=== PATIENT | female | born 1930 | race Caucasian/White ===

== ENCOUNTER → 2016-07-31 | Outpatient (CLI) | payer OTHER ==
[~2016-07-31] MED LIST: ALLO100T PO; AMIO200T4 PO; AMLO-110 PO; ATOR10TA88 PO; CETI10TA84 PO; CHOL1000 PO; CLBPO15 TOP; CLC6 PO; DICL1GEL12 TOP; EXLP46 TOP; EXLP95 TOP; FURO20TA PO; GLIP-197 PO; GLIP-199 PO; INSDGI SC; LATA0.5S OP; LEVO112T4 PO; LEVO88TA3 PO; LOSA1TAB PO; MECL1TAB40 PO; NTRGSL/4 UT; NVLG SQ; PRED-301 PO; PRED20TA PO; PRLSR20 PO; RIVA1.5T PO; TRAM-10 PO; TRMO2580 TOP; VNTHFA/IN INH
[2016-07-31 16:37] LABS: URINE APPEARANCE CLEAR (CLEAR); URINE BILIRUBIN NEG (NEG); URINE COLOR YELLOW; URINE NITRITE NEG (NEG); URINE SPECIFIC GRAVITY 1.017 (1.000-1.030); UROBILINOGEN NEG (NEG)
[2016-07-31 16:44] LABS: MANUAL MICROSCOPIC REQUIRED? NO; REVIEW REQ? NO
== END | disposition home or self-care (01) ==
LOC: C.LABSPEC 14:00
PROVIDERS: ATTEND Family Medicine
DX: R42 Dizziness and giddiness (principal)

== ENCOUNTER → 2016-09-20 | Outpatient (CLI) | payer OTHER ==
--- NOTE | 2016-09-20 10:42 | DIAGNOSTIC IMAGING REPORT ---
TWO VIEW CHEST CLINICAL HISTORY: Atrial fibrillation. FINDINGS: PA and lateral chest radiographs are obtained. No prior studies are available for comparison at the time of dictation. The examination is degraded by large body habitus. The heart is enlarged and there is atherosclerotic calcification of the thoracic aorta. The pulmonary vasculature is noncongested. Nonspecific interstitial thickening is noted. Bibasilar atelectasis is observed. No airspace consolidation is seen typical for pneumonia and there is no large pleural effusion. There is no pneumothorax. The skeletal structures are osteopenic. Degenerative changes noted throughout the thoracic spine. IMPRESSION: Cardiomegaly with no active disease in the chest. Electronically signed by: Dave Taylor M.D. 09/20/2016 10:41 AM Dictated Date/Time: 09/20/2016 10:40 AM
== END | disposition home or self-care (01) ==
LOC: C.RAD1850 10:22
PROVIDERS: ATTEND Internal Medicine Clinical Cardiac Electrophysiology
DX: I48.91 Unspecified atrial fibrillation (principal); I51.7 Cardiomegaly

== ENCOUNTER → 2016-10-17 | Outpatient (CLI) | payer OTHER ==
[~2016-10-17] MED LIST changes: +ATOR10TA82 PO; -ATOR10TA88 PO
[2016-10-17 18:17] LABS: ALKALINE PHOSPHATASE 92 U/L (45-117); ALT/SGPT 28 U/L (12-78); AST/SGOT 21 U/L (15-37)
[2016-10-18 06:53] LABS: ESTIMATED AVERAGE GLUCOSE 194 mg/dl; HA1C FLAG Normal (Normal)
== END | disposition home or self-care (01) ==
LOC: C.LABPBG 13:58
PROVIDERS: ATTEND Family Medicine
DX: E11.9 Type 2 diabetes mellitus without complications (principal); R51 Headache; F03.90 Unspecified dementia, unspecified severity, without behavioral disturbance, psychotic disturbance, mood disturbance, and anxiety

== ENCOUNTER → 2016-10-21 | Outpatient (CLI) | payer OTHER ==
[2016-10-25 22:36] LABS: ANTI-CENTROMERE AB <1.0 NEG AI (<1.0 NEG); ANTI-SS-A <1.0 NEG AI (<1.0 NEG); ANTI-SS-B <1.0 NEG AI (<1.0 NEG); DNA ds CRITHIDIA NEGATIVE (NEGATIVE); MICROSOMAL AB <1 IU/ML (<9); Sm Antibody <1.0 NEG AI (<1.0 NEG)
== END | disposition home or self-care (01) ==
LOC: C.LABPBG 11:46
PROVIDERS: ATTEND Psychiatry & Neurology Neurology
DX: M31.6 Other giant cell arteritis (principal)

== ENCOUNTER → 2016-10-24 | Outpatient (CLI) | payer OTHER ==
--- NOTE | 2016-10-24 12:54 | DIAGNOSTIC IMAGING REPORT ---
CT HEAD WITHOUT CONTRAST (CT) CLINICAL HISTORY: R51 New onset of headaches after age 52 COMPARISON STUDY: No previous studies for comparison. TECHNIQUE: Axial CT of the brain is performed from the vertex to the skull base. IV contrast was not administered for this examination. CT DOSE: 638.56 mGycm FINDINGS: No intra or extra-axial mass lesions are visualized. There is no CT evidence of acute cortical infarction. There is no evidence of midline shift. There is no acute hemorrhage. No calvarial fractures are visualized. There are minimal white matter hypodensities likely on a small vessel basis. There is no evidence of pathologic ventricular dilatation. There is no evidence of acute sinusitis IMPRESSION: Normal noncontrast head CT for age Electronically signed by: Artis Elizalde M.D. 10/24/2016 12:52 PM Dictated Date/Time: 10/24/2016 12:51 PM
== END | disposition home or self-care (01) ==
LOC: C.CTS 10:59
PROVIDERS: ATTEND Psychiatry & Neurology Neurology
DX: R51 Headache (principal)

== ENCOUNTER → 2016-10-29 | Outpatient (CLI) | payer OTHER ==
[~2016-10-29] MED LIST changes: +ACETAMINOPHEN 1000 MG/100 ML IV IV ONE
[2016-10-29 17:45] LABS: URINE APPEARANCE CLEAR (CLEAR); URINE BILIRUBIN NEG (NEG); URINE COLOR YELLOW; URINE NITRITE NEG (NEG); URINE PH 5.5 (4.5-7.5); URINE SPECIFIC GRAVITY 1.012 (1.000-1.030); UROBILINOGEN NEG (NEG)
[2016-10-29 17:47] LABS: MANUAL MICROSCOPIC REQUIRED? NO; REVIEW REQ? NO
== END | disposition home or self-care (01) ==
LOC: C.LABPBG 11:58
PROVIDERS: ATTEND Family Medicine
DX: R41.0 Disorientation, unspecified (principal)

== ENCOUNTER → 2016-10-31 | Day surgery (SDC) | payer OTHER ==
[2016-10-24 11:37] VITALS: BMI 34.0
--- NOTE | 2016-10-24 12:24 | PAT Medication Instructions ---
Service Date Oct 24, 2016. Current Home Medication List Albuterol Hfa (Ventolin Hfa), 2-4 PUFFS INH Q6H PRN for Shortness of Breath Allopurinol (Zyloprim), 100 MG PO QAM Amiodarone Hcl (Cordarone), 200 MG PO QAM Amlodipine (Norvasc), 5 MG PO QAM Atorvastatin (Lipitor), 10 MG PO QPM Cetirizine (Zyrtec), 10 MG PO DAILY PRN for PRN Cholecalciferol (Vitamin D3), 1 TAB PO QAM Clobetasol Propionate (Clobetasol Propionate), 1 APPLN TOP 2X WEEK PRN for PRN Colchicine (Colcrys), 1 TAB PO DAILY PRN for GOUT Glipizide (Glipizide Er), 1 TAB PO QAM Insulin Aspart (Novolog), 2-14 UNITS SQ AC PRN for SLIDING SCALE Insulin Glargine (Lantus), 24 UNITS SC QPM Latanoprost (Xalatan 0.005% Oph Catie), 1 DROPS OP HS Levothyroxine Sodium (Levothyroxine Sodium), 1 TAB PO QAM Losartan Potassium (Cozaar), 25 MG PO QAM Meclizine HCl (Meclizine HCl), 1 TAB PO TID PRN for DIZZY Nitroglycerin (Nitrostat), 0.4 MG UT PRN Omeprazole (Prilosec), 20 MG PO BID Prednisone (Prednisone), 20 MG PO TID Rivaroxaban (Xarelto), 15 MG PO QPM Rivastigmine Tartrate (Exelon), 1 PATCH TOP 2PM Triamcinolone Acetonide (Topic (Triamcinolone Acet 0.025%), 1 APPLN TOP BID PRN for HANDS Medication Instructions For Your Scheduled Surgery - Continue as directed: Nitroglycerin (Nitrostat), 0.4 MG UT PRN Rivastigmine Tartrate (Exelon), 1 PATCH TOP 2PM - Hold the following medications 2 days prior to surgery per surgeon and cardiology instructions: Rivaroxaban (Xarelto), 15 MG PO QPM - Hold the following medications 24 hours prior to surgery: Triamcinolone Acetonide (Topic (Triamcinolone Acet 0.025%), 1 APPLN TOP BID PRN for HANDS Clobetasol Propionate (Clobetasol Propionate), 1 APPLN TOP 2X WEEK PRN for PRN - Hold the following medications the morning of surgery: Insulin Aspart (Novolog), 2-14 UNITS SQ AC PRN for SLIDING SCALE Cetirizine (Zyrtec), 10 MG PO DAILY PRN for PRN Cholecalciferol (Vitamin D3), 1 TAB PO QAM Losartan Potassium (Cozaar), 25 MG PO QAM Glipizide (Glipizide Er), 1 TAB PO QAM - Take the following medications the morning of surgery with a sip of water: Albuterol Hfa (Ventolin Hfa), 2-4 PUFFS INH Q6H PRN for Shortness of Breath ( use if needed; BRING TO HOSPITAL) Prednisone (Prednisone), 20 MG PO TID Allopurinol (Zyloprim), 100 MG PO QAM Amiodarone Hcl (Cordarone), 200 MG PO QAM Amlodipine (Norvasc), 5 MG PO QAM Colchicine (Colcrys), 1 TAB PO DAILY PRN for GOUT Omeprazole (Prilosec), 20 MG PO BID Levothyroxine Sodium (Levothyroxine Sodium), 1 TAB PO QAM Meclizine HCl (Meclizine HCl), 1 TAB PO TID PRN for DIZZY - Take the following medications as scheduled the night before surgery: Albuterol Hfa (Ventolin Hfa), 2-4 PUFFS INH Q6H PRN for Shortness of Breath Insulin Glargine (Lantus), 24 UNITS SC QPM Latanoprost (Xalatan 0.005% Oph Catie), 1 DROPS OP HS Insulin Aspart (Novolog), 2-14 UNITS SQ AC PRN for SLIDING SCALE Prednisone (Prednisone), 20 MG PO TID Colchicine (Colcrys), 1 TAB PO DAILY PRN for GOUT Atorvastatin (Lipitor), 10 MG PO QPM Omeprazole (Prilosec), 20 MG PO BID Meclizine HCl (Meclizine HCl), 1 TAB PO TID PRN for DIZZY If you have any questions please call us at [phone] or [phone] or [phone]
[2016-10-24 12:44] LABS: BASO % 0.1 %; BASO ABS # 0.01 K/uL (0-0.2); COMPLETE YES; EOS % 0.1 %; HEMATOCRIT 34.6 % (37-47); IG% 0.3 %; LYMPH % 15.5 %; LYMPH ABS # 2.35 K/uL (1.2-3.4); MEAN CORPUSCULAR HEMOGLOBIN 25.5 pg (25-34); MEAN CORPUSCULAR HGB CONC 31.5 g/dl (32-36); MEAN PLATELET VOLUME 9.3 fL (7.4-10.4); MONO % 9.3 %; NEUT % 74.7 %; PLATELET COUNT 368 K/uL (130-400); RED BLOOD COUNT 4.27 M/uL (4.2-5.4); WHITE BLOOD COUNT 15.12 K/uL (4.8-10.8)
[2016-10-24 13:30] LABS: CALCIUM 9.9 mg/dl (8.5-10.1)
[2016-10-24 13:34] LABS: BUN/CREATININE RATIO 29.6 (10-20); CREATININE 1.5 mg/dl (0.60-1.20); POTASSIUM 4.8 mmol/L (3.5-5.1)
[~2016-10-31] VITALS: Ht 160 cm; Wt 89.3 kg
[~2016-10-31] MED LIST changes: -ACETAMINOPHEN 1000 MG/100 ML IV IV ONE; +ACETAMINOPHEN IV 1000MG/100ML IV SCH; +ATROPINE SULFATE 0.1 MG/ML 5ML SYR IV PRN; +BUPIVACAINE 0.5 % 5 MG/1 ML MPF 30ML VIAL ONE; +CEFAZOLIN 2000 MG/60 ML D5W IV SCH; +EpHEDrine SULFATE INJ 50 MG/ML AMP IV PRN; +FENTANYL CITRATE INJ 50 MCG/1 ML 2 ML VIAL IV PRN; +HYDROmorphone INJ 1 MG/ML SYR IV PRN; +LABETALOL HCL IV 5 MG/ML 20ML IV PRN; +LACTATED RINGER'S 1000ML 1,000 ML IV SCH; +LACTATED RINGER'S 1000ML 500 ML IV ONE; +LIDOCAINE HCL 1% 20 ML VIAL ONE; +MEPERIDINE HCL 25 MG/ML CARP IV PRN; +MIDAZOLAM HCL 1 MG/ML 2ML VIAL ONE; +NURSING VERBAL MED ORDER ONE; +ONDANSETRON INJ 2 MG/ML 2 ML VIAL IV PRN; +PROPOFOL IV EMULSION 10 MG/ML 20 ML VIAL IV ONE; +SODIUM CHLORIDE 0.9% 1000ML 1,000 ML IV SCH
[2016-10-31 05:39] VITALS: BP 174/73; PULSE 70; TEMP 36.8; O2SAT 96; Ht 160 cm; Wt 89.3 kg
--- NOTE | 2016-10-31 06:56 | History & Physical Bridge Note ---
H&P Re-Evaluation Bridge Note: I have examined the patient, reviewed the History & Physical and in the interval since the performance of the History & Physical I have noted the following changes of clinical significance: No changes noted
--- NOTE | 2016-10-31 08:01 | [facility] Operative Report ---
Operative Report Operative Date Oct 31, 2016. Pre-Operative Diagnosis Headaches Post-Operative Diagnosis same Procedure(s) Performed right temporal artery biopsy Surgeon Dr. Basurto Jig Fitter Surgeon(s) Candy Henao-PAC Estimated Blood Loss 10 ml Findings normal anatomy Specimens A: Right temporal Artery Anesthesia mac with local marcaine Complication(s) None Disposition Recovery Room / PACU I attest to the content of the Intraoperative Record and any orders documented therein. Any exceptions are noted below.
--- NOTE | 2016-10-31 08:04 | Discharge Instructions ---
Discharge Instructions Date of Service Oct 31, 2016. Admission Reason for Admission: Headache, Iddm, Chronic Kidney Disease Discharge Discharge Diagnosis / Problem: Headache, Iddm, Chronic Kidney Disease Discharge Goals Goal(s): Decrease discomfort, Improve function Activity Recommendations Activity Limitations: as noted below Lifting Limitations: no more than 10 pounds Exercise/Sports Limitations: until after follow-up appointment May Resume Sexual Activity: after follow-up appointment Shower/Bathe: tomorrow . Instructions / Follow-Up Instructions / Follow-Up Patient can resume Xarelto tomorrow, 11/01/2016. For pain, patient can use over the counter pain medication- Tylenol. Please follow-up in the office with Dr. Basurto in 1-2 weeks. Call to make an appointment. Any questions or concerns please call the office at [phone]. Current Hospital Diet Patient's current hospital diet: Discharge Diet Recommended Diet: Regular Diet Procedures Procedures Performed: Right Temporal Artery Biopsy Pending Studies Studies pending at discharge: yes List of pending studies: Pathology report. Laboratory Results Hemoglobin A1c Test 10/17/16 14:02 Range/Units Estimated Average Glucose 194 mg/dl Hemoglobin A1c 8.4 H 4.5-5.6 % Medical Emergencies . Who to Call and When: Medical Emergencies: If at any time you feel your situation is an emergency, please call 911 immediately. . Non-Emergent Contact Non-Emergency issues call your: Primary Care Provider, Surgeon Call Non-Emergent contact if: temperature is above 101.5, your pain is not controlled, wound has increased drainage, wound has increased redness . "Provider Documentation" section prepared by Candy Henao. . VTE Core Measure Inpt VTE Proph given/why not?: SCD's
--- NOTE | 2016-10-31 08:38 | Anesthesiology Progress Note ---
Anesthesia Post Op Note Date & Time Oct 31, 2016 at 08:38 Vital Signs Pain Intensity: 10 Vital Signs Past 12 Hours Date Time Temp Pulse Resp B/P Pulse Ox O2 Delivery O2 Flow Rate FiO2 10/31/16 08:25 65 17 161/55 95 Room Air 10/31/16 08:15 65 20 172/59 94 Room Air 10/31/16 08:05 65 19 166/47 95 Room Air 10/31/16 07:59 36.5 64 24 138/57 95 Room Air 10/31/16 05:39 36.8 70 18 174/73 96 Room Air Notes Mental Status: alert / awake / arousable, participated in evaluation Pt Amnestic to Procedure: Yes Nausea / Vomiting: adequately controlled Pain: adequately controlled Airway Patency, RR, SpO2: stable & adequate BP & HR: stable & adequate Hydration State: stable & adequate Anesthetic Complications: no major complications apparent
--- NOTE | 2016-10-31 08:39 | OPERATIVE REPORT ---
DATE OF OPERATION: 10/31/2016 PREOPERATIVE DIAGNOSES: Headaches and claudication, rule out giant cell arteritis. POSTOPERATIVE DIAGNOSES: Same. PROCEDURE: Right temporal artery biopsy. SURGEON: Scotty Basurto DO ENFORCEMENT SAFETY OFFICER: Candy Henao PA-C ESTIMATED BLOOD LOSS: Approximately 10 mL. COMPLICATIONS: No immediate. ANESTHESIA: MAC with local Marcaine. DESCRIPTION OF PROCEDURE: After informed consent was obtained, the patient taken to the operating suite, placed in supine position. IV sedation was administered by anesthesia and titrated to effect. After adequate sedation was obtained, the right temporal area was shaved and sterilely prepped and draped in usual fashion. We used an on-table Doppler to ora out the course of the temporal artery. We then made a field block around the area with plain Marcaine. I then used a 15 blade scalpel was used to make an incision directly over the artery itself. We dissected down through the soft tissue using primarily blunt dissection with hemostats. Once we identified the artery, I was able to clamp it proximally and distally, taking about an inch or so of the artery. We cut the artery and tied off the ends using 3-0 silk with double ties on each end. We then passed off the specimen. We irrigated the wound. There was adequate hemostasis at the end of the procedure. We then closed the wound using 5-0 Monocryl in running subcuticular fashion. Dermabond glue was used as a dressing. The patient was awakened and transferred to recovery in stable condition. I attest to the content of the Intraoperative Record and any orders documented therein. Any exceptio ns are noted below.
[2016-10-31 08:43] VITALS: BP 180/67; PULSE 64; TEMP 36.6; O2SAT 94
[2016-10-31 09:13] VITALS: BP 192/80; PULSE 66; TEMP 36.8; O2SAT 94
[2016-10-31 09:43] VITALS: BP 199/84; PULSE 68; TEMP 36.6; O2SAT 96
== END | disposition home or self-care (01) ==
LOC: C.ACU 05:08
PROVIDERS: ATTEND Surgery
DX: R51 Headache (principal); I73.9 Peripheral vascular disease, unspecified; K21.9 Gastro-esophageal reflux disease without esophagitis; N18.3 Chronic kidney disease, stage 3 (moderate); I25.10 Atherosclerotic heart disease of native coronary artery without angina pectoris; F03.90 Unspecified dementia, unspecified severity, without behavioral disturbance, psychotic disturbance, mood disturbance, and anxiety; E11.9 Type 2 diabetes mellitus without complications; E78.5 Hyperlipidemia, unspecified; I10 Essential (primary) hypertension; Z79.01 Long term (current) use of anticoagulants; Z90.49 Acquired absence of other specified parts of digestive tract; Z82.49 Family history of ischemic heart disease and other diseases of the circulatory system; Z80.1 Family history of malignant neoplasm of trachea, bronchus and lung; Z83.6 Family history of other diseases of the respiratory system; Z80.0 Family history of malignant neoplasm of digestive organs

== ENCOUNTER → 2016-11-05 | Outpatient (CLI) | payer OTHER ==
[~2016-11-05] MED LIST changes: -ACETAMINOPHEN IV 1000MG/100ML IV SCH; -ATROPINE SULFATE 0.1 MG/ML 5ML SYR IV PRN; -BUPIVACAINE 0.5 % 5 MG/1 ML MPF 30ML VIAL ONE; -CEFAZOLIN 2000 MG/60 ML D5W IV SCH; -EpHEDrine SULFATE INJ 50 MG/ML AMP IV PRN; -FENTANYL CITRATE INJ 50 MCG/1 ML 2 ML VIAL IV PRN; -HYDROmorphone INJ 1 MG/ML SYR IV PRN; -LABETALOL HCL IV 5 MG/ML 20ML IV PRN; -LACTATED RINGER'S 1000ML 1,000 ML IV SCH; -LACTATED RINGER'S 1000ML 500 ML IV ONE; -LEVO88TA3 PO; -LIDOCAINE HCL 1% 20 ML VIAL ONE; -MEPERIDINE HCL 25 MG/ML CARP IV PRN; -MIDAZOLAM HCL 1 MG/ML 2ML VIAL ONE; -NURSING VERBAL MED ORDER ONE; -ONDANSETRON INJ 2 MG/ML 2 ML VIAL IV PRN; -PROPOFOL IV EMULSION 10 MG/ML 20 ML VIAL IV ONE; -SODIUM CHLORIDE 0.9% 1000ML 1,000 ML IV SCH
[2016-11-05 16:12] LABS: C-REACTIVE PROTEIN 0.48 mg/dl (0-0.29); RHEUMATOID FACTOR < 10.0 U/mL (0-15)
[2016-11-07 17:33] LABS: ALBUMIN 3.9 G/DL (3.8-4.8); GAMMA GLOBULIN 0.7 G/DL (0.8-1.7); TOTAL PROTEIN 7.3 G/DL (6.2-8.3)
== END | disposition home or self-care (01) ==
LOC: C.LAB1850 14:48
PROVIDERS: ATTEND Internal Medicine Rheumatology
DX: M31.6 Other giant cell arteritis (principal); R76.8 Other specified abnormal immunological findings in serum

== ENCOUNTER → 2016-11-25 | Outpatient (CLI) | payer OTHER ==
[2016-11-25 17:31] LABS: BASO % 0.2 %; BASO ABS # 0.02 K/uL (0-0.2); COMPLETE YES; EOS % 0.7 %; IG% 0.3 %; LYMPH % 21.2 %; MEAN CELL VOLUME 84.8 fL (80-100); MEAN CORPUSCULAR HEMOGLOBIN 25.9 pg (25-34); MEAN CORPUSCULAR HGB CONC 30.6 g/dl (32-36); MEAN PLATELET VOLUME 9.8 fL (7.4-10.4); MONO % 5.9 %; NEUT % 71.7 %; PLATELET COUNT 288 K/uL (130-400); RED BLOOD COUNT 4.01 M/uL (4.2-5.4); WHITE BLOOD COUNT 8.96 K/uL (4.8-10.8)
[2016-11-25 18:10] LABS: C-REACTIVE PROTEIN 0.76 mg/dl (0-0.29)
== END | disposition home or self-care (01) ==
LOC: C.LABPBG 15:00
PROVIDERS: ATTEND Internal Medicine Rheumatology
DX: M31.6 Other giant cell arteritis (principal); M35.1 Other overlap syndromes

== ENCOUNTER → 2016-12-30 | Outpatient (CLI) | payer OTHER | END | disposition home or self-care (01) | LOC: C.LABPBG 07:44 | PROVIDERS: ATTEND Internal Medicine Rheumatology | DX: M31.6 Other giant cell arteritis (principal); M35.1 Other overlap syndromes; R70.0 Elevated erythrocyte sedimentation rate ==

== ENCOUNTER 2017-01-01 21:37 | Inpatient (IN) | payer OTHER ==
[~2017-01-01] VITALS: Ht 160 cm; Wt 91.4 kg
[~2017-01-01 21:37] MED LIST changes: -DICL1GEL12 TOP; -EXLP46 TOP; -FURO20TA PO; -GLIP-199 PO; -PRED-301 PO; -TRAM-10 PO
[2017-01-01 21:54] LABS: BASO % 0.1 %; BASO ABS # 0.01 K/uL (0-0.2); COMPLETE YES; HEMATOCRIT 34.8 % (37-47); IG% 0.4 %; LYMPH ABS # 2.18 K/uL (1.2-3.4); MEAN CELL VOLUME 83.1 fL (80-100); MEAN CORPUSCULAR HEMOGLOBIN 25.3 pg (25-34); MEAN CORPUSCULAR HGB CONC 30.5 g/dl (32-36); MONO % 6.4 %; NEUT % 66.1 %; PLATELET COUNT 326 K/uL (130-400); RED BLOOD COUNT 4.19 M/uL (4.2-5.4); WHITE BLOOD COUNT 8.38 K/uL (4.8-10.8)
[2017-01-01] MEDS ORDERED: NITROGLYCERIN OINT 2% 1GM PACKET EXT ONE (22:00)
[2017-01-01 22:03] LABS: INR 1.2 (0.9-1.1); PARTIAL THROMBOPLASTIN RATIO 1.2; PROTHROMBIN TIME (PATIENT) 13.4 SECONDS (9.0-12.0)
[2017-01-01] MEDS ORDERED: GLIP-197 PO (22:10)
[2017-01-01] MEDS ORDERED: EXLP46 TOP (22:17)
[2017-01-01 22:19] LABS: BLOOD UREA NITROGEN 30 mg/dl (7-18); BUN/CREATININE RATIO 16.6 (10-20); CALCIUM 9.2 mg/dl (8.5-10.1); CARBON DIOXIDE 28 mmol/L (21-32); CHLORIDE 106 mmol/L (98-107); GLUCOSE 185 mg/dl (70-99); POTASSIUM 4.1 mmol/L (3.5-5.1); SODIUM 140 mmol/L (136-145)
--- NOTE | 2017-01-01 23:06 | DIAGNOSTIC IMAGING REPORT ---
CHEST ONE VIEW PORTABLE HISTORY: Atypical chest pain. COMPARISON: Chest 09/20/2016. FINDINGS: The heart remains borderline enlarged. The lungs are clear. No pleural effusions. No pneumothorax. IMPRESSION: No significant change compared to the prior study. No acute process. Electronically signed by: Vinicius Francois M.D. 01/01/2017 11:05 PM Dictated Date/Time: 01/01/2017 11:04 PM
--- NOTE | 2017-01-01 23:32 | EMERGENCY ROOM VISIT NOTE ---
History Report prepared by Georgina: Lydia Kay Under the Supervision of: Dr. Saturnino Allen M.D. First contact with patient: 21:40 Chief Complaint: CHEST PAIN Stated Complaint: CHEST PAIN, UPPER GASTRIC PAIN, SOB History of Present Illness The patient is an 86 year old female who presents to the Emergency Room with complaints of chest pain starting 1999 today. She presents to the ED by EMS. She describes the pain as a pressure that goes across her entire chest. She was given 3 nitro in route which has almost completely resolved her pain. She had some SOB and diaphoresis. She denies any nausea, fever, cold symptoms, or abdominal pain. She has had a cholecystectomy. She has a stent in place. She is on Xarelto. She denies any history of blood clots or artificial valve placement. Source of History: patient Onset: 1999 Position: chest Quality: pressure Timing: resolved Modifying Factors (Relieving): other (nitro) Associated Symptoms: + diaphoresis, + SOB, No fevers, No nausea, No abdominal pain Note: Pt denies cold symptoms. Review of Systems See HPI for pertinent positives & negatives. A total of 10 systems reviewed and were otherwise negative. Past Medical & Surgical Medical Problems: (1) Chronic back pain (2) Diabetes mellitus (3) GERD (gastroesophageal reflux disease) (4) Hypertension (5) Hypothyroidism Surgical Problems: (1) History of heart artery stent Family History Diabetes mellitus Hypertension Social History Smoking Status: Never Smoker Marital Status: Occupation Status: retired Current/Historical Medications Scheduled Allopurinol (Zyloprim), 100 MG PO QAM Amiodarone Hcl (Cordarone), 200 MG PO QAM Amlodipine (Norvasc), 10 MG PO QAM Atorvastatin (Lipitor), 10 MG PO QPM Cholecalciferol (Vitamin D3), 1 TAB PO QAM Glipizide (Glipizide Er), 1 TAB PO QAM Glipizide (Glipizide Er), 2.5 TAB PO QPM Insulin Glargine (Lantus), 20 UNITS SC QPM Latanoprost (Xalatan 0.005% Oph Catie), 1 DROPS OP HS Levothyroxine Sodium (Levothyroxine Sodium), 1 TAB PO DAILY Losartan Potassium (Cozaar), 25 MG PO QPM Nitroglycerin (Nitrostat), 0.4 MG UT PRN Omeprazole (Prilosec), 20 MG PO BID Prednisone (Prednisone), 10 MG PO QAM Rivaroxaban (Xarelto), 15 MG PO QPM Rivastigmine Tartrate (Exelon), 4.6 MG TOP DAILY Scheduled PRN Albuterol Hfa (Ventolin Hfa), 2-4 PUFFS INH Q6H PRN for Shortness of Breath Cetirizine (Zyrtec), 10 MG PO DAILY PRN for PRN Clobetasol Propionate (Clobetasol Propionate), 1 APPLN TOP 2X WEEK PRN for PRN Colchicine (Colcrys), 1 TAB PO DAILY PRN for GOUT Insulin Aspart (Novolog), UNITS SQ TIDM PRN for SLIDING SCALE Meclizine HCl (Meclizine HCl), 1 TAB PO TID PRN for DIZZY Triamcinolone Acetonide (Topic (Triamcinolone Acet 0.025%), 1 APPLN TOP BID PRN for HANDS Allergies Coded Allergies: Diclofenac (Verified Allergy, Unknown, UNSURE, 10/31/16) Metformin (Verified Adverse Reaction, Mild, DIARRHEA, 10/31/16) Methadone (Verified Adverse Reaction, Mild, DIZZY, 10/31/16) Morphine and Related (Verified Adverse Reaction, Mild, HALLUCINATION, 10/31) Promethazine (Verified Adverse Reaction, Mild, SEIZURE LIKE ACTIVITY", ) Troglitazone (Verified Adverse Reaction, Mild, INCREASE LFTs, 10/31/16) Uncoded Allergies: NECTARINE (Allergy, Mild, HIVES, 10/24/16) SENSITIVE TO NARCOTICS (Allergy, Unknown, 12/27/02) Physical Exam Vital Signs Date Time Temp Pulse Resp B/P (MAP) Pulse Ox O2 Delivery O2 Flow Rate FiO2 01/01/17 23:23 63 18 148/60 96 Room Air 01/01/17 21:49 96 Room Air 01/01/17 21:47 72 01/01/17 21:46 36.7 68 18 139/58 96 Room Air Physical Exam Constitutional: Vital signs reviewed. Eyes: Pupils are equal round reactive to light. Conjunctiva are noninjected. ENT: Pharynx is clear without erythema or exudate. Mucous membranes are moist. Neck supple without meningeal signs. Respiratory: Clear to auscultation bilaterally. Breath sounds are equal bilaterally. Cardiovascular: Regular rate and rhythm. No rubs or gallops. GI: Soft, nondistended and nontender. Bowel sounds are present. Musculoskeletal: No peripheral edema. No lower extremity tenderness. Integumentary: No cyanosis. Neurological: The patient is awake and alert. No focal deficits. Psychiatric: Normal affect. Medical Decision & Procedures ER Provider Diagnostic Interpretation: X-ray results as stated below per interpretation by me: Chest X-ray: No acute cardiopulmonary process. Laboratory Results 01/01/17 21:05 Red Blood Count 4.19, Mean Corpuscular Volume 83.1, Mean Corpuscular Hemoglobin 25.3, Mean Corpuscular Hemoglobin Concent 30.5, Mean Platelet Volume 10.0, Neutrophils (%) (Auto) 66.1, Lymphocytes (%) (Auto) 26.0, Monocytes (%) (Auto) 6.4, Eosinophils (%) (Auto) 1.0, Basophils (%) (Auto) 0.1, Neutrophils # (Auto) 5.54, Lymphocytes # (Auto) 2.18, Monocytes # (Auto) 0.54, Eosinophils # (Auto) 0.08, Basophils # (Auto) 0.01 01/01/17 21:05 Test 01/01/17 21:05 White Blood Count 8.38 K/uL (4.8-10.8) Red Blood Count 4.19 M/uL (4.2-5.4) Hemoglobin 10.6 g/dL (12.0-16.0) Hematocrit 34.8 % (37-47) Mean Corpuscular Volume 83.1 fL (80-100) Mean Corpuscular Hemoglobin 25.3 pg (25-34) Mean Corpuscular Hemoglobin Concent 30.5 g/dl (32-36) Platelet Count 326 K/uL (130-400) Mean Platelet Volume 10.0 fL (7.4-10.4) Neutrophils (%) (Auto) 66.1 % Lymphocytes (%) (Auto) 26.0 % Monocytes (%) (Auto) 6.4 % Eosinophils (%) (Auto) 1.0 % Basophils (%) (Auto) 0.1 % Neutrophils # (Auto) 5.54 K/uL (1.4-6.5) Lymphocytes # (Auto) 2.18 K/uL (1.2-3.4) Monocytes # (Auto) 0.54 K/uL (0.11-0.59) Eosinophils # (Auto) 0.08 K/uL (0-0.5) Basophils # (Auto) 0.01 K/uL (0-0.2) RDW Standard Deviation 49.0 fL (36.4-46.3) RDW Coefficient of Variation 16.1 % (11.5-14.5) Immature Granulocyte % (Auto) 0.4 % Immature Granulocyte # (Auto) 0.03 K/uL (0.00-0.02) Prothrombin Time 13.4 SECONDS (9.0-12.0) Prothromb Time International Ratio 1.2 (0.9-1.1) Activated Partial Thromboplast Time 30.6 SECONDS (21.0-31.0) Partial Thromboplastin Ratio 1.2 Anion Gap 6.0 mmol/L (3-11) Est Creatinine Clear Calc Drug Dose 25.6 ml/min Estimated GFR () 29.4 Estimated GFR (Non- 25.4 BUN/Creatinine Ratio 16.6 (10-20) Calcium Level 9.2 mg/dl (8.5-10.1) Troponin I < 0.015 ng/ml (0-0.045) Laboratory results as reviewed by me. Medications Administered Medications (Trade) Dose Ordered Sig/Shilpa Route Start Time Stop Time Status Last Admin Dose Admin Nitroglycerin (Nitroglycerin 2% Oint) 0.5 inch NOW ONCE EXT 01/01/17 22:00 01/01/17 22:01 DC 01/01/17 22:04 0.5 INCH ECG Indication: chest pain, diaphoresis, SOB/dyspnea Rate (beats per minute): 72 Rhythm: normal sinus Findings: 1st degree AV block, other (nonspecifit ST and T wave changes in high lateral leads) ED Course 2141: The patient was evaluated in room C9. A complete history and physical exam was performed. 0: Nitroglycerin 0.5 inch EXT. 2244: I reevaluated the patient. She has no chest pain at this time. I discussed the test results and treatment plan with her and her daughter. They verbalized understanding and agreement. She will be evaluated for further management. []: I spoke with Dr. Luis of [facility] hospitalist service. We discussed the patient and her results. The patient will be further evaluated by him. Medical Decision This is an 86-year-old female presents with chest pain. Differential diagnosis includes unstable angina, AL, pleurisy, pneumonia, pulmonary embolism. I did perform a limited focused review of portions of the patient's old chart on the electronic medical record. The patient has had no recent pertinent visits to this hospital. Medication Reconciliation: I attest that I have personally reviewed the patient' s current medication list. Blood Pressure Screening: Patient was found to have a slightly elevated blood pressure due to circumstances. I do not believe that the patient requires hypertension monitoring. I did evaluate the patient as noted above. The patient was placed on a continuous enrollment clerk. The patient was given nitroglycerin in the ambulance. She has minimal pain at this time and was given nitroglycerin paste 0.5 inches. She states she cannot have aspirin as she is on Xarelto. She is not sure why she is on a blood thinner. I did order and personally review the patient's 12-lead EKG and chest x-ray as described above. I did order and review the patient's blood work as noted in the electronic medical record. Troponin is negative. Creatinine is elevated and she is anemic. I did reassess the patient. She is feeling better and has no chest pain at this time. I did discuss the test results with the patient and her daughter. She does have a history of cardiac stent and given her history and risk factors I did feel she should be hospitalized for repeat cardiac enzymes and further evaluation. I did discuss case with the residential case manager. The hospitalist was informed of the patient. Consults Time Called: [id number] Consulting Physician: Dr. Luis of [facility] hospitalist service I spoke with him. We discussed the patient and her results. The patient will be further evaluated by him. Impression Primary Impression: Acute chest pain Additional Impressions: Elevated serum creatinine Anemia, unspecified Scribe Attestation The scribe's documentation has been prepared under my direct and personally reviewed by me in its entirety. I confirm that the note above accurately reflects all work, treatment, procedures, and medical decision making performed by me. Departure Information Dispostion Being Evaluated By Hospitalist Referrals Katina Yang DO (PCP) Patient Instructions My [facility] Health Problem Qualifiers
[2017-01-02] MEDS ORDERED: GLUCOSE 10 TABS/TUBE PO PRN (00:30)
[2017-01-02] MEDS ORDERED: ALBUTEROL HFA 8 GM INHALER INH PRN (00:30)
[2017-01-02] MEDS ORDERED: ACETAMINOPHEN 325 MG TAB PO PRN (00:30)
[2017-01-02] MEDS ORDERED: TRIAMCINOLONE ACET 0.025% CR 15 GM TUBE TOP PRN (00:30)
[2017-01-02] MEDS ORDERED: GLUCOSE 40% GEL 15 GM TUBE PO PRN (00:30)
[2017-01-02] MEDS ORDERED: ONDANSETRON INJ 2 MG/ML 2 ML VIAL IV PRN (00:30)
[2017-01-02] MEDS ORDERED: GLUCAGON FOR INJ 1 MG VIAL SQ PRN (00:30)
[2017-01-02] MEDS ORDERED: NITROGLYCERIN 0.4 MG SL PER TAB CHARGE SL PRN (00:30)
[2017-01-02] MEDS ORDERED: DEXTROSE 50% 50 ML SYR IV PRN (00:30)
[2017-01-02] MEDS ORDERED: CETIRIZINE HCL 10 MG TAB PO PRN (00:30)
[2017-01-02] MEDS ORDERED: CLOBETASOL PROPIONATE 0.05% OINT 15 GM TUBE EXT PRN (00:30)
[2017-01-02] MEDS ORDERED: MECLIZINE HCL 12.5 MG TAB PO PRN (00:30)
[2017-01-02] MEDS ORDERED: INSULIN GLARGINE SOLOSTAR 100 UNITS/ML 3 ML PEN SC ONE (00:30)
[2017-01-02 01:00] VITALS: BP 177/68; PULSE 73; TEMP 36.8; O2SAT 98; Ht 160 cm; Wt 91.4 kg
[2017-01-02 01:16] LABS: CKMB/CK RATIO 3.1 (0-3.0)
[2017-01-02 04:03] VITALS: BP 150/53; PULSE 71; TEMP 37; O2SAT 93
--- NOTE | 2017-01-02 04:27 | History and Physical ---
History & Physical Date & Time of Service: Jan 02, 2017 at 04:17. The patient was examined on 01/01/2017. Chief Complaint: Acute Chest Pain, Stented Coronary Artery Primary Care Physician: Katina Yang DO History of Present Illness Source: patient, family The patient is an 86-year-old female who is brought to the emergency department by EMS due to chest pain that began around 2000 hrs. today. She experiences this as a pressure across her entire chest that was almost completely relieved by 3 nitroglycerin given in route. She did have some shortness of breath and sweats associated and also some brief nausea, but did not have vomiting, abdominal pain or fevers or chills. She did have a cardiac catheterization on 02/15/[address] Lopez at [facility], and had a stent placed in the RCA and in the LAD. Her daughter reports that she has still not had much energy since the time of the catheterization. The pain that she had in 2014 was up higher across her chest. Past Medical/Surgical History Medical Problems: (1) Chronic back pain Status: Chronic (2) Diabetes mellitus Status: Chronic (3) GERD (gastroesophageal reflux disease) Status: Chronic (4) Hypertension Status: Chronic (5) Hypothyroidism Status: Chronic Surgical Problems: (1) History of heart artery stent Status: Resolved Family History Diabetes mellitus Hypertension Social History Smoking Status: Never Smoker Smokeless Tobacco Use: No Alcohol Use: none Drug Use: none Marital Status: Occupational Status: retired Multi-Drug Resistant Organisms History of MDRO: No Allergies Coded Allergies: Diclofenac (Verified Allergy, Unknown, UNSURE, 10/31/16) Metformin (Verified Adverse Reaction, Mild, DIARRHEA, 10/31/16) Methadone (Verified Adverse Reaction, Mild, DIZZY, 10/31/16) Morphine and Related (Verified Adverse Reaction, Mild, HALLUCINATION, 10/31) Promethazine (Verified Adverse Reaction, Mild, SEIZURE LIKE ACTIVITY", ) Troglitazone (Verified Adverse Reaction, Mild, INCREASE LFTs, 10/31/16) Uncoded Allergies: NECTARINE (Allergy, Mild, HIVES, 10/24/16) SENSITIVE TO NARCOTICS (Allergy, Unknown, 12/27/02) Home Medications Scheduled Allopurinol (Zyloprim), 100 MG PO QAM Amiodarone Hcl (Cordarone), 200 MG PO QAM Amlodipine (Norvasc), 10 MG PO QAM Atorvastatin (Lipitor), 10 MG PO QPM Cholecalciferol (Vitamin D3), 1 TAB PO QAM Glipizide (Glipizide Er), 1 TAB PO QAM Glipizide (Glipizide Er), 2.5 TAB PO QPM Insulin Glargine (Lantus), 20 UNITS SC QPM Latanoprost (Xalatan 0.005% Oph Catie), 1 DROPS OP HS Levothyroxine Sodium (Levothyroxine Sodium), 1 TAB PO DAILY Losartan Potassium (Cozaar), 25 MG PO QPM Nitroglycerin (Nitrostat), 0.4 MG UT PRN Omeprazole (Prilosec), 20 MG PO BID Prednisone (Prednisone), 10 MG PO QAM Rivaroxaban (Xarelto), 15 MG PO QPM Rivastigmine Tartrate (Exelon), 4.6 MG TOP DAILY Scheduled PRN Albuterol Hfa (Ventolin Hfa), 2-4 PUFFS INH Q6H PRN for Shortness of Breath Cetirizine (Zyrtec), 10 MG PO DAILY PRN for PRN Clobetasol Propionate (Clobetasol Propionate), 1 APPLN TOP 2X WEEK PRN for PRN Colchicine (Colcrys), 1 TAB PO DAILY PRN for GOUT Insulin Aspart (Novolog), UNITS SQ TIDM PRN for SLIDING SCALE Meclizine HCl (Meclizine HCl), 1 TAB PO TID PRN for DIZZY Triamcinolone Acetonide (Topic (Triamcinolone Acet 0.025%), 1 APPLN TOP BID PRN for HANDS Review of Systems The patient denies palpitations, cough, lower extremity swelling, sore throat, fevers, chills, sweats, weight change, vomiting, abdominal pain, pelvic pain, blood in urine or stool, dysuria, urinary frequency or urgency, lightheadedness , dizziness, headache, memory loss, rash, abnormal bruising or bleeding, imbalance, focal or generalized weakness, numbness or tingling in arms or legs, arthralgias or myalgias, back or neck pain, night sweats, or allergy symptoms. The review of systems is otherwise negative other than for that already noted above, and at least 10 systems have been reviewed. Physical Exam Vital Signs Date Time Temp Pulse Resp B/P (MAP) Pulse Ox O2 Delivery O2 Flow Rate FiO2 01/02/17 04:03 37.0 71 19 150/53 (85) 93 Room Air 01/02/17 04:00 Room Air 01/02/17 01:00 36.8 73 18 177/68 98 Room Air 01/02/17 00:45 62 18 137/68 96 01/01/17 23:23 63 18 148/60 96 Room Air 01/01/17 21:49 96 Room Air 01/01/17 21:47 72 01/01/17 21:46 36.7 68 18 139/58 96 Room Air The patient is awake, well-developed and adequately nourished, alert and oriented 3, normocephalic and atraumatic, lying in bed and in no acute distress. HEENT--PERRL, EOMI, mucous membranes and oropharynx normal. Neck--supple, no JVD or bruits, thyroid normal, trachea midline, no adenopathy. Heart--normal S1 and S2, no extra beats, no murmurs, rubs or gallops. Lungs--a few faint crackles at the bases bilaterally, no respiratory distress, no accessory muscle use. Abdomen--normal bowel sounds and soft, nontender and nondistended, no hernias or masses, no organomegaly. Extremities--no cyanosis, clubbing or edema. There are good distal pulses b/l. Dermatologic--normal skin turgor, normal color, warm and dry, no abnormal lymph nodes, no rash. Neurologic--cranial nerves II through XII grossly intact. Rheumatologic--normal range of motion, nontender, muscles and joints. Psychiatric--normal affect. Diagnostics Laboratory Results Results Past 24 Hours Test 01/01/17 21:05 01/02/17 00:48 01/02/17 01:12 Range/Units White Blood Count 8.38 4.8-10.8 K/uL Red Blood Count 4.19 4.2-5.4 M/uL Hemoglobin 10.6 12.0-16.0 g/dL Hematocrit 34.8 37-47 % Mean Corpuscular Volume 83.1 80-100 fL Mean Corpuscular Hemoglobin 25.3 25-34 pg Mean Corpuscular Hemoglobin Concent 30.5 32-36 g/dl Platelet Count 326 130-400 K/uL Mean Platelet Volume 10.0 7.4-10.4 fL Neutrophils (%) (Auto) 66.1 % Lymphocytes (%) (Auto) 26.0 % Monocytes (%) (Auto) 6.4 % Eosinophils (%) (Auto) 1.0 % Basophils (%) (Auto) 0.1 % Neutrophils # (Auto) 5.54 1.4-6.5 K/uL Lymphocytes # (Auto) 2.18 1.2-3.4 K/uL Monocytes # (Auto) 0.54 0.11-0.59 K/uL Eosinophils # (Auto) 0.08 0-0.5 K/uL Basophils # (Auto) 0.01 0-0.2 K/uL RDW Standard Deviation 49.0 36.4-46.3 fL RDW Coefficient of Variation 16.1 11.5-14.5 % Immature Granulocyte % (Auto) 0.4 % Immature Granulocyte # (Auto) 0.03 0.00-0.02 K/uL Prothrombin Time 13.4 9.0-12.0 SECONDS Prothromb Time International Ratio 1.2 0.9-1.1 Activated Partial Thromboplast Time 30.6 21.0-31.0 SECONDS Partial Thromboplastin Ratio 1.2 Sodium Level 140 136-145 mmol/L Potassium Level 4.1 3.5-5.1 mmol/L Chloride Level 106 98-107 mmol/L Carbon Dioxide Level 28 21-32 mmol/L Anion Gap 6.0 3-11 mmol/L Blood Urea Nitrogen 30 7-18 mg/dl Creatinine 1.80 0.60-1.20 mg/dl Est Creatinine Clear Calc Drug Dose 25.6 ml/min Estimated GFR () 29.4 Estimated GFR (Non- 25.4 BUN/Creatinine Ratio 16.6 10-20 Random Glucose 185 70-99 mg/dl Calcium Level 9.2 8.5-10.1 mg/dl Troponin I < 0.015 < 0.015 0-0.045 ng/ml Total Creatine Kinase 29 26-192 U/L Creatine Kinase MB 0.9 0.5-3.6 ng/ml Creatine Kinase MB Ratio 3.1 0-3.0 Bedside Glucose 180 70-90 mg/dl Diagnostic Radiology Patient Name: TYE VIZCARRA Unit Number: [id number] Dictated: 01/01/172303 Transcribed: 01/01/172303 PA Printed Date/Time: [~ rep prt dt]/[~ rep prt tm] [~ rep ct labl] - [~ rep ct ivnm] [facility] [address] [place] [address] Dictated: 01/01/172303 Transcribed: 01/01/172303 PA Printed Date/Time: [~ rep prt dt]/[~ rep prt tm] [~ rep ct labl] - [~ rep ct ivnm] HISTORY: Atypical chest pain. COMPARISON: Chest 09/20/2016. FINDINGS: The heart remains borderline enlarged. The lungs are clear. No pleural effusions. No pneumothorax. IMPRESSION: No significant change compared to the prior study. No acute process. Electronically signed by: Vinicius Francois M.D. 01/01/2017 11:05 PM Dictated Date/Time: 01/01/2017 11:04 PM The status of this report is Signed. Draft = Not yet reviewed or approved by Radiologist. Signed = Reviewed and approved by Radiologist. <AttendingPhy></AttendingPhy> <FamilyPhy>Katina Yang DO</FamilyPhy> < PrimaryPhy>Katina Yang, </PrimaryPhy> <UnitNumber>[id number]</UnitNumber > <VisitNumber>[id number]</VisitNumber> <PatientName>TYE VIZCARRA</ PatientName> <DateOfBirth>1930</DateOfBirth> <Location>[facility]</Location> < ServiceDate>01/01/17</ServiceDate> <MNE>ESINDI</MNE> <OrderingPhy>Saturnino Allen MD</OrderingPhy> <OrderingPhyMNE>f rep ord dr tan</OrderingPhyMNE> < DictatingPhyMNE>f rep dict dr tan</DictatingPhyMNE> <CCListMNE>f rep ct mne</ CCListMNE> <AdmittingPhyMNE>f pt admit dr tan</AdmittingPhyMNE> <AttendingPhyMNE >f pt attend dr tan</AttendingPhyMNE> <ConsultingPhyMNE>f pt consult dr tan</ConsultingPhyMNE> <FamilyPhyMNE>f pt fam dr tan</FamilyPhyMNE> <OtherPhyMNE>f pt other dr tan</OtherPhyMNE> < PrimaryPhyMNE>f pt prim care dr tan</PrimaryPhyMNE> <ReferringPhyMNE>f pt referring dr tan</ReferringPhyMNE> EKG EKG shows normal sinus rhythm at 72 bpm there are no acute ST-T changes. Impression Assessment and Plan CAD/hypertension/coronary artery stents 2/paroxysmal atrial fibrillation--the patient be admitted to the telemetry unit for serial cardiac enzymes, cardiac rhythm monitoring and a 2-D echocardiogram with Dopplers. Continue amiodarone 200 mg by mouth every morning, amlodipine 10 mg by mouth every morning, losartan potassium 25 mg by mouth every afternoon. We'll hold Xarelto 50 mg by mouth every afternoon for now case a procedure. 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 Mcfarlane. Diabetes mellitus--hold glipizide ER, continue Lantus 20 units subcutaneous every afternoon the give 10 units subcutaneous tonight, and placement Accu- Cheks before meals and at bedtime with NovoLog coverage per scale. Hyperlipidemia--continue atorvastatin 10 mg by mouth every afternoon. Connective tissue disease--continue prednisone 10 mg by mouth every morning. Hypothyroidism--continue levothyroxine sodium. GERD--change omeprazole 20 mg by mouth twice a day to pantoprazole 40 mg by mouth twice a day. Dementia--continue Exelon patch 4.6 mg topically daily. Glaucoma--continue Xalatan. Level of Care Telemetry Advanced Directives Existing Advance Directive: No Existing Living Will: Yes Existing Power of A And P Mechanic: No Resuscitation Status FULL RESUSCITATION VTE Prophylaxis VTE Risk Assessment Done? Y/N: Yes Risk Level: Moderate Given or contraindicated: Other Anticoagulation (Xarelto)
[2017-01-02] MEDS ORDERED: LEVOTHYROXINE 112 MCG TAB PO SCH (06:00)
[2017-01-02 07:58] VITALS: BP 150/72; PULSE 86; TEMP 36.8; O2SAT 92
[2017-01-02] MEDS: INSULIN ASPART 100 UNITS/ML 3 ML PEN SC SCH ×2 (08:05→14:43)
[2017-01-02] MEDS ORDERED: AMLODIPINE BESYLATE 5 MG TAB PO SCH (09:00)
[2017-01-02] MEDS ORDERED: ALLOPURINOL 100 MG TAB PO SCH (09:00)
[2017-01-02] MEDS ORDERED: AMIODARONE 200 MG TAB PO SCH (09:00)
[2017-01-02] MEDS ORDERED: PANTOprazole SOD 40 MG TAB PO SCH (09:00)
[2017-01-02] MEDS ORDERED: RIVASTIGMINE TARTRATE TOP SCH (09:00)
[2017-01-02] MEDS ORDERED: CHOLECALCIFEROL 1000 INTER.UNIT TAB PO SCH (09:00)
[2017-01-02 09:02] LABS: CKMB/CK RATIO 2.3 (0-3.0)
[2017-01-02] MEDS ORDERED: METOPROLOL SUCC 25MG EXT REL TAB PO ONE (09:16)
--- NOTE | 2017-01-02 09:30 | Progress Note ---
Progress Note Date of Service Jan 02, 2017. Progress Note seen in f/u from early AM admit feeling better now no further CP. notes that pain ?maybe lasted 30mins total - can't quite remember - recalls it started when she was in the shower, then went away once she was here and "and they gave me medicines" but has a hard time putting a time frame on it was a deep pain, across all of chest lower chest b/l. radiated to R shoulder. did feel quite SOB --> SOB went away at the same time the pain went away. has felt more fatigued the last few weeks. can't really remember what pain felt like at the time of her cath and stenting - thinks it was different but really can't remember. "it was two years ago, and i have a little bit of dementia" all other ROS otherwise negative except for as above vitals noted nad breathing unlabored no pallor or icterus. significant pain on palpation of rib cage b/l but this is not at all the same pain she was feeling CP - concerning for unstable angina -- location and radiation to R shoulder atypical, but duration/SOB/preceding fatigue in a pt w known CAD certainly worrisome. await further input from cardiology but with CKD suspect safest approach at current will be adjusting meds, then if failing can consider higher risk cath. d/w pt and she expresses understanding of this - but also discussed would want input from cardiology in this regard. third set of cardiac enzymes and echo pending - if anything of worrisome significance this might also make higher risk cath necessary. see CAD below otherwise CAD - add metoprolol. lipids in march total 154, HDL 78, LDL 61, TG 75 --> so while coronaries might benefit from higher potency statin, "whole person" more likely to have some harm - will check lipids in AM -- if more elevated then can consider raising atorvastatin but would not want to do so with lipids as suppressed as hers were in march. also can consider long acting nitrate , but with age and risk of iatrogenesis, would make med changes one at a time as long as she's stable CKD - appearing around stage 3 to early stage 4. baseline Cr 1.5 -- is 1.8 right now - not a huge change from baseline, does not clinically appear dry. f/ u BMP in AM afib - rate controlled, unclear as to why not on anticoagulation - will await further input from cardiology in this regard DVT proph - heparin SQ Diabetes mellitus--A1c 8.4 -- which with age/dementia and comorbidities is probably close to best balance between iatrogenesis and uncontrolled disease. sugars here 180-->74 -- will reduce lantus to 10 HS, continue log insulin supplemental, DC sulfonylurea entirely Connective tissue disease--continue prednisone 10 mg by mouth every morning. Hypothyroidism--continue levothyroxine sodium. GERD--change omeprazole 20 mg by mouth twice a day to pantoprazole 40 mg by mouth twice a day. Dementia--continue Exelon patch 4.6 mg topically daily. Glaucoma--continue Xalatan.
[2017-01-02] MEDS ORDERED: FUROSEMIDE 40 MG TAB PO ONE (10:45)
--- NOTE | 2017-01-02 11:04 | Cardiology Consultation ---
Cardiology Consultation Date of Consultation: Jan 02, 2017. Reason for Consultation: Chest pain Pt evaluation today including: conversation w/ patient, physical exam, chart review, lab review, review of studies, review of inpatient medication list, conversation w/ attending History of Present Illness The patient is an 86-year-old woman known to me from the outpatient setting with a history of coronary artery disease. She states that yesterday with morning when getting out of the shower she began experience some lower chest discomfort associated with some right arm pain. This was [id number] in intensity and was across the precordium. He was in the lower precordial area. She also has some discomfort in the right shoulder that was not worse with movement or activity. The symptoms were associated with some shortness of breath as well. The patient rested for a period of time and contacted her daughter who recommended she seek medical attention. She was brought by ambulance to [facility]. EN route she was administered nitroglycerin which relieved some of her dyspnea but not all of her discomfort. When she she was administered a medication in the emergency room which relieved her symptoms the total duration of her symptoms approach 2 hours. He states that the symptoms are not similar to those experienced prior to her previous coronary intervention. She did have some difficulty characterizing the difference between the 2 however. She states that occasionally she will have some epigastric discomfort. This is fairly mild in nature and not as severe as yesterday. She has a fairly sedentary individual who is accustomed to ambulating and ascending 1 flight of stairs. However, at her residence she often rests during this duration of activity. She has not been sleeping well recently. She does complain of fatigue currently. Her symptoms of dyspnea and discomfort have resolved entirely. She denies any orthopnea recently. She denies any paroxysmal nocturnal dyspnea. She denies any swelling in her lower extremities. Past Medical/Surgical History Gastroesophageal reflux disease Anemia Coronary artery disease status post percutaneous intervention involving the LAD Chronic renal insufficiency with GFR around 30 Dementia Diabetes currently on insulin Hyperlipidemia Elevated sedimentation rate and connective tissue disorder Gout Hypothyroidism Hypertension new her she Temporal arteritis Family History Diabetes mellitus Hypertension Social History Smoking Status: Never Smoker History of Alcohol Use: No Review of Systems Constitutional: + see HPI Respiratory: + see HPI Cardiac: + see HPI Abdomen: + see HPI Neurologic: + see HPI, + memory loss All Other Systems: Reviewed and Negative Allergies Coded Allergies: Diclofenac (Verified Allergy, Unknown, UNSURE, 10/31/16) Metformin (Verified Adverse Reaction, Mild, DIARRHEA, 10/31/16) Methadone (Verified Adverse Reaction, Mild, DIZZY, 10/31/16) Morphine and Related (Verified Adverse Reaction, Mild, HALLUCINATION, 10/31) Promethazine (Verified Adverse Reaction, Mild, SEIZURE LIKE ACTIVITY", ) Troglitazone (Verified Adverse Reaction, Mild, INCREASE LFTs, 10/31/16) Uncoded Allergies: NECTARINE (Allergy, Mild, HIVES, 10/24/16) SENSITIVE TO NARCOTICS (Allergy, Unknown, 12/27/02) Medications Current Inpatient Medications Medications (Trade) Dose Ordered Sig/Shilpa Route Start Time Stop Time Status Last Admin Dose Admin Acetaminophen (Tylenol Tab) 650 mg Q4H PRN PO 01/02/17 00:30 02/01/17 00:29 01/02/17 05:06 650 MG Nitroglycerin (Nitrostat Tab) 0.4 mg UD PRN SL 01/02/17 00:30 02/01/17 00:29 Albuterol (Ventolin Hfa Inhaler) 2 puffs Q6H PRN INH 01/02/17 00:30 02/01/17 00:29 Allopurinol (Zyloprim Tab) 100 mg QAM PO 01/02/17 09:00 02/01/17 08:59 01/02/17 08:02 100 MG Amiodarone HCl (Cordarone Tab) 200 mg QAM PO 01/02/17 09:00 02/01/17 08:59 01/02/17 08:02 200 MG Amlodipine Besylate (Norvasc Tab) 10 mg QAM PO 01/02/17 09:00 02/01/17 08:59 01/02/17 08:02 10 MG Atorvastatin Calcium (Lipitor Tab) 10 mg QPM PO 01/02/17 21:00 02/01/17 20:59 Cetirizine HCl (zyrTEC TAB) 10 mg DAILY PRN PO 01/02/17 00:30 02/01/17 00:29 Cholecalciferol (Vitamin D Tab) 1,000 inter.unit QAM PO 01/02/17 09:00 02/01/17 08:59 01/02/17 08:01 1,000 INTER.UNIT Latanoprost (Xalatan Oph Soln) 1 drops HS OPB 01/02/17 21:00 02/01/17 20:59 Levothyroxine Sodium (Synthroid Tab) 112 mcg DAILYBB PO 01/02/17 06:00 02/01/17 05:59 01/02/17 05:07 112 MCG Losartan Potassium (coZAAR TAB) 25 mg QPM PO 01/02/17 21:00 02/01/17 20:59 Prednisone (PredniSONE TAB) 10 mg QAM PO 01/02/17 09:00 02/01/17 08:59 01/02/17 08:01 10 MG Clobetasol Propionate (Clobetasol Propionate Oint) 1 appln 2xweek PRN EXT 01/02/17 00:30 02/01/17 00:29 Triamcinolone Acetonide (Kenalog 0.025% Crm) 1 appln BID PRN TOP 01/02/17 00:30 02/01/17 00:29 Meclizine HCl (Antivert Tab) 12.5 mg Q6H PRN PO 01/02/17 00:30 02/01/17 00:29 Pantoprazole Sodium (Protonix Tab) 40 mg BID PO 01/02/17 09:00 02/01/17 08:59 01/02/17 08:01 40 MG Ondansetron HCl (Zofran Inj) 4 mg Q6H PRN IV 01/02/17 00:30 02/01/17 00:29 01/02/17 05:06 4 MG Insulin Aspart (novoLOG ASPART) SLIDING SCALE If C... ACHS SC 01/02/17 07:00 02/01/17 06:59 01/02/17 08:05 2 UNITS Glucose (Glucose 40% Gel) UD PRN PO 01/02/17 00:30 02/01/17 00:29 Glucose (Glucose Chew Tab) 1 tabs UD PRN PO 01/02/17 00:30 02/01/17 00:29 Dextrose (Dextrose 50% 50ML Syringe) 50 ml UD PRN IV 01/02/17 00:30 02/01/17 00:29 Glucagon (Glucagon Inj) 1 mg UD PRN SQ 01/02/17 00:30 02/01/17 00:29 Miscellaneous Information (Order Awaiting Action) 1 ea QS N/A 01/02/17 08:00 02/01/17 07:59 Heparin Sodium (Porcine) (Heparin Sq 5000 Unit/0.5ml) 5,000 unit Q12 SQ 01/02/17 21:00 02/01/17 20:59 Insulin Glargine (Lantus Solostar Pen) 10 unit QPM SC 01/02/17 21:00 02/01/17 20:59 Physical Exam Vital Signs Past 12 Hours Date Time Temp Pulse Resp B/P (MAP) Pulse Ox O2 Delivery O2 Flow Rate FiO2 01/02/17 08:00 Room Air 01/02/17 07:58 36.8 86 18 150/72 (98) 92 01/02/17 04:03 37.0 71 19 150/53 (85) 93 Room Air 01/02/17 04:00 Room Air 01/02/17 01:00 36.8 73 18 177/68 98 Room Air 01/02/17 00:45 62 18 137/68 96 01/01/17 23:23 63 18 148/60 96 Room Air She is alert and oriented x3. Mood affect appear normal. She answered all questions appropriately. HEENT: Sclerae are anicteric. Pupils are equal and reactive to light and accommodation. Extraocular movements were intact. Neuro: Cranial nerves intact Neck: Examination of the submandibular region did not reveal any significant lymphadenopathy. Carotids are palpable bilaterally and free of bruits on auscultation. There was no evidence of jugular venous distention. The thyroid was not enlarged. Lungs: . Diffuse crackles throughout all lung esqueda worse at the base. She has normal respiratory effort without use of accessory muscles. There is normal pulmonary excursion. Cardiac: The rhythm was regular. S1 and S2 were normal. Soft holosystolic murmur. The PMI was not markedly displaced on palpation. Abdomen: The abdomen was soft and nontender. Extremities: Patient has bilateral radial pulses that are equal in intensity. There is no evidence cyanosis or clubbing. There was no evidence of significant peripheral edema bilaterally. Skin: There are no rashes noted on examination today. Data Laboratory Results: Last 24 Hours Test 01/01/17 21:05 01/02/17 00:48 01/02/17 01:12 01/02/17 06:47 White Blood Count 8.38 K/uL Red Blood Count 4.19 M/uL Hemoglobin 10.6 g/dL Hematocrit 34.8 % Mean Corpuscular Volume 83.1 fL Mean Corpuscular Hemoglobin 25.3 pg Mean Corpuscular Hemoglobin Concent 30.5 g/dl Platelet Count 326 K/uL Mean Platelet Volume 10.0 fL Neutrophils (%) (Auto) 66.1 % Lymphocytes (%) (Auto) 26.0 % Monocytes (%) (Auto) 6.4 % Eosinophils (%) (Auto) 1.0 % Basophils (%) (Auto) 0.1 % Neutrophils # (Auto) 5.54 K/uL Lymphocytes # (Auto) 2.18 K/uL Monocytes # (Auto) 0.54 K/uL Eosinophils # (Auto) 0.08 K/uL Basophils # (Auto) 0.01 K/uL RDW Standard Deviation 49.0 fL RDW Coefficient of Variation 16.1 % Immature Granulocyte % (Auto) 0.4 % Immature Granulocyte # (Auto) 0.03 K/uL Prothrombin Time 13.4 SECONDS Prothromb Time International Ratio 1.2 Activated Partial Thromboplast Time 30.6 SECONDS Partial Thromboplastin Ratio 1.2 Sodium Level 140 mmol/L Potassium Level 4.1 mmol/L Chloride Level 106 mmol/L Carbon Dioxide Level 28 mmol/L Anion Gap 6.0 mmol/L Blood Urea Nitrogen 30 mg/dl Creatinine 1.80 mg/dl Est Creatinine Clear Calc Drug Dose 25.6 ml/min Estimated GFR () 29.4 Estimated GFR (Non- 25.4 BUN/Creatinine Ratio 16.6 Random Glucose 185 mg/dl Calcium Level 9.2 mg/dl Troponin I < 0.015 ng/ml < 0.015 ng/ml Total Creatine Kinase 29 U/L Creatine Kinase MB 0.9 ng/ml Creatine Kinase MB Ratio 3.1 Bedside Glucose 180 mg/dl 74 mg/dl Test 01/02/17 08:11 Total Creatine Kinase 31 U/L Creatine Kinase MB 0.7 ng/ml Creatine Kinase MB Ratio 2.3 Troponin I < 0.015 ng/ml Imaging: Chest x-ray did not demonstrate pulmonary vascular congestion EKG: No acute ST segment changes Telemetry reviewed: No arrhythmia Assessment & Plan 1. Chest pain: The patient had extended period of chest discomfort without elevation in cardiac biomarkers. The symptoms were somewhat atypical for coronary syndrome. ECHO can be confident based on the objective findings in the atypical nature of her symptoms this is not represent an acute coronary syndrome. While she has a history of coronary disease she does not have other symptoms of coronary insufficiency or angina. I would not advocate any additional cardiac testing at this time. I will continue her on her usual regimen for secondary prevention. 2. Valvular heart disease: Patient is noted to have an element of mitral regurgitation. She had recent echocardiogram and preserved LV systolic function. I do not believe she has any acute symptoms related to her valvular heart disease. She 3. Atrial fibrillation: Patient has a history of atrial fibrillation is maintained on amiodarone. Her rhythm during this hospitalization has been sinus. She is also on Xarelto for stroke prophylaxis. This is prescribed at reduced dose due to her impaired renal function. 4. Pulmonary vascular congestion: Patient's exam today supports a diagnosis of mild pulmonary edema. She has no overt symptoms but may benefit from a single dose of diuretic. This may be related to higher blood pressures. She has had some trouble controlling her blood pressures recently and there is a possibility that her symptoms are related to an element of pulmonary vascular congestion that was relieved with nitroglycerin administration in the ambulance. I will follow up with her in the clinic to see if the daily dose of diuretic is required.
[2017-01-02 11:59] VITALS: BP 146/63; PULSE 64; TEMP 36.6; O2SAT 96
[2017-01-02 14:57] VITALS: BP 146/63; PULSE 64; TEMP 36.6; O2SAT 96
[2017-01-02 15:20] VITALS: BP 151/75; PULSE 65; TEMP 36.7; O2SAT 92
--- NOTE | 2017-01-02 15:29 | Discharge Instructions ---
Discharge Instructions Date of Service Jan 02, 2017. Admission Reason for Admission: Acute Chest Pain, Stented Coronary Artery Discharge Discharge Diagnosis / Problem: chest pain - fortunately not a heart attack Discharge Goals Goal(s): Diagnostic testing Activity Recommendations Activity Limitations: resume your previous activity . Instructions / Follow-Up Instructions / Follow-Up your chest pain fortunately was not a heart attack, after further review and discussion with cardiology, Dr Mcfarlane feels that there was probably a little bit of fluid that got backed up from your heart into your lungs -- which was why we gave a dose of lasix (furosemide). since it only happened once, it's not likely to be a recurring problem, and before we make any changes to medications that could cause side effects, we'll have you follow closely with Dr Mcfarlane over the near future. -a safe thing would be to just be careful about sodium intake - when you take in more sodium your body retains more water - so try to stay less than 2000mg of sodium in any given day -separately, we'd recommend holding off on your glipizide for the time being - continue to follow with Dr Yang and she can help guide you on restarting it or simply adjusting insulins some Call your Primary Care doctor if any of the following symptoms or problems start or get worse: * Shortness of breath or difficulty breathing * Wake up at night short of breath * Chest pain * Cough * Swelling of your hands, feet, or legs * More fatigued or tired with your normal activity * Palpitations - sudden fast heart beats WEIGHT * Weigh yourself every morning after using the bathroom. * Use the same scale. * Wear the same amount of clothing. * Write your weight down on a chart. * Call your Primary Care doctor if you gain more than 2-3 pounds in 1-2 days. MEDICATIONS * Use this discharge instruction sheet for medication instructions. * Take your medications at the time your doctor ordered. * Do not skip a dose of your medicines. * If you miss a dose of medicine, take it as soon as possible, but DO NOT DOUBLE A DOSE. * Read your medicine information when you get home. * Know all of the side effects of your medicine. If in doubt, ask your pharmacist * Call your Primary Care doctor's office if you have any side effects. * Be sure all of your doctors know what medicine and herbs you take (including cold, flu, and herbal medicine). Take the following with you to your follow-up doctor appointments: * Weight Chart * Medication List * List of questions Do not drink excessive alcohol, beer or wine. Current Hospital Diet Patient's current hospital diet: AHA Diet (Heart Healthy), Diabetes Type 2 Diet Discharge Diet Recommended Diet: AHA Diet (Heart Healthy), Diabetes Type 2 Diet Pending Studies Studies pending at discharge: no Laboratory Results Hemoglobin A1c Test 10/17/16 14:02 Range/Units Estimated Average Glucose 194 mg/dl Hemoglobin A1c 8.4 H 4.5-5.6 % Medical Emergencies . Who to Call and When: Call 911 or go to the Emergency Room if: * If at any time you feel your situation is an emergency * You have tightness or pain in your chest that does not go away with rest or Nitroglycerin * You are very short of breath even with rest . Non-Emergent Contact Non-Emergency issues call your: Primary Care Provider, Occupational Safety And Health Manager . . "Provider Documentation" section prepared by Bharathi Cheng. . VTE Core Measure Inpt VTE Proph given/why not?: Other Anticoagulation (Xarelto)
--- NOTE | 2017-01-02 15:45 | Discharge Summary ---
Discharge Summary Date of Service Jan 02, 2017. Discharge Summary Admission Date: Jan 02, 2017 at 00:13 Discharge Date: Jan 02, 2017 Discharge Disposition: Home Principal Diagnosis: nonspecific chest pain likely very mild diastolic CHF Procedures: Last 24 Hours Test 01/01/17 21:05 01/02/17 00:48 01/02/17 01:12 01/02/17 06:47 White Blood Count 8.38 K/uL Red Blood Count 4.19 M/uL Hemoglobin 10.6 g/dL Hematocrit 34.8 % Mean Corpuscular Volume 83.1 fL Mean Corpuscular Hemoglobin 25.3 pg Mean Corpuscular Hemoglobin Concent 30.5 g/dl Platelet Count 326 K/uL Mean Platelet Volume 10.0 fL Neutrophils (%) (Auto) 66.1 % Lymphocytes (%) (Auto) 26.0 % Monocytes (%) (Auto) 6.4 % Eosinophils (%) (Auto) 1.0 % Basophils (%) (Auto) 0.1 % Neutrophils # (Auto) 5.54 K/uL Lymphocytes # (Auto) 2.18 K/uL Monocytes # (Auto) 0.54 K/uL Eosinophils # (Auto) 0.08 K/uL Basophils # (Auto) 0.01 K/uL RDW Standard Deviation 49.0 fL RDW Coefficient of Variation 16.1 % Immature Granulocyte % (Auto) 0.4 % Immature Granulocyte # (Auto) 0.03 K/uL Prothrombin Time 13.4 SECONDS Prothromb Time International Ratio 1.2 Activated Partial Thromboplast Time 30.6 SECONDS Partial Thromboplastin Ratio 1.2 Sodium Level 140 mmol/L Potassium Level 4.1 mmol/L Chloride Level 106 mmol/L Carbon Dioxide Level 28 mmol/L Anion Gap 6.0 mmol/L Blood Urea Nitrogen 30 mg/dl Creatinine 1.80 mg/dl Est Creatinine Clear Calc Drug Dose 25.6 ml/min Estimated GFR () 29.4 Estimated GFR (Non- 25.4 BUN/Creatinine Ratio 16.6 Random Glucose 185 mg/dl Calcium Level 9.2 mg/dl Troponin I < 0.015 ng/ml < 0.015 ng/ml Total Creatine Kinase 29 U/L Creatine Kinase MB 0.9 ng/ml Creatine Kinase MB Ratio 3.1 Bedside Glucose 180 mg/dl 74 mg/dl Test 01/02/17 08:11 01/02/17 11:19 Total Creatine Kinase 31 U/L Creatine Kinase MB 0.7 ng/ml Creatine Kinase MB Ratio 2.3 Troponin I < 0.015 ng/ml Bedside Glucose 162 mg/dl Consultations: cardiology Medication Reconciliation Continued Medications: Albuterol Hfa (Ventolin Hfa) 200 Puffs/77825 Mcg Aers 2-4 PUFFS INH Q6H PRN for Shortness of Breath, #1 INHALER Allopurinol (Zyloprim) 100 Mg Tab 100 MG PO QAM, TAB Amiodarone Hcl (Cordarone) 200 Mg Tab 200 MG PO QAM, TAB Amlodipine (Norvasc) 5 Mg Tab 10 MG PO QAM, TAB Atorvastatin (Lipitor) 10 Mg Tab 10 MG PO QPM, TAB Cetirizine (Zyrtec) 10 Mg Tab 10 MG PO DAILY PRN for PRN, TAB Cholecalciferol (Vitamin D3) 1,000 Unit Tab 1 TAB PO QAM, TAB 3 Refills Clobetasol Propionate (Clobetasol Propionate) 45 Appln/15 Gm Oint 1 APPLN TOP 2X WEEK PRN for PRN, #60 GM 2 Refills Colchicine (Colcrys) 0.6 Mg Tab 1 TAB PO DAILY PRN for GOUT Insulin Aspart (Novolog) 100 Units/Ml Inj UNITS SQ TIDM PRN for SLIDING SCALE 150-180 = 2UNITS, 180-210 = 4 UNITS, 211-240 = 6 UNITS, 241-270 = 8 UNITS, 271-300 = 10 UNITS, 301-330 = 11 UNITS, 331-360 = 12 UNITS, 361-390 = 13 UNITS, 391-420 = 14 UNITS, 421-450 = 15 UNITS, 451-480 = 16 UNITS, >480 = 17 UNITS & CALL Insulin Glargine (Lantus) 100 Unit/Ml Inj 20 UNITS SC QPM, VIAL Latanoprost (Xalatan 0.005% Oph Catie) 0.005 % Catie 1 DROPS OP HS, #2.5 ML 3 Refills Levothyroxine Sodium (Levothyroxine Sodium) 112 Mcg Tab 1 TAB PO DAILY for 30 Days, #30 TAB 5 Refills Losartan Potassium (Cozaar) 25 Mg Tab 25 MG PO QPM, TAB Meclizine HCl (Meclizine HCl) 12.5 Mg Tab 1 TAB PO TID PRN for DIZZY, TAB Nitroglycerin (Nitrostat) 0.4 Mg Tab 0.4 MG UT PRN, BTL Omeprazole (Prilosec) 20 Mg Capcr 20 MG PO BID, CAP Prednisone (Prednisone) 20 Mg Tab 10 MG PO QAM, TAB Rivaroxaban (Xarelto) 15 Mg Tab 15 MG PO QPM, TAB Rivastigmine Tartrate (Exelon) 4.6 Mg Tdsy 4.6 MG TOP DAILY Triamcinolone Acetonide (Topic (Triamcinolone Acet 0.025%) 0.025 % Oin 1 APPLN TOP BID PRN for HANDS, #30 GM 1 Refill Discharge Exam Physical Exam: General Appearance: no apparent distress Eyes: EOMI ENT: hearing grossly normal Neck: trachea midline Respiratory/Chest: lungs clear, normal breath sounds, no respiratory distress, no accessory muscle use Extremities: normal inspection Neurologic/Psychiatric: trauma coordinator II-XII nml as tested, alert, normal mood/affect Skin: normal color, warm/dry Hospital Course CP - concerning for unstable angina -- but location and quality fairly atypical - symptoms lasted for a while with negative enzymes, cardiology opinion was that it most likely related to mild CHF - treated with lasix --> improved. stable for home mild diastolic CHF - lasix x1. not an ongoing issue for her; and with age/ frailty, will refrain from chronic diuretic at this time so as not to cause iatrogenic harm CAD - considered adding metoprolol but cardiology felt it prudent to hold off at this time. lipids in march total 154, HDL 78, LDL 61, TG 75 --> so while coronaries might benefit from higher potency statin, "whole person" more likely to have some harm - continue atorva 10mg and follow CKD - appearing around stage 3 to early stage 4. baseline Cr 1.5 -- is 1.8 right now - not a huge change from baseline, does not clinically appear dry. f/ u BMP periodically as outpt afib - rate controlled, anticoagulated. DVT proph - anticoagulation Diabetes mellitus--A1c 8.4 -- which with age/dementia and comorbidities is probably close to best balance between iatrogenesis and uncontrolled disease. sugars here 180-->74 -- will dc glipizide for now, continue just with insulins - PCP f/u Connective tissue disease--continue prednisone 10 mg by mouth every morning. Hypothyroidism--continue levothyroxine sodium. GERD--change omeprazole 20 mg by mouth twice a day to pantoprazole 40 mg by mouth twice a day. Dementia--continue Exelon patch 4.6 mg topically daily. Glaucoma--continue Xalatan. stable for home - close PCP and cardiology f/u Total Time Spent: Less than 30 minutes This includes examination of the patient, discharge planning, medication reconciliation, and communication with other providers. Discharge Instructions Please refer to the electronic Patient Visit Report (Discharge Instructions) for additional information. Additional Copies To Aaron Mcfarlane MD; Katina Yang,
[2017-01-02] MEDS ORDERED: ATORVASTATIN 10 MG TAB PO SCH (21:00)
[2017-01-02] MEDS ORDERED: LATANOPROST 0.005% OP SOLN 2.5 ML BTL OPB SCH (21:00)
[2017-01-02] MEDS ORDERED: LOSARTAN POTASSIUM 25 MG TAB PO SCH (21:00)
[2017-01-02] MEDS ORDERED: HEPARIN SOD 5000 UNIT/0.5 ML CARP SQ SCH (21:00)
[2017-01-02] MEDS ORDERED: INSULIN GLARGINE SOLOSTAR 100 UNITS/ML 3 ML PEN SC SCH ×2 (21:00)
[2017-01-03] MEDS ORDERED: METOPROLOL SUCC 25MG EXT REL TAB PO SCH (09:00)
[2017-03-13] MEDS ORDERED: DICL1GEL12 TOP (17:04)
[2017-03-13] MEDS ORDERED: TRAM-10 PO (17:04)
== END 2017-01-02 16:20 | disposition home or self-care (01) | DRG 292 ==
LOC: EDBD 21:37 → C.EDC 21:38 → C.2T 01-02 00:13 → ENRESERV 01-02 00:31
PROVIDERS: ADMIT Hospitalist; ATTEND Family Medicine
DX: I13.0 Hypertensive heart and chronic kidney disease with heart failure and stage 1 through stage 4 chronic kidney disease, or unspecified chronic kidney disease (principal); N18.4 Chronic kidney disease, stage 4 (severe); I50.32 Chronic diastolic (congestive) heart failure; Z95.5 Presence of coronary angioplasty implant and graft; G89.29 Other chronic pain; M54.9 Dorsalgia, unspecified; E11.22 Type 2 diabetes mellitus with diabetic chronic kidney disease; K21.9 Gastro-esophageal reflux disease without esophagitis; E78.5 Hyperlipidemia, unspecified; E03.9 Hypothyroidism, unspecified; I48.0 Paroxysmal atrial fibrillation; I25.10 Atherosclerotic heart disease of native coronary artery without angina pectoris; H40.9 Unspecified glaucoma; F03.90 Unspecified dementia, unspecified severity, without behavioral disturbance, psychotic disturbance, mood disturbance, and anxiety; Z79.4 Long term (current) use of insulin; Z79.01 Long term (current) use of anticoagulants; Z79.899 Other long term (current) drug therapy; Z83.3 Family history of diabetes mellitus; Z82.49 Family history of ischemic heart disease and other diseases of the circulatory system; Z88.8 Allergy status to other drugs, medicaments and biological substances; Z88.5 Allergy status to narcotic agent; M31.6 Other giant cell arteritis; M35.1 Other overlap syndromes; R70.0 Elevated erythrocyte sedimentation rate

== ENCOUNTER → 2017-01-10 | Outpatient (CLI) | payer OTHER ==
[~2017-01-10] MED LIST changes: -ATOR10TA82 PO; +ATOR10TA88 PO; +DICL1GEL12 TOP; +EXLP46 TOP; -EXLP95 TOP; +FURO20TA PO; -GLIP-197 PO; +GLIP-199 PO; +PRED-301 PO; +TRAM-10 PO
[2017-01-10 12:43] LABS: BLOOD UREA NITROGEN 30 mg/dl (7-18); BUN/CREATININE RATIO 16.8 (10-20); CALCIUM 9.1 mg/dl (8.5-10.1); CARBON DIOXIDE 29 mmol/L (21-32); CHLORIDE 107 mmol/L (98-107); GLUCOSE 168 mg/dl (70-99); POTASSIUM 4.3 mmol/L (3.5-5.1); SODIUM 142 mmol/L (136-145)
== END | disposition home or self-care (01) ==
LOC: C.LABPBG 09:08
PROVIDERS: ATTEND Internal Medicine Clinical Cardiac Electrophysiology
DX: I25.10 Atherosclerotic heart disease of native coronary artery without angina pectoris (principal)

== ENCOUNTER → 2017-01-14 | Outpatient (CLI) | payer OTHER | END | disposition home or self-care (01) | LOC: C.LABPBG 14:50 | PROVIDERS: ATTEND Family Medicine | DX: E03.9 Hypothyroidism, unspecified (principal) ==

== ENCOUNTER → 2017-02-04 | Outpatient (CLI) | payer OTHER | END | disposition home or self-care (01) | LOC: C.LABPBG 10:53 | PROVIDERS: ATTEND Internal Medicine Rheumatology | DX: R70.0 Elevated erythrocyte sedimentation rate (principal) ==

== ENCOUNTER → 2017-02-24 | Outpatient (CLI) | payer OTHER ==
[2017-02-25 17:14] LABS: ALBUMIN 3.4 G/DL (3.8-4.8); GAMMA GLOBULIN 0.6 G/DL (0.8-1.7); TOTAL PROTEIN 6.5 G/DL (6.2-8.3)
== END | disposition home or self-care (01) ==
LOC: C.LABPBG 09:12
PROVIDERS: ATTEND Internal Medicine Rheumatology
DX: M31.6 Other giant cell arteritis (principal); R70.0 Elevated erythrocyte sedimentation rate; M35.1 Other overlap syndromes

== ENCOUNTER 2017-03-12 21:43 | Observation (INO) | payer OTHER ==
[~2017-03-12] VITALS: Ht 160 cm; Wt 91.9 kg
[~2017-03-12 21:43] MED LIST changes: -DICL1GEL12 TOP; -FURO20TA PO; -GLIP-199 PO; -PRED-301 PO; -TRAM-10 PO
[2017-03-12] MEDS ORDERED: ASPIRIN 324 MG CHEW PO STA (21:53)
[2017-03-12] MEDS ORDERED: GLIP-199 PO (22:29)
[2017-03-12] MEDS ORDERED: FURO20TA PO (22:29)
[2017-03-12] MEDS ORDERED: ALLO100T PO (22:29)
[2017-03-12 22:37] LABS: BASO % 0.2 %; BASO ABS # 0.02 K/uL (0-0.2); COMPLETE YES; EOS % 2.3 %; HEMATOCRIT 32.6 % (37-47); IG% 0.4 %; LYMPH % 32.8 %; LYMPH ABS # 2.68 K/uL (1.2-3.4); MEAN CELL VOLUME 81.3 fL (80-100); MEAN CORPUSCULAR HEMOGLOBIN 24.9 pg (25-34); MEAN CORPUSCULAR HGB CONC 30.7 g/dl (32-36); MEAN PLATELET VOLUME 9.8 fL (7.4-10.4); NEUT % 58.3 %; PLATELET COUNT 339 K/uL (130-400); RED BLOOD COUNT 4.01 M/uL (4.2-5.4); WHITE BLOOD COUNT 8.16 K/uL (4.8-10.8)
--- NOTE | 2017-03-12 22:43 | DIAGNOSTIC IMAGING REPORT ---
CHEST ONE VIEW PORTABLE CLINICAL HISTORY: Chest pain. COMPARISON STUDY: Chest radiograph January 01, 2017. FINDINGS: Lung volumes are normal. There is no pneumothorax or pleural effusion. There is mild nodular opacity along the left heart border. There is no lobar consolidation. There is no evidence of pulmonary edema. Pulmonary vascular congestion is suspected. Mild cardiomegaly is noted. IMPRESSION: 1. Subtle nodular opacity along the left heart border. This may reflect a prominent epicardial fat pad although a small focus of pneumonia or pulmonary nodule could appear similar. Follow-up PA and lateral chest radiographs in one month are recommended. 2. Mild cardiomegaly with pulmonary vascular congestion. No overt pulmonary edema. Electronically signed by: Sav Lanier M.D. 03/12/2017 10:42 PM Dictated Date/Time: 03/12/2017 10:39 PM
[2017-03-12 22:50] LABS: PROTHROMBIN TIME (PATIENT) 10.3 SECONDS (9.0-12.0)
[2017-03-12 23:00] LABS: BUN/CREATININE RATIO 18.9 (10-20); CALCIUM 9.2 mg/dl (8.5-10.1); CREATININE 1.8 mg/dl (0.60-1.20); POTASSIUM 3.8 mmol/L (3.5-5.1)
--- NOTE | 2017-03-12 23:05 | EMERGENCY ROOM VISIT NOTE ---
History Report prepared by Georgina: Jake Ortiz Under the Supervision of: Dr. Greg Ferrell D.O. First contact with patient: 21:49 Stated Complaint: CHEST PAIN History of Present Illness The patient is a 87 year old female who presents to the Emergency Room with complaints of persistent chest pain beginning 1.5 hours ago. Her pain began in her right chest and has spread to her left side. She describes her pain as a feeling of "pressure". The patient has no history of DE but has a cardiac stent placed. She was given Nitroglycerin SL en route which improved her pain from a 10/10 in severity to an 8/10 in severity. Source of History: patient Onset: 1.5 hours ago Position: chest Symptom Intensity: 8/10 currently Quality: pressure Timing: other (persistent) Modifying Factors (Relieving): other (Nitroglycerin) Associated Symptoms: + SOB Review of Systems See HPI for pertinent positives and negatives. A total of ten systems were reviewed and were otherwise negative. Past Medical & Surgical Medical Problems: (1) Chronic back pain (2) Diabetes mellitus (3) GERD (gastroesophageal reflux disease) (4) Hypertension (5) Hypothyroidism Surgical Problems: (1) History of heart artery stent (2) Stented coronary artery Family History Diabetes mellitus Hypertension Social History Smoking Status: Never Smoker Drug Use: none Marital Status: Occupation Status: retired Current/Historical Medications Scheduled Allopurinol (Zyloprim), 100 MG PO QAM Amiodarone Hcl (Cordarone), 200 MG PO QAM Amlodipine (Norvasc), 10 MG PO QAM Atorvastatin (Lipitor), 10 MG PO QPM Cholecalciferol (Vitamin D3), 1 TAB PO QAM Furosemide (Lasix), 10 MG PO QAM Glipizide (Glipizide Er), 5 MG PO DAILY Insulin Glargine (Lantus), 20 UNITS SC QPM Latanoprost (Xalatan 0.005% Oph Catie), 1 DROPS OP HS Levothyroxine Sodium (Levothyroxine Sodium), 1 TAB PO DAILY Losartan Potassium (Cozaar), 25 MG PO QPM Nitroglycerin (Nitrostat), 0.4 MG UT PRN Omeprazole (Prilosec), 20 MG PO BID Prednisone (Prednisone), 10 MG PO QAM Rivaroxaban (Xarelto), 15 MG PO QPM Rivastigmine Tartrate (Exelon), 4.6 MG TOP DAILY Scheduled PRN Albuterol Hfa (Ventolin Hfa), 2-4 PUFFS INH Q6H PRN for Shortness of Breath Cetirizine (Zyrtec), 10 MG PO DAILY PRN for PRN Clobetasol Propionate (Clobetasol Propionate), 1 APPLN TOP 2X WEEK PRN for PRN Colchicine (Colcrys), 1 TAB PO DAILY PRN for GOUT Insulin Aspart (Novolog), UNITS SQ TIDM PRN for SLIDING SCALE Meclizine HCl (Meclizine HCl), 1 TAB PO TID PRN for DIZZY Triamcinolone Acetonide (Topic (Triamcinolone Acet 0.025%), 1 APPLN TOP BID PRN for HANDS Allergies Coded Allergies: Diclofenac (Verified Allergy, Unknown, UNSURE, 03/12/17) Metformin (Verified Adverse Reaction, Mild, DIARRHEA, 10/31/16) Methadone (Verified Adverse Reaction, Mild, DIZZY, 03/12/17) Morphine and Related (Verified Adverse Reaction, Mild, HALLUCINATION, ) Promethazine (Verified Adverse Reaction, Mild, SEIZURE LIKE ACTIVITY", 03/12) Troglitazone (Verified Adverse Reaction, Mild, INCREASE LFTs, 03/12/17) Uncoded Allergies: NECTARINE (Allergy, Mild, HIVES, 10/24/16) SENSITIVE TO NARCOTICS (Allergy, Unknown, 12/27/02) Physical Exam Vital Signs Date Time Temp Pulse Resp B/P (MAP) Pulse Ox O2 Delivery O2 Flow Rate FiO2 03/12/17 23:06 64 18 118/40 95 Room Air 03/12/17 23:03 97 Room Air 03/12/17 22:10 Room Air 03/12/17 22:09 97 Room Air 03/12/17 22:02 69 03/12/17 22:01 36.7 69 20 122/52 97 Room Air Physical Exam GENERAL: Awake, alert, well-appearing, in no distress HENT: Normocephalic, atraumatic. Oropharynx unremarkable. EYES: Normal conjunctiva. Sclera non-icteric. NECK: Supple. No nuchal rigidity. FROM. No JVD. RESPIRATORY: Clear to auscultation. CARDIAC: Regular rate, normal rhythm. Extremities warm and well perfused. Pulses equal. ABDOMEN: Soft, non-distended. No tenderness to palpation. No rebound or guarding. No masses. RECTAL: Deferred. MUSCULOSKELETAL: Chest examination reveals no tenderness. The back is symmetrical on inspection without obvious abnormality. There is no CVA tenderness to palpation. No joint edema. LOWER EXTREMITIES: Calves are equal size bilaterally and non-tender. No edema. No discoloration. NEURO: Normal sensorium. No sensory or motor deficits noted. SKIN: No rash or jaundice noted. Medical Decision & Procedures ER Provider Diagnostic Interpretation: One View Chest X-ray interpreted by me: negative infiltrate. Normal mediastinum. No pneumothorax. Laboratory Results 03/12/17 22:15 Red Blood Count 4.01, Mean Corpuscular Volume 81.3, Mean Corpuscular Hemoglobin 24.9, Mean Corpuscular Hemoglobin Concent 30.7, Mean Platelet Volume 9.8, Neutrophils (%) (Auto) 58.3, Lymphocytes (%) (Auto) 32.8, Monocytes (%) (Auto) 6.0, Eosinophils (%) (Auto) 2.3, Basophils (%) (Auto) 0.2, Neutrophils # (Auto) 4.75, Lymphocytes # (Auto) 2.68, Monocytes # (Auto) 0.49, Eosinophils # (Auto) 0.19, Basophils # (Auto) 0.02 03/12/17 22:15 Test 03/12/17 22:15 White Blood Count 8.16 K/uL (4.8-10.8) Red Blood Count 4.01 M/uL (4.2-5.4) Hemoglobin 10.0 g/dL (12.0-16.0) Hematocrit 32.6 % (37-47) Mean Corpuscular Volume 81.3 fL (80-100) Mean Corpuscular Hemoglobin 24.9 pg (25-34) Mean Corpuscular Hemoglobin Concent 30.7 g/dl (32-36) Platelet Count 339 K/uL (130-400) Mean Platelet Volume 9.8 fL (7.4-10.4) Neutrophils (%) (Auto) 58.3 % Lymphocytes (%) (Auto) 32.8 % Monocytes (%) (Auto) 6.0 % Eosinophils (%) (Auto) 2.3 % Basophils (%) (Auto) 0.2 % Neutrophils # (Auto) 4.75 K/uL (1.4-6.5) Lymphocytes # (Auto) 2.68 K/uL (1.2-3.4) Monocytes # (Auto) 0.49 K/uL (0.11-0.59) Eosinophils # (Auto) 0.19 K/uL (0-0.5) Basophils # (Auto) 0.02 K/uL (0-0.2) RDW Standard Deviation 46.1 fL (36.4-46.3) RDW Coefficient of Variation 15.6 % (11.5-14.5) Immature Granulocyte % (Auto) 0.4 % Immature Granulocyte # (Auto) 0.03 K/uL (0.00-0.02) Prothrombin Time 10.3 SECONDS (9.0-12.0) Prothromb Time International Ratio 1.0 (0.9-1.1) Anion Gap 6.0 mmol/L (3-11) Est Creatinine Clear Calc Drug Dose 25.1 ml/min Estimated GFR () 29.2 Estimated GFR (Non- 25.2 BUN/Creatinine Ratio 18.9 (10-20) Calcium Level 9.2 mg/dl (8.5-10.1) Total Bilirubin 0.5 mg/dl (0.2-1) Direct Bilirubin 0.2 mg/dl (0-0.2) Aspartate Amino Transf (AST/SGOT) 35 U/L (15-37) Alanine Aminotransferase (ALT/SGPT) 25 U/L (12-78) Alkaline Phosphatase 79 U/L (45-117) Total Protein 7.0 gm/dl (6.4-8.2) Albumin 3.3 gm/dl (3.4-5.0) Laboratory results reviewed by me Medications Administered Medications (Trade) Dose Ordered Sig/Shilpa Route Start Time Stop Time Status Last Admin Dose Admin Aspirin (Aspirin Chew) 324 mg NOW STAT PO 03/12/17 21:53 03/12/17 21:55 DC 03/12/17 22:15 324 MG ECG Indication: chest pain Rate (beats per minute): 72 Rhythm: sinus rhythm Findings: 1st degree AV block, no acute ischemic change, other (Normal axis. ) ED Course 2148: The patient was evaluated in room B5. A complete history and physical exam was performed. 2152: Ordered Aspirin Chew 324 mg PO. 2304: Upon reexamination, the patient was resting comfortably. I discussed the test results and treatment plan with her. The patient will be evaluated for further management. Medical Decision Differential diagnosis: Etiologies such as cardiac ischemia, aortic dissection, pulmonary embolism, pneumonia, pneumothorax, musculoskeletal, infections, pericarditis, myocarditis , esophageal rupture, gastrointestinal, as well as others were entertained. Patient remained stable condition throughout emergency department evaluation no significant chest pain. Patient was given aspirin patient is relatively. The case was discussed with the admitting the hospitalist for admission patient will be admitted for further rule out of acute coronary syndrome Medication Reconcilliation Current Medication List: was personally reviewed by me Blood Pressure Screening Patient's blood pressure: Normal blood pressure Blood pressure disposition: Did not require urgent referral Consults Time Called: [phone] Consulting Physician: Dr. Luis -[facility] [place] Returned Call: [phone] Discussed the patient's case. The patient will be evaluated for further treatment and disposition. Impression Primary Impression: Acute chest pain Scribe Attestation The scribe's documentation has been prepared under my direction and personally reviewed by me in its entirety. I confirm that the note above accurately reflects all work, treatment, procedures, and medical decision making performed by me. Departure Information Dispostion Being Evaluated By Hospitalist Referrals Katina Yang DO (PCP)
--- NOTE | 2017-03-12 23:56 | History and Physical ---
History & Physical Date & Time of Service: Mar 12, 2017 at 23:56 Chief Complaint: Chest Pain Primary Care Physician: Katina Yang DO History of Present Illness Source: patient, family The patient is an 87-year-old female who presents to the emergency department with chest pain that initially began 1-1/2 hours prior to arrival, first on her right side, and which has now spread to her left side. She reports that some part of the pain was improved with sublingual nitroglycerin in route to the hospital, but she still has substernal left-sided discomfort now. She denied any change in usual activities. Past Medical/Surgical History Medical Problems: (1) Chronic back pain Status: Chronic (2) Diabetes mellitus Status: Chronic (3) GERD (gastroesophageal reflux disease) Status: Chronic (4) Hypertension Status: Chronic (5) Hypothyroidism Status: Chronic Surgical Problems: (1) History of heart artery stent Status: Resolved Family History Diabetes mellitus Hypertension Social History Smoking Status: Never Smoker Smokeless Tobacco Use: No Alcohol Use: none Drug Use: none Marital Status: Occupational Status: retired Immunizations History of Influenza Vaccine: Unknown History of Tetanus Vaccine?: Unknown History of Pneumococcal: Unknown History of Hepatitis B Vaccine: Unknown Multi-Drug Resistant Organisms History of MDRO: No Allergies Coded Allergies: Diclofenac (Verified Allergy, Unknown, UNSURE, 03/12/17) Metformin (Verified Adverse Reaction, Mild, DIARRHEA, 10/31/16) Methadone (Verified Adverse Reaction, Mild, DIZZY, 03/12/17) Morphine and Related (Verified Adverse Reaction, Mild, HALLUCINATION, ) Promethazine (Verified Adverse Reaction, Mild, SEIZURE LIKE ACTIVITY", 03/12) Troglitazone (Verified Adverse Reaction, Mild, INCREASE LFTs, 03/12/17) Uncoded Allergies: NECTARINE (Allergy, Mild, HIVES, 10/24/16) SENSITIVE TO NARCOTICS (Allergy, Unknown, 12/27/02) Home Medications Scheduled Allopurinol (Zyloprim), 100 MG PO QAM Amiodarone Hcl (Cordarone), 200 MG PO QAM Amlodipine (Norvasc), 10 MG PO QAM Atorvastatin (Lipitor), 10 MG PO QPM Cholecalciferol (Vitamin D3), 1 TAB PO QAM Furosemide (Lasix), 10 MG PO QAM Glipizide (Glipizide Er), 5 MG PO DAILY Insulin Glargine (Lantus), 20 UNITS SC QPM Latanoprost (Xalatan 0.005% Oph Catie), 1 DROPS OP HS Levothyroxine Sodium (Levothyroxine Sodium), 1 TAB PO DAILY Losartan Potassium (Cozaar), 25 MG PO QPM Nitroglycerin (Nitrostat), 0.4 MG UT PRN Omeprazole (Prilosec), 20 MG PO BID Prednisone (Prednisone), 10 MG PO QAM Rivaroxaban (Xarelto), 15 MG PO QPM Rivastigmine Tartrate (Exelon), 4.6 MG TOP DAILY Scheduled PRN Albuterol Hfa (Ventolin Hfa), 2-4 PUFFS INH Q6H PRN for Shortness of Breath Cetirizine (Zyrtec), 10 MG PO DAILY PRN for PRN Clobetasol Propionate (Clobetasol Propionate), 1 APPLN TOP 2X WEEK PRN for PRN Colchicine (Colcrys), 1 TAB PO DAILY PRN for GOUT Insulin Aspart (Novolog), UNITS SQ TIDM PRN for SLIDING SCALE Meclizine HCl (Meclizine HCl), 1 TAB PO TID PRN for DIZZY Triamcinolone Acetonide (Topic (Triamcinolone Acet 0.025%), 1 APPLN TOP BID PRN for HANDS Review of Systems The patient denies palpitations, shortness of breath, cough, lower extremity swelling, vision change, hearing change, sore throat, fevers, chills, sweats, weight change, fatigue, nausea, vomiting, diarrhea or constipation, abdominal pain, pelvic pain, blood in urine or stool, dysuria, urinary frequency or urgency, lightheadedness, dizziness, headache, memory loss, rash, abnormal bruising or bleeding, imbalance, focal or generalized weakness, numbness or tingling in arms or legs, generalized arthralgias or myalgias, back or neck pain , night sweats, or allergy symptoms. The review of systems is otherwise negative other than for that already noted above, and at least 10 systems have been reviewed. Physical Exam Vital Signs Date Time Temp Pulse Resp B/P (MAP) Pulse Ox O2 Delivery O2 Flow Rate FiO2 03/12/17 23:06 64 18 118/40 95 Room Air 03/12/17 23:03 97 Room Air 03/12/17 22:10 Room Air 03/12/17 22:09 97 Room Air 03/12/17 22:02 69 03/12/17 22:01 36.7 69 20 122/52 97 Room Air The patient is awake, well-developed and adequately nourished, alert and oriented 3, normocephalic and atraumatic, lying in bed and in no acute distress. HEENT--PERRL, EOMI, mucous membranes and oropharynx normal. Neck--supple, no JVD or bruits, thyroid normal, trachea midline, no adenopathy. Heart--normal S1 and S2, no extra beats, no murmurs, rubs or gallops. Lungs--clear bilaterally with good air movement, no respiratory distress, no accessory muscle use. Abdomen--normal bowel sounds and soft, nontender and nondistended, no hernias or masses, no organomegaly. Extremities--no cyanosis, clubbing or edema. There are good distal pulses b/l. Dermatologic--normal skin turgor, normal color, warm and dry, no abnormal lymph nodes, no rash. Neurologic--cranial nerves II through XII grossly intact, motor and sensory examination normal. Rheumatologic--reproducible chest pain over lateral parasternal costochondral junctions. Psychiatric--normal affect. Diagnostics Laboratory Results Results Past 24 Hours Test 03/12/17 22:15 Range/Units White Blood Count 8.16 4.8-10.8 K/uL Red Blood Count 4.01 4.2-5.4 M/uL Hemoglobin 10.0 12.0-16.0 g/dL Hematocrit 32.6 37-47 % Mean Corpuscular Volume 81.3 80-100 fL Mean Corpuscular Hemoglobin 24.9 25-34 pg Mean Corpuscular Hemoglobin Concent 30.7 32-36 g/dl Platelet Count 339 130-400 K/uL Mean Platelet Volume 9.8 7.4-10.4 fL Neutrophils (%) (Auto) 58.3 % Lymphocytes (%) (Auto) 32.8 % Monocytes (%) (Auto) 6.0 % Eosinophils (%) (Auto) 2.3 % Basophils (%) (Auto) 0.2 % Neutrophils # (Auto) 4.75 1.4-6.5 K/uL Lymphocytes # (Auto) 2.68 1.2-3.4 K/uL Monocytes # (Auto) 0.49 0.11-0.59 K/uL Eosinophils # (Auto) 0.19 0-0.5 K/uL Basophils # (Auto) 0.02 0-0.2 K/uL RDW Standard Deviation 46.1 36.4-46.3 fL RDW Coefficient of Variation 15.6 11.5-14.5 % Immature Granulocyte % (Auto) 0.4 % Immature Granulocyte # (Auto) 0.03 0.00-0.02 K/uL Prothrombin Time 10.3 9.0-12.0 SECONDS Prothromb Time International Ratio 1.0 0.9-1.1 Sodium Level 139 136-145 mmol/L Potassium Level 3.8 3.5-5.1 mmol/L Chloride Level 104 98-107 mmol/L Carbon Dioxide Level 29 21-32 mmol/L Anion Gap 6.0 3-11 mmol/L Blood Urea Nitrogen 34 7-18 mg/dl Creatinine 1.80 0.60-1.20 mg/dl Est Creatinine Clear Calc Drug Dose 25.1 ml/min Estimated GFR () 29.2 Estimated GFR (Non- 25.2 BUN/Creatinine Ratio 18.9 10-20 Random Glucose 210 70-99 mg/dl Calcium Level 9.2 8.5-10.1 mg/dl Total Bilirubin 0.5 0.2-1 mg/dl Direct Bilirubin 0.2 0-0.2 mg/dl Aspartate Amino Transf (AST/SGOT) 35 15-37 U/L Alanine Aminotransferase (ALT/SGPT) 25 12-78 U/L Alkaline Phosphatase 79 45-117 U/L Total Protein 7.0 6.4-8.2 gm/dl Albumin 3.3 3.4-5.0 gm/dl Diagnostic Radiology Patient Name: TYE VIZCARRA Unit Number: [id number] Dictated: 03/12/172238 Transcribed: 03/12/172238 ARTEM Printed Date/Time: [~ rep prt dt]/[~ rep prt tm] [~ rep ct labl] - [~ rep ct ivnm] [facility] [place] [address] Dictated: 03/12/172238 Transcribed: 03/12/172238 JA Printed Date/Time: [~ rep prt dt]/[~ rep prt tm] [~ rep ct labl] - [~ rep ct ivnm] [~ rep ct add3]] CHEST ONE VIEW PORTABLE CLINICAL HISTORY: Chest pain. COMPARISON STUDY: Chest radiograph January 01, 2017. FINDINGS: Lung volumes are normal. There is no pneumothorax or pleural effusion. There is mild nodular opacity along the left heart border. There is no lobar consolidation. There is no evidence of pulmonary edema. Pulmonary vascular congestion is suspected. Mild cardiomegaly is noted. IMPRESSION: 1. Subtle nodular opacity along the left heart border. This may reflect a prominent epicardial fat pad although a small focus of pneumonia or pulmonary nodule could appear similar. Follow-up PA and lateral chest radiographs in one month are recommended. 2. Mild cardiomegaly with pulmonary vascular congestion. No overt pulmonary edema. Electronically signed by: Sav Lanier M.D. 03/12/2017 10:42 PM Dictated Date/Time: 03/12/2017 10:39 PM The status of this report is Signed. Draft = Not yet reviewed or approved by Radiologist. Signed = Reviewed and approved by Radiologist. <AttendingPhy></AttendingPhy> <FamilyPhy>Katina Yang DO</FamilyPhy> < PrimaryPhy>Katina Yang DO</PrimaryPhy> <UnitNumber>[id number]</UnitNumber > <VisitNumber>[id number]</VisitNumber> <PatientName>TYE VIZCARRA</ PatientName> <DateOfBirth>1930</DateOfBirth> <Location>C.[facility]</Location> < ServiceDate>03/12/17</ServiceDate> <MNE>ESINDI</MNE> <OrderingPhy>Greg Ferrell DO</OrderingPhy> <OrderingPhyMNE>f rep ord dr tan</OrderingPhyMNE> < DictatingPhyMNE>f rep dict dr tan</DictatingPhyMNE> <CCListMNE>f rep ct mne</ CCListMNE> <AdmittingPhyMNE>f pt admit dr tan</AdmittingPhyMNE> <AttendingPhyMNE >f pt attend dr tan</AttendingPhyMNE> <ConsultingPhyMNE>f pt consult dr tan</ConsultingPhyMNE> <FamilyPhyMNE>f pt fam dr tan</FamilyPhyMNE> <OtherPhyMNE>f pt other dr tan</OtherPhyMNE> < PrimaryPhyMNE>f pt prim care dr tan</PrimaryPhyMNE> <ReferringPhyMNE>f pt referring dr tan</ReferringPhyMNE> EKG EKG shows normal sinus rhythm at 72 bpm, first-degree heart block, no acute change compared to 01/01/2017. Impression Assessment and Plan Acute chest pain/hypertension/atrial fibrillation/venous insufficiency-- The patient will be admitted to telemetry for serial cardiac enzymes, cardiac rhythm monitoring and a 2-D echocardiogram with Dopplers.. Continue amiodarone 200 mg by mouth every morning, amlodipine 10 mg by mouth every morning, furosemide 10 mg by mouth every morning, losartan potassium 25 mg by mouth every evening, and Xarelto 15 mg by mouth every evening. Patient's symptoms may be a mixture of underlying heart dysfunction and overlying costochondritis associated with rheumatologic disease. Diabetes mellitus--patient has run low in the morning and make a tire around noon. She takes Lantus 20 units subcutaneous every morning. And she also takes her prednisone in the morning. We'll continue her Lantus 20 units subcutaneous every morning. We'll change prednisone from 10 mg by mouth every morning 25 mg by mouth twice a day. Hold glipizide ER 5 mg by mouth daily. Placement Accu-Cheks before meals and at bedtime with NovoLog coverage per scale. Rheumatologic disease--patient follows with Dr. Ortiz. Continue same total dose of prednisone, but splitting the dose to 5 mg by mouth twice a day, as the 10 mg dose in the a.m. may be causing her blood sugar to be elevated at lunch time. Hyperlipidemia--continue atorvastatin 10 mg by mouth every evening. Hypothyroidism continue levothyroxine sodium. GERD--change omeprazole 20 mg by mouth twice a day to pantoprazole 40 mg by mouth twice a day. Dementia--continue Exelon 4 mg patch topically daily. Gout--continue allopurinol 100 mg by mouth every morning. Glaucoma --continue Xalatan 1 drop OP HS. Level of Care Telemetry Advanced Directives Existing Advance Directive: No Existing Living Will: No Existing Power of Psychological Anthropologist: No Resuscitation Status FULL RESUSCITATION VTE Prophylaxis VTE Risk Assessment Done? Y/N: Yes Risk Level: Moderate Given or contraindicated: Other Anticoagulation (Xarelto)
[2017-03-13] VITALS (11 sets, daily range): BP systolic 140–175; BP diastolic 57–78; PULSE 62–72; TEMP 36.2–36.6; O2SAT 95–98; Ht 160 cm; Wt 91.9 kg
[2017-03-13] MEDS ORDERED: IV FLUIDS COMPLETED PRN (00:45)
[2017-03-13] MEDS ORDERED: DEXTROSE 50% 50 ML SYR IV PRN (04:00)
[2017-03-13] MEDS ORDERED: CETIRIZINE HCL 10 MG TAB PO PRN (04:00)
[2017-03-13] MEDS ORDERED: NITROGLYCERIN 0.4 MG SL PER TAB CHARGE UT SCH (04:00)
[2017-03-13] MEDS ORDERED: GLUCOSE 10 TABS/TUBE PO PRN (04:00)
[2017-03-13] MEDS ORDERED: ALBUTEROL HFA 8 GM INHALER INH PRN (04:00)
[2017-03-13] MEDS ORDERED: GLUCOSE 40% GEL 15 GM TUBE PO PRN (04:00)
[2017-03-13] MEDS ORDERED: NITROGLYCERIN 0.4 MG SL PER TAB CHARGE SL PRN (04:00)
[2017-03-13] MEDS ORDERED: GLUCAGON FOR INJ 1 MG VIAL SQ PRN (04:00)
[2017-03-13] MEDS ORDERED: ONDANSETRON INJ 2 MG/ML 2 ML VIAL IV PRN (04:00)
[2017-03-13] MEDS ORDERED: ACETAMINOPHEN 325 MG TAB PO PRN (04:00)
[2017-03-13] MEDS ORDERED: LEVOTHYROXINE 112 MCG TAB PO SCH (06:30)
[2017-03-13] MEDS ORDERED: EXELON~ORDER AWAITING ACTION SCH (08:00)
[2017-03-13] MEDS ORDERED: CLOBETASOL~ORDER AWAITING ACTION SCH (08:00)
--- NOTE | 2017-03-13 08:25 | Progress Note ---
Subjective Date of Service: Mar 13, 2017. Problem List Medical Problems: (1) Acute chest pain Status: Acute (2) Acute chest pain Status: Acute (3) Anemia, unspecified Status: Acute (4) Elevated serum creatinine Status: Acute Objective Vital Signs Date Time Temp Pulse Resp B/P (MAP) Pulse Ox O2 Delivery O2 Flow Rate FiO2 03/13/17 07:41 36.3 65 16 175/71 (105) 95 Room Air 03/13/17 04:00 36.6 72 20 164/78 (106) 97 Room Air 03/13/17 04:00 Room Air 03/13/17 01:15 36.5 67 18 159/66 95 Room Air 03/13/17 00:52 69 18 146/110 96 03/12/17 23:06 64 18 118/40 95 Room Air 03/12/17 23:03 97 Room Air 03/12/17 22:10 Room Air 03/12/17 22:09 97 Room Air 03/12/17 22:02 69 03/12/17 22:01 36.7 69 20 122/52 97 Room Air Laboratory Results Last 24 Hours Test 03/12/17 22:15 03/13/17 04:38 03/13/17 07:25 White Blood Count 8.16 K/uL Red Blood Count 4.01 M/uL Hemoglobin 10.0 g/dL Hematocrit 32.6 % Mean Corpuscular Volume 81.3 fL Mean Corpuscular Hemoglobin 24.9 pg Mean Corpuscular Hemoglobin Concent 30.7 g/dl Platelet Count 339 K/uL Mean Platelet Volume 9.8 fL Neutrophils (%) (Auto) 58.3 % Lymphocytes (%) (Auto) 32.8 % Monocytes (%) (Auto) 6.0 % Eosinophils (%) (Auto) 2.3 % Basophils (%) (Auto) 0.2 % Neutrophils # (Auto) 4.75 K/uL Lymphocytes # (Auto) 2.68 K/uL Monocytes # (Auto) 0.49 K/uL Eosinophils # (Auto) 0.19 K/uL Basophils # (Auto) 0.02 K/uL RDW Standard Deviation 46.1 fL RDW Coefficient of Variation 15.6 % Immature Granulocyte % (Auto) 0.4 % Immature Granulocyte # (Auto) 0.03 K/uL Prothrombin Time 10.3 SECONDS Prothromb Time International Ratio 1.0 Sodium Level 139 mmol/L Potassium Level 3.8 mmol/L Chloride Level 104 mmol/L Carbon Dioxide Level 29 mmol/L Anion Gap 6.0 mmol/L Blood Urea Nitrogen 34 mg/dl Creatinine 1.80 mg/dl Est Creatinine Clear Calc Drug Dose 25.1 ml/min Estimated GFR () 29.2 Estimated GFR (Non- 25.2 BUN/Creatinine Ratio 18.9 Random Glucose 210 mg/dl Calcium Level 9.2 mg/dl Total Bilirubin 0.5 mg/dl Direct Bilirubin 0.2 mg/dl Aspartate Amino Transf (AST/SGOT) 35 U/L Alanine Aminotransferase (ALT/SGPT) 25 U/L Alkaline Phosphatase 79 U/L Total Protein 7.0 gm/dl Albumin 3.3 gm/dl Bedside Glucose 72 mg/dl 124 mg/dl Assessment and Plan Acute chest pain/hypertension/atrial fibrillation/venous insufficiency-- Chest pain, serial enzymes atrial fibrillation amiodarone 200 mg by mouth every morning, Xarelto 15 mg by mouth every evening. HTN amlodipine 10 mg , furosemide 10 mg , losartan potassium 25 mg Diabetes mellitus- Lantus 20 units subcutaneous every morning.Hold glipizide ER 5 mg plus ssi ckd 4 will eval for renal dosing meds Rheumatologic disease--patient follows with Dr. Ortiz. daily steroids, splitting the dose to 5 mg by mouth twice a day anemia maybe from chronic disease will follow Hyperlipidemia--continue atorvastatin 10 mg by mouth every evening. Hypothyroidism continue levothyroxine sodium. GERD--ppi Dementia--with behavior disorder, Exelon 4 mg patch topically daily. Gout--continue allopurinol 100 mg by Glaucoma --continue Xalatan 1 drop OP HS. dvt prevention is xarelto
--- NOTE | 2017-03-13 08:48 | Hospitalist Progress Note ---
Hospitalist Progress Note Date of Service Mar 13, 2017. Subjective Pt evaluation today including: conversation w/ patient, physical exam, chart review, lab review, review of studies Pain: Chest pain PO Intake: good Voiding: no voiding problems The patient was seen and examined this morning. Pt reports doing well this morning. She reports having minimal substernal chest pain but that it has been dull, started about 30 min ago. She denies any exacerbating factors. Rates it a 1/10. This pain is similar to last evenings although much less in intensity. It doesn't radiate anywhere. She denies associated sx of lightheadedness, dizziness, palpitations, flutter, shortness of breath, chest tightness. Pt feels she was extremely anxious last night over needing some specific groceries and her daughter had to pick them up. She admits to becoming overly anxious about things, and thinks this was likely a contributing factor last evening. Constitutional: No fever, No chills, No sweats Eyes: No worsening of vision, No diplopia ENT: No sore throat Respiratory: No cough, No sputum, No shortness of breath, No dyspnea on exertion Cardiovascular: No chest pain, No orthopnea, No edema, No palpitations Abdomen: No pain, No nausea, No vomiting, No diarrhea, No constipation Musculoskeletal: No joint pain Neurologic: + balance problems (uses a cane/walker regularly), No weakness Endo: No fatigue Skin: No rash, No itch Objective Vital Signs Date Time Temp Pulse Resp B/P (MAP) Pulse Ox O2 Delivery O2 Flow Rate FiO2 03/13/17 07:41 36.3 65 16 175/71 (105) 95 Room Air 03/13/17 04:00 36.6 72 20 164/78 (106) 97 Room Air 03/13/17 04:00 Room Air 03/13/17 01:15 36.5 67 18 159/66 95 Room Air 03/13/17 00:52 69 18 146/110 96 03/12/17 23:06 64 18 118/40 95 Room Air 03/12/17 23:03 97 Room Air 03/12/17 22:10 Room Air 03/12/17 22:09 97 Room Air 03/12/17 22:02 69 03/12/17 22:01 36.7 69 20 122/52 97 Room Air Physical Exam General Appearance: WD/WN, no apparent distress, + obese Eyes: PERRL, EOMI ENT: hearing grossly normal, pharynx normal Neck: supple, no JVD Respiratory/Chest: chest non-tender, lungs clear, no respiratory distress, no accessory muscle use Cardiovascular: regular rate, rhythm, + systolic murmur (RUSB grade II/) Abdomen: normal bowel sounds, non tender, soft Extremities: non-tender, no pedal edema, no calf tenderness Neurologic/Psychiatric: alert, normal mood/affect, oriented x 3 Skin: normal color, warm/dry Laboratory Results Last 24 Hours Test 03/12/17 22:15 03/13/17 04:38 03/13/17 07:25 White Blood Count 8.16 K/uL Red Blood Count 4.01 M/uL Hemoglobin 10.0 g/dL Hematocrit 32.6 % Mean Corpuscular Volume 81.3 fL Mean Corpuscular Hemoglobin 24.9 pg Mean Corpuscular Hemoglobin Concent 30.7 g/dl Platelet Count 339 K/uL Mean Platelet Volume 9.8 fL Neutrophils (%) (Auto) 58.3 % Lymphocytes (%) (Auto) 32.8 % Monocytes (%) (Auto) 6.0 % Eosinophils (%) (Auto) 2.3 % Basophils (%) (Auto) 0.2 % Neutrophils # (Auto) 4.75 K/uL Lymphocytes # (Auto) 2.68 K/uL Monocytes # (Auto) 0.49 K/uL Eosinophils # (Auto) 0.19 K/uL Basophils # (Auto) 0.02 K/uL RDW Standard Deviation 46.1 fL RDW Coefficient of Variation 15.6 % Immature Granulocyte % (Auto) 0.4 % Immature Granulocyte # (Auto) 0.03 K/uL Prothrombin Time 10.3 SECONDS Prothromb Time International Ratio 1.0 Sodium Level 139 mmol/L Potassium Level 3.8 mmol/L Chloride Level 104 mmol/L Carbon Dioxide Level 29 mmol/L Anion Gap 6.0 mmol/L Blood Urea Nitrogen 34 mg/dl Creatinine 1.80 mg/dl Est Creatinine Clear Calc Drug Dose 25.1 ml/min Estimated GFR () 29.2 Estimated GFR (Non- 25.2 BUN/Creatinine Ratio 18.9 Random Glucose 210 mg/dl Calcium Level 9.2 mg/dl Total Bilirubin 0.5 mg/dl Direct Bilirubin 0.2 mg/dl Aspartate Amino Transf (AST/SGOT) 35 U/L Alanine Aminotransferase (ALT/SGPT) 25 U/L Alkaline Phosphatase 79 U/L Total Protein 7.0 gm/dl Albumin 3.3 gm/dl Bedside Glucose 72 mg/dl 124 mg/dl Assessment and Plan 87 yo F with PMHx of HTN, Afbid, venous insufficiency, DM II, Chest pain HTN AFib Venous insufficiency - serial cardiac enzymes ordered- follow - 2-D echo ordered- follow - Continue amiodarone 200 mg QAM, amlodipine 10 mg QAM, furosemide 10 mg QAM, losartan potassium 25 mg by QPM, and Xarelto 15 mg QPM - Patient's symptoms may be a mixture of underlying heart dysfunction and overlying costochondritis associated with rheumatologic disease, and likely anxiety attack in addition to these. Diabetes mellitus - Cont Lantus 20 U QAM - Adjust prednisone to 5 mg BID instead of 10 mg QAM. - Hold glipizide ER 5 mg QAM - ISS with ghanshyam CONLEY Rheumatologic disease--patient follows with Dr. Ortiz. - Prednisone 5 mg BID now as this may possibly be causing the pts high glucose around noon. CKD stage III - Cr. is 1.8 today, appears baseline is ~ 1.4 from few months ago. Will renally adjust meds Anemia - Appears stable around 10 since October. Hyperlipidemia -continue atorvastatin 10 mg QPM Hypothyroidism - continue levothyroxine 112 mcg daily GERD- - Pantoprazole 40 mg BID while in house Dementia -continue Exelon 4 mg patch topically daily. Gout -continue allopurinol 100 mg by mouth every morning. Glaucoma -continue Xalatan 1 drop OP HS. DVT ppx: xarelto CODE STATUS: FULL CODE Disposition: From home, lives alone in apartment, possible discharge within 24 hours.
[2017-03-13] MEDS ORDERED: INSULIN GLARGINE SOLOSTAR 100 UNITS/ML 3 ML PEN SC SCH ×2 (09:00→21:00)
[2017-03-13] MEDS ORDERED: AMLODIPINE BESYLATE 5 MG TAB PO SCH (09:00)
[2017-03-13] MEDS ORDERED: FUROSEMIDE 20 MG TAB PO SCH (09:00)
[2017-03-13] MEDS ORDERED: PANTOprazole SOD 40 MG TAB PO SCH (09:00)
[2017-03-13] MEDS ORDERED: CHOLECALCIFEROL 1000 INTER.UNIT TAB PO SCH (09:00)
[2017-03-13] MEDS ORDERED: AMIODARONE 200 MG TAB PO SCH (09:00)
[2017-03-13] MEDS ORDERED: ALLOPURINOL 100 MG TAB PO SCH (09:00)
[2017-03-13] MEDS: INSULIN ASPART 100 UNITS/ML 3 ML PEN SC SCH ×3 (09:10→17:30)
[2017-03-13 10:29] LABS: ESTIMATED AVERAGE GLUCOSE 186 mg/dl; HA1C FLAG Normal (Normal)
[2017-03-13 12:41] LABS: CKMB/CK RATIO 3.6 (0-3.0)
[2017-03-13] MEDS ORDERED: PRED-301 PO (13:18)
--- NOTE | 2017-03-13 13:29 | Discharge Instructions ---
Discharge Instructions Date of Service Mar 13, 2017. Admission Reason for Admission: Acute Chest Pain, Stented Coronary Artery Discharge Discharge Diagnosis / Problem: Chest pain Discharge Goals Goal(s): Decrease discomfort, Improve function, Increase independence, Improve disease control Activity Recommendations Activity Limitations: resume your previous activity Lifting Limitations: no more than 10 pounds Exercise/Sports Limitations: rest today, gradually increase as tolerated Shower/Bathe: no limitations Driving or Machine Use: DO NOT DRIVE . Instructions / Follow-Up Instructions / Follow-Up You were admitted to [facility] with chest pain and diagnosed with non-cardiac related chest pain, most likely anxiety and indigestion. During your stay here you were treated with supportive care. Your troponin( cardiac biomarkers) was trended and was negative. Imaging studies which were completed include echocardiogram(ultrasound of the heart) which showed normal systolic function, mild mitral regurgitation, and sclerotic aortic valve. This is relatively normal. These results will be reviewed by followed by your Verification Lead. Medications - Your prednisone has been changed to 5 mg twice daily. Continue taking your medications as above. Appointments: Follow up with your Primary Care Provider within 1 week. An appointment has been requested for you. Follow up with Cardiology within 1-2 weeks. Current Hospital Diet Patient's current hospital diet: AHA Diet (Heart Healthy), Diabetes Type 2 Diet Discharge Diet Recommended Diet: AHA Diet (Heart Healthy), Diabetes Type 2 Diet Procedures Procedures Performed: 2D echocardiogram Pending Studies Studies pending at discharge: no Laboratory Results Hemoglobin A1c Test 03/13/17 09:06 Range/Units Estimated Average Glucose 186 mg/dl Hemoglobin A1c 8.1 H 4.5-5.6 % Medical Emergencies . Who to Call and When: Medical Emergencies: If at any time you feel your situation is an emergency, please call 911 immediately. . Non-Emergent Contact Non-Emergency issues call your: Primary Care Provider Call Non-Emergent contact if: you have a fever, temperature is above 100.5, your pain is not controlled, your pain is worsening, your pain is unusual for you, your pain is concerning you other concerns with your health. Call 911 or go directly to the Emergency Department if you experience any of the following: Chest pain, chest tightness, shortness of breath, abdominal pain , lightheadedness, dizziness, gastrointestinal bleeding, or have any other concerns regarding your health. . . "Provider Documentation" section prepared by Lissette Reece. . VTE Core Measure Inpt VTE Proph given/why not?: Other Anticoagulation (Xarelto), T.E.DLuis Stockings, SCD's
--- NOTE | 2017-03-13 13:36 | Discharge Summary ---
Discharge Summary Date of Service Mar 13, 2017. (Rachna Reece PA-C) Discharge Summary Admission Date: Mar 12, 2017 at 23:57 Discharge Date: Mar 13, 2017 Discharge Disposition: Home Principal Diagnosis: Chest pain Problems/Secondary Diagnoses: HTN, Afib, venous insufficiency, DM II Immunizations: Have You Had Influenza Vaccine: Unknown History of Tetanus Vaccine?: Unknown History of Pneumococcal: Unknown History of Hepatitis B Vaccine: Unknown Procedures: 2D Echocardiogram 03/13/17 Interpretation Summary * Name: TYE VIZCARRA Study Date: 03/13/2017 01:26 PM BP: 146/77 mmHg * Patient Location: [facility]\S\N275\S\1 HR: 63 * : 1930 (M/d/yyyy) Gender: Female Height: 63 in * Age: 87 yrs Ethnicity: [place] Weight: 202 lb * Ordering Physician: Rachna Reece * Referring Physician: Mena Chambers I. * Performed By: Keyana Del Valle RDCS * * Reason For Study: Chest pain * BSA: 1.9 m2 * -- Conclusions -- * 1. Normal left ventricular size and systolic function. EF 65-70%. No regional wall motion abnormalities. No left ventricular hypertrophy. * 2. Sclerotic aortic valve without significant stenosis. * 3. Mild mitral regurgitation. * 4. Normal estimated right ventricular systolic pressure. * 5. Technically difficult study, enhanced with IV Definity.CHEST ONE VIEW PORTABLE CLINICAL HISTORY: Chest pain. COMPARISON STUDY: Chest radiograph January 01, 2017. FINDINGS: Lung volumes are normal. There is no pneumothorax or pleural effusion. There is mild nodular opacity along the left heart border. There is no lobar consolidation. There is no evidence of pulmonary edema. Pulmonary vascular congestion is suspected. Mild cardiomegaly is noted. IMPRESSION: 1. Subtle nodular opacity along the left heart border. This may reflect a prominent epicardial fat pad although a small focus of pneumonia or pulmonary nodule could appear similar. Follow-up PA and lateral chest radiographs in one month are recommended. 2. Mild cardiomegaly with pulmonary vascular congestion. No overt pulmonary edema. Electronically signed by: Sav Lanier M.D. 03/12/2017 10:42 PM Dictated Date/Time: 03/12/2017 10:39 PM The status of this report is Signed. (Rachna Reece, MANSI) Medication Reconciliation Changed Medications: Prednisone (Prednisone) 5 Mg Tab 5 MG PO BID for 30 Days, #60 TAB (Changed from: Prednisone 20 Mg Tab 10 Mg PO QAM) Continued Medications: Albuterol Hfa (Ventolin Hfa) 200 Puffs/96388 Mcg Aers 2-4 PUFFS INH Q6H PRN for Shortness of Breath, #1 INHALER Allopurinol (Zyloprim) 100 Mg Tab 100 MG PO QAM, TAB Amiodarone Hcl (Cordarone) 200 Mg Tab 200 MG PO QAM, TAB Amlodipine (Norvasc) 5 Mg Tab 10 MG PO QAM, TAB Atorvastatin (Lipitor) 10 Mg Tab 10 MG PO QPM, TAB Cetirizine (Zyrtec) 10 Mg Tab 10 MG PO DAILY PRN for PRN, TAB Cholecalciferol (Vitamin D3) 1,000 Unit Tab 1 TAB PO QAM, TAB 3 Refills Clobetasol Propionate (Clobetasol Propionate) 45 Appln/15 Gm Oint 1 APPLN TOP 2X WEEK PRN for PRN, #60 GM 2 Refills Colchicine (Colcrys) 0.6 Mg Tab 1 TAB PO DAILY PRN for GOUT Furosemide (Lasix) 20 Mg Tab 10 MG PO QAM, TAB Glipizide (Glipizide Er) 10 Mg Tab 5 MG PO DAILY, TAB 3 Refills Insulin Aspart (Novolog) 100 Units/Ml Inj UNITS SQ TIDM PRN for SLIDING SCALE 150-180 = 2UNITS, 180-210 = 4 UNITS, 211-240 = 6 UNITS, 241-270 = 8 UNITS, 271-300 = 10 UNITS, 301-330 = 11 UNITS, 331-360 = 12 UNITS, 361-390 = 13 UNITS, 391-420 = 14 UNITS, 421-450 = 15 UNITS, 451-480 = 16 UNITS, >480 = 17 UNITS & CALL Insulin Glargine (Lantus) 100 Unit/Ml Inj 20 UNITS SC QPM, VIAL Latanoprost (Xalatan 0.005% Oph Catie) 0.005 % Catie 1 DROPS OP HS, #2.5 ML 3 Refills Levothyroxine Sodium (Levothyroxine Sodium) 112 Mcg Tab 1 TAB PO DAILY for 30 Days, #30 TAB 5 Refills Losartan Potassium (Cozaar) 25 Mg Tab 25 MG PO QPM, TAB Meclizine HCl (Meclizine HCl) 12.5 Mg Tab 1 TAB PO TID PRN for DIZZY, TAB Nitroglycerin (Nitrostat) 0.4 Mg Tab 0.4 MG UT PRN, BTL Omeprazole (Prilosec) 20 Mg Capcr 20 MG PO BID, CAP Rivaroxaban (Xarelto) 15 Mg Tab 15 MG PO QPM, TAB Rivastigmine Tartrate (Exelon) 4.6 Mg Tdsy 4.6 MG TOP DAILY Triamcinolone Acetonide (Topic (Triamcinolone Acet 0.025%) 0.025 % Oin 1 APPLN TOP BID PRN for HANDS, #30 GM 1 Refill Discharge Exam Subjective Pt evaluation today including: conversation w/ patient, physical exam, chart review, lab review, review of studies Pain: Chest pain PO Intake: good Voiding: no voiding problems The patient was seen and examined this morning. Pt reports doing well this morning. She reports having minimal substernal chest pain but that it has been dull, started about 30 min ago. She denies any exacerbating factors. Rates it a 1/10. This pain is similar to last evenings although much less in intensity. It doesn't radiate anywhere. She denies associated sx of lightheadedness, dizziness, palpitations, flutter, shortness of breath, chest tightness. Pt feels she was extremely anxious last night over needing some specific groceries and her daughter had to pick them up. She admits to becoming overly anxious about things, and thinks this was likely a contributing factor last evening. Constitutional: No fever, No chills, No sweats Eyes: No worsening of vision, No diplopia ENT: No sore throat Respiratory: No cough, No sputum, No shortness of breath, No dyspnea on exertion Cardiovascular: No chest pain, No orthopnea, No edema, No palpitations Abdomen: No pain, No nausea, No vomiting, No diarrhea, No constipation Musculoskeletal: No joint pain Neurologic: + balance problems (uses a cane/walker regularly), No weakness Endo: No fatigue Skin: No rash, No itch Physical Exam General Appearance: WD/WN, no apparent distress, + obese Eyes: PERRL, EOMI ENT: hearing grossly normal, pharynx normal Neck: supple, no JVD Respiratory/Chest: chest non-tender, lungs clear, no respiratory distress, no accessory muscle use Cardiovascular: regular rate, rhythm, + systolic murmur (RUSB grade II/) Abdomen: normal bowel sounds, non tender, soft Extremities: non-tender, no pedal edema, no calf tenderness Neurologic/Psychiatric: alert, normal mood/affect, oriented x 3 Skin: normal color, warm/dry (Rachna Reece, MANSI) Hospital Course 87 yo F with PMHx of HTN, Afib, venous insufficiency, DM II Chest pain HTN AFib Venous insufficiency - serial cardiac enzymes ordered- follow - 2-D echo ordered- * 1. Normal left ventricular size and systolic function. EF 65-70%. No regional wall motion abnormalities. No left ventricular hypertrophy. * 2. Sclerotic aortic valve without significant stenosis. * 3. Mild mitral regurgitation. * 4. Normal estimated right ventricular systolic pressure. * 5. Technically difficult study, enhanced with IV Definity. - Continue amiodarone 200 mg QAM, amlodipine 10 mg QAM, furosemide 10 mg QAM, losartan potassium 25 mg by QPM, and Xarelto 15 mg QPM - Patient's symptoms may be a mixture of underlying heart dysfunction and overlying costochondritis associated with rheumatologic disease, and likely anxiety attack in addition to these. - Follows with Dr. Mcfarlane as an outpatient - will request follow up within 1-2 weeks with him. Diabetes mellitus - Cont Lantus 20 U QAM - Adjust prednisone to 5 mg BID instead of 10 mg QAM. - Hold glipizide ER 5 mg QAM - [facility]--patient follows with Dr. Ortiz. - Prednisone 5 mg BID now as this may possibly be causing the pts high glucose around noon. CKD stage III - Cr. is 1.8 today, appears baseline is ~ 1.4 from few months ago. Will renally adjust meds Anemia - Appears stable around 10 since October. Hyperlipidemia -continue atorvastatin 10 mg QPM Hypothyroidism - continue levothyroxine 112 mcg daily GERD- - Pantoprazole 40 mg BID while in house Dementia -continue Exelon 4 mg patch topically daily. Gout -continue allopurinol 100 mg by mouth every morning. Glaucoma -continue Xalatan 1 drop OP HS. DVT ppx: xarelto CODE STATUS: FULL CODE Disposition: From home, discharge to home today Total Time Spent: Greater than 30 minutes This includes examination of the patient, discharge planning, medication reconciliation, and communication with other providers. (Rachna Reece PA-C) LUCAS Physician Supervision Note: I interviewed and examined the patient. Discussed with Rachna Reece PAC and agree with findings and plan as documented in the note. Any exceptions or clarifications are listed here: None Patient has persistent continual reproducible chest pain, negative troponins and negative echo. She is in the middle being treated by Dr. Ortiz for possible polymalgia rheumatica on daily steroids and has failed being on Plaquenil in the past or diarrhea her daughters at the bedside we would overall of her laboratories and she is agreeable to having her mother go home Vital signs are stable Cardiac exam is regular deathly reproducible muscular skeletal chest pain lungs are clear Was to skilled chest pain patient has intolerance to oral nonsteroidals we'll attempt topical Voltaren and Ultram for pain control with already follow-up arrangements made to see her supervisor coremaker next week on March 19 Documented By: Saturnino Daniels (Saturnino Daniels M.D.) Discharge Instructions Please refer to the electronic Patient Visit Report (Discharge Instructions) for additional information. (Rachna Reece PA-C) Follow-Up Follow up with your Primary Care Provider within 1 week. (Rachna Reece PA-C) Additional Copies To Katina Yang DO
[2017-03-13] MEDS ORDERED: PERFLUTREN LIPID MICROSPHERE (DEFINITY) IV ONE (15:06)
--- NOTE | 2017-03-13 15:46 | ECHOCARDIOGRAM REPORT ---
*NOTICE TO RECEIVING DEMOCRAT AGENCY This information is strictly Confidential and protected under [place] law. [place] law prohibits you from making any further disclosure of this information unless further disclosure is expressly permitted by the written consent of the person to whom it pertains or is authorized by law. A general authorization for the release of medical or other information is not sufficient for this purpose. Hospital accepts no responsibility if the information is made available to any other person, INCLUDING THE PATIENT. Interpretation Summary * Name: TYE VIZCARRA Study Date: 03/13/2017 01:26 PM BP: 146/77 mmHg * Patient Location: [facility]\S\N275\S\1 HR: 63 * : 1930 (M/d/yyyy) Gender: Female Height: 63 in * Age: 87 yrs Ethnicity: [place] Weight: 202 lb * Ordering Physician: Rachna Reece * Referring Physician: Mena Chambers I. * Performed By: Keyana Del Valle RDCS * * Reason For Study: Chest pain * BSA: 1.9 m2 * -- Conclusions -- * 1. Normal left ventricular size and systolic function. EF 65-70%. No regional wall motion abnormalities. No left ventricular hypertrophy. * 2. Sclerotic aortic valve without significant stenosis. * 3. Mild mitral regurgitation. * 4. Normal estimated right ventricular systolic pressure. * 5. Technically difficult study, enhanced with IV Definity. Procedure Details * A complete two-dimensional transthoracic echocardiogram was performed (2D, M-mode, Doppler and color flow Doppler). * A contrast injection of Definity was performed to improve assessment of LV function. * Contrast was injected into an intravenous site in the right arm. * One vial of Definity ultrasound contrast was diluted in normal saline to a total volume of 10 ml. A total of '2' ml of solution was administered during imaging. * Lot # [id number] of Definity utilized for procedure. * Expiration date APR 23. * The attending nurse who injected the contrast agent was Cata Slaughter RN. Left Ventricle * The left ventricle is normal in size. * There is normal left ventricular wall thickness. * Ejection Fraction = 65-70%. * Left ventricular systolic function is normal. * No regional wall motion abnormalities noted. Right Ventricle * The right ventricle is normal in size and function. * The right ventricular systolic function is normal as assessed by tricuspid annular plane systolic excursion (TAPSE) (normal >1.5 cm). Atria * The left atrial size is normal. * Right atrial size is normal. * There is no evidence of atrial septal defect, but resolution does not allow assessment for a patent foramen ovale. Mitral Valve * There is mild mitral annular calcification. * There is no mitral valve stenosis. * There is mild mitral regurgitation. Tricuspid Valve * The tricuspid valve is not well visualized, but is grossly normal. * There is no tricuspid stenosis. * There is trace tricuspid regurgitation. Aortic Valve * The aortic valve is trileaflet. * Aortic valve sclerosis mild, without significant aortic valvular stenosis. * No aortic regurgitation is present. Pulmonic Valve * The pulmonary valve is inadequately visualized, but the Doppler data is adequate for interpretation. * There is no pulmonic valvular stenosis. * There is no significant pulmonary regurgitation. Great Vessels * The aortic root is normal size. * Ascending aorta of normal dimension * Aortic arch of normal dimension. Pericardium/Pleural * There is no pericardial effusion. Great Vessels * Normal inferior vena cava size and collapsability with sniff indicates a normal right atrial pressure of 3 mmHg MMode 2D Measurements and Calculations IVSd 1.1 cm LVIDd 4.6 cm LVIDs 2.8 cm LVPWd 1.0 cm IVS/LVPW 1.1 FS 39.6 % EDV(Teich) 98.2 ml ESV(Teich) 29.2 ml EF(Teich) 70.3 % EDV(cubed) 98.4 ml ESV(cubed) 21.6 ml EF(cubed) 78.0 % LV mass(C)d 168.4 grams LV mass(C)dI 86.7 grams/m\S\2 SV(Teich) 69.0 ml SI(Teich) 35.5 ml/m\S\2 SV(cubed) 76.8 ml SI(cubed) 39.5 ml/m\S\2 Ao root diam 3.0 cm Ao root area 7.2 cm\S\2 ACS 1.6 cm LA dimension 2.7 cm asc Aorta Diam 2.8 cm LA/Ao 0.89 LVOT diam 2.1 cm LVOT area 3.3 cm\S\2 LVAd ap4 27.8 cm\S\2 LVLd ap4 7.3 cm EDV(MOD-sp4) 86.8 ml EDV(sp4-el) 89.5 ml LVAs ap4 13.8 cm\S\2 LVLs ap4 5.7 cm ESV(MOD-sp4) 27.9 ml ESV(sp4-el) 28.6 ml EF(MOD-sp4) 67.9 % EF(sp4-el) 68.0 % LVAd ap2 32.0 cm\S\2 LVLd ap2 7.7 cm EDV(MOD-sp2) 109.0 ml EDV(sp2-el) 112.2 ml LVAs ap2 15.7 cm\S\2 LVLs ap2 6.1 cm ESV(MOD-sp2) 33.5 ml ESV(sp2-el) 34.3 ml EF(MOD-sp2) 69.2 % EF(sp2-el) 69.4 % LVLd %diff 5.2 % EDV(MOD-bp) 98.5 ml LVLs %diff 7.2 % ESV(MOD-bp) 31.4 ml EF(MOD-bp) 68.1 % SV(MOD-sp4) 58.9 ml SI(MOD-sp4) 30.3 ml/m\S\2 SV(MOD-sp2) 75.5 ml SI(MOD-sp2) 38.9 ml/m\S\2 SV(MOD-bp) 67.1 ml SI(MOD-bp) 34.6 ml/m\S\2 SV(sp4-el) 60.9 ml SI(sp4-el) 31.4 ml/m\S\2 SV(sp2-el) 77.9 ml SI(sp2-el) 40.1 ml/m\S\2 Doppler Measurements and Calculations MV E max jazmine 118.6 cm/sec MV A max jazmine 70.1 cm/sec MV E/A 1.7 MV dec time 0.21 sec Ao V2 max 211.8 cm/sec Ao max PG 17.9 mmHg Ao max PG (full) 13.4 mmHg Ao V2 mean 138.2 cm/sec Ao mean PG 9.2 mmHg Ao mean PG (full) 7.1 mmHg Ao V2 VTI 47.3 cm MOISÉS(I,A) 1.7 cm\S\2 MOISÉS(I,D) 1.7 cm\S\2 MOISÉS(V,A) 1.7 cm\S\2 MOISÉS(V,D) 1.7 cm\S\2 LV V1 max PG 4.6 mmHg LV V1 mean PG 2.1 mmHg LV V1 max 106.8 cm/sec LV V1 mean 65.3 cm/sec LV V1 VTI 24.5 cm SV(Ao) 341.9 ml SI(Ao) 176.1 ml/m\S\2 SV(LVOT) 81.2 ml SI(LVOT) 41.8 ml/m\S\2 PA V2 max 138.9 cm/sec PA max PG 7.7 mmHg PA acc slope 1058.2 cm/sec\S\2 PA acc time 0.11 sec TR max jazmine 179.9 cm/sec RVSP(TR) 17.6 mmHg RAP systole 3.0 mmHg PA pr(Accel) 31.1 mmHg
[2017-03-13] MEDS ORDERED: DICL1GEL12 TOP (17:04)
[2017-03-13] MEDS ORDERED: TRAM-10 PO (17:04)
[2017-03-13] MEDS ORDERED: ATORVASTATIN 10 MG TAB PO SCH (21:00)
[2017-03-13] MEDS ORDERED: LATANOPROST 0.005% OP SOLN 2.5 ML BTL OP SCH (21:00)
[2017-03-13] MEDS ORDERED: RIVAROXABAN TAB 15 MG TAB PO SCH (21:00)
[2017-03-13] MEDS ORDERED: LOSARTAN POTASSIUM 25 MG TAB PO SCH (21:00)
== END 2017-03-13 18:04 | disposition home or self-care (01) ==
LOC: EDBD 21:43 → C.EDB 21:44 → C.MED 23:57 → ENRESERV 03-13 00:46
PROVIDERS: ADMIT Hospitalist; ATTEND Internal Medicine
DX: R07.9 Chest pain, unspecified (principal); R06.02 Shortness of breath; I48.91 Unspecified atrial fibrillation; I87.2 Venous insufficiency (chronic) (peripheral); I12.9 Hypertensive chronic kidney disease with stage 1 through stage 4 chronic kidney disease, or unspecified chronic kidney disease; N18.3 Chronic kidney disease, stage 3 (moderate); Z79.82 Long term (current) use of aspirin; E11.9 Type 2 diabetes mellitus without complications; Z79.4 Long term (current) use of insulin; Z79.899 Other long term (current) drug therapy; E03.9 Hypothyroidism, unspecified

== ENCOUNTER → 2017-03-24 | Outpatient (CLI) | payer OTHER ==
[~2017-03-24] MED LIST changes: +DICL1GEL12 TOP; +FURO20TA PO; +GLIP-199 PO; +PRED-301 PO; -PRED20TA PO; +TRAM-10 PO
[2017-03-24 17:46] LABS: BLOOD UREA NITROGEN 29 mg/dl (7-18); BUN/CREATININE RATIO 19.1 (10-20); CALCIUM 9.6 mg/dl (8.5-10.1); CARBON DIOXIDE 32 mmol/L (21-32); CHLORIDE 105 mmol/L (98-107); GLUCOSE 77 mg/dl (70-99); MAGNESIUM 2.6 mg/dl (1.8-2.4); POTASSIUM 4.9 mmol/L (3.5-5.1); SODIUM 142 mmol/L (136-145)
== END | disposition home or self-care (01) ==
LOC: C.LABPBG 14:38
PROVIDERS: ATTEND Family Medicine
DX: R61 Generalized hyperhidrosis (principal)

== ENCOUNTER → 2017-04-15 | Outpatient (CLI) | payer OTHER ==
[~2017-04-15] MED LIST changes: -PRED-301 PO
--- NOTE | 2017-04-15 12:09 | DIAGNOSTIC IMAGING REPORT ---
CHEST 2 VIEWS ROUTINE CLINICAL HISTORY: Abnormal chest radiograph. COMPARISON STUDY: Chest radiograph March 12, 2017. FINDINGS: Lung volumes are normal. No pneumothorax or pleural effusion is present. There is no evidence of pulmonary edema. No consolidation is identified to suggest pneumonia. The nodular density along the left heart border shown on exam of March 12, 2017 is less conspicuous. Minimal left lower lung opacity reflects atelectasis. Cardiomediastinal silhouette is stable. There is mild cardiomegaly. IMPRESSION: 1. No acute cardiopulmonary findings. 2. Nonvisualization of the nodular density along the left heart border shown on prior exam. This likely reflect atelectasis or epicardial fat pad. Electronically signed by: Sav Lanier M.D. 04/15/2017 12:07 PM Dictated Date/Time: 04/15/2017 12:06 PM
== END | disposition home or self-care (01) ==
LOC: C.RAD 11:27
PROVIDERS: ATTEND Family Medicine
DX: R93.8 Abnormal findings on diagnostic imaging of other specified body structures (principal)

== ENCOUNTER → 2017-04-24 | Outpatient (CLI) | payer OTHER ==
[2017-04-24 12:07] LABS: BASO % 0.1 %; BASO ABS # 0.01 K/uL (0-0.2); COMPLETE YES; EOS % 0.5 %; HEMATOCRIT 36.4 % (37-47); IG% 0.3 %; LYMPH ABS # 1.65 K/uL (1.2-3.4); MEAN CELL VOLUME 79.5 fL (80-100); MEAN CORPUSCULAR HEMOGLOBIN 24.2 pg (25-34); MEAN CORPUSCULAR HGB CONC 30.5 g/dl (32-36); MEAN PLATELET VOLUME 9.7 fL (7.4-10.4); MONO % 5.9 %; NEUT % 71.2 %; PLATELET COUNT 242 K/uL (130-400); RED BLOOD COUNT 4.58 M/uL (4.2-5.4); WHITE BLOOD COUNT 7.49 K/uL (4.8-10.8)
[2017-04-24 12:39] LABS: ALT/SGPT 38 U/L (12-78); AST/SGOT 12 U/L (15-37); CREATININE 1.85 mg/dl (0.60-1.20)
[2017-04-24 12:42] LABS: ALKALINE PHOSPHATASE 70 U/L (45-117)
== END | disposition home or self-care (01) ==
LOC: C.LABPBG 10:50
PROVIDERS: ATTEND Internal Medicine Rheumatology
DX: M31.6 Other giant cell arteritis (principal); Z79.52 Long term (current) use of systemic steroids; Z79.899 Other long term (current) drug therapy

== ENCOUNTER → 2017-05-22 | Outpatient (CLI) | payer OTHER ==
[~2017-05-22] MED LIST changes: +ATOR10TA82 PO; -ATOR10TA88 PO
== END | disposition home or self-care (01) ==
LOC: C.LABPBG 12:31
PROVIDERS: ATTEND Internal Medicine Rheumatology
DX: M31.6 Other giant cell arteritis (principal)

== ENCOUNTER → 2017-07-02 | Outpatient (CLI) | payer OTHER ==
[~2017-07-02] MED LIST changes: +ACTEMRA; -AMLO-110 PO; +AMLO5TAB3 PO; +LOSA50TA54 PO; +LOSA50TA6 PO; +PRD/1 PO; +XRL15
[2017-07-02 17:51] LABS: ALBUMIN 3.7 gm/dl (3.4-5.0); BLOOD UREA NITROGEN 19 mg/dl (7-18); CALCIUM 8.6 mg/dl (8.5-10.1); CARBON DIOXIDE 27 mmol/L (21-32); CREATININE 1.88 mg/dl (0.60-1.20); GLUCOSE 219 mg/dl (70-99); PHOSPHORUS 2.6 mg/dl (2.5-4.9); POTASSIUM 4.3 mmol/L (3.5-5.1); SODIUM 137 mmol/L (136-145)
[2017-07-03 05:01] LABS: HEMOGLOBIN A1C 8.1 % (4.5-5.6)
== END | disposition home or self-care (01) ==
LOC: C.LABPBG 14:22
PROVIDERS: ATTEND Internal Medicine
DX: E11.9 Type 2 diabetes mellitus without complications (principal); R60.0 Localized edema; N18.3 Chronic kidney disease, stage 3 (moderate)

== ENCOUNTER → 2017-07-18 | Outpatient (CLI) | payer OTHER ==
[~2017-07-18] MED LIST changes: -ACTEMRA; +AMLO-110 PO; -AMLO5TAB3 PO; -LOSA50TA54 PO; -LOSA50TA6 PO; -PRD/1 PO; -XRL15
[2017-07-18 17:19] LABS: BASO % 0.1 %; BASO ABS # 0.01 K/uL (0-0.2); HEMATOCRIT 32.2 % (37-47); HEMOGLOBIN 9.9 g/dL (12.0-16.0); IG# 0.05 K/uL (0.00-0.02); LYMPH % 16.4 %; MEAN CELL VOLUME 80.3 fL (80-100); MEAN CORPUSCULAR HEMOGLOBIN 24.7 pg (25-34); MEAN CORPUSCULAR HGB CONC 30.7 g/dl (32-36); MEAN PLATELET VOLUME 10.4 fL (7.4-10.4); MONO % 8.1 %; MONO ABS # 0.84 K/uL (0.11-0.59); NEUT % 74.9 %; NEUT ABS # 7.75 K/uL (1.4-6.5); NUCLEATED RED BLOOD CELL ABS 0.02 K/uL (0-0); PLATELET COUNT 274 K/uL (130-400); RED CELL DISTRIBUTION WIDTH CV 16.4 % (11.5-14.5); RED CELL DISTRIBUTION WIDTH SD 48.4 fL (36.4-46.3); WHITE BLOOD COUNT 10.35 K/uL (4.8-10.8)
[2017-07-18 17:33] LABS: ALBUMIN 3.7 gm/dl (3.4-5.0); ALT/SGPT 37 U/L (12-78); AST/SGOT 17 U/L (15-37)
[2017-07-18 17:36] LABS: ALKALINE PHOSPHATASE 53 U/L (45-117)
== END | disposition home or self-care (01) ==
LOC: C.LABPBG 15:10
PROVIDERS: ATTEND Internal Medicine Rheumatology
DX: Z51.81 Encounter for therapeutic drug level monitoring (principal); M31.6 Other giant cell arteritis; Z79.52 Long term (current) use of systemic steroids; Z79.899 Other long term (current) drug therapy

== ENCOUNTER → 2017-09-05 | Outpatient (CLI) | payer OTHER ==
[2017-09-05 11:51] LABS: BASO % 0.6 %; BASO ABS # 0.03 K/uL (0-0.2); EOS % 3.8 %; EOS ABS # 0.19 K/uL (0-0.5); HEMATOCRIT 33.8 % (37-47); HEMOGLOBIN 10.2 g/dL (12.0-16.0); IG# 0.01 K/uL (0.00-0.02); LYMPH ABS # 1.88 K/uL (1.2-3.4); MEAN CELL VOLUME 81.6 fL (80-100); MEAN CORPUSCULAR HEMOGLOBIN 24.6 pg (25-34); MEAN CORPUSCULAR HGB CONC 30.2 g/dl (32-36); MEAN PLATELET VOLUME 10.1 fL (7.4-10.4); MONO % 9.9 %; MONO ABS # 0.49 K/uL (0.11-0.59); NEUT % 47.5 %; NEUT ABS # 2.35 K/uL (1.4-6.5); PLATELET COUNT 265 K/uL (130-400); RED CELL DISTRIBUTION WIDTH CV 16.6 % (11.5-14.5); RED CELL DISTRIBUTION WIDTH SD 49.5 fL (36.4-46.3); RETIC COUNT % 1.3 % (0.5-2.0); WHITE BLOOD COUNT 4.95 K/uL (4.8-10.8)
[2017-09-05 12:10] LABS: ALBUMIN 3.4 gm/dl (3.4-5.0); ALT/SGPT 34 U/L (12-78); CREATININE 1.69 mg/dl (0.60-1.20)
[2017-09-05 12:14] LABS: ALKALINE PHOSPHATASE 47 U/L (45-117); AST/SGOT 20 U/L (15-37); TOTAL PROTEIN 6.4 gm/dl (6.4-8.2)
== END | disposition home or self-care (01) ==
LOC: C.LABPBG 09:22
PROVIDERS: ATTEND Internal Medicine Rheumatology
DX: Z51.81 Encounter for therapeutic drug level monitoring (principal); M10.9 Gout, unspecified; M31.6 Other giant cell arteritis; Z79.899 Other long term (current) drug therapy; Z79.52 Long term (current) use of systemic steroids; D63.8 Anemia in other chronic diseases classified elsewhere

== ENCOUNTER → 2017-10-13 | Outpatient (CLI) | payer OTHER ==
[~2017-10-13] MED LIST changes: -TRAM-10 PO
== END | disposition home or self-care (01) ==
LOC: C.LABPBG 11:43
PROVIDERS: ATTEND Internal Medicine Rheumatology
DX: M10.9 Gout, unspecified (principal); M31.6 Other giant cell arteritis; M35.1 Other overlap syndromes; Z79.52 Long term (current) use of systemic steroids; Z79.899 Other long term (current) drug therapy

== ENCOUNTER → 2017-10-28 | Outpatient (CLI) | payer OTHER ==
[2017-10-28 17:01] LABS: CREATININE RANDOM URINE 36.4 mg/dl
== END ==
LOC: C.LABSPEC 14:48
PROVIDERS: ATTEND Family Medicine
DX: R42 Dizziness and giddiness (principal); E11.9 Type 2 diabetes mellitus without complications

== ENCOUNTER → 2018-01-21 | Outpatient (CLI) | payer OTHER ==
[~2018-01-21] MED LIST changes: +ACTEMRA; -AMLO-110 PO; +AMLO5TAB3 PO; -EXLP46 TOP; -GLIP-199 PO; -LOSA1TAB PO; +LOSA50TA54 PO; +LOSA50TA6 PO; +PRD/1 PO; +TRAM-10 PO
[2018-01-21 16:59] LABS: ALBUMIN 3.8 gm/dl (3.4-5.0); BLOOD UREA NITROGEN 27 mg/dl (7-18); CALCIUM 8.9 mg/dl (8.5-10.1); CARBON DIOXIDE 29 mmol/L (21-32); CREATININE 1.64 mg/dl (0.60-1.20); GLUCOSE 151 mg/dl (70-99); PHOSPHORUS 3.8 mg/dl (2.5-4.9); POTASSIUM 4.8 mmol/L (3.5-5.1); SODIUM 140 mmol/L (136-145)
== END | disposition home or self-care (01) ==
LOC: C.LABPBG 15:05
PROVIDERS: ATTEND Family Medicine
DX: I95.1 Orthostatic hypotension (principal)

== ENCOUNTER → 2018-02-13 | Outpatient (CLI) | payer OTHER ==
[2018-02-13 12:23] LABS: BASO % 0.7 %; BASO ABS # 0.04 K/uL (0-0.2); EOS ABS # 0.27 K/uL (0-0.5); HEMATOCRIT 43.6 % (37-47); HEMOGLOBIN 13.9 g/dL (12.0-16.0); IG# 0.01 K/uL (0.00-0.02); LYMPH ABS # 2.56 K/uL (1.2-3.4); MEAN CORPUSCULAR HGB CONC 31.9 g/dl (32-36); MEAN PLATELET VOLUME 10.7 fL (7.4-10.4); MONO % 11.9 %; MONO ABS # 0.65 K/uL (0.11-0.59); NEUT % 35.2 %; NEUT ABS # 1.92 K/uL (1.4-6.5); PLATELET COUNT 167 K/uL (130-400); RED CELL DISTRIBUTION WIDTH CV 19.2 % (11.5-14.5); RED CELL DISTRIBUTION WIDTH SD 64.9 fL (36.4-46.3); WHITE BLOOD COUNT 5.45 K/uL (4.8-10.8)
[2018-02-13 13:20] LABS: HEMOGLOBIN A1C 7.4 % (4.5-5.6)
== END | disposition home or self-care (01) ==
LOC: C.LABPBG 09:38
PROVIDERS: ATTEND Internal Medicine Rheumatology
DX: M31.6 Other giant cell arteritis (principal); R76.8 Other specified abnormal immunological findings in serum; M35.1 Other overlap syndromes; E11.9 Type 2 diabetes mellitus without complications; Z79.4 Long term (current) use of insulin; Z79.899 Other long term (current) drug therapy

== ENCOUNTER → 2018-03-02 | Outpatient (CLI) | payer OTHER ==
--- NOTE | 2018-03-02 13:37 | DIAGNOSTIC IMAGING REPORT ---
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 The bones appear at least mildly demineralized. There is no acute fracture, dislocation or evidence of hardware complication. Small joint effusion. Peripheral arterial calcifications are noted. IMPRESSION: 1. Small joint effusion without acute fracture or dislocation. 2. Total joint arthroplasty with prior patellar resurfacing. No evidence of hardware complication or malalignment. The above report was generated using voice recognition software. It may contain grammatical, syntax or spelling errors. Electronically signed by: Justin Hernandez M.D. 03/02/2018 1:36 PM Dictated Date/Time: 03/02/2018 1:35 PM
== END | disposition home or self-care (01) ==
LOC: C.RADBC 12:51
PROVIDERS: ATTEND Family Medicine
DX: M25.562 Pain in left knee (principal); M25.462 Effusion, left knee; Z96.652 Presence of left artificial knee joint

== ENCOUNTER 2018-08-10 22:17 | Inpatient (IN) ==
--- NOTE | 2018-08-10 23:04 | XRay Report ---
XR pelvis 1-2V routine, XR knee LT 2V routine, XR femur LT 2V routine HISTORY: 88 years-old Female fall acute pelvic and left lower extremity pain status post fall COMPARISON: None available TECHNIQUE: AP view of the pelvis with 2 views of the left knee and 2 views of the left femur FINDINGS: PELVIS: Demineralized appearance of the bones. 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 Degenerative changes of the lumbar spine. No acute pelvic fracture identified. Linear lucency p rojects over the basicervical/intertrochanteric distribution of the left femur. Peripheral arterial c alcifications are noted. FEMUR: Acute appearing fracture of the basicervical/intertrochanteric distribution of the left femur. Minima l impaction without significant displacement. Left knee total joint arthroplasty. Peripheral arterial calcifications are noted. KNEE: Total joint arthroplasty with prior patellar resurfacing. No acute fracture or dislocation. Small erica nt effusion. Peripheral arterial calcifications noted. IMPRESSION: Acute nondisplaced fracture of the basicervical/intertrochanteric left femur. The above report was generated using voice recognition software. It may contain grammatical, syntax o r spelling errors. Electronically signed by: Justin Hernandez M.D. 08/10/2018 11:02 PM
--- NOTE | 2018-08-10 23:05 | XRay Report ---
XR chest 1V portable HISTORY: 88 years-old Female fall acute chest trauma status post fall COMPARISON: Chest radiographs 04/15/2017 TECHNIQUE: Portable AP view of the chest FINDINGS: Cardiomediastinal and hilar silhouettes appear unchanged. Calcification of the thoracic aortic arch. Mild right hemidiaphragmatic elevation. No pneumothorax, pleural effusion, focal airspace consolidati on or overt pulmonary edema. Degenerative changes of the shoulders and spine. Right shoulder rotator cuff calcific tendinosis. IMPRESSION: No acute process. The above report was generated using voice recognition software. It may contain grammatical, syntax o r spelling errors. Electronically signed by: Justin Hernadnez M.D. 08/10/2018 11:03 PM
[2018-08-11 00:33] LABS: Basophils # (auto) 0.01 K/uL (0-0.2); Basophils % (auto) 0.1 %; Eosinophils # (auto) 0.09 K/uL (0-0.5); Eosinophils % (auto) 0.9 %; Hematocrit (blood only) 42.9 % (37-47); Hemoglobin 14.2 g/dL (12.0-16.0); Immature Granulocytes # (auto) 0.04 K/uL (0.00-0.02); Immature Granulocytes % (auto) 0.4 %; Lymphocytes # (auto) 1.67 K/uL (1.2-3.4); Lymphocytes % (auto) 17.2 %; Mean Corpuscular Hgb Conc 33.1 g/dL (32-36); Mean Corpuscular Volume 96.8 fL (80-100); Mean Platelet Volume 11.5 fL (7.4-10.4); Monocytes % (auto) 5.1 %; Neutrophils % (auto) 76.3 %; Platelet Count 163 K/uL (130-400); RDW Coefficient of Variation 13.6 % (11.5-14.5); RDW Standard Deviation 48.2 fL (36.4-46.3); Red Blood Count 4.43 M/uL (4.2-5.4); White Blood Count 9.71 K/uL (4.8-10.8)
[2018-08-11 00:37] LABS: Appearance Urine Clear (Clear); Bacteria Urine Automated Negative (Negative); Bilirubin Urine Negative (Negative); Color Urine Yellow; Epithelial Cell Urine Auto >30 /lpf (0-5); Glucose Urine UA 1+ (Negative); Ketones Urine Negative (Negative); Leukocyte Esterase Urine 1+ (Negative); Nitrite Urine Negative (Negative); Protein Urine Trace (Negative); Urobilinogen Urine Negative (Negative)
[2018-08-11 00:42] LABS: INR 1.3 (0.9-1.1); Partial Thromboplastin Time 26.5 Seconds (21.0-31.0); Prothrombin Time 12.6 Seconds (9.0-12.0)
[2018-08-11 01:03] LABS: BUN Creatinine Ratio 23.3 (10-20); Blood Urea Nitrogen 41 mg/dl (7-18); Calcium 8.5 mg/dl (8.5-10.1); Carbon Dioxide 24 mmol/L (21-32); Chloride 108 mmol/L (98-107); Est GFR (African American) 29.6; Est GFR (Non-African American) 25.6; Glucose 221 mg/dl (70-99); Potassium 4.7 mmol/L (3.5-5.1); Sodium 141 mmol/L (136-145)
--- NOTE | 2018-08-11 01:33 | Emergency Department Note ---
Entered by Carlos Egan acting as a scribe for Leonid Ruff History of Present Illness General Chief complaint: Fall Stated complaint: FALL, KNEE PAIN Time Seen by Provider: 08/10/18 22:23 Source: patient History of Present Illness Onset (ago): hour(s) ([employer]) Location: knee and right Pain Consistency: + constant Quality: + other (swelling) Associated symptoms: + denies other symptoms (LOC, abdominal pain) and + other ( left hip pain, left cheek pain) The patient is an 88 year old female who presents to the Emergency Room with complaints of constant right knee pain and swelling beginning [employer]. The patient states she was changing into her pajamas when she caught her foot on her pants. She reports she fell and hit her left knee, left hip, and the left side of her cheek. The patient notes her knee has also started to swell. She denies losing consciousness and abdominal pain. 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 Home Medications Home Medications Medication Instructions Recorded Confirmed Type albuterol sulfate [Proventil HFA] 1 - 2 puff INHALATION Q4 PRN 08/11/18 History allopurinol 100 mg PO DAILY 08/11/18 08/11/18 History amiodarone 200 mg PO DAILY 08/11/18 08/11/18 History amlodipine 5 mg PO DAILY 08/11/18 08/11/18 History atorvastatin 10 mg PO HS 08/11/18 08/11/18 History cetirizine 10 mg PO DAILY 08/11/18 08/11/18 History cholecalciferol (vitamin D3) 1,000 unit PO DAILY 08/11/18 08/11/18 History [Vitamin D3] clobetasol 1 applic TOPICAL WK 08/11/18 08/11/18 History colchicine [Colcrys] 0.6 mg PO DAILY PRN 08/11/18 08/11/18 History diclofenac sodium 1 g TOPICAL DAILY PRN 08/11/18 08/11/18 History furosemide 20 mg PO DAILY 08/11/18 08/11/18 History furosemide 20 mg PO DAILY PRN 08/11/18 08/11/18 History galantamine 4 mg PO BID 08/11/18 08/11/18 History insulin aspart U-100 [Novolog 1 sliding scale dose SUBCUT TIDM 08/11/18 History PenFill U-100 Insulin] insulin glargine [Lantus Solostar 30 unit SUBCUT DAILY 08/11/18 08/11/18 History U-100 Insulin] latanoprost 1 drp OPB PM 08/11/18 08/11/18 History levothyroxine 112 mcg PO DAILY 08/11/18 08/11/18 History losartan 50 mg PO DAILY 08/11/18 08/11/18 History meclizine 12.5 mg PO TID PRN 08/11/18 08/11/18 History nitroglycerin [Nitrostat] 0.4 mg SUBLINGUAL UD PRN 08/11/18 08/11/18 History omeprazole 20 mg PO BID 08/11/18 08/11/18 History rivaroxaban [Xarelto] 15 mg PO QPM 08/11/18 08/11/18 History tocilizumab [Actemra] 750 mg IV MONTHLY 08/11/18 08/11/18 History tramadol 50 mg PO Q8 PRN 08/11/18 08/11/18 History triamcinolone acetonide 1 applic TOPICAL BID 08/11/18 08/11/18 History Allergies Allergy/AdvReac Type Severity Reaction Status Date / Time capsaicin Allergy Unknown UNSURE Verified 08/11/18 01:02 Diclopak Allergy Unknown UNSURE Verified 12/03/17 11:25 diclofenac Allergy Dizziness Verified 08/11/18 01:02 metformin AdvReac Mild DIARRHEA Verified 12/03/17 11:25 methadone AdvReac Mild DIZZY Verified 08/11/18 01:02 morphine AdvReac Mild HALLUCINATI Verified 08/11/18 01:02 ON promethazine AdvReac Mild SEIZURE Verified 08/11/18 01:02 LIKE ACTIVITY" troglitazone AdvReac Mild INCREASE Verified 12/03/17 11:25 LFTs NECTARINE Allergy Mild HIVES Uncoded 10/24/16 11:26 SENSITIVE TO NARCOTICS Allergy Unknown Unknown Uncoded 08/11/18 01:02 Past Med/Surg History Medical History Diabetes mellitus (Chronic) Hypertension (Chronic) GERD (gastroesophageal reflux disease) (Chronic) Chronic back pain (Chronic) Hypothyroidism (Chronic) Surgical History Stented coronary artery (Chronic) Family History Other Family history non-contributory Social History Feels Safe at Home: Yes Smoking Status: Never smoker Review of Systems See HPI for pertinent positives & negatives. and A total of 10 systems reviewed and were otherwise negative Physical Exam Vital Signs Vital Signs - 24 hr 08/10/18 22:35 08/11/18 00:35 08/11/18 01:18 Temperature 36.7 C Temperature Source Oral Sepsis Recent Fever Within 48 Hours No Sepsis New/Unexplained Change in Mental Status No Sepsis Action Taken by Nursing No Action Required Pulse Rate 71 Pulse Rate [Apical] 70 68 Pulse Rhythm Regular Pulse Rhythm [Apical] Regular Regular Pulse Strength Normal Pulse Strength [Apical] Normal Normal Respiratory Rate 17 18 18 Respiratory Effort / Characteristics Non-Labored Spontaneous Non-Labored Spontaneous Non-Labored Spontaneous Respiratory Depth Normal Normal Normal Respiratory Pattern Regular Regular Regular Blood Pressure 198/74 H Blood Pressure [Right Arm] 168/68 H 158/55 H Blood Pressure Mean 115 Blood Pressure Mean [Right Arm] 101 89 Blood Pressure Position Lying Blood Pressure Position [Right Arm] Lying Lying Pulse Oximetry 96 98 96 Oxygen Delivery Method Room Air Room Air Nasal Cannula Oxygen Flow Rate 2 GENERAL: She is oriented to person, place, and time. She appears well- developed and well-nourished. She does not appear distressed. HENT: Exam performed. Head: Normocephalic and atraumatic. Right Ear: External ear normal. No mastoid tenderness. Left Ear: External ear normal. No mastoid tenderness. Mouth/Throat: The oropharynx is clear and moist. No trismus in the jaw. No dental abscesses or uvula swelling. No oropharyngeal exudate or tonsillar abscesses. EYES: Conjunctivae and EOM are normal. Pupils are equal, round, and reactive to light. Right eye exhibits no discharge. Left eye exhibits no discharge. No scleral icterus. NECK: Normal range of motion. Neck supple. No JVD present. No spinous process tenderness present. No carotid bruit present. No rigidity. No tracheal deviation and normal range of motion present. No Brudzinski's sign and no Kernig 's sign noted. CV: Normal rate, regular rhythm, normal heart sounds and intact distal pulses. There is no peripheral edema. Palpable radial pulses bue. PULM/CHEST: Effort normal and breath sounds normal. No respiratory distress. No stridor. She has no wheezes. She has no rales. Chest Wall: She exhibits no tenderness. ABD: The abdomen is soft and obese. Bowel sounds are normal. She has no distension. No mass is present. There is no tenderness. There is no rebound, no guarding, no Dumont's sign and no tenderness at McBurney's point. Rovsig negative MUSC/SKEL: Normal range of motion. There is no peripheral edema or deformity. Pain to palpation of the left hip and distal femur. DP/PT pulses present bilaterally. LYMPH: No cervical adenopathy. NEURO: She is alert and oriented to person, place, and time. She has normal strength. No cranial nerve deficit or sensory deficit. Coordination and gait normal. GCS eye subscore is 4. GCS verbal subscore is 5. GCS motor subscore is 6. cerbellar tests wnl. SKIN: Skin is warm and dry. She is not diaphoretic. PSYCH: She has a normal mood and affect. Her behavior is normal. Judgment and thought content normal. Course 2225: Past medical records reviewed. The patient was evaluated in room C09, and a complete history and physical examination were performed. 0002: Imaging showed left sided hip fracture. Pt was admitted to the hospital. Hip fracture pathway protocol was initiated. 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 I reviewed the patient's case with Dr. Luis, [facility] Hospitalist. He will evaluate the patient for further management. Medical Decision Making Medical Records Attestation: I reviewed the patient's medical records. Home Medications Current Medication List: was personally reviewed by me Laboratory Data Attestation: I reviewed the patient's lab results. Result diagrams: 08/11/18 00:19 08/11/18 00:19 Lab Results 08/11/18 08/11/18 08/11/18 Range/Units 00:19 00:19 00:19 WBC 9.71 (4.8-10.8) K/uL RBC 4.43 (4.2-5.4) M/uL Hgb 14.2 (12.0-16.0) g/dL Hct 42.9 (37-47) % MCV 96.8 (80-100) fL MCH 32.1 (25-34) pg MCHC 33.1 (32-36) g/dL RDW Std Deviation 48.2 H (36.4-46.3) fL RDW Coeff of Daniel 13.6 (11.5-14.5) % Plt Count 163 (130-400) K/uL MPV 11.5 H (7.4-10.4) fL Immature Gran % (Auto) 0.4 % Neut % (Auto) 76.3 % Lymph % (Auto) 17.2 % [place] % (Auto) 5.1 % Eos % (Auto) 0.9 % Baso % (Auto) 0.1 % Immature Gran # (Auto) 0.04 H (0.00-0.02) K/uL Neut # (Auto) 7.40 H (1.4-6.5) K/uL Lymph # (Auto) 1.67 (1.2-3.4) K/uL [place] # (Auto) 0.50 (0.11-0.59) K/uL Eos # (Auto) 0.09 (0-0.5) K/uL Baso # (Auto) 0.01 (0-0.2) K/uL PT 12.6 H (9.0-12.0) Seconds INR 1.3 H (0.9-1.1) APTT 26.5 (21.0-31.0) Seconds PTT Ratio 1.0 Sodium 141 (136-145) mmol/L Potassium 4.7 (3.5-5.1) mmol/L Chloride 108 H (98-107) mmol/L Carbon Dioxide 24 (21-32) mmol/L Anion Gap 9.0 (3-11) BUN 41 H (7-18) mg/dl Creatinine 1.77 H (0.6-1.2) mg/dl Est Cr Clr Drug Dosing Not Reportable Est GFR ( Amer) 29.6 Est GFR (Non-Af Amer) 25.6 BUN/Creatinine Ratio 23.3 H (10-20) Glucose 221 H (70-99) mg/dl Calcium 8.5 (8.5-10.1) mg/dl Specimen Hemolysis Urine Color Urine Appearance (Clear) Urine pH (4.5-7.5) Ur Specific [place] (1.000-1.030) Urine Protein (Negative) Urine Glucose (UA) (Negative) Urine Ketones (Negative) Urine Blood (Negative) Urine Nitrite (Negative) Urine Bilirubin (Negative) Urine Urobilinogen (Negative) Ur Leukocyte Esterase (Negative) Urine WBC (Auto) (0-5) /hpf Urine RBC (Auto) (0-4) /hpf U Hyaline Cast (Auto) (0-5) /lpf U Epithel Cells (Auto) (0-5) /lpf Urine Bacteria (Auto) (Negative) 08/11/18 Range/Units 00:23 WBC (4.8-10.8) K/uL RBC (4.2-5.4) M/uL Hgb (12.0-16.0) g/dL Hct (37-47) % MCV (80-100) fL MCH (25-34) pg MCHC (32-36) g/dL RDW Std Deviation (36.4-46.3) fL RDW Coeff of Daniel (11.5-14.5) % Plt Count (130-400) K/uL MPV (7.4-10.4) fL Immature Gran % (Auto) % Neut % (Auto) % Lymph % (Auto) % [place] % (Auto) % Eos % (Auto) % Baso % (Auto) % Immature Gran # (Auto) (0.00-0.02) K/uL Neut # (Auto) (1.4-6.5) K/uL Lymph # (Auto) (1.2-3.4) K/uL [place] # (Auto) (0.11-0.59) K/uL Eos # (Auto) (0-0.5) K/uL Baso # (Auto) (0-0.2) K/uL PT (9.0-12.0) Seconds INR (0.9-1.1) APTT (21.0-31.0) Seconds PTT Ratio Sodium (136-145) mmol/L Potassium (3.5-5.1) mmol/L Chloride (98-107) mmol/L Carbon Dioxide (21-32) mmol/L Anion Gap (3-11) BUN (7-18) mg/dl Creatinine (0.6-1.2) mg/dl Est Cr Clr Drug Dosing Est GFR ( Amer) Est GFR (Non-Af Amer) BUN/Creatinine Ratio (10-20) Glucose (70-99) mg/dl Calcium (8.5-10.1) mg/dl Specimen Hemolysis Urine Color Yellow Urine Appearance Clear (Clear) Urine pH 5.0 (4.5-7.5) Ur Specific [place] 1.020 (1.000-1.030) Urine Protein Trace H (Negative) Urine Glucose (UA) 1+ H (Negative) Urine Ketones Negative (Negative) Urine Blood Negative (Negative) Urine Nitrite Negative (Negative) Urine Bilirubin Negative (Negative) Urine Urobilinogen Negative (Negative) Ur Leukocyte Esterase 1+ H (Negative) Urine WBC (Auto) 10-30 H (0-5) /hpf Urine RBC (Auto) 0-4 (0-4) /hpf U Hyaline Cast (Auto) 1-5 (0-5) /lpf U Epithel Cells (Auto) >30 H (0-5) /lpf Urine Bacteria (Auto) Negative (Negative) Imaging Data Radiologist's Impression: Radiology results as stated below per my review and the radiologist's interpretation: XR chest 1V portable HISTORY: 88 years-old Female fall acute chest trauma status post fall COMPARISON: Chest radiographs 04/15/2017 TECHNIQUE: Portable AP view of the chest FINDINGS: Cardiomediastinal and hilar silhouettes appear unchanged. Calcification of the thoracic aortic arch. Mild right hemidiaphragmatic elevation. No pneumothorax, pleural effusion, focal airspace consolidation or overt pulmonary edema. Degenerative changes of the shoulders and spine. Right shoulder rotator cuff calcific tendinosis. IMPRESSION: No acute process. The above report was generated using voice recognition software. It may contain grammatical, syntax or spelling errors. Electronically signed by: Justin Hernandez M.D. 08/10/2018 11:03 PM XR pelvis 1-2V routine, XR knee LT 2V routine, XR femur LT 2V routine HISTORY: 88 years-old Female fall acute pelvic and left lower extremity pain status post fall COMPARISON: None available TECHNIQUE: AP view of the pelvis with 2 views of the left knee and 2 views of the left femur FINDINGS: PELVIS: Demineralized appearance of the bones. 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 Degenerative changes of the lumbar spine. No acute pelvic fracture identified. Linear lucency projects over the basicervical/ intertrochanteric distribution of the left femur. Peripheral arterial calcifications are noted. FEMUR: Acute appearing fracture of the basicervical/intertrochanteric distribution of the left femur. Minimal impaction without significant displacement. Left knee total joint arthroplasty. Peripheral arterial calcifications are noted. KNEE: Total joint arthroplasty with prior patellar resurfacing. No acute fracture or dislocation. Small joint effusion. Peripheral arterial calcifications noted. IMPRESSION: Acute nondisplaced fracture of the basicervical/intertrochanteric left femur. The above report was generated using voice recognition software. It may contain grammatical, syntax or spelling errors. Electronically signed by: Justin Hernandez M.D. 08/10/2018 11:02 PM Radiology results as stated below per my review and the [facility] radiologist's interpretation: CT HEAD: Comparison:CT dated 10/24/2016. No evidence of acute intracranial hemorrhage, skull fracture, or other acute intercranial abnormality. Stable mild atrophyand chronic small vessel ischemic disease. Radiologist: Piedad Sanchez MD Study ready at 23:32 and initial results transmitted at 23:36 CT ABDOMEN & PELVIS Without Contrast: Mildly displaced/impacted left femoral neck fracture. No definite additional fractures. No evidence of significant traumatic injuryin the abdomen or pelvis on noncontrast CT. No evidence of significant visceral injury, free fluid or free air. Diffusely increased attenuation of the liver which maybe seen in the setting of amiodarone hepatotoxicity, iron deposition, copper deposition or other etiology. Correlate clinically. Atherosclerotic vascular disease including coronary artery disease. No abdominal aortic aneurysm. Mild ground-glass opacities in the visualized lungswhich maybe related to atelectasis, mild edema, mild nonspecific pneumonitis or other etiology. Correlate clinically. Status post cholecystectomy with mildly dilated common bile duct and calculus in the distal CBD compatible with choledocholithiasis. Recommend clinical correlation and may consider RUQ ultrasound or MRCP to further assess if clinically warranted. Radiologist: Piedad Sanchez MD Study ready at 23:30 and initial results transmitted at 23:49 CT C SPINE: No evidence of acute fracture or traumatic subluxation of the cervical spine. Degenerative changes of the cervical spine. Incidental finding: Small scattered opacities in mastoid air cells, nonspecific. Radiologist: Piedad Sanchez MD Study ready at 23:32 and initial results transmitted at 23:39 ECG Data Attestation: I personally reviewed and interpreted this ECG as follows: Indication: other (Pre-op) Rate (beats per minute): 69 Rhythm: sinus with SA Findings: + other (AK, QRS, and QTc intervals are wnl.); no ST depression and no ST elevation Blood Pressure Blood Pressure Disposition: further management by hospitalist Head Trauma GCS Score: 15 MDM Narrative Imaging showed left sided hip fracture. Pt was admitted to the hospital. Hip fracture pathway protocol was initiated. 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 I reviewed the patient's case with Dr. Luis, [facility] Hospitalist. He will evaluate the patient for further management. Impression & Plan Closed hip fracture Discharge Plan Visit Data Chief Complaint: Fall Stated Complaint: FALL, KNEE PAIN ED Provider: Leonid Ruff Discharge Problem: Closed hip fracture Patient Disposition: Being Evaluated by Hospitalist Forms Stand Alone Forms: My [facility] Prescriptions Prescriptions: No Action losartan 50 mg tablet 50 mg PO DAILY RF: 0 atorvastatin 10 mg tablet 10 mg PO HS RF: 0 amiodarone 200 mg tablet 200 mg PO DAILY RF: 0 amlodipine 5 mg tablet 5 mg PO DAILY RF: 0 allopurinol 100 mg tablet 100 mg PO DAILY RF: 0 levothyroxine 112 mcg tablet 112 mcg PO DAILY RF: 0 cholecalciferol (vitamin D3) [Vitamin D3] 1,000 unit Tablet 1,000 unit PO DAILY RF: 0 cetirizine 10 mg tablet 10 mg PO DAILY RF: 0 galantamine 4 mg tablet 4 mg PO BID RF: 0 meclizine 12.5 mg Tablet 12.5 mg PO TID PRN (Reason: Dizziness Or Vertigo) RF: 0 tramadol 50 mg Tablet 50 mg PO Q8 PRN (Reason: Pain) RF: 0 omeprazole 20 mg capsule,delayed release(DR/EC) 20 mg PO BID RF: 0 furosemide 20 mg tablet 20 mg PO DAILY RF: 0 furosemide 20 mg tablet 20 mg PO DAILY PRN (Reason: weight gain/swelling) RF: 0 tocilizumab [Actemra] 400 mg/20 mL (20 mg/mL) Solution 750 mg IV MONTHLY RF: 0 rivaroxaban [Xarelto] 15 mg tablet 15 mg PO QPM RF: 0 nitroglycerin [Nitrostat] 0.4 mg Tablet, Sublingual 0.4 mg Sublingual UD PRN (Reason: Chest Pain) RF: 0 insulin glargine [Lantus Solostar U-100 Insulin] 100 unit/mL (3 mL) Insulin Pen 30 unit SUBCUT DAILY RF: 0 latanoprost 0.005 % Drops 1 drp OPB PM RF: 0 albuterol sulfate [Proventil HFA] 90 mcg/actuation Hfa Aerosol Inhaler 1 - 2 puff INHALATION Q4 PRN (Reason: Shortness Of Breath Or Wheezing) RF: 0 insulin aspart U-100 [Novolog PenFill U-100 Insulin] 100 unit/mL Cartridge 1 sliding scale dose SUBCUT TIDM RF: 0 diclofenac sodium 1 % Gel 1 g TOPICAL DAILY PRN (Reason: Pain) RF: 0 triamcinolone acetonide 0.1 % Cream 1 applic TOPICAL BID RF: 0 clobetasol 0.05 % Ointment 1 applic TOPICAL WK RF: 0 colchicine [Colcrys] 0.6 mg Tablet 0.6 mg PO DAILY PRN (Reason: Pain, Severe) RF: 0 Referrals Referrals: Katina Yang, DO [Primary Care Provider] - The scribe's documentation has been prepared under my direction and personally reviewed by me in its entirety. I confirm that the note above accurately reflects all work, treatment, procedures, and medical decision making performed by me.
[2018-08-11] MEDS ORDERED: MoRPHine SULFATE 4 MG/ML 1 ML CARP\\VIAL IV PRN (03:37)
[2018-08-11] MEDS ORDERED: MECLIZINE 12.5 MG TAB PO PRN (03:54)
[2018-08-11] MEDS ORDERED: DEXTROSE 50% 50 ML SYRINGE IV PRN (03:54)
[2018-08-11] MEDS ORDERED: COLCHICINE 0.6 MG TAB PO PRN (03:54)
[2018-08-11] MEDS ORDERED: GLUCAGON FOR INJ 1 MG VIAL SQ PRN (03:54)
[2018-08-11] MEDS ORDERED: GLUCOSE 10 TABS/TUBE PO PRN (03:54)
[2018-08-11] MEDS ORDERED: ALBUTEROL HFA 8 GM INHALER INH PRN (03:54)
[2018-08-11] MEDS ORDERED: CARBOHYDRATES FOR HYPOGLYCEMIA PO PRN (03:54)
[2018-08-11] MEDS ORDERED: NITROGLYCERIN SL 0.4 MG/TAB TAB SL PRN (03:54)
[2018-08-11] MEDS ORDERED: GLUCOSE 40% GEL 15 GM TUBE PO PRN (03:54)
[2018-08-11] MEDS ORDERED: TRAMADOL HCL 50 MG TABLET PO PRN (03:54)
[2018-08-11 04:06] LABS: Alanine Aminotransferase 42 U/L (12-78); Albumin Level 3.8 gm/dl (3.4-5.0); Alkaline Phosphatase 83 U/L (45-117); Aspartate Aminotransferase 30 U/L (15-37); Bilirubin,Total 0.3 mg/dl (0.2-1); Total Protein 7.1 gm/dl (6.4-8.2)
[2018-08-11] MEDS ORDERED: fentaNYL citrate 100 MCG/2 ML VIAL IV PRN (04:11)
--- NOTE | 2018-08-11 04:35 | History & Physical Report ---
Date of Service August 11, 2018 Assessment & Plan (1) Closed hip fracture: Closed left hip fracture status post mechanical fall-- Pain management with acetaminophen 1 g IV every 8 hours as needed mild pain. Fentanyl 25 mcg IV every 3 hours as needed moderate to severe pain. We will consult orthopedics when family decides. CT abdomen pelvis negative for pelvic bleed while on Xarelto. Hold Xarelto for probable intervention. SCDs. Present on Admission?: Yes (2) Diabetes mellitus: For now reduce Lantus from 30 units subcu daily to 15 units subcu daily. Placed on Accu-Cheks before meals and at bedtime with NovoLog coverage per scale. Present on Admission?: Yes (3) CAD (coronary artery disease): CAD/history of stented coronary artery/hypertension/cardiac dysrhythmia-- Continue amlodipine 5 mg p.o. daily. Hold furosemide 20 mg daily. Continue losartan 50 mg daily. Hold Xarelto as noted above for potential procedure. Continue amiodarone. Consult cardiology. Present on Admission?: Yes (4) Cardiac dysrhythmia: see above Present on Admission?: Yes (5) Hypertension: see above Present on Admission?: Yes (6) Hyperlipidemia LDL goal <70: continue atorvastatin Present on Admission?: Yes (7) Gout: continue allopurinol Present on Admission?: Yes (8) Arthritis: Arthritis/chronic back pain/polyarthralgia's/connective tissue disease-- She has been getting monthly injections from nursing care attendant Dr. Ortiz, who has since left the practice. Continue usual pain medications of tramadol 50 mg p.o. every 8 hours as needed. Placed on fentanyl 25 mcg IV every 3 hours as needed severe pain for hip fracture. Present on Admission?: Yes (9) Chronic back pain: See above Present on Admission?: Yes (10) Hypothyroidism: Continue levothyroxine 100 mcg p.o. daily Present on Admission?: Yes (11) GERD (gastroesophageal reflux disease): Continue omeprazole 20 mg p.o. twice daily or substitute to pantoprazole Present on Admission?: Yes History of Present Illness Chief Complaint: The patient presents to the emergency department with left hip pain that occurred after she fell while putting on her pajama pants. Primary Care Provider: Katina Yang, DO The patient is an 88-year-old female who was in the process of changing into her pajama bottoms, when she fell backward, hitting the back of her head on a piece of furniture, and hitting her left knee and left hip. She notes that her knee started to swell, and that she had severe pain in her left hip immediately after falling. She denies loss of consciousness. Allergies Allergy/AdvReac Type Severity Reaction Status Date / Time capsaicin Allergy Unknown UNSURE Verified 08/11/18 01:02 Diclopak Allergy Unknown UNSURE Verified 12/03/17 11:25 diclofenac Allergy Dizziness Verified 08/11/18 01:02 metformin AdvReac Mild DIARRHEA Verified 12/03/17 11:25 methadone AdvReac Mild DIZZY Verified 08/11/18 01:02 morphine AdvReac Mild HALLUCINATI Verified 08/11/18 01:02 ON promethazine AdvReac Mild SEIZURE Verified 08/11/18 01:02 LIKE ACTIVITY" troglitazone AdvReac Mild INCREASE Verified 12/03/17 11:25 LFTs NECTARINE Allergy Mild HIVES Uncoded 10/24/16 11:26 SENSITIVE TO NARCOTICS Allergy Unknown Unknown Uncoded 08/11/18 01:02 Home Medications Home Medications Medication Instructions Recorded Confirmed Type albuterol sulfate [Proventil HFA] 1 - 2 puff INHALATION Q4 PRN 08/11/18 History allopurinol 100 mg PO DAILY 08/11/18 08/11/18 History amiodarone 200 mg PO DAILY 08/11/18 08/11/18 History amlodipine 5 mg PO DAILY 08/11/18 08/11/18 History atorvastatin 10 mg PO HS 08/11/18 08/11/18 History cetirizine 10 mg PO DAILY 08/11/18 08/11/18 History cholecalciferol (vitamin D3) 1,000 unit PO DAILY 08/11/18 08/11/18 History [Vitamin D3] clobetasol 1 applic TOPICAL WK 08/11/18 08/11/18 History colchicine [Colcrys] 0.6 mg PO DAILY PRN 08/11/18 08/11/18 History diclofenac sodium 1 g TOPICAL DAILY PRN 08/11/18 08/11/18 History furosemide 20 mg PO DAILY 08/11/18 08/11/18 History furosemide 20 mg PO DAILY PRN 08/11/18 08/11/18 History galantamine 4 mg PO BID 08/11/18 08/11/18 History insulin aspart U-100 [Novolog 1 sliding scale dose SUBCUT TIDM 08/11/18 History PenFill U-100 Insulin] insulin glargine [Lantus Solostar 30 unit SUBCUT DAILY 08/11/18 08/11/18 History U-100 Insulin] latanoprost 1 drp OPB PM 08/11/18 08/11/18 History levothyroxine 100 mcg PO DAILY 08/11/18 08/11/18 History losartan 50 mg PO DAILY 08/11/18 08/11/18 History meclizine 12.5 mg PO TID PRN 08/11/18 08/11/18 History nitroglycerin [Nitrostat] 0.4 mg SUBLINGUAL UD PRN 08/11/18 08/11/18 History omeprazole 20 mg PO BID 08/11/18 08/11/18 History rivaroxaban [Xarelto] 15 mg PO QPM 08/11/18 08/11/18 History tocilizumab [Actemra] 750 mg IV MONTHLY 08/11/18 08/11/18 History tramadol 50 mg PO Q8 PRN 08/11/18 08/11/18 History triamcinolone acetonide 1 applic TOPICAL BID 08/11/18 08/11/18 History Past Med/Surg History Medical History Diabetes mellitus (Chronic) Hypertension (Chronic) GERD (gastroesophageal reflux disease) (Chronic) Chronic back pain (Chronic) Hypothyroidism (Chronic) Surgical History Stented coronary artery (Chronic) Family History Other Family history non-contributory Social History Current Living Situation: Alone Other Information That Helps Us Care for You: No Feels Safe at Home: Yes Safety Concerns: Feels Safe At This Time Smoking Status: Never smoker Hx Alcohol Use: No Hx Substance Use: No Beliefs That Will Affect Care: None Preferred Language: Slovak Contact Center Director Required: No Review of Systems The patient denies chest pain, palpitations, shortness of breath, dyspnea on exertion, cough, sore throat, fevers, chills, sweats, weight change, fatigue, nausea, vomiting, diarrhea , constipation, abdominal pain, pelvic pain, blood in urine or stool, dysuria, urinary frequency or urgency, lightheadedness , dizziness, headache, memory loss, loss of consciousness, rash, abnormal bruising or bleeding, Focal or generalized weakness, numbness or tingling in arms, generalized arthralgias or myalgias, back or neck pain, or night sweats. The review of systems is otherwise negative other than for that already noted above, and at least 10 systems have been reviewed. Physical Exam 2 Vital Signs (Past 24 Hours): Last Vital Signs Temp 36.7 C 08/10/18 22:35 Pulse 72 08/11/18 03:12 Resp 18 08/11/18 03:12 BP 165/58 H 08/11/18 03:12 Pulse Ox 97 08/11/18 03:12 Physical Exam: The patient is awake, alert and oriented �3, well developed and well nourished, normocephalic and atraumatic, lying in bed and in no acute distress. HEENT--PERRL, EOMI, mucous membranes and oropharynx dry. Neck--supple. No JVD. No bruits. Thyroid normal, trachea midline, no adenopathy. Heart--normal S1 and S2. No murmurs, rubs or gallops. Lungs--clear bilaterally, no respiratory distress, no accessory muscle use. Abdomen--normal bowel sounds and soft. Nontender. Nondistended obese.. Extremities--no cyanosis or clubbing. No edema. There are good distal pulses b/ l. Dermatologic--normal skin turgor, normal color, no abnormal lymph nodes, no rash. Neurologic--cranial nerves II through XII grossly intact. Rheumatologic--pain over left hip on palpation. Psychiatric--normal affect. Results & Data Laboratory Results Laboratory Results WBC 9.71 K/uL (4.8-10.8) 08/11/18 00:19 RBC 4.43 M/uL (4.2-5.4) 08/11/18 00:19 Hgb 14.2 g/dL (12.0-16.0) 08/11/18 00: Hct 42.9 % (37-47) 08/11/18 00:19 MCV 96.8 fL (80-100) 08/11/18 00:19 MCH 32.1 pg (25-34) 08/11/18 00: MCHC 33.1 g/dL (32-36) 02/05/19 00:19 RDW Std Deviation 48.2 fL (36.4-46.3) H 08/11/18 00:19 RDW Coeff of Daniel 13.6 % (11.5-14.5) 08/11/18 00:19 Plt Count 163 K/uL (130-400) 08/11/18 00:19 MPV 11.5 fL (7.4-10.4) H 08/11/18 00:19 Immature Gran % (Auto) 0.4 % 08/11/18 00:19 Neut % (Auto) 76.3 % 08/11/18 00:19 Lymph % (Auto) 17.2 % 08/11/18 00:19 [place] % (Auto) 5.1 % 08/11/18 00:19 Eos % (Auto) 0.9 % 08/11/18 00:19 Baso % (Auto) 0.1 % 08/11/18 00:19 Immature Gran # (Auto) 0.04 K/uL (0.00-0.02) H 08/11/18 00:19 Neut # (Auto) 7.40 K/uL (1.4-6.5) H 08/11/18 00:19 Lymph # (Auto) 1.67 K/uL (1.2-3.4) 08/11/18 00:19 [place] # (Auto) 0.50 K/uL (0.11-0.59) 08/11/18 00:19 Eos # (Auto) 0.09 K/uL (0-0.5) 08/11/18 00:19 Baso # (Auto) 0.01 K/uL (0-0.2) 08/11/18 00:19 PT 12.6 Seconds (9.0-12.0) H 08/11/18 00:19 INR 1.3 (0.9-1.1) H 08/11/18 00:19 APTT 26.5 Seconds (21.0-31.0) 08/11/18 00:19 PTT Ratio 1.0 08/11/18 00:19 Sodium 141 mmol/L (136-145) 08/11/18 00:19 Potassium 4.7 mmol/L (3.5-5.1) 08/11/18 00:19 Chloride 108 mmol/L (98-107) H 08/11/18 00:19 Carbon Dioxide 24 mmol/L (21-32) 08/11/18 00:19 Anion Gap 9.0 (3-11) 08/11/18 00:19 BUN 41 mg/dl (7-18) H 08/11/18 00:19 Creatinine 1.77 mg/dl (0.6-1.2) H 08/11/18 00:19 Est Cr Clr Drug Dosing Not Reportable 08/11/18 00:19 Est GFR ( Amer) 29.6 08/11/18 00:19 Est GFR (Non-Af Amer) 25.6 08/11/18 00:19 BUN/Creatinine Ratio 23.3 (10-20) H 08/11/18 00:19 Glucose 221 mg/dl (70-99) H 08/11/18 00:19 POC Glucose 178 (70-99) H 08/11/18 03:42 Calcium 8.5 mg/dl (8.5-10.1) 08/11/18 00:19 Total Bilirubin 0.3 mg/dl (0.2-1) 08/11/18 00:19 Direct Bilirubin TNP 08/11/18 00:19 AST 30 U/L (15-37) 08/11/18 00:19 ALT 42 U/L (12-78) 08/11/18 00:19 Alkaline Phosphatase 83 U/L (45-117) 08/11/18 00:19 Total Protein 7.1 gm/dl (6.4-8.2) 08/11/18 00:19 Albumin 3.8 gm/dl (3.4-5.0) 08/11/18 00:19 Lipase 171 U/L (73-393) 08/11/18 00:19 Specimen Hemolysis 08/11/18 00:19 Urine Color Yellow 08/11/18 00:23 Urine Appearance Clear (Clear) 08/11/18 00:23 Urine pH 5.0 (4.5-7.5) 08/11/18 00:23 Ur Specific [place] 1.020 (1.000-1.030) 08/11/18 00:23 Urine Protein Trace (Negative) H 08/11/18 00:23 Urine Glucose (UA) 1+ (Negative) H 08/11/18 00:23 Urine Ketones Negative (Negative) 08/11/18 00:23 Urine Blood Negative (Negative) 08/11/18 00:23 Urine Nitrite Negative (Negative) 08/11/18 00:23 Urine Bilirubin Negative (Negative) 08/11/18 00:23 Urine Urobilinogen Negative (Negative) 08/11/18 00:23 Ur Leukocyte Esterase 1+ (Negative) H 08/11/18 00:23 Urine WBC (Auto) 10-30 /hpf (0-5) H 08/11/18 00:23 Urine RBC (Auto) 0-4 /hpf (0-4) 08/11/18 00:23 U Hyaline Cast (Auto) 1-5 /lpf (0-5) 08/11/18 00:23 U Epithel Cells (Auto) >30 /lpf (0-5) H 08/11/18 00:23 Urine Bacteria (Auto) Negative (Negative) 08/11/18 00:23 Blood Type O Positive 08/11/18 00:19 Antibody Screen NEGATIVE 08/11/18 00:19 Diagnostic Findings [place], [place] [phone] XRay Report Patient: TYE VIZCARRA Date: 08/10/18 MR#: [id number]: [address] Acct ID:[id number]: Date: 1930[facility] Zip: [place] [address] Age: 88Location: ED Sex: F Room/Bed: Att Phy: Diagnosis: FALL, KNEE PAIN Berta Phy: Katina Yang, DOService Date: 08/10/18 Fam Phy: Interpreting Phy: Miguel Ángel Hernandez Admit Phy: Ordering Phy: Leonid Ruff M.D. cc: ~ XR chest 1V portable HISTORY: 88 years-old Female fall acute chest trauma status post fall COMPARISON: Chest radiographs 04/15/2017 TECHNIQUE: Portable AP view of the chest FINDINGS: Cardiomediastinal and hilar silhouettes appear unchanged. Calcification of the thoracic aortic arch. Mild right hemidiaphragmatic elevation. No pneumothorax, pleural effusion, focal airspace consolidation or overt pulmonary edema. Degenerative changes of the shoulders and spine. Right shoulder rotator cuff calcific tendinosis. IMPRESSION: No acute process. The above report was generated using voice recognition software. It may contain grammatical, syntax or spelling errors. Electronically signed by: Justin Hernandez M.D. 08/10/2018 11:03 PM Dictated: 08/10/182301 Transcribed: 08/10/182301 [place], [place] [phone] XRay Report Patient: TYE VIZCARRA Date: 08/10/18 MR#: [id number]: [address] Acct ID:[id number]: Date: 1930[facility] Zip: [place] [address] Age: 88Location: ED Sex: F Room/Bed: Att Phy: Diagnosis: FALL, KNEE PAIN Berta Phy: Katina Yang, DOService Date: 08/10/18 Fam Phy: Interpreting Phy: Miguel Ángel Hernandez Admit Phy: Ordering Phy: Leonid Ruff M.D. cc: ~ XR pelvis 1-2V routine, XR knee LT 2V routine, XR femur LT 2V routine HISTORY: 88 years-old Female fall acute pelvic and left lower extremity pain status post fall COMPARISON: None available TECHNIQUE: AP view of the pelvis with 2 views of the left knee and 2 views of the left femur FINDINGS: PELVIS: Demineralized appearance of the bones. 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 Degenerative changes of the lumbar spine. No acute pelvic fracture identified. Linear lucency projects over the basicervical/ intertrochanteric distribution of the left femur. Peripheral arterial calcifications are noted. FEMUR: Acute appearing fracture of the basicervical/intertrochanteric distribution of the left femur. Minimal impaction without significant displacement. Left knee total joint arthroplasty. Peripheral arterial calcifications are noted. KNEE: Total joint arthroplasty with prior patellar resurfacing. No acute fracture or dislocation. Small joint effusion. Peripheral arterial calcifications noted. IMPRESSION: Acute nondisplaced fracture of the basicervical/intertrochanteric left femur. The above report was generated using voice recognition software. It may contain grammatical, syntax or spelling errors. Electronically signed by: Justin Hernandez M.D. 08/10/2018 11:02 PM Dictated: 08/10/182257 Transcribed: 08/10/182257 Medications Administered Home Medications Medication Instructions Recorded Confirmed albuterol sulfate [Proventil HFA] 1 - 2 puff INHALATION Q4 PRN 08/11/18 08/11/18 allopurinol 100 mg PO DAILY 08/11/18 08/11/18 amiodarone 200 mg PO DAILY 08/11/18 08/11/18 amlodipine 5 mg PO DAILY 08/11/18 08/11/18 atorvastatin 10 mg PO HS 08/11/18 08/11/18 cetirizine 10 mg PO DAILY 08/11/18 08/11/18 cholecalciferol (vitamin D3) 1,000 unit PO DAILY 08/11/18 08/11/18 [Vitamin D3] clobetasol 1 applic TOPICAL WK 08/11/18 08/11/18 colchicine [Colcrys] 0.6 mg PO DAILY PRN 08/11/18 08/11/18 diclofenac sodium 1 g TOPICAL DAILY PRN 08/11/18 08/11/18 furosemide 20 mg PO DAILY 08/11/18 08/11/18 furosemide 20 mg PO DAILY PRN 08/11/18 08/11/18 galantamine 4 mg PO BID 08/11/18 08/11/18 insulin aspart U-100 [Novolog 1 sliding scale dose SUBCUT TIDM 08/11/18 08/11/18 PenFill U-100 Insulin] insulin glargine [Lantus Solostar 30 unit SUBCUT DAILY 08/11/18 08/11/18 U-100 Insulin] latanoprost 1 drp OPB PM 08/11/18 08/11/18 levothyroxine 100 mcg PO DAILY 08/11/18 08/11/18 losartan 50 mg PO DAILY 08/11/18 08/11/18 meclizine 12.5 mg PO TID PRN 08/11/18 08/11/18 nitroglycerin [Nitrostat] 0.4 mg SUBLINGUAL UD PRN 08/11/18 08/11/18 omeprazole 20 mg PO BID 08/11/18 08/11/18 rivaroxaban [Xarelto] 15 mg PO QPM 08/11/18 08/11/18 tocilizumab [Actemra] 750 mg IV MONTHLY 08/11/18 08/11/18 tramadol 50 mg PO Q8 PRN 08/11/18 08/11/18 triamcinolone acetonide 1 applic TOPICAL BID 08/11/18 08/11/18 Code Status & VTE Plan Code Status Full code VTE Prophylaxis Plan VTE Prophylaxis will be ordered: Yes _ (1) Closed hip fracture Encounter type: initial encounter Fracture healing: Laterality: left Qualified Code(s): S72.002A - Fracture of unspecified part of neck of left femur , initial encounter for closed fracture
[2018-08-11] MEDS: ACETAMINOPHEN 1,000 MG/100 ML VIAL IV SCH ×3 (04:52→21:12)
[2018-08-11] MEDS: LEVOTHYROXINE SODIUM 100 MCG TABLET PO SCH (06:05)
--- NOTE | 2018-08-11 06:28 | CT Scan Report ---
CT cervical spine wo con CT DOSE: HISTORY: Trauma. Pain. fall on xarelto TECHNIQUE: Multiaxial CT images of the cervical spine were performed and reformatted in the sagittal and coronal plane without the use of contrast. A dose lowering technique was utilized adhering to th e principles of ALARA. COMPARISON: None. FINDINGS: No fractures. No subluxation. Prevertebral soft tissues and the C1-C2 interval are intact. No pneumothorax. Moderate degenerative disc change from C5 through C7. IMPRESSION: Degenerative change. No acute process. The above report was generated using voice recognition software. It may contain grammatical, syntax or spelling errors. Electronically signed by: Ras Morrow M.D. 08/11/2018 6:26 AM
[2018-08-11] MEDS ORDERED: LEVOTHYROXINE SODIUM 112 MCG TABLET PO SCH (06:30)
--- NOTE | 2018-08-11 07:36 | CT Scan Report ---
CT SCAN OF THE ABDOMEN AND PELVIS WITHOUT IV CONTRAST CLINICAL HISTORY: Fall. COMPARISON STUDY: No priors. TECHNIQUE: CT scan of the abdomen and pelvis is performed from the lung bases to the proximal femora. Images are reviewed in the axial, sagittal, and coronal planes. IV contrast was not administered for this examination as per the referring clinician. Note that the examination is performed in significa ntly suboptimal fashion without IV contrast. The examination is also degraded by motion artifact, and by streak artifact from the arms which could not be elevated above the abdomen. A dose lowering tech nique was utilized adhering to the principles of ALARA. CT DOSE: 2590.43 mGy.cm FINDINGS: Lung bases: The heart is normal in size and without pericardial effusion. The coronary arteries are d ensely calcified. There is no airspace consolidation or pleural effusion. Air trapping and atelectasi s are noted at the lung bases. Liver: The unenhanced liver is normal in size and contour. The liver demonstrates diffusely increased attenuation. There is mild intrahepatic biliary ductal dilatation. Gallbladder: The gallbladder surgically absent. The common bile duct is dilated and measures up to 13 mm in diameter. A calcified gallstone is seen within the distal common bile duct at the ampulla on i mage #[id number]. This measures at least 6 mm. Spleen: Normal in size and attenuation. Pancreas: The unenhanced pancreas is moderately atrophic and grossly unremarkable. Adrenal glands: Unremarkable. Kidneys: The unenhanced kidneys are atrophic and without hydronephrosis. There are no renal calculi i dentified. There is no evidence of contour deforming renal mass lesion. Abdominal vasculature: The abdominal aorta is normal in course and caliber noting advanced atheroscle rotic calcification. Bowel: There is rectosigmoid fecal retention. No bowel obstruction is seen. The appendix is well-vis ualized and normal. Peritoneum: There is no intraperitoneal free air or abdominal ascites. Lymphadenopathy: None. Pelvic viscera: The bladder, uterus, and adnexa are normal as visualized. Skeletal structures: The skeletal structures are osteopenic. There is an impacted fracture of the sub capital left femur. No additional fracture is seen. Mild lumbosacral spondylosis is observed. No lyti c or blastic lesions are seen. IMPRESSION: 1. Suboptimal examination without IV contrast. The examination is also degraded by streak and motion artifact. 2. There is no evidence of solid organ injury in the abdomen or pelvis on this unenhanced examination . 3. There is an impacted subcapital fracture of the left femur. 4. Choledocholithiasis with associated intra and extrahepatic biliary ductal dilatation. 5. The liver appears hyperdense, which can be seen in the setting of iron overload or possibly amioda josé toxicity. Clinical correlation will be required. 6. Additional findings as above. Electronically signed by: Dave Taylor M.D. 08/11/2018 7:35 AM
--- NOTE | 2018-08-11 07:38 | CT Scan Report ---
CT OF THE HEAD WITHOUT CONTRAST CLINICAL HISTORY: fall on xarelto COMPARISON STUDY: Head CT October 24, 2016. TECHNIQUE: Helical axial images of the head were obtained without IV contrast. Automated exposure con trol was utilized for the study. A dose lowering technique was utilized adhering to the principles o f ALARA. FINDINGS: No acute intracranial hemorrhage, midline shift or mass effect is present. Ventricular syst em is stable. Basilar cisterns are patent. There are no extra axial collections. White matter hypoden sity suggests small vessel disease. There are no findings to suggest acute dural sinus thrombosis or acute territorial infarct. There is no calvarial fracture. As before, left mastoid air cells are part ially opacified. There is trace fluid within the right mastoid air cells. IMPRESSION: 1. No acute intracranial findings. 2. No calvarial fracture. Electronically signed by: Sav Lanier M.D. 08/11/2018 7:37 AM
[2018-08-11] MEDS: fentaNYL citrate 100 MCG/2 ML VIAL IV PRN ×2 (07:45→16:03)
[2018-08-11] MEDS: PANTOprazole 40 MG TAB PO SCH ×2 (07:46→21:11)
[2018-08-11] MEDS: CLOBETASOL~ORDER AWAITING ACTION SCH ×2 (07:46→16:23)
[2018-08-11] MEDS: ALLOPURINOL 100 MG TAB PO SCH (07:46)
[2018-08-11] MEDS: AMLODIPINE BESYLATE 5 MG TAB PO SCH (07:47)
[2018-08-11] MEDS: CHOLECALCIFEROL 1,000 UNITS TAB PO SCH (07:47)
[2018-08-11] MEDS: FUROSEMIDE 20 MG TAB PO PRN (07:47)
[2018-08-11] MEDS: CETIRIZINE HCL 10 MG TABLET PO SCH ×2 (07:47→08:00)
[2018-08-11] MEDS: GALANTAMINE HYDROBROMIDE 4 MG TAB PO SCH ×2 (07:47→21:11)
[2018-08-11] MEDS: LOSARTAN POTASSIUM 50 MG TAB PO SCH (07:48)
[2018-08-11] MEDS: INSULIN GLARGINE SOLOSTAR 100 UNITS/ML 3 ML PEN SQ SCH (07:48)
[2018-08-11] MEDS: INSULIN ASPART 100 UNITS/ML 3 ML PEN SC SCH ×4 (07:50→21:12)
[2018-08-11] MEDS ORDERED: [UNRECOGNIZED DRUG - OTHER] SQ SCH (08:00)
[2018-08-11 09:44] LABS: Estimated Average Glucose 154 mg/dl
--- NOTE | 2018-08-11 11:01 | Family Medicine Progress Note ---
Date of Service August 11, 2018 Assessment & Plan (1) Closed hip fracture: 88yo female with PMHx of CAD, DM, HTN, HLD, arrythmia hx with closed left hip fracture after a mechanical fall. Fentanyl 25 mcg IV every 3 hours as needed moderate to severe pain with Tylenol for breakthrough pain. [facility].- think surgery warranted, however awaiting medical clearance. Pt cleared medically for surgery. CT abdomen pelvis negative for pelvic bleed while on Xarelto. Hold Xarelto for probable intervention. SCDs. (2) Diabetes mellitus: For now reduce Lantus from 30 units subcu daily to 15 units subcu daily. Placed on Accu-Cheks before meals and at bedtime with NovoLog coverage per scale. (3) CAD (coronary artery disease): CAD/history of stented coronary artery/hypertension/cardiac dysrhythmia-- Continue amlodipine 5 mg p.o. daily. Hold furosemide 20 mg daily. Continue losartan 50 mg daily. Hold Xarelto as noted above for potential procedure. Continue amiodarone. Consult cardiology. (4) Cardiac dysrhythmia: see above (5) Hypertension: see above (6) Hyperlipidemia LDL goal <70: continue atorvastatin (7) Gout: continue allopurinol (8) Arthritis: Arthritis/chronic back pain/polyarthralgia's/connective tissue disease-- She has been getting monthly injections from savings teller Dr. Ortiz, who has since left the practice. Continue usual pain medications of tramadol 50 mg p.o. every 8 hours as needed. Placed on fentanyl 25 mcg IV every 3 hours as needed severe pain for hip fracture. (9) Chronic back pain: See above (10) Hypothyroidism: Continue levothyroxine 100 mcg p.o. daily (11) GERD (gastroesophageal reflux disease): Continue omeprazole 20 mg p.o. twice daily or substitute to pantoprazole Supervising Physician Co-Signing Physician Notes I personally examined the patient and verified all reyes points of history and exam, discussed case, and agree with decision making with Dr Fu. She notes she is feeling okay except for hip pain. She notes that pain is controlled with the medications given. She denies any chest pain, chest tightness, chest pain with exertion, or new or worse shortness of breath. Vitals noted, in general she is awake alert oriented no distress. HEENT normocephalic atraumatic mucous membranes are moist. Skin shows no rashes no pallor or icterus. Cardio is regular without rubs murmurs gallops lungs are unlabored no rales rhonchi wheezes good effort Hip fracture�she is medically acceptable risk for the planned procedure. Obviously need to hold Xarelto for now. She shows no signs or symptoms of unstable angina, and her EKG is nonacute. She will almost certainly need rehab after repair. Given the relatively low amount of trauma to inflicting injury, osteoporosis workup as an outpatient versus simply empiric treatment with a bisphosphonate. Will check a vitamin D level to ensure with supplementing enough to allow for adequate healing. Dense appearing liver�radiologist differential is amiodarone related toxicity versus iron overload. She had iron studies checked a year or 2 ago, we will repeat a ferritin to ensure that things still appear adequately normal, if they are normal almost certainly it is amiodarone related. However in review the literature suggests really treatment cessation is more based on transaminase elevation, which she does not have. For now we will hold the amiodarone given its long half-life and her rate control, and then decisions on further treatment can be made as an outpatient. She is stable for MedSurg. Atrial fibrillation�resume Xarelto once it is safe to do so postop Subjective Ms. Gonsales states that her pain is well controlled, no breakthrough. Denies chest pain, SOB, N/V, abdominal pain. Review of Systems All systems reviewed & are unremarkable except as noted in HPI & below Physical Exam 2 Vital Signs (Past 24 Hours): Last Vital Signs Temp 36.7 C 08/11/18 07:30 Pulse 60 08/11/18 09:43 Resp 16 08/11/18 07:30 BP 160/74 H 08/11/18 09:43 Pulse Ox 97 08/11/18 07:30 General: Alert, oriented. No acute distress HEENT: NC/AT, PERRL, EOMI, oropharynx moist. Chest: Nontender to palpation. CV: RRR, Normal s1, s2. No murmurs appreciated Resp: Breath sounds clear bilaterally, no increased effort of breathing. No crackles/rhonchi/rales. Abdomen: BS+. Soft, nontender, nondistended. No guarding. No organomegaly appreciated. Extremities: No edema L hip and leg without swelling or erythema. Results & Data Laboratory Results Laboratory Results - last 24 hr 08/11/18 08/11/18 08/11/18 00:19 00:19 00:19 WBC 9.71 RBC 4.43 Hgb 14.2 Hct 42.9 MCV 96.8 MCH 32.1 MCHC 33.1 RDW Std Deviation 48.2 H RDW Coeff of Daniel 13.6 Plt Count 163 MPV 11.5 H Immature Gran % (Auto) 0.4 Neut % (Auto) 76.3 Lymph % (Auto) 17.2 Stone % (Auto) 5.1 Eos % (Auto) 0.9 Baso % (Auto) 0.1 Immature Gran # (Auto) 0.04 H Neut # (Auto) 7.40 H Lymph # (Auto) 1.67 Stone # (Auto) 0.50 Eos # (Auto) 0.09 Baso # (Auto) 0.01 PT 12.6 H INR 1.3 H APTT 26.5 PTT Ratio 1.0 Sodium 141 Potassium 4.7 Chloride 108 H Carbon Dioxide 24 Anion Gap 9.0 BUN 41 H Creatinine 1.77 H Est Cr Clr Drug Dosing Not Reportable Est GFR ( Amer) 29.6 Est GFR (Non-Af Amer) 25.6 BUN/Creatinine Ratio 23.3 H Glucose 221 H POC Glucose Estimat Average Glucose Hemoglobin A1c Calcium 8.5 Total Bilirubin 0.3 Direct Bilirubin TNP AST 30 ALT 42 Alkaline Phosphatase 83 Total Protein 7.1 Albumin 3.8 Lipase 171 Specimen Hemolysis Urine Color Urine Appearance Urine pH Ur Specific Cardwell Urine Protein Urine Glucose (UA) Urine Ketones Urine Blood Urine Nitrite Urine Bilirubin Urine Urobilinogen Ur Leukocyte Esterase Urine WBC (Auto) Urine RBC (Auto) U Hyaline Cast (Auto) U Epithel Cells (Auto) Urine Bacteria (Auto) Blood Type Antibody Screen 08/11/18 08/11/18 08/11/18 00:19 00:23 03:42 WBC RBC Hgb Hct MCV MCH MCHC RDW Std Deviation RDW Coeff of Daniel Plt Count MPV Immature Gran % (Auto) Neut % (Auto) Lymph % (Auto) Stone % (Auto) Eos % (Auto) Baso % (Auto) Immature Gran # (Auto) Neut # (Auto) Lymph # (Auto) Stone # (Auto) Eos # (Auto) Baso # (Auto) PT INR APTT PTT Ratio Sodium Potassium Chloride Carbon Dioxide Anion Gap BUN Creatinine Est Cr Clr Drug Dosing Est GFR ( Amer) Est GFR (Non-Af Amer) BUN/Creatinine Ratio Glucose POC Glucose 178 H Estimat Average Glucose Hemoglobin A1c Calcium Total Bilirubin Direct Bilirubin AST ALT Alkaline Phosphatase Total Protein Albumin Lipase Specimen Hemolysis Urine Color Yellow Urine Appearance Clear Urine pH 5.0 Ur Specific Cardwell 1.020 Urine Protein Trace H Urine Glucose (UA) 1+ H Urine Ketones Negative Urine Blood Negative Urine Nitrite Negative Urine Bilirubin Negative Urine Urobilinogen Negative Ur Leukocyte Esterase 1+ H Urine WBC (Auto) 10-30 H Urine RBC (Auto) 0-4 U Hyaline Cast (Auto) 1-5 U Epithel Cells (Auto) >30 H Urine Bacteria (Auto) Negative Blood Type O Positive Antibody Screen NEGATIVE 08/11/18 08/11/18 07:05 07:36 WBC RBC Hgb Hct MCV MCH MCHC RDW Std Deviation RDW Coeff of Daniel Plt Count MPV Immature Gran % (Auto) Neut % (Auto) Lymph % (Auto) Stone % (Auto) Eos % (Auto) Baso % (Auto) Immature Gran # (Auto) Neut # (Auto) Lymph # (Auto) Stone # (Auto) Eos # (Auto) Baso # (Auto) PT INR APTT PTT Ratio Sodium Potassium Chloride Carbon Dioxide Anion Gap BUN Creatinine Est Cr Clr Drug Dosing Est GFR ( Amer) Est GFR (Non-Af Amer) BUN/Creatinine Ratio Glucose POC Glucose 158 H Estimat Average Glucose 154 Hemoglobin A1c 7.0 H Calcium Total Bilirubin Direct Bilirubin AST ALT Alkaline Phosphatase Total Protein Albumin Lipase Specimen Hemolysis Urine Color Urine Appearance Urine pH Ur Specific Cardwell Urine Protein Urine Glucose (UA) Urine Ketones Urine Blood Urine Nitrite Urine Bilirubin Urine Urobilinogen Ur Leukocyte Esterase Urine WBC (Auto) Urine RBC (Auto) U Hyaline Cast (Auto) U Epithel Cells (Auto) Urine Bacteria (Auto) Blood Type Antibody Screen Medications Administered Home Medications albuterol sulfate [Proventil HFA] 1 - 2 puff INHALATION Q4 PRN 08/11/18 [ History Confirmed 08/11/18] allopurinol 100 mg PO DAILY 08/11/18 [History Confirmed 08/11/18] amiodarone 200 mg PO DAILY 08/11/18 [History Confirmed 08/11/18] amlodipine 5 mg PO DAILY 08/11/18 [History Confirmed 08/11/18] atorvastatin 10 mg PO HS 08/11/18 [History Confirmed 08/11/18] cetirizine 10 mg PO DAILY 08/11/18 [History Confirmed 08/11/18] cholecalciferol (vitamin D3) [Vitamin D3] 1,000 unit PO DAILY 08/11/18 [History Confirmed 08/11/18] clobetasol 1 applic TOPICAL WK 08/11/18 [History Confirmed 08/11/18] colchicine [Colcrys] 0.6 mg PO DAILY PRN 08/11/18 [History Confirmed 08/11/18] diclofenac sodium 1 g TOPICAL DAILY PRN 08/11/18 [History Confirmed 08/11/18] furosemide 20 mg PO DAILY 08/11/18 [History Confirmed 08/11/18] furosemide 20 mg PO DAILY PRN 08/11/18 [History Confirmed 08/11/18] galantamine 4 mg PO BID 08/11/18 [History Confirmed 08/11/18] insulin aspart U-100 [Novolog PenFill U-100 Insulin] 1 sliding scale dose SUBCUT TIDM 08/11/18 [History Confirmed 08/11/18] insulin glargine [Lantus Solostar U-100 Insulin] 30 unit SUBCUT DAILY 08/11/18 [ History Confirmed 08/11/18] latanoprost 1 drp OPB PM 08/11/18 [History Confirmed 08/11/18] levothyroxine 100 mcg PO DAILY 08/11/18 [History Confirmed 08/11/18] losartan 50 mg PO DAILY 08/11/18 [History Confirmed 08/11/18] meclizine 12.5 mg PO TID PRN 08/11/18 [History Confirmed 08/11/18] nitroglycerin [Nitrostat] 0.4 mg SUBLINGUAL UD PRN 08/11/18 [History Confirmed 08/11/18] omeprazole 20 mg PO BID 08/11/18 [History Confirmed 08/11/18] rivaroxaban [Xarelto] 15 mg PO QPM 08/11/18 [History Confirmed 08/11/18] tocilizumab [Actemra] 750 mg IV MONTHLY 08/11/18 [History Confirmed 08/11/18] tramadol 50 mg PO Q8 PRN 08/11/18 [History Confirmed 08/11/18] triamcinolone acetonide 1 applic TOPICAL BID 08/11/18 [History Confirmed ] Active Medications Albuterol (Ventolin Hfa) 2 puffs INH Q4 PRN PRN Reason: Shortness Of Breath Or Wheezing Stop: 09/10/18 03:53 Allopurinol (Zyloprim) 100 mg PO DAILY SNOW Stop: 09/10/18 08:59 Last Admin: 08/11/18 07:46 Dose: 100 mg Amlodipine Besylate (Norvasc) 5 mg PO DAILY SNOW Stop: 09/10/18 08:59 Last Admin: 08/11/18 07:47 Dose: 5 mg Atorvastatin Calcium (Lipitor) 10 mg PO HS [facility] Stop: 09/10/18 20:59 Cetirizine HCl (Zyrtec) 10 mg PO DAILY SNOW Stop: 09/10/18 08:59 Last Admin: 08/11/18 08:00 Dose: Not Given Colchicine (Colcrys) 0.6 mg PO DAILY PRN PRN Reason: Pain, Severe Stop: 09/10/18 03:53 Dextrose (Dextrose 50%) 25 - 50 ml IV UD PRN; Protocol PRN Reason: Hypoglycemia Protocol Stop: 09/10/18 03:53 Fentanyl Citrate (Fentanyl Citrate) 25 mcg IV Q3H PRN PRN Reason: Moderate Pain Stop: 08/25/18 04:10 Last Admin: 08/11/18 07:45 Dose: 25 mcg Furosemide (Lasix) 20 mg PO DAILY PRN PRN Reason: weight gain/swelling Stop: 09/10/18 03:53 Last Admin: 08/11/18 07:47 Dose: 20 mg Galantamine Hydrobromide (Razadyne) 4 mg PO BID SNOW Stop: 09/10/18 08:59 Last Admin: 08/11/18 07:47 Dose: 4 mg Glucagon (Glucagen) 1 mg SQ UD PRN; Protocol PRN Reason: Hypoglycemia Protocol Stop: 09/10/18 03:53 Glucose (Dex4 Glucose) 4 - 8 tabs PO UD PRN; Protocol PRN Reason: Hypoglycemia Protocol Stop: 09/10/18 03:53 Glucose (Glucose 40%) 15 - 30 gm PO UD PRN; Protocol PRN Reason: Hypoglycemia Protocol Stop: 09/10/18 03:53 Acetaminophen (Ofirmev) 1,000 mg in 100 mls @ 400 mls/hr IV Q8H [facility] Stop: 08/13/18 04:29 Last Infusion: 08/11/18 05:10 Dose: Infused Insulin Aspart (Novolog Flexpen) 0 units SC ACHS [facility] Stop: 09/10/18 07:29 Last Admin: 08/11/18 07:50 Dose: 1 units Insulin Glargine (Lantus Solostar Pen) 15 units SQ DAILY [facility] Stop: 09/10/18 08:59 Last Admin: 08/11/18 07:48 Dose: 15 units Latanoprost (Xalatan Oph) 1 drops OPB PM [facility] Stop: 09/10/18 20:59 Levothyroxine Sodium (Synthroid) 100 mcg PO DAILYBB [facility] Stop: 09/10/18 06:29 Last Admin: 08/11/18 06:05 Dose: 100 mcg Losartan Potassium (Cozaar) 50 mg PO DAILY [facility] Stop: 09/10/18 08:59 Last Admin: 08/11/18 07:48 Dose: 50 mg Meclizine HCl (Antivert) 12.5 mg PO TID PRN PRN Reason: Dizziness Or Vertigo Stop: 09/10/18 03:53 Miscellaneous (Order Awaiting Action) 1 ea N/A QS [facility] Stop: 09/10/18 07:59 Last Admin: 08/11/18 07:46 Dose: Not Given Miscellaneous (Carbohydrates For Hypoglycemia) 15 - 30 gm PO UD PRN PRN Reason: Hypoglycemia Treatment Stop: 09/10/18 03:53 Nitroglycerin (Nitrostat) 0.4 mg SL UD PRN PRN Reason: Chest Pain Stop: 09/10/18 03:53 Pantoprazole Sodium (Protonix) 40 mg PO BID [facility] Stop: 09/10/18 08:59 Last Admin: 08/11/18 07:46 Dose: 40 mg Vitamin D (Vitamin D3) 1,000 units PO DAILY [facility] Stop: 09/10/18 08:59 Last Admin: 08/11/18 07:47 Dose: 1,000 units Resident Activity Tracking Resident Involvement: Resident Care Provided Care Provided: [facility] Medicine _ (1) Closed hip fracture Encounter type: initial encounter Fracture healing: Laterality: left Qualified Code(s): S72.002A - Fracture of unspecified part of neck of left femur , initial encounter for closed fracture
--- NOTE | 2018-08-11 11:05 | CT Scan Report ---
CT SCAN OF THE PELVIS WITHOUT IV CONTRAST CLINICAL HISTORY: Left hip fracture. COMPARISON STUDY: Pelvic CT performed the same day 08/10/2018. Pelvic radiograph dated 08/10/2018. TECHNIQUE: CT scan of the bony pelvis is performed from the pelvic inlet to the proximal femora. Imag es are reviewed in the axial, sagittal, and coronal planes. IV contrast was not administered for this examination. 3-D reformats are created and assessed. A dose lowering technique was utilized adherin g to the principles of ALARA. FINDINGS: The skeletal structures are osteopenic. There is an impacted subcapital fracture of the lef t femur. The femoral head remains within the acetabulum. No additional fracture is identified. The zeyad ny pelvis and the right hip are intact. Mild arthritic change is present in both hips. Mild sclerotic change is noted in the sacroiliac joints. No lytic or blastic lesion is identified. Mild spondylotic change is noted in the lower lumbar spine. There is no significant hip joint effusion. The bladder, uterus, and adnexa are normal as visualized. No pelvic sidewall or renal adenopathy is seen. Advanced atherosclerotic calcification is noted in the iliac arteries. The visualized bowel loops are normal in caliber. There is mild generalized atrophy of the regional musculature. No intramuscular hemorrhag e is seen. IMPRESSION: 1. There is an impacted subcapital fracture of the left femur as above. 2. No additional fracture is identified. Dictated: 08/11/2018 10:41 AM Transcribed: 08/11/2018 11:04 AM [place] [id number] [facility] Electronically signed by: Dave Taylor M.D. 08/11/2018 11:09 AM
--- NOTE | 2018-08-11 12:29 | Orthopedic Consultation ---
Date of Consultation August 11, 2018 Assessment & Plan (1) Closed hip fracture: The patient is an 88-year-old female with a closed displaced femoral neck fracture. This injury will require surgical intervention, we discussed hemiarthroplasty. Patient is on home medication Xarelto. Patient will require medical clearances, 24-48 hours off Xarelto, pending creatinine clearance prior to proceeding with surgical intervention. -Bedrest -Nonweightbearing left lower extremity We will follow with you and proceed with surgery once patient cleared and stable Thank you for the consultation History of Present Illness Reason for Consultation: Left hip fracture Attending Physician: Bharathi Cheng DO History of Present Illness 88-year-old female who presents secondary to a mechanical fall from standing height 1 day prior to today's examination, subsequently seen [facility] and diagnosed with left hip fracture. Patient does report hitting head, denies loss of consciousness, patient remembers the details of the fall in their entirety. Patient also has past medical history significant for diabetes , coronary artery disease, cardiac dysrhythmia on Xarelto and hypertension. Patient admits to pain to the left hip, denies associated injuries, denies numbness and tingling left lower extremity. Allergies Allergy/AdvReac Type Severity Reaction Status Date / Time capsaicin Allergy Unknown UNSURE Verified 08/11/18 16:22 Diclopak Allergy Unknown UNSURE Verified 12/03/17 11:25 diclofenac Allergy Dizziness Verified 08/11/18 01:02 metformin AdvReac Mild DIARRHEA Verified 12/03/17 11:25 methadone AdvReac Mild DIZZY Verified 08/11/18 01:02 morphine AdvReac Mild HALLUCINATI Verified 08/11/18 01:02 ON promethazine AdvReac Mild SEIZURE Verified 08/11/18 01:02 LIKE ACTIVITY" troglitazone AdvReac Mild INCREASE Verified 12/03/17 11:25 LFTs NECTARINE Allergy Mild HIVES Uncoded 10/24/16 11:26 SENSITIVE TO NARCOTICS Allergy Unknown Unknown Uncoded 08/11/18 01:02 Home Medications Home Medications Medication Instructions Recorded Confirmed Type albuterol sulfate [Proventil HFA] 1 - 2 puff INHALATION Q4 PRN 08/11/18 History allopurinol 100 mg PO DAILY 08/11/18 08/11/18 History amiodarone 200 mg PO DAILY 08/11/18 08/11/18 History amlodipine 5 mg PO DAILY 08/11/18 08/11/18 History atorvastatin 10 mg PO HS 08/11/18 08/11/18 History cetirizine 10 mg PO DAILY 08/11/18 08/11/18 History cholecalciferol (vitamin D3) 1,000 unit PO DAILY 08/11/18 08/11/18 History [Vitamin D3] clobetasol 1 applic TOPICAL WK 08/11/18 08/11/18 History colchicine [Colcrys] 0.6 mg PO DAILY PRN 08/11/18 08/11/18 History diclofenac sodium 1 g TOPICAL DAILY PRN 08/11/18 08/11/18 History furosemide 20 mg PO DAILY 08/11/18 08/11/18 History furosemide 20 mg PO DAILY PRN 08/11/18 08/11/18 History galantamine 4 mg PO BID 08/11/18 08/11/18 History insulin aspart U-100 [Novolog 1 sliding scale dose SUBCUT TIDM 08/11/18 History PenFill U-100 Insulin] insulin glargine [Lantus Solostar 30 unit SUBCUT DAILY 08/11/18 08/11/18 History U-100 Insulin] latanoprost 1 drp OPB PM 08/11/18 08/11/18 History levothyroxine 100 mcg PO DAILY 08/11/18 08/11/18 History losartan 50 mg PO DAILY 08/11/18 08/11/18 History meclizine 12.5 mg PO TID PRN 08/11/18 08/11/18 History nitroglycerin [Nitrostat] 0.4 mg SUBLINGUAL UD PRN 08/11/18 08/11/18 History omeprazole 20 mg PO BID 08/11/18 08/11/18 History rivaroxaban [Xarelto] 15 mg PO QPM 08/11/18 08/11/18 History tocilizumab [Actemra] 750 mg IV MONTHLY 08/11/18 08/11/18 History tramadol 50 mg PO Q8 PRN 08/11/18 08/11/18 History triamcinolone acetonide 1 applic TOPICAL BID 08/11/18 08/11/18 History Patient History Medical History Diabetes mellitus (Chronic) Hypertension (Chronic) GERD (gastroesophageal reflux disease) (Chronic) Chronic back pain (Chronic) Hypothyroidism (Chronic) Atrial fibrillation status post cardioversion Currently SR on Amiodarone. CKD (chronic kidney disease) Stage 4 CVA (cerebral vascular accident) 2006 Right Eye, vision has line through it. No other deficits. Carotid arterial disease F/U with [facility]. B/L 50%. Medical Management. 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 Osteoarthritis Surgical History Stented coronary artery (Chronic) Family History Other Family history non-contributory Social History marital status: / Current Living Situation: Alone Other Information That Helps Us Care for You: No Feels Safe at Home: Yes Safety Concerns: Feels Safe At This Time Smoking Status: Never smoker Hx Alcohol Use: No Hx Substance Use: No Beliefs That Will Affect Care: None Communication Ability: Effective Review of Systems Constitutional: as per Subjective / HPI Physical Exam 2 Vital Signs (Past 24 Hours): Last Vital Signs Temp 37.5 C 08/11/18 11:55 Pulse 62 08/11/18 11:55 Resp 19 08/11/18 11:55 BP 148/71 H 08/11/18 11:55 Pulse Ox 97 08/11/18 11:55 Physical Exam: LLE NVSI +EHL/FHL/TA/GS SILT grossly, +2 DP pulse, compartments soft NT, shortened externally rotated Results & Data Diagnostic Findings CT SCAN OF THE PELVIS WITHOUT IV CONTRAST CLINICAL HISTORY: Left hip fracture. COMPARISON STUDY: Pelvic CT performed the same day 08/10/2018. Pelvic radiograph dated 08/10/2018. TECHNIQUE: CT scan of the bony pelvis is performed from the pelvic inlet to the proximal femora. Images are reviewed in the axial, sagittal, and coronal planes. IV contrast was not administered for this examination. 3-D reformats are created and assessed. A dose lowering technique was utilized adhering to the principles of ALARA. FINDINGS: The skeletal structures are osteopenic. There is an impacted subcapital fracture of the left femur. The femoral head remains within the acetabulum. No additional fracture is identified. The bony pelvis and the right hip are intact. Mild arthritic change is present in both hips. Mild sclerotic change is noted in the sacroiliac joints. No lytic or blastic lesion is identified. Mild spondylotic change is noted in the lower lumbar spine. There is no significant hip joint effusion. The bladder, uterus, and adnexa are normal as visualized. No pelvic sidewall or renal adenopathy is seen. Advanced atherosclerotic calcification is noted in the iliac arteries. The visualized bowel loops are normal in caliber. There is mild generalized atrophy of the regional musculature. No intramuscular hemorrhage is seen. IMPRESSION: 1. There is an impacted subcapital fracture of the left femur as above. 2. No additional fracture is identified. XR pelvis 1-2V routine, XR knee LT 2V routine, XR femur LT 2V routine HISTORY: 88 years-old Female fall acute pelvic and left lower extremity pain status post fall COMPARISON: None available TECHNIQUE: AP view of the pelvis with 2 views of the left knee and 2 views of the left femur FINDINGS: PELVIS: Demineralized appearance of the bones. 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 Degenerative changes of the lumbar spine. No acute pelvic fracture identified. Linear lucency projects over the basicervical/ intertrochanteric distribution of the left femur. Peripheral arterial calcifications are noted. FEMUR: Acute appearing fracture of the basicervical/intertrochanteric distribution of the left femur. Minimal impaction without significant displacement. Left knee total joint arthroplasty. Peripheral arterial calcifications are noted. KNEE: Total joint arthroplasty with prior patellar resurfacing. No acute fracture or dislocation. Small joint effusion. Peripheral arterial calcifications noted. IMPRESSION: Acute nondisplaced fracture of the basicervical/intertrochanteric left femur. XR pelvis 1-2V routine, XR knee LT 2V routine, XR femur LT 2V routine HISTORY: 88 years-old Female fall acute pelvic and left lower extremity pain status post fall COMPARISON: None available TECHNIQUE: AP view of the pelvis with 2 views of the left knee and 2 views of the left femur FINDINGS: PELVIS: Demineralized appearance of the bones. 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 Degenerative changes of the lumbar spine. No acute pelvic fracture identified. Linear lucency projects over the basicervical/ intertrochanteric distribution of the left femur. Peripheral arterial calcifications are noted. FEMUR: Acute appearing fracture of the basicervical/intertrochanteric distribution of the left femur. Minimal impaction without significant displacement. Left knee total joint arthroplasty. Peripheral arterial calcifications are noted. KNEE: Total joint arthroplasty with prior patellar resurfacing. No acute fracture or dislocation. Small joint effusion. Peripheral arterial calcifications noted. IMPRESSION: Acute nondisplaced fracture of the basicervical/intertrochanteric left femur. XR pelvis 1-2V routine, XR knee LT 2V routine, XR femur LT 2V routine HISTORY: 88 years-old Female fall acute pelvic and left lower extremity pain status post fall COMPARISON: None available TECHNIQUE: AP view of the pelvis with 2 views of the left knee and 2 views of the left femur FINDINGS: PELVIS: Demineralized appearance of the bones. 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 Degenerative changes of the lumbar spine. No acute pelvic fracture identified. Linear lucency projects over the basicervical/ intertrochanteric distribution of the left femur. Peripheral arterial calcifications are noted. FEMUR: Acute appearing fracture of the basicervical/intertrochanteric distribution of the left femur. Minimal impaction without significant displacement. Left knee total joint arthroplasty. Peripheral arterial calcifications are noted. KNEE: Total joint arthroplasty with prior patellar resurfacing. No acute fracture or dislocation. Small joint effusion. Peripheral arterial calcifications noted. IMPRESSION: Acute nondisplaced fracture of the basicervical/intertrochanteric left femur. _ (1) Closed hip fracture Encounter type: initial encounter Fracture healing: Laterality: left Qualified Code(s): S72.002A - Fracture of unspecified part of neck of left femur , initial encounter for closed fracture
--- NOTE | 2018-08-11 14:26 | Anesthesiology Consultation ---
Date of Service August 11, 2018 Assessment & Plan (1) Encounter for pre-operative examination: Chart Review Chart Review: Acceptable Risk for Surgery and Patient NOT seen in Pre Admission Testing Consults Requested none ASA [id number] Proposed Anesthesia Anesthesia Type: General Risk / Benefits Reviewed With: PT / POA / Parent / Guardian, Accepts Plan and Informed Consent Obtained Additional Comments: Pt took her last dose of xarelto on 08/10/18 @ 1800. Discussed options of GA vs spinal anesthesia with patient and her family. Due to patient has not stopped xarelto for 72hrs, GA is planned. All questions were answered, risks/benefits explained. Consent was signed NPO Date Last Intake of Fluids: 08/12/18 Time Last Intake of Fluids: 23:59 Date Last Intake of Solids: 08/12/18 Time Last Intake of Solids: 19:00 History Surgery Operation Date: 08/13/18 12:30 Proposed Procedures p Left Bipolar Hemiarthoplasty vs. Calcar Replacing Bipolar Hemiarthroplasty - Marlo Jeffrey, Height/Weight Height: 1.6 m Weight: 87.1 kg Allergies Allergy/AdvReac Type Severity Reaction Status Date / Time capsaicin Allergy Unknown UNSURE Verified 08/11/18 16:22 Diclopak Allergy Unknown UNSURE Verified 12/03/17 11:25 diclofenac Allergy Dizziness Verified 08/11/18 01:02 metformin AdvReac Mild DIARRHEA Verified 12/03/17 11:25 methadone AdvReac Mild DIZZY Verified 08/11/18 01:02 morphine AdvReac Mild HALLUCINATI Verified 08/11/18 01:02 ON promethazine AdvReac Mild SEIZURE Verified 08/11/18 01:02 LIKE ACTIVITY" troglitazone AdvReac Mild INCREASE Verified 12/03/17 11:25 LFTs NECTARINE Allergy Mild HIVES Uncoded 10/24/16 11:26 SENSITIVE TO NARCOTICS Allergy Unknown Unknown Uncoded 08/11/18 01:02 Medications Home Medications Medication Instructions Recorded Confirmed Last Taken albuterol sulfate [Proventil HFA] 1 - 2 puff INHALATION Q4 PRN 08/11/1808/10/18 18:00 allopurinol 100 mg PO DAILY 08/11/18 08/11/18 Unknown amiodarone 200 mg PO DAILY 08/11/18 08/11/18 Unknown amlodipine 5 mg PO DAILY 08/11/18 08/11/18 Unknown atorvastatin 10 mg PO HS 08/11/18 08/11/18 Unknown cetirizine 10 mg PO DAILY 08/11/18 08/11/18 Unknown cholecalciferol (vitamin D3) 1,000 unit PO DAILY 08/11/18 08/11/18 Unknown [Vitamin D3] clobetasol 1 applic TOPICAL WK 08/11/18 08/11/18 Unknown colchicine [Colcrys] 0.6 mg PO DAILY PRN 08/11/18 08/11/18 Unknown diclofenac sodium 1 g TOPICAL DAILY PRN 08/11/18 08/11/18 Unknown furosemide 20 mg PO DAILY 08/11/18 08/11/18 Unknown furosemide 20 mg PO DAILY PRN 08/11/18 08/11/18 Unknown galantamine 4 mg PO BID 08/11/18 08/11/18 Unknown insulin aspart U-100 [Novolog 1 sliding scale dose SUBCUT TIDM 08/11/18 Unknown PenFill U-100 Insulin] insulin glargine [Lantus Solostar 30 unit SUBCUT DAILY 08/11/18 08/11/18 Unknown U-100 Insulin] latanoprost 1 drp OPB PM 08/11/18 08/11/18 Unknown levothyroxine 100 mcg PO DAILY 08/11/18 08/11/18 08/10/18 0600 losartan 50 mg PO DAILY 08/11/18 08/11/18 Unknown meclizine 12.5 mg PO TID PRN 08/11/18 08/11/18 Unknown nitroglycerin [Nitrostat] 0.4 mg SUBLINGUAL UD PRN 08/11/18 08/11/18 Unknown omeprazole 20 mg PO BID 08/11/18 08/11/18 Unknown rivaroxaban [Xarelto] 15 mg PO QPM 08/11/18 08/11/18 08/10/18 18:00 tocilizumab [Actemra] 750 mg IV MONTHLY 08/11/18 08/11/18 Unknown tramadol 50 mg PO Q8 PRN 08/11/18 08/11/18 Unknown triamcinolone acetonide 1 applic TOPICAL BID 08/11/18 08/11/18 Unknown Active Medications Generic Name Dose Route Start Last Admin Trade Name Freq PRN Reason Stop Dose Admin Allopurinol 100 mg 08/11/18 09:00 08/13/18 09:16 Zyloprim PO 09/10/18 08:59 100 mg DAILY SNOW Administration Amlodipine Besylate 5 mg 08/11/18 09:00 08/13/18 09:14 Norvasc PO 09/10/18 08:59 5 mg DAILY SNOW Administration Atorvastatin Calcium 10 mg 08/11/18 21:00 08/12/18 20:44 Lipitor PO 09/10/18 20:59 10 mg HS SNOW Administration Cetirizine HCl 10 mg 08/11/18 09:00 08/13/18 09:14 Zyrtec PO 09/10/18 08:59 10 mg DAILY SNOW Administration Furosemide 20 mg 08/11/18 03:54 08/11/18 07:47 Lasix PO 09/10/18 03:53 20 mg DAILY PRN Administration weight gain/swelling Furosemide 20 mg 08/12/18 09:00 08/12/18 08:51 Lasix PO 09/11/18 08:59 20 mg DAILY SNOW Administration Galantamine Hydrobromide 4 mg 08/11/18 09:00 08/13/18 09:14 Razadyne PO 09/10/18 08:59 4 mg BID SNOW Administration Hydromorphone HCl 0.25 mg 08/11/18 16:35 08/13/18 11:46 Dilaudid IV 08/25/18 16:34 0.25 mg Q4H PRN Administration Pain Potassium Chloride 10 meq/ 1,005 mls @ 75 mls/hr 08/13/18 08:45 08/13/18 09: 13 Sodium Chloride IV 09/12/18 08:44 75 mls/hr .[id number] SNOW Administration Insulin Aspart 0 units 08/12/18 07:30 08/13/18 12:13 Novolog Flexpen SC 09/11/18 07:29 Not Given ACHS [facility] Insulin Glargine 15 units 08/11/18 09:00 08/13/18 09:17 Lantus Solostar Pen SQ 09/10/18 08:59 15 units DAILY SNOW Administration Latanoprost 1 drops 08/11/18 21:00 08/12/18 20:45 Xalatan Oph OPB 09/10/18 20:59 1 drops PM SNOW Administration Levothyroxine Sodium 100 mcg 08/12/18 06:30 08/13/18 06:21 Synthroid PO 09/11/18 06:29 Not Given DAILYBB SNOW Losartan Potassium 50 mg 08/11/18 09:00 08/12/18 08:48 Cozaar PO 09/10/18 08:59 50 mg DAILY SNOW Administration Miscellaneous 1 ea 08/11/18 08:00 08/13/18 08:19 Order Awaiting Action N/A 09/10/18 07:59 Not Given QS SNOW Pantoprazole Sodium 40 mg 08/11/18 09:00 08/13/18 09:16 Protonix PO 09/10/18 08:59 40 mg BID SNOW Administration Vitamin D 1,000 units 08/11/18 09:00 08/13/18 09:16 Vitamin D3 PO 09/10/18 08:59 1,000 units DAILY SNOW Administration Past Medical History Medical History Diabetes mellitus (Chronic) Hypertension (Chronic) GERD (gastroesophageal reflux disease) (Chronic) Chronic back pain (Chronic) Hypothyroidism (Chronic) Atrial fibrillation status post cardioversion Currently SR on Amiodarone. CKD (chronic kidney disease) Stage 4 CVA (cerebral vascular accident) 2006 Right Eye, vision has line through it. No other deficits. Carotid arterial disease F/U with [facility]. B/L 50%. Medical Management. 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 Last use was last year in June. Has not had to use NTG. Had 1 stent placed in 2014 H/o cardioversion in 2015. Has not had reoccurence of Afib since then per patient. Past Family History Family History Other Family history non-contributory Past Surgical History Surgical History Stented coronary artery (Chronic) Past Anesthesia History No Hx of Anesthesia Complications and No Family Hx of Anesthesia Complications History of PONV No Motion Sickness Screening History of Motion Sickness: No Social History Smoking Status: Never smoker Do You Dip or Chew Tobacco: No Hx Alcohol Use: No Hx Substance Use: No Exercise / Class Metabolic Activity III < 4 Walking/Shop/Light housework Review of Systems Denies having any CP or SOB. Physical Exam Vital Signs Last Vital Signs Temp 37.1 C 08/13/18 11:10 Pulse 60 08/13/18 11:10 Resp 14 08/13/18 11:10 BP 152/77 H 08/13/18 11:10 Pulse Ox 92 08/13/18 11:10 Constitutional + obese ENMT Mouth: + edentulous Thyromental Distance: > or= 3.5 Finger Breadths Mallampati Class: II Neck normal visual inspection; neck extension not limited Respiratory normal respiratory effort Auscultation: lungs clear to auscultation bilaterally crackles in b/l lower bases. Cardiovascular Rate/Rhythm: regular rate and regular rhythm Psychiatric Orientation: alert and oriented x 3 Testing Electrocardiogram Date: 08/10/18 Findings: + NSR @ (69) Normal sinus rhythm with 1st degree A-V block Nonspecific ST abnormality Abnormal ECG When compared with ECG of 12-MAR-2017 21:56, No significant change Chest X-Ray Date: 08/10/18 Findings: + NAD Echocardiogram Date: 03/13/17 --Conclusions -- 1. Normal left ventricular size and systolic function. EF 65-70%. No regional wall motion abnormalities. No left ventricular hypertrophy. 2. Sclerotic aortic valve without significant stenosis. 3. Mild mitral regurgitation. 4. Normal estimated right ventricular systolic pressure. 5. Technically difficult study, enhanced with IV Definity. Other Testing Pelvis CT (08/11/18): IMPRESSION: 1. There is an impacted subcapital fracture of the left femur as above. 2. No additional fracture is identified. Abdomenal/Pelvis CT (08/10/18) IMPRESSION: 1. Suboptimal examination without IV contrast. The examination is also degraded by streak and motion artifact. 2. There is no evidence of solid organ injury in the abdomen or pelvis on this unenhanced examination. 3. There is an impacted subcapital fracture of the left femur. 4. Choledocholithiasis with associated intra and extrahepatic biliary ductal dilatation. 5. The liver appears hyperdense, which can be seen in the setting of iron overload or possibly amiodarone toxicity. Clinical correlation will be required. 6. Additional findings as above. Head CT (08/10/18) IMPRESSION: 1. No acute intracranial findings. 2. No calvarial fracture. C-spine CT (08/10/18) IMPRESSION: Degenerative change. No acute process. Laboratory Results 08/13/18 05:22 08/13/18 05:22 Blood Type O Positive 08/11/18 00:19 Antibody Screen NEGATIVE 08/11/18 00:19 PT 12.6 Seconds (9.0-12.0) H 08/11/18 00:19 INR 1.3 (0.9-1.1) H 08/11/18 00:19 APTT 26.5 Seconds (21.0-31.0) 08/11/18 00:19 Hemoglobin A1c 7.0 % (4.5-5.6) H 08/11/18 07:05 Urine Color Yellow 08/11/18 00:23 Urine Appearance Clear (Clear) 08/11/18 00:23 Urine pH 5.0 (4.5-7.5) 08/11/18 00:23 Ur Specific Parnell 1.020 (1.000-1.030) 08/11/18 00:23 Urine Protein Trace (Negative) H 08/11/18 00:23 Urine Glucose (UA) 1+ (Negative) H 08/11/18 00:23 Urine Ketones Negative (Negative) 08/11/18 00:23 Urine Nitrite Negative (Negative) 08/11/18 00:23 Ur Leukocyte Esterase 1+ (Negative) H 08/11/18 00:23 Urine WBC (Auto) 10-30 /hpf (0-5) H 08/11/18 00:23 Urine RBC (Auto) 0-4 /hpf (0-4) 08/11/18 00:23 U Hyaline Cast (Auto) 1-5 /lpf (0-5) 08/11/18 00:23 U Epithel Cells (Auto) >30 /lpf (0-5) H 08/11/18 00:23 Urine Bacteria (Auto) Negative (Negative) 08/11/18 00:23 08/11/18 00:23 Urine Culture - Final Urine,Clean Catch More than three types of organisms present, all high counts mixed probable skin medardo - No further identifications or sensitivities to follow. 08/13/18 08/13/18 12:00 07:54 POC Glucose 123 H 149 H
[2018-08-11] MEDS ORDERED: MoRPHine SULFATE 4 MG/ML 1 ML CARP\\VIAL IV STA (16:35)
[2018-08-11] MEDS: HYDROmorphone INJ 0.5 MG/0.5 ML SYR IV PRN ×2 (18:31→23:52)
[2018-08-11] MEDS: ATORVASTATIN 10 MG TAB PO SCH (21:11)
[2018-08-11] MEDS: LATANOPROST 0.005% OP SOLN 2.5 ML BTL OPB SCH (21:11)
[2018-08-11] MEDS ORDERED: Nursing to Pharmacy Communication ONE (23:42)
[2018-08-12] MEDS: CLOBETASOL~ORDER AWAITING ACTION SCH ×3 (00:08→16:03)
[2018-08-12] MEDS: INSULIN ASPART 100 UNITS/ML 3 ML PEN SC SCH ×6 (00:09→20:56)
[2018-08-12] MEDS: ACETAMINOPHEN 1,000 MG/100 ML VIAL IV SCH ×3 (04:43→20:43)
[2018-08-12] MEDS: LEVOTHYROXINE SODIUM 100 MCG TABLET PO SCH ×2 (06:12→07:14)
[2018-08-12 06:27] LABS: Basophils # (auto) 0.02 K/uL (0-0.2); Basophils % (auto) 0.3 %; Eosinophils # (auto) 0.52 K/uL (0-0.5); Eosinophils % (auto) 8.9 %; Hematocrit (blood only) 40.2 % (37-47); Hemoglobin 13.4 g/dL (12.0-16.0); Immature Granulocytes # (auto) 0.01 K/uL (0.00-0.02); Immature Granulocytes % (auto) 0.2 %; Lymphocytes # (auto) 1.67 K/uL (1.2-3.4); Lymphocytes % (auto) 28.6 %; Mean Corpuscular Hgb Conc 33.3 g/dL (32-36); Mean Corpuscular Volume 98.5 fL (80-100); Mean Platelet Volume 10.4 fL (7.4-10.4); Monocytes # (auto) 0.42 K/uL (0.11-0.59); Monocytes % (auto) 7.2 %; Neutrophils % (auto) 54.8 %; Platelet Count 131 K/uL (130-400); RDW Coefficient of Variation 13.8 % (11.5-14.5); RDW Standard Deviation 49.1 fL (36.4-46.3); Red Blood Count 4.08 M/uL (4.2-5.4); White Blood Count 5.84 K/uL (4.8-10.8)
[2018-08-12 07:07] LABS: BUN Creatinine Ratio 22.3 (10-20); Calcium 8.8 mg/dl (8.5-10.1); Est GFR (African American) 31.3; Potassium 4.6 mmol/L (3.5-5.1)
[2018-08-12] MEDS ORDERED: Nursing to Pharmacy Communication ONE (07:25)
[2018-08-12] MEDS: HYDROmorphone INJ 0.5 MG/0.5 ML SYR IV PRN ×2 (08:09→16:04)
[2018-08-12] MEDS: LOSARTAN POTASSIUM 50 MG TAB PO SCH (08:48)
[2018-08-12] MEDS: FUROSEMIDE 20 MG TAB PO SCH (08:51)
[2018-08-12] MEDS: AMLODIPINE BESYLATE 5 MG TAB PO SCH (08:55)
[2018-08-12] MEDS: PANTOprazole 40 MG TAB PO SCH ×2 (08:56→20:44)
[2018-08-12] MEDS: GALANTAMINE HYDROBROMIDE 4 MG TAB PO SCH ×2 (08:56→20:45)
[2018-08-12] MEDS: CHOLECALCIFEROL 1,000 UNITS TAB PO SCH (08:57)
[2018-08-12] MEDS: ALLOPURINOL 100 MG TAB PO SCH (08:58)
[2018-08-12] MEDS ORDERED: AMIODARONE 200 MG TAB PO SCH (09:00)
[2018-08-12] MEDS: CETIRIZINE HCL 10 MG TABLET PO SCH (09:01)
[2018-08-12] MEDS: INSULIN GLARGINE SOLOSTAR 100 UNITS/ML 3 ML PEN SQ SCH (09:13)
--- NOTE | 2018-08-12 11:50 | Orthopedic Progress Note ---
Date of Service August 12, 2018 Assessment & Plan (1) Closed hip fracture: The patient is an 88-year-old female with a closed displaced femoral neck fracture. This injury will require surgical intervention, we discussed hemiarthroplasty. Patient is on home medication Xarelto. Patient will require medical clearances, 48-72hours, pending creatinine clearance prior to proceeding with surgical intervention.Last does taken at 6pm 08/10/18. Discussed with Dr Jeffrey. Plan for OR for above procedure. -Bedrest -Nonweightbearing left lower extremity We will follow with you and proceed with surgery once patient cleared and stable Thank you for the consultation Subjective Pt sleeping upon arrival. Easily awoken. Having hip pain off and on but currently, pain is controlled at rest. No new complaints. Discussed plans for surgery tomorrow. Pt aware. Physical Exam 2 Vital Signs (Past 24 Hours): Last Vital Signs Temp 36.6 C 08/12/18 07:47 Pulse 58 L 08/12/18 08:00 Resp 16 08/12/18 08:00 BP 155/56 H 08/12/18 07:47 Pulse Ox 95 08/12/18 08:00 Physical Exam: Left hip with mild shortening. ROM deferred due to fx. NV intact. Calves soft, NT _ (1) Closed hip fracture Encounter type: initial encounter Fracture healing: Laterality: left Qualified Code(s): S72.002A - Fracture of unspecified part of neck of left femur , initial encounter for closed fracture
--- NOTE | 2018-08-12 11:59 | Family Medicine Progress Note ---
Addendum entered and electronically signed by Bharathi Cheng DO 08/12/18 18: 45: Addendum (Blank) Addendum August 12, 2018 18:45 Age-related osteoporosis with current pathological fracture of L hip Original Note: Date of Service August 12, 2018 Assessment & Plan (1) Closed hip fracture: 88yo female with PMHx of CAD, DM, HTN, HLD, arrythmia hx with closed left hip fracture after a mechanical fall. Fentanyl 25 mcg IV every 3 hours as needed moderate to severe pain with Tylenol for breakthrough pain. [facility] consulted.- surgery 08/13 Pt cleared medically for surgery. CT abdomen pelvis negative for pelvic bleed while on Xarelto. Hold Xarelto for probable intervention. Started on Vit D and bisphosphonate recommended for outpatient. SCDs. (2) Diabetes mellitus: For now reduce Lantus from 30 units subcu daily to 15 units subcu daily. Placed on Accu-Cheks before meals and at bedtime with NovoLog coverage per scale. (3) CAD (coronary artery disease): CAD/history of stented coronary artery/hypertension/cardiac dysrhythmia-- Continue amlodipine 5 mg p.o. daily. Hold furosemide 20 mg daily. Continue losartan 50 mg daily. Hold Xarelto as noted above for potential procedure. Continue amiodarone. Consult cardiology. (4) Cardiac dysrhythmia: see above (5) Hypertension: see above (6) Hyperlipidemia LDL goal <70: continue atorvastatin (7) Gout: continue allopurinol (8) Arthritis: Arthritis/chronic back pain/polyarthralgia's/connective tissue disease-- She has been getting monthly injections from sailing instructor Dr. Ortiz, who has since left the practice. Continue usual pain medications of tramadol 50 mg p.o. every 8 hours as needed. Placed on fentanyl 25 mcg IV every 3 hours as needed severe pain for hip fracture. (9) Chronic back pain: See above (10) Hypothyroidism: Continue levothyroxine 100 mcg p.o. daily (11) GERD (gastroesophageal reflux disease): Continue omeprazole 20 mg p.o. twice daily or substitute to pantoprazole Supervising Physician Co-Signing Physician Notes I personally examined the patient and verified all reyes points of history and exam, discussed case, and agree with decision making with Dr Fu. Saw twice today, first this morning and then later in the afternoon answer questions family. All questions answered to the best my ability and to patient and family satisfaction. Patient's main complaint is just hip pain with movement. Vitals noted, in general she is awake alert oriented no distress. HEENT normocephalic atraumatic mucous membranes are moist. Skin shows no rashes no pallor or icterus. Cardio is regular without rubs murmurs gallops lungs are unlabored no rales rhonchi wheezes good effort this morning, on revisit family noted that nursing and heard a degree of crackles, I corroborates this, as she has bilateral fairly dry sounding crackles consistent with atelectasis. I have her perform incentive spirometry in front of me, and she requires much coaching and has fairly poor effort. Fortunately her pulse ox is 96% at this time Hip fracture�she is medically acceptable risk for the planned procedure. Xarelto on hold, supplement vitamin D, outpatient osteoporosis treatment versus less likely workup, but will defer to PCP in this regard. PT/OT and rehab once she is postop Presumed osteoporosis/vitamin D deficiency�her hip fracture seems to be an osteoporotic fracture, although the trauma inflicting the damage is probably borderline. Replace vitamin D, defer to PCP as regarding to osteoporosis treatment versus a DEXA scan Dense appearing liver�ferritin good, prior iron studies looked normal as well, most likely amiodarone related. Amiodarone stopped for now. LFTs are normal, outpatient follow-up with cardiology. Her rate control is good right now. Could consider a beta-patricia if needed, but given the excessive half-life of amiodarone as not very likely she will become tachycardic Atrial fibrillation�resume Xarelto once it is safe to do so postop Otherwise as above Subjective Pt scheduled for surgery 08/13. States she still has some mild pain. Denies chest pain, SOB, N/V, abd pain. Review of Systems All systems reviewed & are unremarkable except as noted in HPI & below Physical Exam 2 Vital Signs (Past 24 Hours): Last Vital Signs Temp 36.6 C 08/12/18 07:47 Pulse 58 L 08/12/18 08:00 Resp 16 08/12/18 08:00 BP 155/56 H 08/12/18 07:47 Pulse Ox 95 08/12/18 08:00 General: Alert, oriented. No acute distress HEENT: NC/AT, PERRL, EOMI, oropharynx moist. Chest: Nontender to palpation. CV: RRR, Normal s1, s2. No murmurs appreciated Resp: Breath sounds clear bilaterally, no increased effort of breathing. No crackles/rhonchi/rales. Abdomen: BS+. Soft, nontender, nondistended. No guarding. No organomegaly appreciated. Extremities: No edema L hip and leg without swelling or erythema. Results & Data Laboratory Results Laboratory Results - last 24 hr 08/12/18 08/12/18 08/12/18 06:00 08:07 12:20 WBC RBC Hgb Hct MCV MCH MCHC RDW Std Deviation RDW Coeff of Daniel Plt Count MPV Immature Gran % (Auto) Neut % (Auto) Lymph % (Auto) [place] % (Auto) Eos % (Auto) Baso % (Auto) Immature Gran # (Auto) Neut # (Auto) Lymph # (Auto) [place] # (Auto) Eos # (Auto) Baso # (Auto) Sodium 140 Potassium 4.6 Chloride 106 Carbon Dioxide 29 Anion Gap 5.0 BUN 38 H Creatinine 1.69 H Est Cr Clr Drug Dosing 25.0 Est GFR ( Amer) 31.3 Est GFR (Non-Af Amer) 27.0 BUN/Creatinine Ratio 22.3 H Glucose 130 H POC Glucose 144 H 160 H Calcium 8.8 08/12/18 08/12/18 08/12/18 16:09 17:09 20:55 WBC RBC Hgb Hct MCV MCH MCHC RDW Std Deviation RDW Coeff of Daniel Plt Count MPV Immature Gran % (Auto) Neut % (Auto) Lymph % (Auto) [place] % (Auto) Eos % (Auto) Baso % (Auto) Immature Gran # (Auto) Neut # (Auto) Lymph # (Auto) [place] # (Auto) Eos # (Auto) Baso # (Auto) Sodium Potassium Chloride Carbon Dioxide Anion Gap BUN Creatinine Est Cr Clr Drug Dosing Est GFR ( Amer) Est GFR (Non-Af Amer) BUN/Creatinine Ratio Glucose POC Glucose 125 H 130 H 156 H Calcium 08/13/18 08/13/18 05:22 05:22 WBC 4.82 RBC 4.11 L Hgb 13.1 Hct 40.6 MCV 98.8 MCH 31.9 MCHC 32.3 RDW Std Deviation 50.0 H RDW Coeff of Daniel 13.9 Plt Count 129 L MPV 10.8 H Immature Gran % (Auto) 0.0 Neut % (Auto) 46.1 Lymph % (Auto) 34.2 [place] % (Auto) 8.3 Eos % (Auto) 11.0 Baso % (Auto) 0.4 Immature Gran # (Auto) 0.00 Neut # (Auto) 2.22 Lymph # (Auto) 1.65 [place] # (Auto) 0.40 Eos # (Auto) 0.53 H Baso # (Auto) 0.02 Sodium 139 Potassium 4.5 Chloride 105 Carbon Dioxide 30 Anion Gap 5.0 BUN 44 H Creatinine 2.07 H D Est Cr Clr Drug Dosing 20.4 Est GFR ( Amer) 24.5 Est GFR (Non-Af Amer) 21.2 BUN/Creatinine Ratio 21.2 H Glucose 137 H POC Glucose Calcium 8.2 L Medications Administered Home Medications albuterol sulfate [Proventil HFA] 1 - 2 puff INHALATION Q4 PRN 08/11/18 [ History Confirmed 08/11/18] allopurinol 100 mg PO DAILY 08/11/18 [History Confirmed 08/11/18] amiodarone 200 mg PO DAILY 08/11/18 [History Confirmed 08/11/18] amlodipine 5 mg PO DAILY 08/11/18 [History Confirmed 08/11/18] atorvastatin 10 mg PO HS 08/11/18 [History Confirmed 08/11/18] cetirizine 10 mg PO DAILY 08/11/18 [History Confirmed 08/11/18] cholecalciferol (vitamin D3) [Vitamin D3] 1,000 unit PO DAILY 08/11/18 [History Confirmed 08/11/18] clobetasol 1 applic TOPICAL WK 08/11/18 [History Confirmed 08/11/18] colchicine [Colcrys] 0.6 mg PO DAILY PRN 08/11/18 [History Confirmed 08/11/18] diclofenac sodium 1 g TOPICAL DAILY PRN 08/11/18 [History Confirmed 08/11/18] furosemide 20 mg PO DAILY 08/11/18 [History Confirmed 08/11/18] furosemide 20 mg PO DAILY PRN 08/11/18 [History Confirmed 08/11/18] galantamine 4 mg PO BID 08/11/18 [History Confirmed 08/11/18] insulin aspart U-100 [Novolog PenFill U-100 Insulin] 1 sliding scale dose SUBCUT TIDM 08/11/18 [History Confirmed 08/11/18] insulin glargine [Lantus Solostar U-100 Insulin] 30 unit SUBCUT DAILY 08/11/18 [ History Confirmed 08/11/18] latanoprost 1 drp OPB PM 08/11/18 [History Confirmed 08/11/18] levothyroxine 100 mcg PO DAILY 08/11/18 [History Confirmed 08/11/18] losartan 50 mg PO DAILY 08/11/18 [History Confirmed 08/11/18] meclizine 12.5 mg PO TID PRN 08/11/18 [History Confirmed 08/11/18] nitroglycerin [Nitrostat] 0.4 mg SUBLINGUAL UD PRN 08/11/18 [History Confirmed 08/11/18] omeprazole 20 mg PO BID 08/11/18 [History Confirmed 08/11/18] rivaroxaban [Xarelto] 15 mg PO QPM 08/11/18 [History Confirmed 08/11/18] tocilizumab [Actemra] 750 mg IV MONTHLY 08/11/18 [History Confirmed 08/11/18] tramadol 50 mg PO Q8 PRN 08/11/18 [History Confirmed 08/11/18] triamcinolone acetonide 1 applic TOPICAL BID 08/11/18 [History Confirmed ] Active Medications Albuterol (Ventolin Hfa) 2 puffs INH Q4 PRN PRN Reason: Shortness Of Breath Or Wheezing Stop: 09/10/18 03:53 Allopurinol (Zyloprim) 100 mg PO DAILY SNOW Stop: 09/10/18 08:59 Last Admin: 08/12/18 08:58 Dose: 100 mg Amlodipine Besylate (Norvasc) 5 mg PO DAILY SNOW Stop: 09/10/18 08:59 Last Admin: 08/12/18 08:55 Dose: 5 mg Atorvastatin Calcium (Lipitor) 10 mg PO HS SNOW Stop: 09/10/18 20:59 Last Admin: 08/12/18 20:44 Dose: 10 mg Cetirizine HCl (Zyrtec) 10 mg PO DAILY SNOW Stop: 09/10/18 08:59 Last Admin: 08/12/18 09:01 Dose: 10 mg Colchicine (Colcrys) 0.6 mg PO DAILY PRN PRN Reason: Pain, Severe Stop: 09/10/18 03:53 Dextrose (Dextrose 50%) 25 - 50 ml IV UD PRN; Protocol PRN Reason: Hypoglycemia Protocol Stop: 09/10/18 03:53 Furosemide (Lasix) 20 mg PO DAILY PRN PRN Reason: weight gain/swelling Stop: 09/10/18 03:53 Last Admin: 08/11/18 07:47 Dose: 20 mg Furosemide (Lasix) 20 mg PO DAILY SNOW Stop: 09/11/18 08:59 Last Admin: 08/12/18 08:51 Dose: 20 mg Galantamine Hydrobromide (Razadyne) 4 mg PO BID SNOW Stop: 09/10/18 08:59 Last Admin: 08/12/18 20:45 Dose: 4 mg Glucagon (Glucagen) 1 mg SQ UD PRN; Protocol PRN Reason: Hypoglycemia Protocol Stop: 09/10/18 03:53 Glucose (Dex4 Glucose) 4 - 8 tabs PO UD PRN; Protocol PRN Reason: Hypoglycemia Protocol Stop: 09/10/18 03:53 Glucose (Glucose 40%) 15 - 30 gm PO UD PRN; Protocol PRN Reason: Hypoglycemia Protocol Stop: 09/10/18 03:53 Hydromorphone HCl (Dilaudid) 0.25 mg IV Q4H PRN PRN Reason: Pain Stop: 08/25/18 16:34 Last Admin: 08/12/18 16:04 Dose: 0.25 mg Insulin Aspart (Novolog Flexpen) 0 units SC ACHS [facility] Stop: 09/11/18 07:29 Last Admin: 08/12/18 20:56 Dose: 1 units Insulin Glargine (Lantus Solostar Pen) 15 units SQ DAILY [facility] Stop: 09/10/18 08:59 Last Admin: 08/12/18 09:13 Dose: 15 units Latanoprost (Xalatan Oph) 1 drops OPB PM [facility] Stop: 09/10/18 20:59 Last Admin: 08/12/18 20:45 Dose: 1 drops Levothyroxine Sodium (Synthroid) 100 mcg PO DAILYBB [facility] Stop: 09/11/18 06:29 Last Admin: 08/13/18 06:21 Dose: Not Given Losartan Potassium (Cozaar) 50 mg PO DAILY [facility] Stop: 09/10/18 08:59 Last Admin: 08/12/18 08:48 Dose: 50 mg Meclizine HCl (Antivert) 12.5 mg PO TID PRN PRN Reason: Dizziness Or Vertigo Stop: 09/10/18 03:53 Miscellaneous (Order Awaiting Action) 1 ea N/A QS [facility] Stop: 09/10/18 07:59 Last Admin: 08/13/18 00:58 Dose: Not Given Miscellaneous (Carbohydrates For Hypoglycemia) 15 - 30 gm PO UD PRN PRN Reason: Hypoglycemia Treatment Stop: 09/10/18 03:53 Nitroglycerin (Nitrostat) 0.4 mg SL UD PRN PRN Reason: Chest Pain Stop: 09/10/18 03:53 Pantoprazole Sodium (Protonix) 40 mg PO BID [facility] Stop: 09/10/18 08:59 Last Admin: 08/12/18 20:44 Dose: 40 mg Vitamin D (Vitamin D3) 1,000 units PO DAILY [facility] Stop: 09/10/18 08:59 Last Admin: 08/12/18 08:57 Dose: 1,000 units _ (1) Closed hip fracture Encounter type: initial encounter Fracture healing: Laterality: left Qualified Code(s): S72.002A - Fracture of unspecified part of neck of left femur , initial encounter for closed fracture
[2018-08-12] MEDS: ATORVASTATIN 10 MG TAB PO SCH (20:44)
[2018-08-12] MEDS: LATANOPROST 0.005% OP SOLN 2.5 ML BTL OPB SCH (20:45)
[2018-08-13] MEDS: CLOBETASOL~ORDER AWAITING ACTION SCH ×3 (00:58→18:47)
[2018-08-13 05:37] LABS: Basophils # (auto) 0.02 K/uL (0-0.2); Basophils % (auto) 0.4 %; Eosinophils # (auto) 0.53 K/uL (0-0.5); Hematocrit (blood only) 40.6 % (37-47); Hemoglobin 13.1 g/dL (12.0-16.0); Lymphocytes # (auto) 1.65 K/uL (1.2-3.4); Lymphocytes % (auto) 34.2 %; Mean Corpuscular Hgb Conc 32.3 g/dL (32-36); Mean Corpuscular Volume 98.8 fL (80-100); Mean Platelet Volume 10.8 fL (7.4-10.4); Monocytes % (auto) 8.3 %; Neutrophils # (auto) 2.22 K/uL (1.4-6.5); Neutrophils % (auto) 46.1 %; Platelet Count 129 K/uL (130-400); RDW Coefficient of Variation 13.9 % (11.5-14.5); Red Blood Count 4.11 M/uL (4.2-5.4); White Blood Count 4.82 K/uL (4.8-10.8)
[2018-08-13 06:03] LABS: BUN Creatinine Ratio 21.2 (10-20); Calcium 8.2 mg/dl (8.5-10.1); Creatinine Clr Calc Pharmacy 20.4 ml/min; Est GFR (African American) 24.5; Est GFR (Non-African American) 21.2; Potassium 4.5 mmol/L (3.5-5.1)
[2018-08-13] MEDS: LEVOTHYROXINE SODIUM 100 MCG TABLET PO SCH (06:21)
[2018-08-13] MEDS ORDERED: BUPIVACAINE 0.5 % 5 MG/1 ML PF 10ML VIAL ONE (06:33)
[2018-08-13] MEDS: HYDROmorphone INJ 0.5 MG/0.5 ML SYR IV PRN ×2 (07:13→11:46)
[2018-08-13] MEDS: INSULIN ASPART 100 UNITS/ML 3 ML PEN SC SCH ×4 (08:19→21:11)
[2018-08-13] MEDS: POTASSIUM CHLORIDE 10 MEQ in SODIUM CHLORIDE 0.45 % 1,000 ML IV SCH ×2 (09:13→23:11)
[2018-08-13] MEDS: CETIRIZINE HCL 10 MG TABLET PO SCH (09:14)
[2018-08-13] MEDS: AMLODIPINE BESYLATE 5 MG TAB PO SCH (09:14)
[2018-08-13] MEDS: GALANTAMINE HYDROBROMIDE 4 MG TAB PO SCH ×2 (09:14→20:30)
[2018-08-13] MEDS: PANTOprazole 40 MG TAB PO SCH ×2 (09:16→20:30)
[2018-08-13] MEDS: CHOLECALCIFEROL 1,000 UNITS TAB PO SCH (09:16)
[2018-08-13] MEDS: ALLOPURINOL 100 MG TAB PO SCH (09:16)
[2018-08-13] MEDS: INSULIN GLARGINE SOLOSTAR 100 UNITS/ML 3 ML PEN SQ SCH (09:17)
[2018-08-13] MEDS ORDERED: fentaNYL citrate 100 MCG/2 ML VIAL ONE ×2 (12:25→14:45)
[2018-08-13] MEDS ORDERED: BACITRACIN INJ 50,000 UNIT VIAL ONE (13:07)
--- NOTE | 2018-08-13 13:36 | Orthopedic Progress Note ---
Date of Service August 13, 2018 Assessment & Plan (1) Closed hip fracture: The patient is a 88-year-old female with displaced left femoral neck fracture sustained after a fall from standing height. The patient was medically stabilized on 08/13/18. The patient required an extended period of time prior to proceeding with surgery off anticoagulation, secondary to Xarelto and low creatinine clearance. I indicated the patient for left hip hemiarthroplasty possible calcar replacement instrumentation. The patient and family was informed of the risks and benefits of surgery, which include but not limited to infection, bleeding, blood clots, damage to nerves, vessels, bone and soft tissue, dislocation, leg length discrepancy, need for additional surgery and . The patient and family collectively chose to move forward with surgical intervention and informed consent was obtained. Subjective Patient seen in preoperative holding, comfortable, pain well controlled, no acute issues. Constitutional: as per Subjective / HPI Physical Exam 2 Vital Signs (Past 24 Hours): Last Vital Signs Temp 37.1 C 08/13/18 11:10 Pulse 60 08/13/18 11:10 Resp 14 08/13/18 11:10 BP 152/77 H 08/13/18 11:10 Pulse Ox 92 08/13/18 11:10 Physical Exam: LLE NVSI +EHL/FHL/TA/GS SILT grossly, +2 DP pulse, compartments soft NT, Left lower extremity shortened externally rotated Constitutional: WD/WN, vitals as above _ (1) Closed hip fracture Encounter type: initial encounter Fracture healing: Laterality: left Qualified Code(s): S72.002A - Fracture of unspecified part of neck of left femur , initial encounter for closed fracture
--- NOTE | 2018-08-13 13:37 | History & Physical Bridge Note ---
Date of Service August 13, 2018 History & Physical Bridge Note I have examined the patient, reviewed the History & Physical and in the interval since the performance of the History & Physical I have noted the following changes of clinical significance: no changes noted
[2018-08-13] MEDS ORDERED: CEFAZOLIN 2000MG 2,000 MG/15 ML SYR IV SCH ×2 (13:45→14:00)
[2018-08-13] MEDS ORDERED: CEFAZOLIN 2,000 MG/15 ML IV PUSH IV ONE (13:47)
[2018-08-13] MEDS ORDERED: ROPIVACAINE 0.5% HCL/PF 150 MG, BUPIVACAINE 0.5% MPF 30 ML, EPINEPHrine 0.15 MG, Ketoro... INFIL ONE (14:00)
[2018-08-13] MEDS ORDERED: ATROPINE SULFATE 0.1 MG/ML 10ML SYR IV PRN (14:18)
[2018-08-13] MEDS ORDERED: ONDANSETRON INJ 2 MG/ML 2 ML VIAL IV PRN ×2 (14:18→18:31)
[2018-08-13] MEDS ORDERED: fentaNYL citrate 100 MCG/2 ML VIAL IV PRN (14:18)
[2018-08-13] MEDS ORDERED: PHENYLEPHRINE 100MCG/ML 5ML SYR IV PRN (14:18)
[2018-08-13] MEDS ORDERED: ePHEDrine sulfate 50 MG/ML AMP IV PRN (14:18)
[2018-08-13] MEDS ORDERED: PROPOFOL IV EMULSION 10 MG/ML 20 ML VIAL IV ONE (14:45)
[2018-08-13] MEDS ORDERED: LIDOCAINE HCL 2% 2 ML VIAL/AMP(20MG/ML) INFIL ONE (14:45)
[2018-08-13] MEDS ORDERED: GLYCOPYRROLATE 0.2 MG/ML VIAL ONE (14:45)
[2018-08-13] MEDS ORDERED: ONDANSETRON INJ 2 MG/ML 2 ML VIAL ONE (14:45)
[2018-08-13] MEDS ORDERED: NEOSTIGMINE METHYLSULFATE 1 MG/ML 10ML VIAL ONE (14:45)
[2018-08-13] MEDS ORDERED: ROCURONIUM BROMIDE 10 MG/ML 5 ML VIAL ONE (14:53)
[2018-08-13] MEDS ORDERED: POVIDONE-IODINE OP SOLN 30 ML BTL ONE (15:02)
--- NOTE | 2018-08-13 16:27 | Post Operative Brief Note ---
Immediate Post Op Note v1 Date of Surgery August 13, 2018 Pre & Post Diagnosis Operation Date: 08/13/18 12:30 Pre-Op Diagnosis: Left Hip Fracture Post-Op Diagnosis: Left Hip Fracture Procedure Operation Date: 08/13/18 12:30 Actual Procedures p Left Hip Bipolar Hemiarthoplasty(Left) - Marlo Jeffrey DO Surgeon Marlo Jeffrey DO Farm Advisor none Estimated Blood Loss 125 Findings Consistent with Post-Op Diagnosis Fluids 1000 Specimens femoral head Anesthesia Type General Complications none Disposition Disposition: Recovery Room Overlapping Procedure I was present for: the critical portions of procedure. I was immediately available: during the entire case. Back up surgeon: was not required during procedure.
--- NOTE | 2018-08-13 17:04 | Operative Report ---
Post Operative Report Pre & Post Diagnosis Operation Date: 08/13/18 12:30 Pre-Op Diagnosis: Left Hip Fracture Post-Op Diagnosis: Left Hip Fracture Procedure Operation Date: 08/13/18 12:30 Actual Procedures p Left Hip Bipolar Hemiarthoplasty(Left) - Marlo Jeffrey DO Surgeon Marlo Jeffrey DO Reel Operator none Estimated Blood Loss 125 Findings Consistent with Post-Op Diagnosis Specimens femoral head Anesthesia Type General Complications none Disposition Disposition: Recovery Room Indications The patient is a 88-year-old female with displaced left femoral neck fracture sustained after a fall from standing height. The patient was medically stabilized on 08/13/2018. I indicated the patient for left hip hemiarthroplasty. The patient and family was informed of the risks and benefits of surgery, which include but not limited to infection, bleeding, blood clots, damage to nerves, vessels, bone and soft tissue, dislocation, leg length discrepancy, need for additional surgery and . The patient and family collectively chose to move forward with surgical intervention and informed consent was obtained. Description of Procedure Following induction of adequate general anesthesia, the patient was transferred to the OR table and placed in the lateral decubitus position with right hip down. The left hip was prepped and draped in usual sterile manner. A posterior incision was made. Subcutaneous tissue was sharply dissected. Electro cautery was used for hemostasis. Fascia was incised throughout the length of the wound and the piriformis was identified. A #1 Vicryl suture was used to tage the piriformis. The short external rotators were divided from the posterior aspect of the femur and a capsulotomy was performed. A second #1 Vicryl suture was used to tag the capsule. Next, I turned my attention to the femoral neck fracture. The fracture was relatively high on the calcar and decision was made to proceed with the oscillating saw and create the calcar osteotomy. This bone fragment was removed. Following this, tenaculum and cob elevater was utilized to remove the femoral head. The head was measured on the back table and the 50 mm femoral head was chosen as the size to be used. Next, attention was turned to the acetabulum which was found to have no significant arthritis. All bony debris was removed. A sponge was placed in the acetabulum. Attention was then turned to the proximal femur where box osteotome was used to gain access to the femoral canal. A canal finder and power lateralizing reamer were utilized to further open. Sequential raspings were taken up to a size 12, which was sunk completely and trial reduction was carried out and a 28+7 mm femoral head was chosen the size to be used with the 48 bipolar cup. Following a trial reduction, the hip was found to be stable to 45 degrees of internal rotation and 90 degrees of flexion with equal leg lengths. The calcar reamer was utilized to smooth the calcar and the instruments and trial components were removed. The hip was thoroughly irrigated with pulsatile irrigation. The canal was irrigated and dried, cement restrictor was placed and cement was mixed. The size 12 low demand fracture stem was placed with a 10 mm centralizer and this was held in position well. All excess cement was removed and cement hardened. Following insertion of final stem component another trial reduction was carried out and again a +7 neck size was chosen as the size to be used. The final head and neck was impacted into position and the hip was reduced and stablity assess and was found to be stable to 45 degrees of internal rotation and 90 degrees of flexion. The wound was again irrigated. Qi-incisional soft tissue was injected with the [place] [employer] which includes a combination of Ropivicaine 0.5% 150mg, Bupivicaine 0.5%/Epinephrine 1:200,000 30ml, Toradol 30mg, Dexamethasone 4mg, Ketamine 10mg, Clonidine 100mcg and NSS 30ml solution. The capsulebwas repaired using #5 fiberwire sutures through drill holes. Following this, the short external rotators were reapproximated to the posterior aspect of the femur also through drill holes and these were tied. Once again the wound was copiously irrigated with sterile saline solution with bacitracin. Fascia was closed using #1 Vicryl [id number] sutures, 0 V-loc , subcutaneous tissue was closed using 2-0 vicryl, and skin was closed with antonio. Sterile dressings Silverlon were applied and abduction pillow placed between the legs. The patient tolerated the procedure well and was taken to recovery room in stable condition. I attest to the content of the Intraoperative Record and any orders documented therein. Any exceptions are noted below.
--- NOTE | 2018-08-13 17:05 | Orthopedic Progress Note ---
Date of Service August 13, 2018 Assessment & Plan (1) Closed hip fracture: Status post left hip hemiarthroplasty -Ancef x24 -DVT prophylaxis, restart patient's home Xarelto on 08/14/2018 -Weight-bear as tolerates left lower extremity -Posterior hip precautions -PT/OT when medically stable -A.m. labs -Postoperative x-ray demonstrates a well aligned well fixed orthopedic prosthesis, there is no fracture, dislocation. Subjective Post Operative Progress Note Patient seen in PACU, comfortable, patient still slowly awakening from general anesthesia, pain well controlled, no acute issues. Constitutional: as per Subjective / HPI Physical Exam 2 Vital Signs (Past 24 Hours): Last Vital Signs Temp 36.3 C L 08/13/18 16:38 Pulse 60 08/13/18 16:38 Resp 20 08/13/18 16:38 BP 151/45 H 08/13/18 16:38 Pulse Ox 99 08/13/18 16:38 Physical Exam: LLE NVSI +EHL/FHL/TA/GS SILT grossly, +2 DP pulse, compartments soft NT, dressing cdi. _ (1) Closed hip fracture Encounter type: initial encounter Fracture healing: Laterality: left Qualified Code(s): S72.002A - Fracture of unspecified part of neck of left femur , initial encounter for closed fracture
--- NOTE | 2018-08-13 17:07 | XRay Report ---
XR hip 1V LT w pelvis CLINICAL HISTORY: IN PACU - A/P PELVIS and LATERAL HIP postoperative evaluation COMPARISON: 08/10/2017 DISCUSSION: Total left hip prosthetic. Good alignment between prosthetic and the Bone. No evidence for acetabular protrusion. Expected soft tissue postoperative change IMPRESSION: Anatomic alignment post total left hip arthroplasty. The above report was generated using voice recognition software. It may contain grammatical, syntax or spelling errors. Electronically signed by: Ras Morrow M.D. 08/13/2018 5:05 PM
[2018-08-13] MEDS ORDERED: NALOXONE HCL 0.4 MG/1 ML VIAL/CARP IV PRN (18:31)
[2018-08-13] MEDS ORDERED: MAGNESIUM HYDROXIDE SUSP 30 ML UDC PO PRN (18:31)
[2018-08-13] MEDS ORDERED: SODIUM CHLORIDE 0.9% 1000ML 1,000 ML IV SCH (18:31)
[2018-08-13] MEDS ORDERED: BISACODYL 10 MG SUPP PR PRN (18:31)
--- NOTE | 2018-08-13 18:41 | Anesthesiology Progress Note ---
Date of Service August 13, 2018 Anesthesia Post Procedure Vital Signs Vital Signs: Temp Pulse Pulse Pulse Resp BP BP 08/13/18 18:00 66 12 150/58 H 08/13/18 17:45 69 12 142/68 H 08/13/18 17:35 36.2 C L 69 10 L 160/95 H 08/13/18 17:25 68 12 156/72 H 08/13/18 17:15 53 L 16 162/70 H 08/13/18 17:05 61 14 160/57 H 08/13/18 16:55 63 18 162/67 H 08/13/18 16:45 66 17 143/67 H 08/13/18 16:38 36.3 C L 60 20 151/45 H 08/13/18 13:12 36.8 C 66 20 199/61 H 08/13/18 11:10 37.1 C 60 14 152/77 H 08/13/18 07:39 36.7 C 62 12 08/12/18 23:36 36.7 C 58 L 16 147/74 H Pulse Ox 08/13/18 18:00 97 08/13/18 17:45 95 08/13/18 17:35 95 08/13/18 17:25 96 08/13/18 17:15 96 08/13/18 17:05 96 08/13/18 16:55 98 08/13/18 16:45 98 08/13/18 16:38 99 08/13/18 13:12 93 08/13/18 11:10 92 08/13/18 07:39 83 L 08/12/18 23:36 92 Pain Intensity Left Knee: Pain Intensity: 10 Left Hip: Pain Intensity: 3 Notes Mental Status: alert / awake / arousable and participated in evaluation Patient Amnestic to Procedure: Yes Nausea / Vomiting: adequately controlled Pain: adequately controlled Airway Patency, RR, SpO2: stable & adequate BP & HR: stable & adequate Hydration State: stable & adequate Anesthetic Complications: no major complications apparent
[2018-08-13] MEDS: FERROUS GLUCONATE 324 MG TAB PO SCH (19:38)
[2018-08-13] MEDS: ATORVASTATIN 10 MG TAB PO SCH (20:29)
[2018-08-13] MEDS: DOCUSATE SODIUM 100 MG CAP PO SCH (20:29)
[2018-08-13] MEDS: SENNA 8.6 MG TAB PO SCH (20:30)
[2018-08-13] MEDS: LATANOPROST 0.005% OP SOLN 2.5 ML BTL OPB SCH (20:31)
[2018-08-13] MEDS ORDERED: CETIRIZINE HCL 10 MG TABLET PO PRN (21:00)
[2018-08-13] MEDS ORDERED: LOSARTAN POTASSIUM 50 MG TAB PO SCH (21:00)
[2018-08-13] MEDS: ACETAMINOPHEN 500 MG TAB PO SCH (21:12)
[2018-08-13] MEDS: CEFAZOLIN 2000MG 2,000 MG/15 ML SYR IV SCH (21:15)
[2018-08-14] MEDS: CLOBETASOL~ORDER AWAITING ACTION SCH ×4 (01:32→23:53)
[2018-08-14] MEDS: ACETAMINOPHEN 500 MG TAB PO SCH ×3 (06:03→21:29)
[2018-08-14] MEDS: LEVOTHYROXINE SODIUM 100 MCG TABLET PO SCH (06:03)
[2018-08-14] MEDS: HYDROmorphone INJ 0.5 MG/0.5 ML SYR IV PRN ×2 (06:04→23:51)
[2018-08-14] MEDS: CEFAZOLIN 2000MG 2,000 MG/15 ML SYR IV SCH (06:04)
[2018-08-14 06:54] LABS: Eosinophils # (auto) 0.01 K/uL (0-0.5); Eosinophils % (auto) 0.1 %; Hematocrit (blood only) 35.6 % (37-47); Hemoglobin 11.4 g/dL (12.0-16.0); Immature Granulocytes # (auto) 0.01 K/uL (0.00-0.02); Immature Granulocytes % (auto) 0.1 %; Lymphocytes # (auto) 0.89 K/uL (1.2-3.4); Lymphocytes % (auto) 10.6 %; Mean Corpuscular Volume 97.8 fL (80-100); Mean Platelet Volume 11.1 fL (7.4-10.4); Monocytes # (auto) 0.37 K/uL (0.11-0.59); Monocytes % (auto) 4.4 %; Neutrophils # (auto) 7.11 K/uL (1.4-6.5); Neutrophils % (auto) 84.8 %; Platelet Count 134 K/uL (130-400); RDW Coefficient of Variation 13.7 % (11.5-14.5); RDW Standard Deviation 48.9 fL (36.4-46.3); Red Blood Count 3.64 M/uL (4.2-5.4); White Blood Count 8.39 K/uL (4.8-10.8)
[2018-08-14 07:26] LABS: Creatinine Clr Calc Pharmacy 19.8 ml/min; Est GFR (African American) 23.7; Est GFR (Non-African American) 20.4; Potassium 5.2 mmol/L (3.5-5.1)
--- NOTE | 2018-08-14 07:53 | Anesthesiology Progress Note ---
Date of Service August 14, 2018 Anesthesia Post Procedure Vital Signs Vital Signs: Temp Pulse Pulse Pulse Resp BP BP 08/14/18 03:16 37.4 C 51 L 16 153/62 H 08/13/18 22:56 36.4 C L 46 L 17 146/69 H 08/13/18 21:21 36.3 C L 53 L 17 134/72 08/13/18 20:39 36.4 C L 62 14 146/75 H 08/13/18 19:15 36.1 C L 63 16 138/78 08/13/18 18:44 36.3 C L 66 17 153/60 H 08/13/18 18:15 36.0 C L 65 18 142/60 H 08/13/18 18:00 66 12 150/58 H 08/13/18 17:45 69 12 142/68 H 08/13/18 17:35 36.2 C L 69 10 L 160/95 H 08/13/18 17:25 68 12 156/72 H 08/13/18 17:15 53 L 16 162/70 H 08/13/18 17:05 61 14 160/57 H 08/13/18 16:55 63 18 162/67 H 08/13/18 16:45 66 17 143/67 H 08/13/18 16:38 36.3 C L 60 20 151/45 H 08/13/18 13:12 36.8 C 66 20 199/61 H 08/13/18 11:10 37.1 C 60 14 152/77 H Pulse Ox 08/14/18 03:16 95 08/13/18 22:56 98 08/13/18 21:21 97 08/13/18 20:39 98 08/13/18 19:15 98 08/13/18 18:44 99 08/13/18 18:15 98 08/13/18 18:00 97 08/13/18 17:45 95 08/13/18 17:35 95 08/13/18 17:25 96 08/13/18 17:15 96 08/13/18 17:05 96 08/13/18 16:55 98 08/13/18 16:45 98 08/13/18 16:38 99 08/13/18 13:12 93 08/13/18 11:10 92 Pain Intensity Left Knee: Pain Intensity: 10 Left Hip: Pain Intensity: 3 Notes Mental Status: alert / awake / arousable and participated in evaluation Patient Amnestic to Procedure: Yes Nausea / Vomiting: adequately controlled Pain: adequately controlled Airway Patency, RR, SpO2: stable & adequate BP & HR: stable & adequate Hydration State: stable & adequate Anesthetic Complications: no major complications apparent and Pt Satisfied with anesthetic care
[2018-08-14] MEDS: FERROUS GLUCONATE 324 MG TAB PO SCH ×2 (09:06→17:21)
[2018-08-14] MEDS: AMLODIPINE BESYLATE 5 MG TAB PO SCH (09:07)
[2018-08-14] MEDS: DOCUSATE SODIUM 100 MG CAP PO SCH ×2 (09:07→20:38)
[2018-08-14] MEDS: MULTIVITAMIN TAB PO SCH (09:07)
[2018-08-14] MEDS: CHOLECALCIFEROL 1,000 UNITS TAB PO SCH (09:08)
[2018-08-14] MEDS: PANTOprazole 40 MG TAB PO SCH ×2 (09:08→20:38)
[2018-08-14] MEDS: GALANTAMINE HYDROBROMIDE 4 MG TAB PO SCH ×2 (09:08→20:38)
[2018-08-14] MEDS: ALLOPURINOL 100 MG TAB PO SCH (09:08)
[2018-08-14] MEDS: FUROSEMIDE 20 MG TAB PO PRN (09:20)
[2018-08-14] MEDS: INSULIN ASPART 100 UNITS/ML 3 ML PEN SC SCH ×4 (09:41→21:29)
[2018-08-14] MEDS: INSULIN GLARGINE SOLOSTAR 100 UNITS/ML 3 ML PEN SQ SCH (09:42)
[2018-08-14] MEDS: FUROSEMIDE 20 MG TAB PO SCH (09:53)
[2018-08-14] MEDS: SODIUM CHLORIDE 0.45 % 1,000 ML IV SCH ×2 (09:55→21:30)
--- NOTE | 2018-08-14 14:13 | Orthopedic Progress Note ---
Date of Service August 14, 2018 Assessment & Plan (1) Closed hip fracture: Status post left hip hemiarthroplasty -Ancef x24 -DVT prophylaxis, restart patient's home Xarelto on 08/14/2018 -Weight-bear as tolerates left lower extremity -Posterior hip precautions -PT/OT when medically stable -A.m. labs - Hgb 11.4 Continue attempts to mobilize the patient. Follow H&H and limit narcotics due to sensitivity. Family states that she is very sensitive to the effects of narcotics. Plans will be to use tramadol initially. She has had a low-dose hydromorphone ordered as well for any breakthrough pain. Subjective Postop day 1 status post left bipolar hemiarthroplasty. Patient is currently lying in bed and is awake and alert. She states that she is somewhat sleepy today. She states that she is try to get up several times however has had lightheadedness and low blood pressures that have caused her to remain in bed. She states that the first time was when nursing got her up at the bedside. PT and OT came to see her and the same thing happened. She currently has no complaints and denies any shortness of breath, chest pain, lightheadedness. Physical Exam 2 Vital Signs (Past 24 Hours): Last Vital Signs Temp 37.1 C 08/14/18 12:01 Pulse 56 L 08/14/18 12:01 Resp 16 08/14/18 12:01 BP 150/60 H 08/14/18 12:01 Pulse Ox 96 08/14/18 12:01 Physical Exam: Dressings are clean dry and intact. Calf and thigh are soft and nontender. Neurovascular is intact. Leg lengths appear equal. Toes are mobile. _ (1) Closed hip fracture Encounter type: initial encounter Fracture healing: Laterality: left Qualified Code(s): S72.002A - Fracture of unspecified part of neck of left femur , initial encounter for closed fracture
--- NOTE | 2018-08-14 15:49 | Family Medicine Progress Note ---
Date of Service August 14, 2018 Assessment & Plan (1) Closed hip fracture: 88yo female with PMHx of CAD, DM, HTN, HLD, arrythmia hx with closed left hip fracture after a mechanical fall. S/P surgery DAY 1 -Tramadol, tylenol for pain with Dilaudid. -PT/OT -Xarelto restarted. CT abdomen pelvis negative for pelvic bleed while on Xarelto. Started on Vit D 08/12 and bisphosphonate recommended for outpatient. SCDs. (2) Diabetes mellitus: For now reduce Lantus from 30 units subcu daily to 15 units subcu daily. Placed on Accu-Cheks before meals and at bedtime with NovoLog coverage per scale. (3) CAD (coronary artery disease): CAD/history of stented coronary artery/hypertension/cardiac dysrhythmia-- Continue amlodipine 5 mg p.o. daily. Xarelto restarted. Hold furosemide 20 mg daily. Continue losartan 50 mg daily--HELD / due to increasing BUN/creat. Started on gentle fluids. Continue amiodarone. Consult cardiology. (4) Cardiac dysrhythmia: see above (5) Hypertension: see above (6) Hyperlipidemia LDL goal <70: continue atorvastatin (7) Gout: continue allopurinol (8) Arthritis: Arthritis/chronic back pain/polyarthralgia's/connective tissue disease-- She has been getting monthly injections from wound treatment rn Dr. Ortiz, who has since left the practice. Continue usual pain medications of tramadol 50 mg p.o. every 8 hours as needed. Placed on fentanyl 25 mcg IV every 3 hours as needed severe pain for hip fracture. (9) Chronic back pain: See above (10) Hypothyroidism: Continue levothyroxine 100 mcg p.o. daily (11) GERD (gastroesophageal reflux disease): Continue omeprazole 20 mg p.o. twice daily or substitute to pantoprazole Supervising Physician Co-Signing Physician Notes I personally examined the patient and verified all reyes points of history and exam, discussed case, and agree with decision making with Dr Fu. feeling better. pain reasonable control. no new issues otherwise Vitals noted, in general she is awake alert oriented no distress. HEENT normocephalic atraumatic mucous membranes are moist. Skin shows no rashes no pallor or icterus. breathing unlabored no accessory muscles Hip fracture�she is medically acceptable risk for the planned procedure. Xarelto resumed, supplement vitamin D and repeat levels in ~12wks, outpatient osteoporosis treatment versus less likely workup, but will defer to PCP in this regard. PT/OT and rehab once she is postop Presumed osteoporosis/vitamin D deficiency�her hip fracture seems to be an osteoporotic fracture, although the trauma inflicting the damage is probably borderline. Replace vitamin D as above, defer to PCP as regarding to osteoporosis treatment versus a DEXA scan Dense appearing liver�stopped amiodarone Atrial fibrillation�resume Xarelto, rates good Otherwise as above Subjective Pt states her pain seems to be controlled. Had some PT/OT today where she sat on the bed and swung her legs. Some dizziness otherwise doing well. Denies chest pain, SOB, N/V, abd pain, diarrhea or constipation. Review of Systems All systems reviewed & are unremarkable except as noted in HPI & below Physical Exam 2 Vital Signs (Past 24 Hours): Last Vital Signs Temp 37.0 C 08/14/18 15:00 Pulse 64 08/14/18 15:00 Resp 20 08/14/18 15:00 BP 144/64 H 08/14/18 15:00 Pulse Ox 93 08/14/18 15:00 General: Alert, oriented. No acute distress HEENT: NC/AT, PERRL, EOMI, oropharynx moist. Chest: Nontender to palpation. CV: RRR, Normal s1, s2. No murmurs appreciated Resp: Breath sounds clear bilaterally, no increased effort of breathing. No crackles/rhonchi/rales. Abdomen: BS+. Soft, nontender, nondistended. No guarding. No organomegaly appreciated. Extremities: No edema L hip and leg without swelling or erythema. Results & Data Laboratory Results Laboratory Results - last 24 hr 08/13/18 08/13/18 08/13/18 16:41 18:40 20:54 WBC RBC Hgb Hct MCV MCH MCHC RDW Std Deviation RDW Coeff of Daniel Plt Count MPV Immature Gran % (Auto) Neut % (Auto) Lymph % (Auto) Dickenson % (Auto) Eos % (Auto) Baso % (Auto) Immature Gran # (Auto) Neut # (Auto) Lymph # (Auto) Dickenson # (Auto) Eos # (Auto) Baso # (Auto) Sodium Potassium Chloride Carbon Dioxide Anion Gap BUN Creatinine Est Cr Clr Drug Dosing Est GFR ( Amer) Est GFR (Non-Af Amer) BUN/Creatinine Ratio Glucose POC Glucose 140 H 165 H 229 H Calcium 08/14/18 08/14/18 08/14/18 06:30 06:30 08:09 WBC 8.39 RBC 3.64 L Hgb 11.4 L Hct 35.6 L MCV 97.8 MCH 31.3 MCHC 32.0 RDW Std Deviation 48.9 H RDW Coeff of Daniel 13.7 Plt Count 134 MPV 11.1 H Immature Gran % (Auto) 0.1 Neut % (Auto) 84.8 Lymph % (Auto) 10.6 Dickenson % (Auto) 4.4 Eos % (Auto) 0.1 Baso % (Auto) 0.0 Immature Gran # (Auto) 0.01 Neut # (Auto) 7.11 H Lymph # (Auto) 0.89 L Dickenson # (Auto) 0.37 Eos # (Auto) 0.01 Baso # (Auto) 0.00 Sodium 139 Potassium 5.2 H D Chloride 109 H Carbon Dioxide 25 Anion Gap 5.0 BUN 45 H Creatinine 2.13 H Est Cr Clr Drug Dosing 19.8 Est GFR ( Amer) 23.7 Est GFR (Non-Af Amer) 20.4 BUN/Creatinine Ratio 21.0 H Glucose 209 H POC Glucose 183 H Calcium 8.0 L 08/14/18 11:58 WBC RBC Hgb Hct MCV MCH MCHC RDW Std Deviation RDW Coeff of Daniel Plt Count MPV Immature Gran % (Auto) Neut % (Auto) Lymph % (Auto) Dickenson % (Auto) Eos % (Auto) Baso % (Auto) Immature Gran # (Auto) Neut # (Auto) Lymph # (Auto) Dickenson # (Auto) Eos # (Auto) Baso # (Auto) Sodium Potassium Chloride Carbon Dioxide Anion Gap BUN Creatinine Est Cr Clr Drug Dosing Est GFR ( Amer) Est GFR (Non-Af Amer) BUN/Creatinine Ratio Glucose POC Glucose 306 H Calcium Medications Administered Home Medications albuterol sulfate [Proventil HFA] 1 - 2 puff INHALATION Q4 PRN 08/11/18 [ History Confirmed 08/11/18] allopurinol 100 mg PO DAILY 08/11/18 [History Confirmed 08/11/18] amiodarone 200 mg PO DAILY 08/11/18 [History Confirmed 08/11/18] amlodipine 5 mg PO DAILY 08/11/18 [History Confirmed 08/11/18] atorvastatin 10 mg PO HS 08/11/18 [History Confirmed 08/11/18] cetirizine 10 mg PO DAILY 08/11/18 [History Confirmed 08/11/18] cholecalciferol (vitamin D3) [Vitamin D3] 1,000 unit PO DAILY 08/11/18 [History Confirmed 08/11/18] clobetasol 1 applic TOPICAL WK 08/11/18 [History Confirmed 08/11/18] colchicine [Colcrys] 0.6 mg PO DAILY PRN 08/11/18 [History Confirmed 08/11/18] diclofenac sodium 1 g TOPICAL DAILY PRN 08/11/18 [History Confirmed 08/11/18] furosemide 20 mg PO DAILY 08/11/18 [History Confirmed 08/11/18] furosemide 20 mg PO DAILY PRN 08/11/18 [History Confirmed 08/11/18] galantamine 4 mg PO BID 08/11/18 [History Confirmed 08/11/18] insulin aspart U-100 [Novolog PenFill U-100 Insulin] 1 sliding scale dose SUBCUT TIDM 08/11/18 [History Confirmed 08/11/18] insulin glargine [Lantus Solostar U-100 Insulin] 30 unit SUBCUT DAILY 08/11/18 [ History Confirmed 08/11/18] latanoprost 1 drp OPB PM 08/11/18 [History Confirmed 08/11/18] levothyroxine 100 mcg PO DAILY 08/11/18 [History Confirmed 08/11/18] losartan 50 mg PO DAILY 08/11/18 [History Confirmed 08/11/18] meclizine 12.5 mg PO TID PRN 08/11/18 [History Confirmed 08/11/18] nitroglycerin [Nitrostat] 0.4 mg SUBLINGUAL UD PRN 08/11/18 [History Confirmed 08/11/18] omeprazole 20 mg PO BID 08/11/18 [History Confirmed 08/11/18] rivaroxaban [Xarelto] 15 mg PO QPM 08/11/18 [History Confirmed 08/11/18] tocilizumab [Actemra] 750 mg IV MONTHLY 08/11/18 [History Confirmed 08/11/18] tramadol 50 mg PO Q8 PRN 08/11/18 [History Confirmed 08/11/18] triamcinolone acetonide 1 applic TOPICAL BID 08/11/18 [History Confirmed ] Active Medications Acetaminophen (Tylenol) 1,000 mg PO Q8 SNOW Stop: 09/12/18 21:59 Last Admin: 08/14/18 13:45 Dose: 1,000 mg Albuterol (Ventolin Hfa) 2 puffs INH Q4 PRN PRN Reason: Shortness Of Breath Or Wheezing Stop: 09/10/18 03:53 Allopurinol (Zyloprim) 100 mg PO DAILY SNOW Stop: 09/10/18 08:59 Last Admin: 08/14/18 09:08 Dose: 100 mg Amlodipine Besylate (Norvasc) 5 mg PO DAILY SNOW Stop: 09/10/18 08:59 Last Admin: 08/14/18 09:07 Dose: 5 mg Atorvastatin Calcium (Lipitor) 10 mg PO HS SNOW Stop: 09/10/18 20:59 Last Admin: 08/13/18 20:29 Dose: 10 mg Bisacodyl (Dulcolax) 10 mg AL Q6H PRN PRN Reason: Constipation Stop: 09/12/18 18:30 Cetirizine HCl (Zyrtec) 10 mg PO DAILY PRN PRN Reason: Allergic Symptoms Stop: 09/10/18 08:59 Colchicine (Colcrys) 0.6 mg PO DAILY PRN PRN Reason: Pain, Severe Stop: 09/10/18 03:53 Dextrose (Dextrose 50%) 25 - 50 ml IV UD PRN; Protocol PRN Reason: Hypoglycemia Protocol Stop: 09/10/18 03:53 Docusate Sodium (Colace) 100 mg PO BID SNOW Stop: 09/12/18 20:59 Last Admin: 08/14/18 09:07 Dose: 100 mg Ferrous Gluconate (Ferrous Gluconate) 324 mg PO BIDM [facility] Stop: 09/12/18 18:30 Last Admin: 08/14/18 09:06 Dose: 324 mg Furosemide (Lasix) 20 mg PO DAILY PRN PRN Reason: weight gain/swelling Stop: 09/10/18 03:53 Last Admin: 08/14/18 09:20 Dose: 20 mg Furosemide (Lasix) 20 mg PO DAILY SNOW Stop: 09/11/18 08:59 Last Admin: 08/14/18 09:53 Dose: 20 mg Galantamine Hydrobromide (Razadyne) 4 mg PO BID SNOW Stop: 09/10/18 08:59 Last Admin: 08/14/18 09:08 Dose: 4 mg Glucagon (Glucagen) 1 mg SQ UD PRN; Protocol PRN Reason: Hypoglycemia Protocol Stop: 09/10/18 03:53 Glucose (Dex4 Glucose) 4 - 8 tabs PO UD PRN; Protocol PRN Reason: Hypoglycemia Protocol Stop: 09/10/18 03:53 Glucose (Glucose 40%) 15 - 30 gm PO UD PRN; Protocol PRN Reason: Hypoglycemia Protocol Stop: 09/10/18 03:53 Hydromorphone HCl (Dilaudid) 0.25 mg IV Q4H PRN PRN Reason: Pain Stop: 08/25/18 16:34 Last Admin: 08/14/18 06:04 Dose: 0.25 mg Sodium Chloride (1/2 Nss) 1,000 mls @ 80 mls/hr IV .[id number] SNOW Stop: 09/13/18 09:44 Last Admin: 08/14/18 09:55 Dose: 80 mls/hr Insulin Aspart (Novolog Flexpen) 0 units SC ACHS SNOW Stop: 09/11/18 07:29 Last Admin: 08/14/18 12:36 Dose: 6 units Insulin Glargine (Lantus Solostar Pen) 15 units SQ DAILY SNOW Stop: 09/10/18 08:59 Last Admin: 08/14/18 09:42 Dose: 15 units Latanoprost (Xalatan Oph) 1 drops OPB PM SNOW Stop: 09/10/18 20:59 Last Admin: 08/13/18 20:31 Dose: 1 drops Levothyroxine Sodium (Synthroid) 100 mcg PO DAILYBB SNOW Stop: 09/11/18 06:29 Last Admin: 08/14/18 06:03 Dose: 100 mcg Losartan Potassium (Cozaar) 50 mg PO QPM SNOW Stop: 09/12/18 20:59 Magnesium Hydroxide (Milk Of Magnesia) 30 ml PO Q6H PRN PRN Reason: Constipation Stop: 09/12/18 18:30 Meclizine HCl (Antivert) 12.5 mg PO TID PRN PRN Reason: Dizziness Or Vertigo Stop: 09/10/18 03:53 Miscellaneous (Order Awaiting Action) 1 ea N/A QS [facility] Stop: 09/10/18 07:59 Last Admin: 08/14/18 08:53 Dose: Not Given Miscellaneous (Carbohydrates For Hypoglycemia) 15 - 30 gm PO UD PRN PRN Reason: Hypoglycemia Treatment Stop: 09/10/18 03:53 Multivitamins (Multivitamin Tab) 1 tab PO QAM [facility] Stop: 09/13/18 08:59 Last Admin: 08/14/18 09:07 Dose: 1 tab Naloxone HCl (Narcan) 0.1 mg IV Q5M PRN PRN Reason: Oversedation/Resp Depression Stop: 09/12/18 18:30 Nitroglycerin (Nitrostat) 0.4 mg SL UD PRN PRN Reason: Chest Pain Stop: 09/10/18 03:53 Ondansetron HCl (Zofran) 4 mg IV Q6H PRN PRN Reason: Nausea And Vomiting Stop: 09/12/18 18:30 Pantoprazole Sodium (Protonix) 40 mg PO BID [facility] Stop: 09/10/18 08:59 Last Admin: 08/14/18 09:08 Dose: 40 mg Rivaroxaban (Xarelto) 15 mg PO QDD [facility] Stop: 09/13/18 16:29 Sennosides (Senokot) 17.2 mg PO HS [facility] Stop: 09/12/18 20:59 Last Admin: 08/13/18 20:30 Dose: 17.2 mg Tramadol HCl (Ultram) 50 mg PO Q4H PRN PRN Reason: Pain Stop: 09/13/18 11:41 Vitamin D (Vitamin D3) 1,000 units PO DAILY [facility] Stop: 09/10/18 08:59 Last Admin: 08/14/18 09:08 Dose: 1,000 units _ (1) Closed hip fracture Encounter type: initial encounter Fracture healing: Laterality: left Qualified Code(s): S72.002A - Fracture of unspecified part of neck of left femur , initial encounter for closed fracture
[2018-08-14] MEDS: RIVAROXABAN 15 MG TAB PO SCH (17:21)
[2018-08-14] MEDS: SENNA 8.6 MG TAB PO SCH (20:38)
[2018-08-14] MEDS: LATANOPROST 0.005% OP SOLN 2.5 ML BTL OPB SCH (20:38)
[2018-08-14] MEDS: ATORVASTATIN 10 MG TAB PO SCH (20:38)
[2018-08-14] MEDS: TRAMADOL HCL 50 MG TABLET PO PRN (20:39)
[2018-08-15] MEDS: ACETAMINOPHEN 500 MG TAB PO SCH ×3 (05:47→21:48)
[2018-08-15] MEDS: LEVOTHYROXINE SODIUM 100 MCG TABLET PO SCH (05:47)
[2018-08-15 08:13] LABS: Basophils # (auto) 0.02 K/uL (0-0.2); Basophils % (auto) 0.3 %; Eosinophils # (auto) 0.53 K/uL (0-0.5); Eosinophils % (auto) 6.7 %; Hematocrit (blood only) 34.3 % (37-47); Hemoglobin 11.1 g/dL (12.0-16.0); Immature Granulocytes # (auto) 0.01 K/uL (0.00-0.02); Immature Granulocytes % (auto) 0.1 %; Lymphocytes # (auto) 2.04 K/uL (1.2-3.4); Lymphocytes % (auto) 25.8 %; Mean Corpuscular Hgb Conc 32.4 g/dL (32-36); Mean Corpuscular Volume 97.7 fL (80-100); Mean Platelet Volume 10.5 fL (7.4-10.4); Monocytes # (auto) 0.49 K/uL (0.11-0.59); Monocytes % (auto) 6.2 %; Neutrophils # (auto) 4.82 K/uL (1.4-6.5); Neutrophils % (auto) 60.9 %; Platelet Count 154 K/uL (130-400); RDW Coefficient of Variation 13.7 % (11.5-14.5); RDW Standard Deviation 48.7 fL (36.4-46.3); Red Blood Count 3.51 M/uL (4.2-5.4); White Blood Count 7.91 K/uL (4.8-10.8)
[2018-08-15] MEDS: TRAMADOL HCL 50 MG TABLET PO PRN ×2 (08:50→15:57)
[2018-08-15] MEDS: PANTOprazole 40 MG TAB PO SCH ×2 (08:51→20:53)
[2018-08-15] MEDS: FERROUS GLUCONATE 324 MG TAB PO SCH ×2 (08:51→17:22)
[2018-08-15] MEDS: MULTIVITAMIN TAB PO SCH (08:51)
[2018-08-15] MEDS: DOCUSATE SODIUM 100 MG CAP PO SCH ×2 (08:52→20:53)
[2018-08-15] MEDS: AMLODIPINE BESYLATE 5 MG TAB PO SCH (08:52)
[2018-08-15] MEDS: CLOBETASOL~ORDER AWAITING ACTION SCH ×2 (08:53→17:20)
[2018-08-15] MEDS: ALLOPURINOL 100 MG TAB PO SCH (08:54)
[2018-08-15] MEDS: GALANTAMINE HYDROBROMIDE 4 MG TAB PO SCH ×2 (08:54→20:54)
[2018-08-15 08:57] LABS: BUN Creatinine Ratio 27.2 (10-20); Calcium 8.1 mg/dl (8.5-10.1); Creatinine Clr Calc Pharmacy 24.6 ml/min; Est GFR (African American) 30.7; Est GFR (Non-African American) 26.5; Potassium 3.8 mmol/L (3.5-5.1)
[2018-08-15] MEDS: INSULIN GLARGINE SOLOSTAR 100 UNITS/ML 3 ML PEN SQ SCH (08:58)
[2018-08-15] MEDS: INSULIN ASPART 100 UNITS/ML 3 ML PEN SC SCH ×4 (08:59→20:59)
[2018-08-15] MEDS ORDERED: ERGOCALCIFEROL 50,000 UNITS CAP PO ONE (09:00)
--- NOTE | 2018-08-15 09:02 | Orthopedic Progress Note ---
Date of Service August 15, 2018 Assessment & Plan (1) Closed hip fracture: Status post left hip hemiarthroplasty, POD #2 -DVT prophylaxis, Xarelto -Weight-bear as tolerates left lower extremity -Posterior hip precautions -PT/OT when medically stable Continue attempts to mobilize the patient. Follow H&H and limit narcotics due to sensitivity. Family states that she is very sensitive to the effects of narcotics. Plans will be to use tramadol initially. She has had a low-dose hydromorphone ordered as well for any breakthrough pain. Subjective Postop day 2 status post left bipolar hemiarthroplasty. Patient is currently lying in bed and is awake and alert. She states that she is somewhat sleepy today. She states that the first time was when nursing got her up at the bedside. PT and OT came to see her and the same thing happened. She currently has no complaints and denies any shortness of breath, chest pain, lightheadedness. Constitutional: as per Subjective / HPI Physical Exam 2 Vital Signs (Past 24 Hours): Last Vital Signs Temp 36.4 C L 08/15/18 08:21 Pulse 63 08/15/18 08:21 Resp 20 08/15/18 08:21 BP 146/68 H 08/15/18 08:21 Pulse Ox 99 08/15/18 08:21 Physical Exam: Left hip silverlon c/d/i, no drainage, no calf tenderness, toes and ankle mobile, no erythema, sleepy but able to respond appropriately. _ (1) Closed hip fracture Encounter type: initial encounter Fracture healing: Laterality: left Qualified Code(s): S72.002A - Fracture of unspecified part of neck of left femur , initial encounter for closed fracture
[2018-08-15] MEDS: CHOLECALCIFEROL 1,000 UNITS TAB PO SCH (09:58)
[2018-08-15] MEDS: SODIUM CHLORIDE 0.45 % 1,000 ML IV SCH (10:01)
--- NOTE | 2018-08-15 12:59 | Family Medicine Progress Note ---
Date of Service August 15, 2018 Assessment & Plan (1) Closed hip fracture: 88yo female with PMHx of CAD, DM, HTN, HLD, arrythmia hx with closed left hip fracture after a mechanical fall. S/P surgery DAY 2 -IMPROVING -Tramadol, and tylenol for pain with Dilaudid. -PT/OT -Xarelto restarted. CT abdomen pelvis negative for pelvic bleed while on Xarelto. Started on Vit D 08/12 and bisphosphonate recommended for outpatient. SCDs. (2) Diabetes mellitus: For now reduce Lantus from 30 units subcu daily to 15 units subcu daily. Placed on Accu-Cheks before meals and at bedtime with NovoLog coverage per scale. (3) CAD (coronary artery disease): CAD/history of stented coronary artery/hypertension/cardiac dysrhythmia-- Continue amlodipine 5 mg p.o. daily. Xarelto restarted. Hold furosemide 20 mg daily. Continue losartan 50 mg daily--HELD / due to increasing BUN/creat. Started on gentle fluids. Continue amiodarone. Consult cardiology. (4) Cardiac dysrhythmia: see above (5) Hypertension: see above (6) Hyperlipidemia LDL goal <70: continue atorvastatin (7) Gout: continue allopurinol (8) Arthritis: Arthritis/chronic back pain/polyarthralgia's/connective tissue disease-- She has been getting monthly injections from planimeter operator Dr. Ortiz, who has since left the practice. Continue usual pain medications of tramadol 50 mg p.o. every 8 hours as needed. Placed on fentanyl 25 mcg IV every 3 hours as needed severe pain for hip fracture. (9) Chronic back pain: See above (10) Hypothyroidism: Continue levothyroxine 100 mcg p.o. daily (11) GERD (gastroesophageal reflux disease): Continue omeprazole 20 mg p.o. twice daily or substitute to pantoprazole Supervising Physician Co-Signing Physician Notes I personally examined the patient and verified all reyes points of history and exam, discussed case, and agree with decision making with Dr Fu. feeling better. out of bed! just getting started w PT. Vitals noted, in general she is awake alert oriented no distress. HEENT normocephalic atraumatic mucous membranes are moist. Skin shows no rashes no pallor or icterus. breathing unlabored no accessory muscles age related osteoporotic hip fracture�post op. Xarelto resumed, continue to supplement vitamin D and repeat levels in ~12wks, outpatient osteoporosis treatment versus less likely workup, but will defer to PCP in this regard. PT/ OT and rehab Presumed osteoporosis/vitamin D deficiency�her hip fracture seems to be an osteoporotic fracture, although the trauma inflicting the damage is probably borderline. Replace vitamin D as above, defer to PCP as regarding to osteoporosis treatment versus a DEXA scan Dense appearing liver�stopped amiodarone, outpt f/u Atrial fibrillation�resumed Xarelto, rates good Otherwise as above Subjective Pt states she's doing well except for her hip. feels her pain is well controlled. Denies chest pain, SOB, N/V, abdominal pain, diarrhea, constipation. Review of Systems All systems reviewed & are unremarkable except as noted in HPI & below Physical Exam 2 Vital Signs (Past 24 Hours): Last Vital Signs Temp 36.4 C L 08/15/18 12:16 Pulse 63 08/15/18 12:16 Resp 20 08/15/18 12:16 BP 146/68 H 08/15/18 12:16 Pulse Ox 94 08/15/18 12:16 General: Alert, oriented. No acute distress HEENT: NC/AT, PERRL, EOMI, oropharynx moist. Chest: Nontender to palpation. CV: RRR, Normal s1, s2. No murmurs appreciated Resp: Breath sounds clear bilaterally, no increased effort of breathing. No crackles/rhonchi/rales. Abdomen: BS+. Soft, nontender, nondistended. No guarding. No organomegaly appreciated. Extremities: No edema L hip and leg without swelling or erythema. Results & Data Laboratory Results Laboratory Results - last 24 hr 08/14/18 08/14/18 08/15/18 17:04 20:45 07:54 WBC 7.91 RBC 3.51 L Hgb 11.1 L Hct 34.3 L MCV 97.7 MCH 31.6 MCHC 32.4 RDW Std Deviation 48.7 H RDW Coeff of Daniel 13.7 Plt Count 154 MPV 10.5 H Immature Gran % (Auto) 0.1 Neut % (Auto) 60.9 Lymph % (Auto) 25.8 [place] % (Auto) 6.2 Eos % (Auto) 6.7 Baso % (Auto) 0.3 Immature Gran # (Auto) 0.01 Neut # (Auto) 4.82 Lymph # (Auto) 2.04 [place] # (Auto) 0.49 Eos # (Auto) 0.53 H Baso # (Auto) 0.02 Sodium Potassium Chloride Carbon Dioxide Anion Gap BUN Creatinine Est Cr Clr Drug Dosing Est GFR ( Amer) Est GFR (Non-Af Amer) BUN/Creatinine Ratio Glucose POC Glucose 245 H 236 H Calcium 08/15/18 08/15/18 08/15/18 07:54 07:59 12:04 WBC RBC Hgb Hct MCV MCH MCHC RDW Std Deviation RDW Coeff of Daniel Plt Count MPV Immature Gran % (Auto) Neut % (Auto) Lymph % (Auto) [place] % (Auto) Eos % (Auto) Baso % (Auto) Immature Gran # (Auto) Neut # (Auto) Lymph # (Auto) [place] # (Auto) Eos # (Auto) Baso # (Auto) Sodium 141 Potassium 3.8 D Chloride 108 H Carbon Dioxide 27 Anion Gap 6.0 BUN 47 H Creatinine 1.72 H D Est Cr Clr Drug Dosing 24.6 Est GFR ( Amer) 30.7 Est GFR (Non-Af Amer) 26.5 BUN/Creatinine Ratio 27.2 H Glucose 134 H POC Glucose 128 H 182 H Calcium 8.1 L Medications Administered Home Medications albuterol sulfate [Proventil HFA] 1 - 2 puff INHALATION Q4 PRN 08/11/18 [ History Confirmed 08/11/18] allopurinol 100 mg PO DAILY 08/11/18 [History Confirmed 08/11/18] amiodarone 200 mg PO DAILY 08/11/18 [History Confirmed 08/11/18] amlodipine 5 mg PO DAILY 08/11/18 [History Confirmed 08/11/18] atorvastatin 10 mg PO HS 08/11/18 [History Confirmed 08/11/18] cetirizine 10 mg PO DAILY 08/11/18 [History Confirmed 08/11/18] cholecalciferol (vitamin D3) [Vitamin D3] 1,000 unit PO DAILY 08/11/18 [History Confirmed 08/11/18] clobetasol 1 applic TOPICAL WK 08/11/18 [History Confirmed 08/11/18] colchicine [Colcrys] 0.6 mg PO DAILY PRN 08/11/18 [History Confirmed 08/11/18] diclofenac sodium 1 g TOPICAL DAILY PRN 08/11/18 [History Confirmed 08/11/18] furosemide 20 mg PO DAILY 08/11/18 [History Confirmed 08/11/18] furosemide 20 mg PO DAILY PRN 08/11/18 [History Confirmed 08/11/18] galantamine 4 mg PO BID 08/11/18 [History Confirmed 08/11/18] insulin aspart U-100 [Novolog PenFill U-100 Insulin] 1 sliding scale dose SUBCUT TIDM 08/11/18 [History Confirmed 08/11/18] insulin glargine [Lantus Solostar U-100 Insulin] 30 unit SUBCUT DAILY 08/11/18 [ History Confirmed 08/11/18] latanoprost 1 drp OPB PM 08/11/18 [History Confirmed 08/11/18] levothyroxine 100 mcg PO DAILY 08/11/18 [History Confirmed 08/11/18] losartan 50 mg PO DAILY 08/11/18 [History Confirmed 08/11/18] meclizine 12.5 mg PO TID PRN 08/11/18 [History Confirmed 08/11/18] nitroglycerin [Nitrostat] 0.4 mg SUBLINGUAL UD PRN 08/11/18 [History Confirmed 08/11/18] omeprazole 20 mg PO BID 08/11/18 [History Confirmed 08/11/18] rivaroxaban [Xarelto] 15 mg PO QPM 08/11/18 [History Confirmed 08/11/18] tocilizumab [Actemra] 750 mg IV MONTHLY 08/11/18 [History Confirmed 08/11/18] tramadol 50 mg PO Q8 PRN 08/11/18 [History Confirmed 08/11/18] triamcinolone acetonide 1 applic TOPICAL BID 08/11/18 [History Confirmed ] Active Medications Acetaminophen (Tylenol) 1,000 mg PO Q8 [facility] Stop: 09/12/18 21:59 Last Admin: 08/15/18 14:30 Dose: 1,000 mg Albuterol (Ventolin Hfa) 2 puffs INH Q4 PRN PRN Reason: Shortness Of Breath Or Wheezing Stop: 09/10/18 03:53 Allopurinol (Zyloprim) 100 mg PO DAILY [facility] Stop: 09/10/18 08:59 Last Admin: 08/15/18 08:54 Dose: 100 mg Amlodipine Besylate (Norvasc) 5 mg PO DAILY [facility] Stop: 09/10/18 08:59 Last Admin: 08/15/18 08:52 Dose: 5 mg Atorvastatin Calcium (Lipitor) 10 mg PO HS [facility] Stop: 09/10/18 20:59 Last Admin: 08/14/18 20:38 Dose: 10 mg Bisacodyl (Dulcolax) 10 mg CO Q6H PRN PRN Reason: Constipation Stop: 09/12/18 18:30 Cetirizine HCl (Zyrtec) 10 mg PO DAILY PRN PRN Reason: Allergic Symptoms Stop: 09/10/18 08:59 Colchicine (Colcrys) 0.6 mg PO DAILY PRN PRN Reason: Pain, Severe Stop: 09/10/18 03:53 Dextrose (Dextrose 50%) 25 - 50 ml IV UD PRN; Protocol PRN Reason: Hypoglycemia Protocol Stop: 09/10/18 03:53 Docusate Sodium (Colace) 100 mg PO BID [facility] Stop: 09/12/18 20:59 Last Admin: 08/15/18 08:52 Dose: 100 mg Ferrous Gluconate (Ferrous Gluconate) 324 mg PO BIDM [facility] Stop: 09/12/18 18:30 Last Admin: 08/15/18 08:51 Dose: 324 mg Furosemide (Lasix) 20 mg PO DAILY [facility] Stop: 09/11/18 08:59 Last Admin: 08/14/18 09:53 Dose: 20 mg Galantamine Hydrobromide (Razadyne) 4 mg PO BID [facility] Stop: 09/10/18 08:59 Last Admin: 08/15/18 08:54 Dose: 4 mg Glucagon (Glucagen) 1 mg SQ UD PRN; Protocol PRN Reason: Hypoglycemia Protocol Stop: 09/10/18 03:53 Glucose (Dex4 Glucose) 4 - 8 tabs PO UD PRN; Protocol PRN Reason: Hypoglycemia Protocol Stop: 09/10/18 03:53 Glucose (Glucose 40%) 15 - 30 gm PO UD PRN; Protocol PRN Reason: Hypoglycemia Protocol Stop: 09/10/18 03:53 Hydromorphone HCl (Dilaudid) 0.25 mg IV Q4H PRN PRN Reason: Pain Stop: 08/25/18 16:34 Last Admin: 08/14/18 23:51 Dose: 0.25 mg Sodium Chloride (1/2 Nss) 1,000 mls @ 50 mls/hr IV .Q20H [facility] Stop: 09/13/18 09:44 Last Admin: 08/15/18 10:01 Dose: 50 mls/hr Insulin Aspart (Novolog Flexpen) 0 units SC ACHS [facility] Stop: 09/11/18 07:29 Last Admin: 08/15/18 14:35 Dose: 4 units Insulin Glargine (Lantus Solostar Pen) 15 units SQ DAILY [facility] Stop: 09/10/18 08:59 Last Admin: 08/15/18 08:58 Dose: 15 units Latanoprost (Xalatan Oph) 1 drops OPB PM [facility] Stop: 09/10/18 20:59 Last Admin: 08/14/18 20:38 Dose: 1 drops Levothyroxine Sodium (Synthroid) 100 mcg PO DAILYBB [facility] Stop: 09/11/18 06:29 Last Admin: 08/15/18 05:47 Dose: 100 mcg Losartan Potassium (Cozaar) 50 mg PO QPM [facility] Stop: 09/12/18 20:59 Magnesium Hydroxide (Milk Of Magnesia) 30 ml PO Q6H PRN PRN Reason: Constipation Stop: 09/12/18 18:30 Meclizine HCl (Antivert) 12.5 mg PO TID PRN PRN Reason: Dizziness Or Vertigo Stop: 09/10/18 03:53 Miscellaneous (Order Awaiting Action) 1 ea N/A QS [facility] Stop: 09/10/18 07:59 Last Admin: 08/15/18 08:53 Dose: Not Given Miscellaneous (Carbohydrates For Hypoglycemia) 15 - 30 gm PO UD PRN PRN Reason: Hypoglycemia Treatment Stop: 09/10/18 03:53 Multivitamins (Multivitamin Tab) 1 tab PO QAM [facility] Stop: 09/13/18 08:59 Last Admin: 08/15/18 08:51 Dose: 1 tab Naloxone HCl (Narcan) 0.1 mg IV Q5M PRN PRN Reason: Oversedation/Resp Depression Stop: 09/12/18 18:30 Nitroglycerin (Nitrostat) 0.4 mg SL UD PRN PRN Reason: Chest Pain Stop: 09/10/18 03:53 Ondansetron HCl (Zofran) 4 mg IV Q6H PRN PRN Reason: Nausea And Vomiting Stop: 09/12/18 18:30 Pantoprazole Sodium (Protonix) 40 mg PO BID [facility] Stop: 09/10/18 08:59 Last Admin: 08/15/18 08:51 Dose: 40 mg Rivaroxaban (Xarelto) 15 mg PO QDD [facility] Stop: 09/13/18 16:29 Last Admin: 08/14/18 17:21 Dose: 15 mg Sennosides (Senokot) 17.2 mg PO HS [facility] Stop: 09/12/18 20:59 Last Admin: 08/14/18 20:38 Dose: 17.2 mg Tramadol HCl (Ultram) 50 mg PO Q4H PRN PRN Reason: Pain Stop: 09/13/18 11:41 Last Admin: 08/15/18 15:57 Dose: 50 mg Vitamin D (Vitamin D3) 2,000 units PO DAILY [facility] Stop: 09/14/18 08:59 Last Admin: 08/15/18 09:58 Dose: 2,000 units _ (1) Closed hip fracture Encounter type: initial encounter Fracture healing: Laterality: left Qualified Code(s): S72.002A - Fracture of unspecified part of neck of left femur , initial encounter for closed fracture
[2018-08-15] MEDS ORDERED: TRAMADOL HCL 50 MG TABLET PO PRN ×2 (16:52→17:03)
[2018-08-15] MEDS: RIVAROXABAN 15 MG TAB PO SCH (17:22)
[2018-08-15] MEDS: ATORVASTATIN 10 MG TAB PO SCH (20:53)
[2018-08-15] MEDS: LATANOPROST 0.005% OP SOLN 2.5 ML BTL OPB SCH (20:55)
[2018-08-15] MEDS: SENNA 8.6 MG TAB PO SCH (20:55)
[2018-08-16] MEDS: INSULIN ASPART 100 UNITS/ML 3 ML PEN SC SCH ×3 (01:40→13:07)
[2018-08-16] MEDS: CLOBETASOL~ORDER AWAITING ACTION SCH ×2 (01:40→08:27)
[2018-08-16] MEDS: ACETAMINOPHEN 500 MG TAB PO SCH ×2 (05:55→14:31)
[2018-08-16] MEDS: SODIUM CHLORIDE 0.45 % 1,000 ML IV SCH (05:55)
[2018-08-16] MEDS: LEVOTHYROXINE SODIUM 100 MCG TABLET PO SCH (05:56)
[2018-08-16 06:43] LABS: Basophils # (auto) 0.02 K/uL (0-0.2); Basophils % (auto) 0.3 %; Eosinophils # (auto) 0.38 K/uL (0-0.5); Eosinophils % (auto) 5.6 %; Hematocrit (blood only) 29.1 % (37-47); Hemoglobin 9.5 g/dL (12.0-16.0); Immature Granulocytes # (auto) 0.02 K/uL (0.00-0.02); Immature Granulocytes % (auto) 0.3 %; Lymphocytes # (auto) 2.19 K/uL (1.2-3.4); Lymphocytes % (auto) 32.1 %; Mean Corpuscular Hgb Conc 32.6 g/dL (32-36); Mean Corpuscular Volume 97.3 fL (80-100); Mean Platelet Volume 9.6 fL (7.4-10.4); Monocytes # (auto) 0.43 K/uL (0.11-0.59); Monocytes % (auto) 6.3 %; Neutrophils # (auto) 3.79 K/uL (1.4-6.5); Neutrophils % (auto) 55.4 %; Platelet Count 136 K/uL (130-400); RDW Coefficient of Variation 14.3 % (11.5-14.5); RDW Standard Deviation 50.3 fL (36.4-46.3); Red Blood Count 2.99 M/uL (4.2-5.4); White Blood Count 6.83 K/uL (4.8-10.8)
[2018-08-16 07:21] LABS: BUN Creatinine Ratio 30.1 (10-20); Calcium 8.2 mg/dl (8.5-10.1); Creatinine Clr Calc Pharmacy 31.1 ml/min; Est GFR (African American) 40.7; Est GFR (Non-African American) 35.1; Potassium 4.3 mmol/L (3.5-5.1)
[2018-08-16] MEDS: TRAMADOL HCL 50 MG TABLET PO PRN ×2 (08:26→14:07)
[2018-08-16] MEDS: FERROUS GLUCONATE 324 MG TAB PO SCH (08:26)
[2018-08-16] MEDS: CHOLECALCIFEROL 1,000 UNITS TAB PO SCH (08:26)
[2018-08-16] MEDS: GALANTAMINE HYDROBROMIDE 4 MG TAB PO SCH (08:27)
[2018-08-16] MEDS: DOCUSATE SODIUM 100 MG CAP PO SCH (08:27)
[2018-08-16] MEDS: MULTIVITAMIN TAB PO SCH (08:27)
[2018-08-16] MEDS: PANTOprazole 40 MG TAB PO SCH (08:27)
[2018-08-16] MEDS: AMLODIPINE BESYLATE 5 MG TAB PO SCH (08:27)
[2018-08-16] MEDS: ALLOPURINOL 100 MG TAB PO SCH (08:27)
[2018-08-16] MEDS: INSULIN GLARGINE SOLOSTAR 100 UNITS/ML 3 ML PEN SQ SCH (08:34)
--- NOTE | 2018-08-16 09:25 | Orthopedic Progress Note ---
Date of Service August 16, 2018 Assessment & Plan (1) Closed hip fracture: Status post left hip hemiarthroplasty, POD #3 -DVT prophylaxis, Xarelto -Weight-bear as tolerates left lower extremity -Posterior hip precautions -PT/OT when medically stable Continue attempts to mobilize the patient. Plans will be to use tramadol initially. She has had a low-dose hydromorphone ordered as well for any breakthrough pain. Ortho will sign off at this point, please follow with Dr. Jeffrey at [facility] [place] 12-14 days post op, call [phone] for appt. Thank You. Subjective Postop day 3 status post left bipolar hemiarthroplasty. Patient is currently lying in bed and is awake and alert. She states that she is somewhat sleepy today. She currently has no complaints and denies any shortness of breath, chest pain, lightheadedness. Constitutional: as per Subjective / HPI Physical Exam 2 Vital Signs (Past 24 Hours): Last Vital Signs Temp 36.5 C 08/16/18 07:48 Pulse 64 08/16/18 07:48 Resp 18 08/16/18 07:48 BP 150/76 H 08/16/18 07:48 Pulse Ox 92 08/16/18 07:48 Physical Exam: Left hip silverlon dressing c/d/i, no drainage, no calf tenderness, no erythema, toes and ankle mobile, A&Ox3. _ (1) Closed hip fracture Encounter type: initial encounter Fracture healing: Laterality: left Qualified Code(s): S72.002A - Fracture of unspecified part of neck of left femur , initial encounter for closed fracture
--- NOTE | 2018-08-16 12:52 | Family Medicine Progress Note ---
Date of Service August 16, 2018 Assessment & Plan (1) Closed hip fracture: 88yo female with PMHx of CAD, DM, HTN, HLD, arrythmia hx with closed left hip fracture after a mechanical fall. S/P surgery DAY 2 -IMPROVING -Orthopedic surgery signed off. Pt medically stable for discharge. Has bed at [facility] but there is a flu outbreak so awaiting word on whether transfer there is still possible. -Scheduled tylenol for pain -Tramadol 50mg for moderate pain prn, 100mg for severe pain per request of family. -PT/OT -Xarelto restarted. CT abdomen pelvis negative for pelvic bleed while on Xarelto. Started on Vit D 08/12 and bisphosphonate recommended for outpatient. SCDs. (2) Diabetes mellitus: For now reduce Lantus from 30 units subcu daily to 15 units subcu daily. Placed on Accu-Cheks before meals and at bedtime with NovoLog coverage per scale. (3) CAD (coronary artery disease): CAD/history of stented coronary artery/hypertension/cardiac dysrhythmia-- Continue amlodipine 5 mg p.o. daily. Xarelto restarted. Hold furosemide 20 mg daily. losartan 50 mg-HELD 08/12 due to increasing BUN/creat. Started on gentle fluids. Amiodarone stopped. Consult cardiology. (4) Cardiac dysrhythmia: see above (5) Hypertension: see above (6) Hyperlipidemia LDL goal <70: continue atorvastatin (7) Gout: continue allopurinol (8) Arthritis: Arthritis/chronic back pain/polyarthralgia's/connective tissue disease-- She has been getting monthly injections from dental insurance coordinator Dr. Ortiz, who has since left the practice. Continue usual pain medications of tramadol 50 mg p.o. every 8 hours as needed. (9) Chronic back pain: See above (10) Hypothyroidism: Continue levothyroxine 100 mcg p.o. daily (11) GERD (gastroesophageal reflux disease): Continue omeprazole 20 mg p.o. twice daily or substitute to pantoprazole Subjective Pt states she is doing well. Has had a bowel movement. Feels pain is well controlled. Denies SOB, chest pain, N/V. Review of Systems All systems reviewed & are unremarkable except as noted in HPI & below Physical Exam 2 Vital Signs (Past 24 Hours): Last Vital Signs Temp 36.5 C 08/16/18 07:48 Pulse 64 08/16/18 07:48 Resp 18 08/16/18 07:48 BP 150/76 H 08/16/18 07:48 Pulse Ox 92 08/16/18 07:48 General: Alert, oriented. No acute distress HEENT: NC/AT, PERRL, EOMI, oropharynx moist. Chest: Nontender to palpation. CV: RRR, Normal s1, s2. No murmurs appreciated Resp: Breath sounds clear bilaterally, no increased effort of breathing. No crackles/rhonchi/rales. Abdomen: BS+. Soft, nontender, nondistended. No guarding. No organomegaly appreciated. Extremities: No edema L hip and leg without swelling or erythema. No calf tenderness. Results & Data Laboratory Results Laboratory Results - last 24 hr 08/15/18 08/15/18 08/16/18 17:34 20:52 06:32 WBC 6.83 RBC 2.99 L Hgb 9.5 L Hct 29.1 L MCV 97.3 MCH 31.8 MCHC 32.6 RDW Std Deviation 50.3 H RDW Coeff of Daniel 14.3 Plt Count 136 MPV 9.6 Immature Gran % (Auto) 0.3 Neut % (Auto) 55.4 Lymph % (Auto) 32.1 [place] % (Auto) 6.3 Eos % (Auto) 5.6 Baso % (Auto) 0.3 Immature Gran # (Auto) 0.02 Neut # (Auto) 3.79 Lymph # (Auto) 2.19 [place] # (Auto) 0.43 Eos # (Auto) 0.38 Baso # (Auto) 0.02 Sodium Potassium Chloride Carbon Dioxide Anion Gap BUN Creatinine Est Cr Clr Drug Dosing Est GFR ( Amer) Est GFR (Non-Af Amer) BUN/Creatinine Ratio Glucose POC Glucose 140 H 172 H Calcium 08/16/18 08/16/18 08/16/18 06:32 08:10 12:09 WBC RBC Hgb Hct MCV MCH MCHC RDW Std Deviation RDW Coeff of Daniel Plt Count MPV Immature Gran % (Auto) Neut % (Auto) Lymph % (Auto) [place] % (Auto) Eos % (Auto) Baso % (Auto) Immature Gran # (Auto) Neut # (Auto) Lymph # (Auto) [place] # (Auto) Eos # (Auto) Baso # (Auto) Sodium 142 Potassium 4.3 Chloride 110 H Carbon Dioxide 28 Anion Gap 4.0 BUN 41 H Creatinine 1.36 H D Est Cr Clr Drug Dosing 31.1 Est GFR ( Amer) 40.7 Est GFR (Non-Af Amer) 35.1 BUN/Creatinine Ratio 30.1 H Glucose 95 POC Glucose 104 H 176 H Calcium 8.2 L Medications Administered Home Medications albuterol sulfate [Proventil HFA] 1 - 2 puff INHALATION Q4 PRN 08/11/18 [ History Confirmed 08/11/18] allopurinol 100 mg PO DAILY 08/11/18 [History Confirmed 08/11/18] amiodarone 200 mg PO DAILY 08/11/18 [History Confirmed 08/11/18] amlodipine 5 mg PO DAILY 08/11/18 [History Confirmed 08/11/18] atorvastatin 10 mg PO HS 08/11/18 [History Confirmed 08/11/18] cetirizine 10 mg PO DAILY 08/11/18 [History Confirmed 08/11/18] cholecalciferol (vitamin D3) [Vitamin D3] 1,000 unit PO DAILY 08/11/18 [History Confirmed 08/11/18] clobetasol 1 applic TOPICAL WK 08/11/18 [History Confirmed 08/11/18] colchicine [Colcrys] 0.6 mg PO DAILY PRN 08/11/18 [History Confirmed 08/11/18] diclofenac sodium 1 g TOPICAL DAILY PRN 08/11/18 [History Confirmed 08/11/18] furosemide 20 mg PO DAILY 08/11/18 [History Confirmed 08/11/18] furosemide 20 mg PO DAILY PRN 08/11/18 [History Confirmed 08/11/18] galantamine 4 mg PO BID 08/11/18 [History Confirmed 08/11/18] insulin aspart U-100 [Novolog PenFill U-100 Insulin] 1 sliding scale dose SUBCUT TIDM 08/11/18 [History Confirmed 08/11/18] insulin glargine [Lantus Solostar U-100 Insulin] 30 unit SUBCUT DAILY 08/11/18 [ History Confirmed 08/11/18] latanoprost 1 drp OPB PM 08/11/18 [History Confirmed 08/11/18] levothyroxine 100 mcg PO DAILY 08/11/18 [History Confirmed 08/11/18] losartan 50 mg PO DAILY 08/11/18 [History Confirmed 08/11/18] meclizine 12.5 mg PO TID PRN 08/11/18 [History Confirmed 08/11/18] nitroglycerin [Nitrostat] 0.4 mg SUBLINGUAL UD PRN 08/11/18 [History Confirmed 08/11/18] omeprazole 20 mg PO BID 08/11/18 [History Confirmed 08/11/18] rivaroxaban [Xarelto] 15 mg PO QPM 08/11/18 [History Confirmed 08/11/18] tocilizumab [Actemra] 750 mg IV MONTHLY 08/11/18 [History Confirmed 08/11/18] tramadol 50 mg PO Q8 PRN 08/11/18 [History Confirmed 08/11/18] triamcinolone acetonide 1 applic TOPICAL BID 08/11/18 [History Confirmed ] acetaminophen [Tylenol 8 Hour] 650 mg PO Q8H PRN #20 tab 08/16/18 [Rx] cholecalciferol (vitamin D3) [Vitamin D3] 2,000 units PO DAILY #90 cap 08/16/18 [Rx] ergocalciferol (vitamin D2) [Vitamin D2] 50,000 units PO .WEEKLY 90 Days #12 cap 08/16/18 [Rx] tramadol 50 mg PO Q8H PRN #10 tab 08/16/18 [Rx] Active Medications Acetaminophen (Tylenol) 1,000 mg PO Q8 [facility] Stop: 09/12/18 21:59 Last Admin: 08/16/18 05:55 Dose: 1,000 mg Albuterol (Ventolin Hfa) 2 puffs INH Q4 PRN PRN Reason: Shortness Of Breath Or Wheezing Stop: 09/10/18 03:53 Allopurinol (Zyloprim) 100 mg PO DAILY [facility] Stop: 09/10/18 08:59 Last Admin: 08/16/18 08:27 Dose: 100 mg Amlodipine Besylate (Norvasc) 5 mg PO DAILY [facility] Stop: 09/10/18 08:59 Last Admin: 08/16/18 08:27 Dose: 5 mg Atorvastatin Calcium (Lipitor) 10 mg PO HS [facility] Stop: 09/10/18 20:59 Last Admin: 08/15/18 20:53 Dose: 10 mg Bisacodyl (Dulcolax) 10 mg ID Q6H PRN PRN Reason: Constipation Stop: 09/12/18 18:30 Cetirizine HCl (Zyrtec) 10 mg PO DAILY PRN PRN Reason: Allergic Symptoms Stop: 09/10/18 08:59 Colchicine (Colcrys) 0.6 mg PO DAILY PRN PRN Reason: Pain, Severe Stop: 09/10/18 03:53 Dextrose (Dextrose 50%) 25 - 50 ml IV UD PRN; Protocol PRN Reason: Hypoglycemia Protocol Stop: 09/10/18 03:53 Docusate Sodium (Colace) 100 mg PO BID [facility] Stop: 09/12/18 20:59 Last Admin: 08/16/18 08:27 Dose: 100 mg Ferrous Gluconate (Ferrous Gluconate) 324 mg PO BIDM [facility] Stop: 09/12/18 18:30 Last Admin: 08/16/18 08:26 Dose: 324 mg Furosemide (Lasix) 20 mg PO DAILY [facility] Stop: 09/11/18 08:59 Last Admin: 08/14/18 09:53 Dose: 20 mg Galantamine Hydrobromide (Razadyne) 4 mg PO BID [facility] Stop: 09/10/18 08:59 Last Admin: 08/16/18 08:27 Dose: 4 mg Glucagon (Glucagen) 1 mg SQ UD PRN; Protocol PRN Reason: Hypoglycemia Protocol Stop: 09/10/18 03:53 Glucose (Dex4 Glucose) 4 - 8 tabs PO UD PRN; Protocol PRN Reason: Hypoglycemia Protocol Stop: 09/10/18 03:53 Glucose (Glucose 40%) 15 - 30 gm PO UD PRN; Protocol PRN Reason: Hypoglycemia Protocol Stop: 09/10/18 03:53 Hydromorphone HCl (Dilaudid) 0.25 mg IV Q4H PRN PRN Reason: Pain Stop: 08/25/18 16:34 Last Admin: 08/14/18 23:51 Dose: 0.25 mg Insulin Aspart (Novolog Flexpen) 0 units SC ACHS [facility] Stop: 09/11/18 07:29 Last Admin: 08/16/18 08:33 Dose: 4 units Insulin Glargine (Lantus Solostar Pen) 15 units SQ DAILY [facility] Stop: 09/10/18 08:59 Last Admin: 08/16/18 08:34 Dose: 15 units Latanoprost (Xalatan Oph) 1 drops OPB PM [facility] Stop: 09/10/18 20:59 Last Admin: 08/15/18 20:55 Dose: 1 drops Levothyroxine Sodium (Synthroid) 100 mcg PO DAILYBB [facility] Stop: 09/11/18 06:29 Last Admin: 08/16/18 05:56 Dose: 100 mcg Losartan Potassium (Cozaar) 50 mg PO QPM [facility] Stop: 09/12/18 20:59 Magnesium Hydroxide (Milk Of Magnesia) 30 ml PO Q6H PRN PRN Reason: Constipation Stop: 09/12/18 18:30 Last Admin: 08/15/18 18:29 Dose: 30 ml Meclizine HCl (Antivert) 12.5 mg PO TID PRN PRN Reason: Dizziness Or Vertigo Stop: 09/10/18 03:53 Miscellaneous (Order Awaiting Action) 1 ea N/A QS [facility] Stop: 09/10/18 07:59 Last Admin: 08/16/18 08:27 Dose: Not Given Miscellaneous (Carbohydrates For Hypoglycemia) 15 - 30 gm PO UD PRN PRN Reason: Hypoglycemia Treatment Stop: 09/10/18 03:53 Multivitamins (Multivitamin Tab) 1 tab PO QAM [facility] Stop: 09/13/18 08:59 Last Admin: 08/16/18 08:27 Dose: 1 tab Naloxone HCl (Narcan) 0.1 mg IV Q5M PRN PRN Reason: Oversedation/Resp Depression Stop: 09/12/18 18:30 Nitroglycerin (Nitrostat) 0.4 mg SL UD PRN PRN Reason: Chest Pain Stop: 09/10/18 03:53 Ondansetron HCl (Zofran) 4 mg IV Q6H PRN PRN Reason: Nausea And Vomiting Stop: 09/12/18 18:30 Pantoprazole Sodium (Protonix) 40 mg PO BID [facility] Stop: 09/10/18 08:59 Last Admin: 08/16/18 08:27 Dose: 40 mg Rivaroxaban (Xarelto) 15 mg PO QDD [facility] Stop: 09/13/18 16:29 Last Admin: 08/15/18 17:22 Dose: 15 mg Sennosides (Senokot) 17.2 mg PO HS [facility] Stop: 09/12/18 20:59 Last Admin: 08/15/18 20:55 Dose: 17.2 mg Tramadol HCl (Ultram) 100 mg PO Q4H PRN PRN Reason: Severe Pain Stop: 09/14/18 17:02 Tramadol HCl (Ultram) 50 mg PO Q4H PRN PRN Reason: Moderate Pain Stop: 09/13/18 11:41 Last Admin: 08/16/18 08:26 Dose: 50 mg Vitamin D (Vitamin D3) 2,000 units PO DAILY [facility] Stop: 09/14/18 08:59 Last Admin: 08/16/18 08:26 Dose: 2,000 units Resident Activity Tracking Resident Involvement: Resident Care Provided Care Provided: Adult [facility] Medicine _ (1) Closed hip fracture Encounter type: initial encounter Fracture healing: Laterality: left Qualified Code(s): S72.002A - Fracture of unspecified part of neck of left femur , initial encounter for closed fracture
--- NOTE | 2018-08-16 13:49 | Discharge Summary ---
Date of Service August 16, 2018 Admission HPI Per Admitting Provider The patient is an 88-year-old female who was in the process of changing into her [facility] bottoms, when she fell backward, hitting the back of her head on a piece of furniture, and hitting her left knee and left hip. She notes that her knee started to swell, and that she had severe pain in her left hip immediately after falling. She denies loss of consciousness. Admission Exam Per Admitting Provider The patient is awake, alert and oriented �3, well developed and well nourished, normocephalic and atraumatic, lying in bed and in no acute distress. HEENT--PERRL, EOMI, mucous membranes and oropharynx dry. Neck--supple. No JVD. No bruits. Thyroid normal, trachea midline, no adenopathy. Heart--normal S1 and S2. No murmurs, rubs or gallops. Lungs--clear bilaterally, no respiratory distress, no accessory muscle use. Abdomen--normal bowel sounds and soft. Nontender. Nondistended obese.. Extremities--no cyanosis or clubbing. No edema. There are good distal pulses b/ l. Dermatologic--normal skin turgor, normal color, no abnormal lymph nodes, no rash. Neurologic--cranial nerves II through XII grossly intact. Rheumatologic--pain over left hip on palpation. Psychiatric--normal affect. Principal Diagnosis LEFT HIP FRACTURE Discharge Exam General: Alert, oriented. No acute distress HEENT: NC/AT, PERRL, EOMI, oropharynx moist. Chest: Nontender to palpation. CV: RRR, Normal s1, s2. No murmurs appreciated Resp: Breath sounds clear bilaterally, no increased effort of breathing. No crackles/rhonchi/rales. Abdomen: BS+. Soft, nontender, nondistended. No guarding. No organomegaly appreciated. Extremities: No edema L hip and leg without swelling or erythema. No calf tenderness. Discharge Data Allergies Allergy/AdvReac Type Severity Reaction Status Date / Time capsaicin Allergy Unknown UNSURE Verified 08/11/18 16:22 Diclopak Allergy Unknown UNSURE Verified 12/03/17 11:25 diclofenac Allergy Dizziness Verified 08/11/18 01:02 metformin AdvReac Mild DIARRHEA Verified 12/03/17 11:25 methadone AdvReac Mild DIZZY Verified 08/11/18 01:02 morphine AdvReac Mild HALLUCINATI Verified 08/11/18 01:02 ON promethazine AdvReac Mild SEIZURE Verified 08/11/18 01:02 LIKE ACTIVITY" troglitazone AdvReac Mild INCREASE Verified 12/03/17 11:25 LFTs NECTARINE Allergy Mild HIVES Uncoded 10/24/16 11:26 SENSITIVE TO NARCOTICS Allergy Unknown Unknown Uncoded 08/11/18 01:02 Consultations 08/11/18 00:02 ED Decision to Admit Stat 08/11/18 08:35 Consult Orthopedic Surgery Routine 08/14/18 08:00 Consult Case Management - Discharge Planning Routine Procedures Performed Operation Date: 08/13/18 12:30 Actual Procedures p Left Hip Bipolar Hemiarthoplasty(Left) - Marlo Jeffrey DO Ordered Studies 08/10/18 22:29 CT cervical spine wo con Urgent CT head/brain wo con Urgent 08/10/18 23:01 CT abd pelvis wo con Urgent 08/11/18 10:15 CT pelvis wo con Routine Hospital Course (1) Closed hip fracture: 88yo female with PMHx of CAD, DM, HTN, HLD, arrythmia hx with closed left hip fracture after a mechanical fall. S/P surgery DAY 3 -IMPROVING -Orthopedic surgery signed off. Pt medically stable for discharge. Has bed at [facility] but there is a flu outbreak so awaiting word on whether transfer there is still possible. Transfer possible. -Scheduled tylenol for pain -Tramadol 50mg for moderate pain prn, 100mg for severe pain per request of family. -PT/OT -Xarelto restarted. CT abdomen pelvis negative for pelvic bleed while on Xarelto. Started on Vit D 08/12 and bisphosphonate recommended for outpatient. SCDs. (2) Diabetes mellitus: For now reduce Lantus from 30 units subcu daily to 15 units subcu daily. Placed on Accu-Cheks before meals and at bedtime with NovoLog coverage per scale. (3) CAD (coronary artery disease): CAD/history of stented coronary artery/hypertension/cardiac dysrhythmia-- Continue amlodipine 5 mg p.o. daily. Xarelto restarted. Hold furosemide 20 mg daily. losartan 50 mg-HELD 08/12 due to increasing BUN/creat. Started on gentle fluids. Amiodarone stopped. Consult cardiology. (4) Cardiac dysrhythmia: see above (5) Hypertension: see above (6) Hyperlipidemia LDL goal <70: continue atorvastatin (7) Gout: continue allopurinol (8) Arthritis: Arthritis/chronic back pain/polyarthralgia's/connective tissue disease-- She has been getting monthly injections from psychodramatist Dr. Ortiz, who has since left the practice. Continue usual pain medications of tramadol 50 mg p.o. every 8 hours as needed. (9) Chronic back pain: See above (10) Hypothyroidism: Continue levothyroxine 100 mcg p.o. daily (11) GERD (gastroesophageal reflux disease): Continue omeprazole 20 mg p.o. twice daily or substitute to pantoprazole Total Time Total Time Spent Total Time Spent (In Minutes): <30 Total Time Includes: Examination of the Patient, Discharge Planning and Medication Reconciliation Discharge Plan Discharge Items Patient Disposition: Transfer [facility] Reason For Visit: LEFT HIP FRACTURE Discharge Diagnosis: LEFT HIP FRACTURE Discharge Goals: Decrease discomfort, Improve disease control and Therapeutic intervention Activity: As commented below Activity Comment: TOLERATED Non-emergency contact: Primary Care Provider Call non-emergency contact if: you have any medication questions, your symptoms worsen, your pain is not controlled and you have a fever Diet: Heart Healthy Addtl Provider Instructions: [facility] DISCHARGE INSTRUCTIONS: HIP FRACTURE SELF CARE INSTRUCTIONS: A. You are to ambulate with a walker or crutches for approximately 6 weeks. B. You are WEIGHT BEARING TOLERATED on your operative lower extremity for at least 6 weeks. C. Wear low heeled shoes with non-slip soles D. Be sure that your floors are free of things that could trip you throw rugs, electrical cords, and small objects. Avoid wet and waxed floors, especially with crutches/walker/cane. E. Try to walk several times a day with rest periods between. F. You may shower 48 hours after surgery and get the incision area wet, but DO NOT soak or submerge incision area in water. (No baths, swimming pools, hot tubs ) G. You may have a large, band-aid like dressing over your incision (Silverlon). This will remain on your incision for 7 days, and then can be removed. You CAN shower with this on. If incision is leaking through the dressing, please call the office . H. Do NOT apply soap or any ointment/lotions directly over incision. I. You may use ice as needed to operative site. SPECIAL CARE INSTRUCTIONS: VERY IMPORTANT TO READ AND REVIEW A. You may be at risk for phlebitis or blood clots. a. Wear surgical stockings (DREW hose) for 2 weeks after surgery to improve circulation and reduce swelling. b. Take your home medication Xarelto or as directed. This is your blood thinner. c. If you are on Coumadin- you will have daily/weekly blood work to monitor your levels. This will be done by either your family physician/ yarn man (if you are on Coumadin chronically) versus your orthopedic surgeon. Expect a phone call the day of or the day after your blood work is drawn to adjust your dose accordingly. B. There are a few signs you need to watch for after you are home. Call [facility] at [phone] if you experience any of the following: a. If you have a temperature of 101 degrees or higher. b. Sudden increase in pain in your hip not relieved by rest or pain medication. c. Any fluid or drainage from the incision; redness of the incision. d. Shortness of breath or chest pain. B. Please call [facility] at [phone] if you have any questions or concerns about your operation or recovery. C. Call your physician if: a. Temperature is greater than 101 degrees (F). b. Pain is not relieved by prescribed pain medications. c. Increase drainage or redness from incision. d. Unanswered questions or concerns. D. Pain Medication: a. You will be prescribed pain medication upon discharge that should last till your first post-operative appointment. b. If you experience nausea and/or skin rash, discontinue this medication and contact our office for an alternative medication. c. Caution- narcotic pain medication can cause constipation. FOLLOW UP VISIT: Please call [facility] at [phone] to schedule a follow up appointment 10-14 days from the date of your surgery date. MEDICAL TEAM INSTRUCTIONS Presumed osteoporosis: -vitamin D somewhat low at 21.4 -- replacing w D3 2000 IU daily and D2 50,000 weekly for next several months - repeat D levels in about 12wks and then adjust dosing accordingly -would strongly consider empiric bisphosphonate given her fracture with relatively low trauma. alternatively, would get DEXA if confirmation needed once more outpatient information is able to be received. either way, would wait ~4wks for bone healing before proceeding anemia -appearing in the expected range for hip fracture on xarelto - hemodynamically stable throughout hospital stay. would repeat CBC in ~4-5 days then as clinically warranted renal insufficiency -now at the good end of her baseline range, did have mild creatinine bump while in hospital. resumed home meds, would repeat BMP at the time of repeat CBC, then as clinically warranted. Prescriptions: New ergocalciferol (vitamin D2) [Vitamin D2] 50,000 unit capsule 50,000 units PO .WEEKLY 90 Days Qty: 12 RF: 0 cholecalciferol (vitamin D3) [Vitamin D3] 2,000 unit capsule 2,000 units PO DAILY Qty: 90 RF: 0 tramadol 50 mg tablet 50 mg PO Q8H PRN (Reason: pain) Qty: 10 RF: 0 acetaminophen [Tylenol 8 Hour] 650 mg tablet extended release 650 mg PO Q8H PRN (Reason: fever or pain) Qty: 20 RF: 0 Continue losartan 50 mg tablet 50 mg PO DAILY RF: 0 atorvastatin 10 mg tablet 10 mg PO HS RF: 0 amlodipine 5 mg tablet 5 mg PO DAILY RF: 0 allopurinol 100 mg tablet 100 mg PO DAILY RF: 0 galantamine 4 mg tablet 4 mg PO BID RF: 0 tramadol 50 mg Tablet 50 mg PO Q8 PRN (Reason: Pain) RF: 0 omeprazole 20 mg capsule,delayed release(DR/EC) 20 mg PO BID RF: 0 furosemide 20 mg tablet 20 mg PO DAILY RF: 0 tocilizumab [Actemra] 400 mg/20 mL (20 mg/mL) Solution 750 mg IV MONTHLY RF: 0 rivaroxaban 15 mg tablet 15 mg PO QPM RF: 0 nitroglycerin [Nitrostat] 0.4 mg Tablet, Sublingual 0.4 mg Sublingual UD PRN (Reason: Chest Pain) RF: 0 insulin glargine [Lantus Solostar U-100 Insulin] 100 unit/mL (3 mL) Insulin Pen 30 unit SUBCUT DAILY RF: 0 latanoprost 0.005 % Drops 1 drp OPB PM RF: 0 albuterol sulfate [Proventil HFA] 90 mcg/actuation Hfa Aerosol Inhaler 1 - 2 puff INHALATION Q4 PRN (Reason: Shortness Of Breath Or Wheezing) RF: 0 insulin aspart U-100 [Novolog PenFill U-100 Insulin] 100 unit/mL Cartridge 1 sliding scale dose SUBCUT TIDM RF: 0 diclofenac sodium 1 % Gel 1 g TOPICAL DAILY PRN (Reason: Pain) RF: 0 triamcinolone acetonide 0.1 % Cream 1 applic TOPICAL BID RF: 0 clobetasol 0.05 % Ointment 1 applic TOPICAL WK RF: 0 colchicine [Colcrys] 0.6 mg Tablet 0.6 mg PO DAILY PRN (Reason: Pain, Severe) RF: 0 levothyroxine 100 mcg Tablet 100 mcg PO DAILY RF: 0 Discontinued amiodarone 200 mg tablet 200 mg PO DAILY RF: 0 cholecalciferol (vitamin D3) [Vitamin D3] 1,000 unit Tablet 1,000 unit PO DAILY RF: 0 cetirizine 10 mg tablet 10 mg PO DAILY RF: 0 meclizine 12.5 mg Tablet 12.5 mg PO TID PRN (Reason: Dizziness Or Vertigo) RF: 0 furosemide 20 mg tablet 20 mg PO DAILY PRN (Reason: weight gain/swelling) RF: 0 Stand-Alone Forms: [employer], [facility]/Other Patient Handouts: Surgery Prevent DVT After Discharge Orders: Discharge Order (Routine); Ordered 08/16/18 Ordered By: Tawny Fu Skilled Items Patient informed of condition?: Yes DNR: Yes Discharge Level of Care: Skilled Communicable Disease: No Discharge Prognosis: Improving Admission Data Admit Date/Time: 08/11/18 02:36 Attending Provider: Bharathi Cheng Admit Provider: oRbbi Luis Primary Care Provider: Katina Yang Other Providers: Robbi Luis ; Murphy Ziegler Service: Surgical Services Other Interventions: Discharge Summary Assessment (RN) Last Done: 08/16/18 13:54 DC Date/Time DO NOT enter until pt leaves facility: 08/16/18 15:30 Supervising Physician Co-Signing Physician Notes I personally examined the patient and verified all reyes points of history and exam, discussed case, and agree with decision making with Dr Fu. ready for SNF. no new complaints. Vitals noted, in general she is awake alert oriented no distress. HEENT normocephalic atraumatic mucous membranes are moist. Skin shows no rashes no pallor or icterus. breathing unlabored no accessory muscles age related osteoporotic hip fracture�post op and doing well - stable for SNF w rehab emphasis, continue to supplement vitamin D and repeat levels in ~12wks, outpatient osteoporosis treatment versus less likely workup, but will defer to PCP in this regard. PT/OT and rehab Presumed osteoporosis/vitamin D deficiency�her hip fracture seems to be an osteoporotic fracture, although the trauma inflicting the damage is probably borderline. Replace vitamin D as above and repeat levels in ~12wks, defer to PCP as regarding to osteoporosis treatment versus a DEXA scan Dense appearing liver�stopped amiodarone, outpt f/u w PCP and cardiology. Atrial fibrillation�resumed Xarelto, rates good off amiodarone. if rates were to increase, can utilize beta patricia for rate control if needed Otherwise as above
== END 2018-08-16 15:30 | DRG 470 ==
LOC: ED 22:17 → 2S 08-11 02:36 → SUATTDRO 08-11 02:36 → 2S 08-11 03:12 → 3N 08-11 12:28
DX: N18.4 Chronic kidney disease, stage 4 (severe); R79.89 Other specified abnormal findings of blood chemistry; G89.29 Other chronic pain; I12.9 Hypertensive chronic kidney disease with stage 1 through stage 4 chronic kidney disease, or unspecified chronic kidney disease; M19.90 Unspecified osteoarthritis, unspecified site; M35.9 Systemic involvement of connective tissue, unspecified; Z88.6 Allergy status to analgesic agent; D68.32 Hemorrhagic disorder due to extrinsic circulating anticoagulants; H53.8 Other visual disturbances; M80.052A Age-related osteoporosis with current pathological fracture, left femur, initial encounter for fracture; Z95.5 Presence of coronary angioplasty implant and graft; K21.9 Gastro-esophageal reflux disease without esophagitis; Z91.018 Allergy to other foods; Z79.4 Long term (current) use of insulin; T45.515A Adverse effect of anticoagulants, initial encounter; Z75.1 Person awaiting admission to adequate facility elsewhere; I69.398 Other sequelae of cerebral infarction; R93.2 Abnormal findings on diagnostic imaging of liver and biliary tract; Z88.5 Allergy status to narcotic agent; E11.22 Type 2 diabetes mellitus with diabetic chronic kidney disease; Z79.899 Other long term (current) drug therapy; Z79.01 Long term (current) use of anticoagulants; M10.9 Gout, unspecified; E78.5 Hyperlipidemia, unspecified; I48.91 Unspecified atrial fibrillation; W01.190A Fall on same level from slipping, tripping and stumbling with subsequent striking against furniture, initial encounter; I25.10 Atherosclerotic heart disease of native coronary artery without angina pectoris; Z88.8 Allergy status to other drugs, medicaments and biological substances; M54.9 Dorsalgia, unspecified; E03.9 Hypothyroidism, unspecified; D62 Acute posthemorrhagic anemia

== ENCOUNTER 2019-01-24 12:07 | Inpatient (IN) ==
[2019-01-24] MEDS ORDERED: HYDROmorphone INJ 0.5 MG/0.5 ML SYR IV PRN (12:39)
[2019-01-24] MEDS ORDERED: ONDANSETRON INJ 2 MG/ML 2 ML VIAL IV STA (12:39)
[2019-01-24 12:53] LABS: Basophils # (auto) 0.01 K/uL (0-0.2); Basophils % (auto) 0.2 %; Eosinophils # (auto) 0.05 K/uL (0-0.5); Hematocrit (blood only) 38.6 % (37-47); Hemoglobin 12.8 g/dL (12.0-16.0); Lymphocytes # (auto) 1.04 K/uL (1.2-3.4); Lymphocytes % (auto) 21.7 %; Mean Corpuscular Hgb Conc 33.2 g/dL (32-36); Mean Corpuscular Volume 95.5 fL (80-100); Mean Platelet Volume 10.2 fL (7.4-10.4); Monocytes # (auto) 0.41 K/uL (0.11-0.59); Monocytes % (auto) 8.5 %; Neutrophils # (auto) 3.29 K/uL (1.4-6.5); Neutrophils % (auto) 68.6 %; Platelet Count 172 K/uL (130-400); RDW Coefficient of Variation 14.9 % (11.5-14.5); RDW Standard Deviation 51.8 fL (36.4-46.3); Red Blood Count 4.04 M/uL (4.2-5.4)
[2019-01-24 13:00] LABS: INR 1.2 (0.9-1.1); Prothrombin Time 11.9 Seconds (9.0-12.0)
[2019-01-24 13:01] LABS: Alanine Aminotransferase 240 U/L (12-78); Albumin Level 3.8 gm/dl (3.4-5.0); Aspartate Aminotransferase 320 U/L (15-37); BUN Creatinine Ratio 16.4 (10-20); Blood Urea Nitrogen 29 mg/dl (7-18); Calcium 9.2 mg/dl (8.5-10.1); Carbon Dioxide 28 mmol/L (21-32); Chloride 103 mmol/L (98-107); Est GFR (African American) 30.2; Est GFR (Non-African American) 26.1; Glucose 228 mg/dl (70-99); Magnesium 2.5 mg/dl (1.8-2.4); Potassium 4.3 mmol/L (3.5-5.1); Sodium 141 mmol/L (136-145)
--- NOTE | 2019-01-24 13:10 | Emergency Department Note ---
Entered by Rain Falcon acting as a scribe for History of Present Illness General Chief complaint: Fall Stated complaint: fall Source: patient Mode of arrival: ambulatory Limitations: no limitations History of Present Illness Location: chest, abdomen (epigastric) and knee (left knee) Pain Consistency: + other (episode) Maximum Pain Intensity: 6 Associated symptoms: + chest pain, + nausea/vomiting (The patient complains of nausea. The patient denies vomiting. ) and + other (The patient complains of back pain, dizziness, left knee pain, top of foot erythema, and abdominal pain. The patient denies neck pain, melena, hematochezia, and leg swelling. ) The patient is an 88 year old female with a history of carotid arterial disease, atrial fibrillation status post cardioversion, hiatal hernia, cholecystectomy, osteoarthritis, depression, hyperlipidemia, melanoma, type 2 diabetes insulin dependent, CHF, CKD stage 4, temporal arteritis syndrome, renal artery stenosis, peripheral vascular disease, left knee replacement, left hip replacement, and hypertension who presents to the ED via EMS with complaints of an episode of a fall that occurred at 1115. The patient presents with her family. The patient states that she got up out of her chair and was walking across the room when she became dizzy. The patient notes that she then slid down on to the floor from a standing position on to her knees. She reports that she was on the floor for 25 minutes on her knees and was unable to stand up her on own. She notes that her dizziness has since resolved. The patient complains of back pain, dizziness, chest pain, epigastric pain, nausea, left knee pain, and top of foot erythema. The patient denies vomiting, melena, hematochezia, neck pain, and leg swelling. Per family, the patient is on Xarelto and Lasix. The patient denies alcohol and tobacco use. Per family, the patient walks with a walker. Home Medications Home Medications Medication Instructions Recorded Confirmed Type Novolog PenFill U-100 Insulin 1 sliding scale dose SUBCUT TIDM 08/11/18 01/24/19 History albuterol sulfate [Proventil HFA] 1 - 2 puff INHALATION Q4 PRN 08/11/18 01/24/19 History allopurinol 100 mg PO QAM 08/11/18 01/24/19 History amlodipine 5 mg PO QAM 08/11/18 01/24/19 History atorvastatin 10 mg PO HS 08/11/18 01/24/19 History clobetasol 1 applic TOPICAL WK 08/11/18 01/24/19 History colchicine [Colcrys] 0.6 mg PO DAILY PRN 08/11/18 01/24/19 History diclofenac sodium 1 g TOPICAL DAILY PRN 08/11/18 01/24/19 History furosemide 20 mg PO BID 08/11/18 01/24/19 History latanoprost 1 drp OPB PM 08/11/18 01/24/19 History levothyroxine 100 mcg PO QAM 08/11/18 01/24/19 History losartan 50 mg PO HS 08/11/18 01/24/19 History nitroglycerin [Nitrostat] 0.4 mg SUBLINGUAL UD PRN 08/11/18 01/24/19 History omeprazole 20 mg PO BID 08/11/18 01/24/19 History triamcinolone acetonide 1 applic TOPICAL BID 08/11/18 01/24/19 History acetaminophen [Tylenol 8 Hour] 650 mg PO Q8H PRN #20 tab 08/16/18 01/24/19 Rx tramadol 50 mg PO Q8H PRN #10 tab 08/16/18 01/24/19 Rx loperamide 2 mg tablet 4 mg PO UD tab 11/25/18 01/24/19 History amiodarone 200 mg tablet 100 mg PO QAM 01/05/19 01/24/19 History cetirizine 10 mg capsule 10 mg PO UD PRN #30 cap 01/05/19 01/24/19 History prednisone 5 mg tablet 5 mg PO QAM 01/05/19 01/24/19 History tocilizumab 400 mg/20 mL (20 0 mg IV MONTHLY ml 01/05/19 01/24/19 History mg/mL) intravenous solution insulin glargine (U-100) 100 20 units SUBCUT QAM ml 01/14/19 01/24/19 History unit/mL (3 mL) subcutaneous pen rivaroxaban 15 mg tablet 15 mg PO QPM #90 tab 01/20/19 01/24/19 Rx cholecalciferol (vitamin D3) 2,000 units PO QAM 01/24/19 01/24/19 History [Vitamin D3] Allergies Allergy/AdvReac Type Severity Reaction Status Date / Time capsaicin Allergy Unknown UNSURE Verified 01/24/19 13:47 Diclopak Allergy Unknown UNSURE Verified 12/03/17 11:25 diclofenac Allergy Dizziness Verified 01/24/19 13:47 metformin AdvReac Mild DIARRHEA Verified 01/24/19 13:47 methadone AdvReac Mild DIZZY Verified 01/24/19 13:47 morphine AdvReac Mild HALLUCINATI Verified 01/24/19 13:47 ON promethazine AdvReac Mild SEIZURE Verified 01/24/19 13:47 LIKE ACTIVITY" troglitazone AdvReac Mild INCREASE Verified 01/24/19 13:47 LFTs midazolam [From Versed] AdvReac Hallucinati Verified 01/25/19 14:40 ng NECTARINE Allergy Mild HIVES Uncoded 01/24/19 13:47 SENSITIVE TO NARCOTICS Allergy Unknown Unknown Uncoded 01/24/19 13:47 Phenergan TABS Allergy Unknown Uncoded 01/24/19 13:47 Past Med/Surg History Medical History Carotid arterial disease F/U with [facility]. B/L 50%. Medical Management. Atrial fibrillation status post cardioversion Currently SR on Amiodarone. Osteoarthritis Depression Hyperlipidemia LDL goal <70 History of melanoma DX 1995 ON FACE Vitamin D deficiency Type 2 diabetes mellitus treated with insulin Transient cerebral ischemia Temporal arteritis syndrome Renal artery stenosis Peripheral vascular disease Osteoporosis with fracture Obesity Mixed connective tissue disease Lumbar spinal stenosis Glaucoma Dementia Chronic kidney disease, stage 4 (severe) Bilateral carotid artery stenosis FOLLOWS WITH DR. MARTINEZ L30-40%, R 40-50% Benign positional vertigo Angina pectoris Anemia of chronic disease Allergic rhinitis Gout CAD (coronary artery disease) Diabetes mellitus Hypertension GERD (gastroesophageal reflux disease) Chronic back pain Hypothyroidism CVA (cerebral vascular accident) 2005 Right Eye, vision has line through it. No other deficits. Hiatal hernia Positive sm/CLIENT ANALYST antibody Surgical History Stented coronary artery (Resolved) History of cataract surgery History of excision of lesion FACE MALIGNANT .6 TO 1CM MELANOMA ON FACE,1995 History of hip surgery ONSET: [id number] LEFT HIP BIPOLAR HEMIARTHOPLASTY(LEFT)- FRANCISCO ESTES DO History of knee replacement ONSET: 2009 L TKA History of laparoscopy LAPAROSCOPIC LYSIS OF INTESTINAL ADHESIONS Hx of cholecystectomy S/P coronary artery stent placement Angioplasty and JAMES to mid LAD, 02/27/15 Family History Brother Colon cancer Cardiac disorder Sister Lung cancer Depression Diabetes Cardiac disorder Hypertension Lung disease Mother Cardiac disorder Hypertension Father Lung cancer Other Family history non-contributory Social History Preferred Language: Maldivian Communication Ability: Effective Visual Impairment: No Limitations Hearing Ability: Normal Beliefs That Will Affect Care: None marital status: Current Living Situation: Alone Current Living Situation Comment: LIVES ALONE, APT AT [facility] current occupational status: retired Feels Safe at Home: Yes Smoking Status: Never smoker Second Hand Exposure: No Hx Alcohol Use: No Hx Substance Use: No Dental Care, Regularly: No Seatbelt Use: always Review of Systems See HPI for pertinent positives & negatives. and A total of 10 systems reviewed and were otherwise negative Physical Exam Vital Signs Vital Signs - 24 hr 01/24/19 12:13 01/24/19 12:27 01/24/19 12:30 Temperature 36.5 C Temperature Source Oral Sepsis Recent Fever Within 48 Hours No Sepsis New/Unexplained Change in Mental Status No Sepsis Action Taken by Nursing No Action Required Pulse Rate 67 66 63 Pulse Rate [Finger] Pulse Rate from SpO2 Sensor 64 Respiratory Rate 16 26 H 22 Blood Pressure 200/102 H 187/66 H Blood Pressure [Right Arm] Blood Pressure Mean 134 106 Blood Pressure Mean [Right Arm] Pulse Oximetry 96 95 Oxygen Delivery Method Room Air Room Air Room Air Oxygen Flow Rate 01/24/19 12:31 01/24/19 12:40 01/24/19 12:50 Temperature Temperature Source Sepsis Recent Fever Within 48 Hours Sepsis New/Unexplained Change in Mental Status Sepsis Action Taken by Nursing Pulse Rate 65 69 70 Pulse Rate [Finger] Pulse Rate from SpO2 Sensor 66 69 70 Respiratory Rate 14 19 21 Blood Pressure Blood Pressure [Right Arm] Blood Pressure Mean Blood Pressure Mean [Right Arm] Pulse Oximetry 99 96 94 Oxygen Delivery Method Room Air Room Air Room Air Oxygen Flow Rate 01/24/19 13:00 01/24/19 13:01 01/24/19 13:04 Temperature Temperature Source Sepsis Recent Fever Within 48 Hours Sepsis New/Unexplained Change in Mental Status Sepsis Action Taken by Nursing Pulse Rate 68 69 Pulse Rate [Finger] 67 Pulse Rate from SpO2 Sensor 68 70 Respiratory Rate 16 19 16 Blood Pressure 175/78 H Blood Pressure [Right Arm] 175/78 H Blood Pressure Mean 110 Blood Pressure Mean [Right Arm] 110 Pulse Oximetry 90 85 L 100 Oxygen Delivery Method Room Air Room Air Nasal Cannula Oxygen Flow Rate 3 01/24/19 13:23 01/24/19 13:25 01/24/19 13:30 Temperature Temperature Source Sepsis Recent Fever Within 48 Hours Sepsis New/Unexplained Change in Mental Status Sepsis Action Taken by Nursing Pulse Rate 69 68 67 Pulse Rate [Finger] Pulse Rate from SpO2 Sensor 69 69 69 Respiratory Rate 25 H 20 17 Blood Pressure 192/61 H 180/80 H Blood Pressure [Right Arm] Blood Pressure Mean 104 113 Blood Pressure Mean [Right Arm] Pulse Oximetry 100 100 100 Oxygen Delivery Method Nasal Cannula Nasal Cannula Nasal Cannula Oxygen Flow Rate 2 2 2 01/24/19 13:31 01/24/19 13:46 01/24/19 13:47 Temperature Temperature Source Sepsis Recent Fever Within 48 Hours Sepsis New/Unexplained Change in Mental Status Sepsis Action Taken by Nursing Pulse Rate 66 67 Pulse Rate [Finger] 69 Pulse Rate from SpO2 Sensor 66 Respiratory Rate 19 13 16 Blood Pressure Blood Pressure [Right Arm] 199/70 H Blood Pressure Mean Blood Pressure Mean [Right Arm] 113 Pulse Oximetry 100 99 Oxygen Delivery Method Nasal Cannula Nasal Cannula Nasal Cannula Oxygen Flow Rate 2 2 2 01/24/19 13:48 01/24/19 13:50 01/24/19 14:00 Temperature Temperature Source Sepsis Recent Fever Within 48 Hours Sepsis New/Unexplained Change in Mental Status Sepsis Action Taken by Nursing Pulse Rate 68 70 70 Pulse Rate [Finger] Pulse Rate from SpO2 Sensor 68 70 70 Respiratory Rate 15 15 17 Blood Pressure 199/70 H 196/72 H Blood Pressure [Right Arm] Blood Pressure Mean 113 113 Blood Pressure Mean [Right Arm] Pulse Oximetry 99 98 99 Oxygen Delivery Method Nasal Cannula Nasal Cannula Nasal Cannula Oxygen Flow Rate 2 2 2 01/24/19 14:01 01/24/19 14:10 01/24/19 14:20 Temperature Temperature Source Sepsis Recent Fever Within 48 Hours Sepsis New/Unexplained Change in Mental Status Sepsis Action Taken by Nursing Pulse Rate 70 69 70 Pulse Rate [Finger] Pulse Rate from SpO2 Sensor 70 69 70 Respiratory Rate 14 19 16 Blood Pressure Blood Pressure [Right Arm] Blood Pressure Mean Blood Pressure Mean [Right Arm] Pulse Oximetry 99 99 100 Oxygen Delivery Method Nasal Cannula Nasal Cannula Nasal Cannula Oxygen Flow Rate 2 2 2 01/24/19 14:30 01/24/19 14:40 01/24/19 14:50 Temperature Temperature Source Sepsis Recent Fever Within 48 Hours Sepsis New/Unexplained Change in Mental Status Sepsis Action Taken by Nursing Pulse Rate 70 68 68 Pulse Rate [Finger] Pulse Rate from SpO2 Sensor 70 68 68 Respiratory Rate 20 14 15 Blood Pressure 181/88 H Blood Pressure [Right Arm] Blood Pressure Mean 119 Blood Pressure Mean [Right Arm] Pulse Oximetry 99 98 98 Oxygen Delivery Method Nasal Cannula Nasal Cannula Nasal Cannula Oxygen Flow Rate 2 2 2 GENERAL: Patient is awake alert in no acute distress patient is resting comfortably and showing no signs of anxiety EYES: The conjunctivae are clear. The pupils are round and reactive. EARS, NOSE, MOUTH AND THROAT: The nose is without any evidence of any deformity. Mucous membranes are moist tongue is midline NECK: The neck is nontender and supple. RESPIRATORY: Diminished breath sounds were noted throughout. There are rales noted at both bases. There is no tachypnea or conversational dyspnea. CARDIOVASCULAR: Regular rate and rhythm was noted to auscultation. There was a systolic murmur noted. GASTROINTESTINAL: The abdomen is soft. Bowel sounds are present in all quadrants. Abdomen is nontender BACK: No midline tenderness or or step-off noted range of motion in flexion extension as well as rotation no signs of muscle spasm noted MUSCULOSKELETAL/EXTREMITIES: There is no pain with range of motion testing of either hip. There was significant deformity and swelling to the left knee. Patient is unable to extend the leg off of the bed. The area of the patella is very irregular and could represent an underlying fracture. SKIN: There is no obvious evidence of any rash. Trace pedal edema was noted bilaterally. Pulses were symmetric in both feet. NEUROLOGIC: Patient is awake alert and oriented x3. Course 1231: Past medical records reviewed. The patient was evaluated in room B02. A complete history and physical examination was performed. 1359: I reviewed the patient's case with Modesta Pink Hospitalist - [facility]. She will evaluate the patient for further management. 1400: I reviewed the patient's case with Dr. Bose - Ortho Surgery. We reviewed the patients X-Rays together. Consultations Consultation #1: [id number]: I reviewed the patient's case with Modesta Pink Hospitalist - [facility]. She will evaluate the patient for further management. Time: 13:59 Consultation #2: [id number]: I reviewed the patient's case with Dr. Bose - Ortho Surgery. We reviewed the patients X-Rays together. Time: 14:00 Administered Medications Acetaminophen (Tylenol) 650 mg PO Q4H PRN PRN Reason: pain/fever Stop: 02/23/19 16:42 Last Admin: 01/25/19 07:31 Dose: 650 mg Documented by: [id number] [facility]) [facility] [place] Stop: 02/24/19 08:59 Last Admin: 01/25/19 09:39 Dose: 100 mg Documented by: [id number] Amiodarone HCl (Cordarone) 100 mg PO QAM [facility] Stop: 02/24/19 08:59 Last Admin: 01/25/19 09:38 Dose: 100 mg Documented by: [id number] Amlodipine Besylate (Norvasc) [facility] [place] Stop: 02/23/19 16:42 Last Admin: 01/25/19 09:38 Dose: 5 mg Documented by: [id number] Admin: 01/24/19 18:18 Dose: 5 mg Documented by: [id number] Atorvastatin Calcium (Lipitor) 10 mg PO HS [facility] Stop: 02/23/19 20:59 Last Admin: 01/24/19 20:59 Dose: 10 mg Documented by: [id number] Parenteral Electrolytes (Normosol-R) 1,000 mls @ 80 mls/hr IV .[id number] [facility] Stop: 01/26/19 00:59 Last Admin: 01/25/19 13:16 Dose: 80 mls/hr Documented by: [id number] Insulin Aspart (Novolog Flexpen) 0 units SC ACHS [facility] Stop: 02/23/19 16:42 Last Admin: 01/25/19 12:59 Dose: 4 units Documented by: [id number] Cosigned by: [id number] Admin: 01/25/19 09:35 Dose: 2 units Documented by: [id number] Cosigned by: [id number] Admin: 01/24/19 21:04 Dose: 2 units Documented by: [id number] Cosigned by: [id number] Admin: 01/24/19 18:38 Dose: 7 units Documented by: [id number] Cosigned by: [id number] Latanoprost (Xalatan Oph) 1 drops OPB PM [facility] Stop: 02/23/19 20:59 Last Admin: 01/24/19 21:03 Dose: 1 drops Documented by: [id number] Levothyroxine Sodium (Synthroid) 100 mcg PO DAILYBB [facility] Stop: 02/24/19 06:29 Last Admin: 01/25/19 05:44 Dose: 100 mcg Documented by: [id number] Losartan Potassium (Cozaar) 50 mg PO HS [facility] Stop: 02/23/19 20:59 Last Admin: 01/24/19 21:02 Dose: 50 mg Documented by: [id number] Miscellaneous (Order Awaiting Action) 1 ea N/A QS [facility] Stop: 02/24/19 00:00 Last Admin: 01/25/19 16:06 Dose: Not Given Documented by: [id number] Admin: 01/25/19 09:36 Dose: Not Given Documented by: [id number] Admin: 01/24/19 23:53 Dose: Not Given Documented by: [id number] Pantoprazole Sodium (Protonix) 40 mg PO BID [facility] Stop: 02/23/19 20:59 Last Admin: 01/25/19 09:38 Dose: 40 mg Documented by: [id number] Admin: 01/24/19 20:59 Dose: 40 mg Documented by: [id number] Tramadol HCl (Ultram) 50 - 100 mg PO Q8H PRN PRN Reason: pain Stop: 02/23/19 20:24 Last Admin: 01/24/19 20:56 Dose: 50 mg Documented by: [id number] Triamcinolone Acetonide (Kenalog 0.1%) 1 appln TOP BID [facility] Stop: 02/23/19 20:59 Last Admin: 01/25/19 09:40 Dose: Not Given Documented by: [id number] Admin: 01/24/19 21:07 Dose: Not Given Documented by: [id number] Discontinued Medications Al Hydrox/Mg Hydrox/Simethicone () Confirm Administered Dose 1 dose PO .STK-MED ONE Stop: 01/24/19 15:36 Last Admin: 01/24/19 15:36 Dose: 1 dose Documented by: [id number] Al Hydrox/Mg Hydrox/Simethicone 18 ml/ Lidocaine HCl 6 ml/ BARCODE IDENTIFIER 1 ea 0 ml PO ONE ONE Stop: 01/24/19 14:57 Last Admin: 01/24/19 15:36 Dose: Not Given Documented by: [id number] Fentanyl Citrate (Fentanyl Citrate) 25 mcg IV NOW ONE Stop: 01/24/19 14:15 Last Admin: 01/24/19 14:18 Dose: 25 mcg Documented by: [id number] Furosemide (Lasix) 20 mg PO [id number] SNOW Stop: 02/23/19 16:59 Last Admin: 01/25/19 09:38 Dose: 20 mg Documented by: [id number] Admin: 01/24/19 18:19 Dose: Not Given Documented by: [id number] Hydromorphone HCl (Dilaudid) 0.25 mg IV Q15M PRN PRN Reason: Pain Stop: 02/07/19 12:38 Last Admin: 01/24/19 12:46 Dose: 0.25 mg Documented by: [id number] Ondansetron HCl (Zofran) 4 mg IV NOW STA Stop: 01/24/19 12:40 Last Admin: 01/24/19 12:46 Dose: 4 mg Documented by: [id number] Prednisone (Prednisone) 5 mg PO QAM [facility] Stop: 01/25/19 09:01 Last Admin: 01/25/19 09:39 Dose: 5 mg Documented by: [id number] Tramadol HCl (Ultram) 50 mg PO Q8H PRN PRN Reason: pain Stop: 02/23/19 16:42 Last Admin: 01/24/19 20:17 Dose: 50 mg Documented by: [id number] Medical Decision Making Differential Diagnosis Differential diagnoses Major intracranial, cervical, spinal, thoracic, abdominal, pelvic, neurologic injury, fracture, contusion, sprain, strain, laceration, abrasions, appendicitis, diverticulitis, PUD, biliary pathology, UTI, pancreatitis, obstruction, mesenteric ischemia, aortic pathology, infections, inflammatory bowel disease, renal colic, as well as others were entertained. Medical Records Attestation: I reviewed the patient's medical records. Home Medications Current Medication List: was personally reviewed by me Laboratory Data Attestation: I reviewed the patient's lab results. Result diagrams: 01/24/19 12:29 01/25/19 06:46 Lab Results 01/24/19 01/24/19 01/24/19 Range/Units 12:29 12:29 12:29 WBC 4.80 (4.8-10.8) K/uL RBC 4.04 L (4.2-5.4) M/uL Hgb 12.8 (12.0-16.0) g/dL Hct 38.6 (37-47) % MCV 95.5 (80-100) fL MCH 31.7 (25-34) pg MCHC 33.2 (32-36) g/dL RDW Std Deviation 51.8 H (36.4-46.3) fL RDW Coeff of Daniel 14.9 H (11.5-14.5) % Plt Count 172 (130-400) K/uL MPV 10.2 (7.4-10.4) fL Immature Gran % (Auto) 0.0 % Neut % (Auto) 68.6 % Lymph % (Auto) 21.7 % [place] % (Auto) 8.5 % Eos % (Auto) 1.0 % Baso % (Auto) 0.2 % Immature Gran # (Auto) 0.00 (0.00-0.02) K/uL Neut # (Auto) 3.29 (1.4-6.5) K/uL Lymph # (Auto) 1.04 L (1.2-3.4) K/uL [place] # (Auto) 0.41 (0.11-0.59) K/uL Eos # (Auto) 0.05 (0-0.5) K/uL Baso # (Auto) 0.01 (0-0.2) K/uL PT 11.9 (9.0-12.0) Seconds INR 1.2 H (0.9-1.1) Sodium 141 (136-145) mmol/L Potassium 4.3 (3.5-5.1) mmol/L Chloride 103 (98-107) mmol/L Carbon Dioxide 28 (21-32) mmol/L Anion Gap 10.0 (3-11) BUN 29 H (7-18) mg/dl Creatinine 1.74 H (0.6-1.2) mg/dl Est Cr Clr Drug Dosing 24.0 ml/min Est GFR ( Amer) 30.2 Est GFR (Non-Af Amer) 26.1 BUN/Creatinine Ratio 16.4 (10-20) Glucose 228 H (70-99) mg/dl Calcium 9.2 (8.5-10.1) mg/dl Magnesium 2.5 H (1.8-2.4) mg/dl Total Bilirubin 2.2 H (0.2-1) mg/dl AST 320 H (15-37) U/L ALT 240 H (12-78) U/L Alkaline Phosphatase 143 H (45-117) U/L Troponin I < 0.015 (0-0.045) ng/ml Total Protein 6.7 (6.4-8.2) gm/dl Albumin 3.8 (3.4-5.0) gm/dl Globulin 2.9 (2.5-4.0) gm/dl Albumin/Globulin Ratio 1.3 (0.9-2) TSH 0.689 (0.300-4.500) uIu/ml Imaging Data Radiologist's Impression: Radiology results as stated below per my review and the radiologist's interpretation: CT head/brain wo con CT DOSE: HISTORY: Trauma fall TECHNIQUE: Multiaxial CT images of the head were performed without the use of intravenous contrast. A dose lowering technique was utilized adhering to the principles of ALARA. Comparison: None. Findings: The paranasal sinuses and mastoid air cells are clear. The calvarium and skull base are intact. The ventricles and sulci are within normal limits. There is no mass, hematoma, midline shift, or acute infarct. Impression: No acute intracranial abnormality. The above report was generated using voice recognition software. It may contain grammatical, syntax or spelling errors. Electronically signed by: Ras Morrow M.D. 01/24/2019 1:50 PM Dictated: 01/24/19 1349 Transcribed: 01/24/[address] cervical spine wo con CT DOSE: 2226.87 mGy.cm HISTORY: Trauma fall TECHNIQUE: Multiaxial CT images of the cervical spine were performed and reformatted in the sagittal and coronal plane without the use of contrast. A dose lowering technique was utilized adhering to the principles of ALARA. COMPARISON: None. FINDINGS: No fractures. No subluxation. Prevertebral soft tissues and the C1-C2 interval are intact. No pneumothorax. Generalized degenerative change. IMPRESSION: No fractures within the cervical spine. Generalized degenerative change. The above report was generated using voice recognition software. It may contain grammatical, syntax or spelling errors. Electronically signed by: Ras Morrow M.D. 01/24/2019 1:52 PM Dictated: 01/24/19 1350 Transcribed: 01/24/[address] abd pelvis wo con CT DOSE: HISTORY: Trauma fall TECHNIQUE: Multiaxial CT images of the abdomen and pelvis were performed without contrast. A dose lowering technique was utilized adhering to the principles of ALARA. COMPARISON STUDY: 08/10/2018 FINDINGS: Lung bases are clear. Mild chronic prominence of the biliary ductal system. Choledocholithiasis is again noted. Kidneys are considered negative for hydronephrosis. Bowel pattern is nonobstructive. No evidence for free fluid within the abdominal or pelvic region. Latter is midline. Interval total hip arthroplasty. IMPRESSION: No acute process in the abdomen or pelvis. Interval total left hip arthroplasty. The above report was generated using voice recognition software. It may contain grammatical, syntax or spelling errors. Electronically signed by: Ras Morrow M.D. 01/24/2019 1:55 PM Dictated: 01/24/19 1352 Transcribed: 01/24/19 1352 XR chest 1V portable CLINICAL HISTORY: weakness dyspnea COMPARISON STUDY: 08/10/2018 FINDINGS: The bones soft tissues and hemidiaphragms are normal. The cardiomediastinal silhouette is normal. The lungs are clear. The pulmonary vasculature is normal. IMPRESSION: Negative chest. The above report was generated using voice recognition software. It may contain grammatical, syntax or spelling errors. Electronically signed by: Ras Morrow M.D. 01/24/2019 1:30 PM Dictated: 01/24/19 1330 Transcribed: 01/24/19 1330 XR pelvis 1-2V routine CLINICAL HISTORY: fall trauma COMPARISON: 08/13/2018 DISCUSSION: The bones and joint spaces appear intact. There is no evidence of fracture, dislocation or bony disease. Post total left hip arthroplasty in good position. IMPRESSION: No acute process. The above report was generated using voice recognition software. It may contain grammatical, syntax or spelling errors. Electronically signed by: Ras Morrow M.D. 01/24/2019 1:27 PM Dictated: 01/24/19 1324 Transcribed: 01/24/19 1324 XR knee LT 2V routine CLINICAL HISTORY: fall trauma. Pain. COMPARISON: 08/10/2018 DISCUSSION: Displaced oblique fracture distal femur. Fractures displaced anteriorly to a position superior to the patella. Estimated anterior displacemen t is 2 cm. Fracture extends to position deep to the anterior aspect of the metallic prosthetic. Soft tissue edema IMPRESSION: Displaced fracture distal femur extending superior to the patella. This involves bony structures deep to the anterior aspect of the femoral total knee prosthetic. The above report was generated using voice recognition software. It may contain grammatical, syntax or spelling errors. Electronically signed by: Ras Morrow M.D. 01/24/2019 1:29 PM Dictated: 01/24/19 1327 Transcribed: 01/24/19 1327 ECG Data Attestation: I personally reviewed and interpreted this ECG as follows: Indication: other (trauma) Rate (beats per minute): 69 Rhythm: sinus rhythm Findings: + other (No acute ST segment) and + 1st degree AV block; no ectopy Comparison ECG Date: from (08/11/2018) Change: no significant change Blood Pressure Blood Pressure Findings: Elevated blood pressure Blood Pressure Disposition: further management by hospitalist MDM Narrative The patient is an 88-year-old female who presented to the emergency department with family members for an evaluation after a fall. Patient states that she started having chest discomfort and went to go to the bathroom. The patient sta aida that she went to go to the bathroom but then had a fall onto her left leg. She states that her left leg folded under her body and she had significant knee pain. She was unable to ambulate or bear weight. Her physical exam was consistent with a very significant knee injury. Her x-rays revealed a distal femur fracture which was just above the knee prosthesis. The patient was treated with IV pain medication but had a very significant respiratory depression with a small amount of pain medication. I discussed the patient's laboratory and radiographic studies with her. I also discussed her case with [facility] as well as the on-call orthopedic group of their choice. The patient is to be evaluated for further medical management as well as medical clearance. She was feeling much better on subsequent reevaluation. Likely she will require surgical management of this left knee injury. Impression & Plan Chest pain, Fall, Closed fracture of left distal femur, Abdominal pain Discharge Plan Visit Data *Final* Discharge Date/Time: 01/24/19 16:00 Chief Complaint: Fall Stated Complaint: fall ED Provider: Peng Casanova Discharge Problem: Chest pain, Fall, Closed fracture of left distal femur, Abdominal pain Patient Disposition: Admitted As Inpatient Discharge Instructions Interventions: ED Discharge Assessment Last Done: 01/24/19 16:00 Discharge Problem: Chest pain Qualifiers: Chest pain type: unspecified Qualified Code(s): R07.9 - Chest pain, unspecified Fall Qualifiers: Encounter type: initial encounter Qualified Code(s): W19.XXXA - Unspecified fall, initial encounter Closed fracture of left distal femur Qualifiers: Encounter type: initial encounter Fracture morphology: unspecified fracture morphology Qualified Code(s): S72.402A - Unspecified fracture of lower end of left femur, initial encounter for closed fracture Abdominal pain Qualifiers: Abdominal location: unspecified location Qualified Code(s): R10.9 - Unspecified abdominal pain The scribe's documentation has been prepared under my direction and personally reviewed by me in its entirety. I confirm that the note above accurately reflects all work, treatment, procedures, and medical decision making performed by me.
[2019-01-24 13:12] LABS: Albumin Globulin Ratio 1.3 (0.9-2); Alkaline Phosphatase 143 U/L (45-117); Bilirubin,Total 2.2 mg/dl (0.2-1); Globulin 2.9 gm/dl (2.5-4.0); Total Protein 6.7 gm/dl (6.4-8.2); Troponin I < 0.015 ng/ml (0-0.045)
--- NOTE | 2019-01-24 13:28 | XRay Report ---
XR pelvis 1-2V routine CLINICAL HISTORY: fall trauma COMPARISON: 08/13/2018 DISCUSSION: The bones and joint spaces appear intact. There is no evidence of fracture, dislocation o r bony disease. Post total left hip arthroplasty in good position. IMPRESSION: No acute process. The above report was generated using voice recognition software. It may contain grammatical, syntax or spelling errors. Electronically signed by: Ras Morrow M.D. 01/24/2019 1:27 PM
--- NOTE | 2019-01-24 13:30 | XRay Report ---
XR knee LT 2V routine CLINICAL HISTORY: fall trauma. Pain. COMPARISON: 08/10/2018 DISCUSSION: Displaced oblique fracture distal femur. Fractures displaced anteriorly to a position sup erior to the patella. Estimated anterior displacement is 2 cm. Fracture extends to position deep to the anterior aspect of the metallic prosthetic. Soft tissue von a IMPRESSION: Displaced fracture distal femur extending superior to the patella. This involves bony str uctures deep to the anterior aspect of the femoral total knee prosthetic. The above report was generated using voice recognition software. It may contain grammatical, syntax or spelling errors. Electronically signed by: Ras Morrow M.D. 01/24/2019 1:29 PM
--- NOTE | 2019-01-24 13:31 | XRay Report ---
XR chest 1V portable CLINICAL HISTORY: weakness dyspnea COMPARISON STUDY: 08/10/2018 FINDINGS: The bones soft tissues and hemidiaphragms are normal. The cardiomediastinal silhouette is n ormal. The lungs are clear. The pulmonary vasculature is normal. IMPRESSION: Negative chest. The above report was generated using voice recognition software. It may contain grammatical, syntax or spelling errors. Electronically signed by: Ras Morrow M.D. 01/24/2019 1:30 PM
--- NOTE | 2019-01-24 13:51 | CT Scan Report ---
CT head/brain wo con CT DOSE: HISTORY: Trauma fall TECHNIQUE: Multiaxial CT images of the head were performed without the use of intravenous contrast. A dose lowering technique was utilized adhering to the principles of ALARA. Comparison: None. Findings: The paranasal sinuses and mastoid air cells are clear. The calvarium and skull base are int act. The ventricles and sulci are within normal limits. There is no mass, hematoma, midline shift, or acute infarct. Impression: No acute intracranial abnormality. The above report was generated using voice recognition software. It may contain grammatical, syntax or spelling errors. Electronically signed by: Ras Morrow M.D. 01/24/2019 1:50 PM
--- NOTE | 2019-01-24 13:53 | CT Scan Report ---
CT cervical spine wo con CT DOSE: 2226.87 mGy.cm HISTORY: Trauma fall TECHNIQUE: Multiaxial CT images of the cervical spine were performed and reformatted in the sagittal and coronal plane without the use of contrast. A dose lowering technique was utilized adhering to th e principles of ALARA. COMPARISON: None. FINDINGS: No fractures. No subluxation. Prevertebral soft tissues and the C1-C2 interval are intact. No pneumothorax. Generalized degenerative change. IMPRESSION: No fractures within the cervical spine. Generalized degenerative change. The above report was generated using voice recognition software. It may contain grammatical, syntax or spelling errors. Electronically signed by: Ras Morrow M.D. 01/24/2019 1:52 PM
--- NOTE | 2019-01-24 13:56 | CT Scan Report ---
CT abd pelvis wo con CT DOSE: HISTORY: Trauma fall TECHNIQUE: Multiaxial CT images of the abdomen and pelvis were performed without contrast. A dose lo wering technique was utilized adhering to the principles of ALARA. COMPARISON STUDY: 08/10/2018 FINDINGS: Lung bases are clear. Mild chronic prominence of the biliary ductal system. Choledocholithi asis is again noted. Kidneys are considered negative for hydronephrosis. Bowel pattern is nonobstructive. No evidence for free fluid within the abdominal or pelvic region. Latter is midline. Interval total hip arthroplasty. IMPRESSION: No acute process in the abdomen or pelvis. Interval total left hip arthroplasty. The above report was generated using voice recognition software. It may contain grammatical, syntax or spelling errors. Electronically signed by: Ras Morrow M.D. 01/24/2019 1:55 PM
[2019-01-24] MEDS ORDERED: fentaNYL citrate 100 MCG/2 ML VIAL IV ONE (14:14)
[2019-01-24] MEDS ORDERED: ALUMINUM/MAGNESIUM SUSP 18 ML, LIDOCAINE HCL VISCOUS 2% 6 ML, BARCODE IDENTIFIER 1 EA PO ONE (14:56)
--- NOTE | 2019-01-24 15:03 | History & Physical Report ---
Date of Service January 24, 2019 Assessment & Plan (1) Fall: now with L distal femur fracture ortho c/s pending Will likely be a technically difficult repair given recent hip replacement and hx of prior knee replacement Will need PT/OT and likely rehab Pt takes xarelto, last dose 01/23 HS, will hold (2) Epigastric abdominal pain: Hx of reflux Similar episode on resolved with TUMS, however today it did not GI cocktail trial Actemra can cause gastritis, pt was on prior but had been off for some time prior to resuming with most recent dose on Friday Pt had also been on prednisone, so possibly related to using both together? Tomorrow is last dose of prednisone Clears if improves with GI cocktail CTAP noted for cholidocholithiasis--no RUQ, pancreas WNL (3) Atrial fibrillation status post cardioversion: continue home meds Holding xarelto as above (4) Depression: Hx of medication use, but has been off of medication for this for several years and no issues (5) Hyperlipidemia LDL goal <70: continue home meds (6) Type 2 diabetes mellitus treated with insulin: Holding basiglar given uncertain PO status SSI PRN (7) Temporal arteritis syndrome: Last dose is to be 5mg on 01/25 (8) Chronic kidney disease, stage 4 (severe): Monitor Baseline is 1.5-1.7 Not a current HD pt but states there are plans for a fistula to be created in preparation for possible future needs (9) Bilateral carotid artery stenosis: Monitored with US Q6mo, currently at 50-69% stenosis (10) Hypertension: continue home meds Missed AM meds, will give dose now (11) GERD (gastroesophageal reflux disease): continue home meds (12) Hypothyroidism: continue home meds Takes synthroid at same time as PPI Advised separate dosing TSH WNL (13) Sacral decubitus ulcer: Hx of recent issues post-op Wound care c/s pending for assessment given new fracture (14) DVT prophylaxis: SCDs given OR History of Present Illness Primary Care Provider: Katina Yang DO 88 y/o F who was brought to the ED s/p fall. Pt states she woke around 3a with epigastric pain. She states she had a similar episode on after eating too fast. She took TUMS and this resolved that episode, so she tried that again with the episode early this AM. It did not improve. She felt bloated and gassy as well. She took nitro x3 and no help either, so she called her daughter. During all of this, pt became lightheaded and felt to her knees. She was on the ground for about 20 minutes and could not get up due to L LE pain. She has not had n/v/d, cramping. She has been able to eat. She had no issues yesterday and had a normal day for herself. Pt states she is having ongoing epigastric pain. She does not have chest pain. Pt had a CTAP on 08/10/18 which showed enlarged CBD s/p cholectomy and a 6mm stone. She did take her insulin this AM, but no other medications. She has not eaten yet today. Her last xarelto use was last night. Pt had a fall about 6 months ago that was purely mechanical and resulted in a L hip fracture. Family states that during her post-op period she developed several pressure ulcers that were very slow to heal. Pt follows with rheumatology for temporal arteritis. She had been on actemra for a little over a year and it was decided to see how she did without it. After several months, her headaches returned. She was put back on actemra with her second dose being last Friday. She was also put on steroids, low dose. She is finishing them at 5mg QOD and her last dose it to be tomorrow. During last admission, pt's amiodarone was stopped due to increased cr. She became sx with her afib and this was restarted at 200mg after her cr had improved. Her cr was noted recently to increase again, so this dose was decreased to 100mg about 12 days ago. She does feel better from this standpoint. Pt with A1c elevated recently. Her basiglar dose was increased to 20units about 4 days ago. Pt denies fever, SOB, c/d. Allergies Allergy/AdvReac Type Severity Reaction Status Date / Time capsaicin Allergy Unknown UNSURE Verified 01/24/19 13:47 Diclopak Allergy Unknown UNSURE Verified 12/03/17 11:25 diclofenac Allergy Dizziness Verified 01/24/19 13:47 metformin AdvReac Mild DIARRHEA Verified 01/24/19 13:47 methadone AdvReac Mild DIZZY Verified 01/24/19 13:47 morphine AdvReac Mild HALLUCINATI Verified 01/24/19 13:47 ON promethazine AdvReac Mild SEIZURE Verified 01/24/19 13:47 LIKE ACTIVITY" troglitazone AdvReac Mild INCREASE Verified 01/24/19 13:47 LFTs NECTARINE Allergy Mild HIVES Uncoded 01/24/19 13:47 SENSITIVE TO NARCOTICS Allergy Unknown Unknown Uncoded 01/24/19 13:47 Phenergan TABS Allergy Unknown Uncoded 01/24/19 13:47 Home Medications Home Medications Medication Instructions Recorded Confirmed Type Novolog PenFill U-100 Insulin 1 sliding scale dose SUBCUT TIDM 08/11/18 01/24/19 History albuterol sulfate [Proventil HFA] 1 - 2 puff INHALATION Q4 PRN 08/11/18 01/24/19 History allopurinol 100 mg PO QAM 08/11/18 01/24/19 History amlodipine 5 mg PO QAM 08/11/18 01/24/19 History atorvastatin 10 mg PO HS 08/11/18 01/24/19 History clobetasol 1 applic TOPICAL WK 08/11/18 01/24/19 History colchicine [Colcrys] 0.6 mg PO DAILY PRN 08/11/18 01/24/19 History diclofenac sodium 1 g TOPICAL DAILY PRN 08/11/18 01/24/19 History furosemide 20 mg PO BID 08/11/18 01/24/19 History latanoprost 1 drp OPB PM 08/11/18 01/24/19 History levothyroxine 100 mcg PO QAM 08/11/18 01/24/19 History losartan 50 mg PO HS 08/11/18 01/24/19 History nitroglycerin [Nitrostat] 0.4 mg SUBLINGUAL UD PRN 08/11/18 01/24/19 History omeprazole 20 mg PO BID 08/11/18 01/24/19 History triamcinolone acetonide 1 applic TOPICAL BID 08/11/18 01/24/19 History acetaminophen [Tylenol 8 Hour] 650 mg PO Q8H PRN #20 tab 08/16/18 01/24/19 Rx tramadol 50 mg PO Q8H PRN #10 tab 08/16/18 01/24/19 Rx loperamide 2 mg tablet 4 mg PO UD tab 11/25/18 01/24/19 History amiodarone 200 mg tablet 100 mg PO QAM 01/05/19 01/24/19 History cetirizine 10 mg capsule 10 mg PO UD PRN #30 cap 01/05/19 01/24/19 History prednisone 5 mg tablet 5 mg PO QAM 01/05/19 01/24/19 History tocilizumab 400 mg/20 mL (20 0 mg IV MONTHLY ml 01/05/19 01/24/19 History mg/mL) intravenous solution insulin glargine (U-100) 100 20 units SUBCUT QAM ml 01/14/19 01/24/19 History unit/mL (3 mL) subcutaneous pen rivaroxaban 15 mg tablet 15 mg PO QPM #90 tab 01/20/19 01/24/19 Rx cholecalciferol (vitamin D3) 2,000 units PO QAM 01/24/19 01/24/19 History [Vitamin D3] Past Med/Surg History Medical History Carotid arterial disease F/U with [facility]. B/L 50%. Medical Management. Atrial fibrillation status post cardioversion Currently SR on Amiodarone. Osteoarthritis Depression Hyperlipidemia LDL goal <70 History of melanoma DX 1995 ON FACE Vitamin D deficiency Type 2 diabetes mellitus treated with insulin Transient cerebral ischemia Temporal arteritis syndrome Renal artery stenosis Peripheral vascular disease Osteoporosis with fracture Obesity Mixed connective tissue disease Lumbar spinal stenosis Glaucoma Dementia Chronic kidney disease, stage 4 (severe) Bilateral carotid artery stenosis FOLLOWS WITH DR. MARTINEZ L30-40%, R 40-50% Benign positional vertigo Angina pectoris Anemia of chronic disease Allergic rhinitis Gout CAD (coronary artery disease) Diabetes mellitus Hypertension GERD (gastroesophageal reflux disease) Chronic back pain Hypothyroidism CVA (cerebral vascular accident) 2005 Right Eye, vision has line through it. No other deficits. 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 Surgical History Stented coronary artery (Resolved) History of cataract surgery History of excision of lesion FACE MALIGNANT .6 TO 1CM MELANOMA ON FACE,1995 History of hip surgery ONSET: [id number] LEFT HIP BIPOLAR HEMIARTHOPLASTY(LEFT)- FRANCISCO ESTES DO History of knee replacement ONSET: 2009 L TKA History of laparoscopy LAPAROSCOPIC LYSIS OF INTESTINAL ADHESIONS Hx of cholecystectomy S/P coronary artery stent placement Angioplasty and JAMES to mid LAD, 02/27/15 Family History Brother Colon cancer Cardiac disorder Sister Lung cancer Depression Diabetes Cardiac disorder Hypertension Lung disease Mother Cardiac disorder Hypertension Father Lung cancer Other Family history non-contributory Social History Preferred Language: Niuean Communication Ability: Effective Visual Impairment: No Limitations Hearing Ability: Normal Beliefs That Will Affect Care: None marital status: / Current Living Situation: Alone Current Living Situation Comment: LIVES ALONE, APT AT [facility] current occupational status: retired Feels Safe at Home: Yes Smoking Status: Never smoker Hx Alcohol Use: No Hx Substance Use: No Dental Care, Regularly: No Seatbelt Use: always Review of Systems Review of Systems: Pertinent positives and negatives reviewed in HPI--all others negative Physical Exam Constitutional: WD/WN, vitals as above Eyes: normal visual esqueda by confrontation and + anicteric sclerae Neck: normal visual inspection and trachea midline Respiratory: normal respiratory effort, lungs clear to auscultation Cardiovascular: Rate/Rhythm: regular rate and regular rhythm Gastrointestinal (Abdomen): Inspection/Auscultation: abdomen not distended Percussion/Palpation: + abdomen tender (epigastric) and abdomen soft Musculoskeletal: Head/Neck/Chest: normocephalic and head atraumatic negative for edema, peripheral pulses intact Skin: no rashes, warm and dry Neurologic: awake; not confused Speech / Cognition: normal speech Psychiatric: A+Ox3, euthymic affect Results & Data Vital Signs (Past 12 Hours) Vital Signs Temp Pulse Pulse Resp BP BP Pulse Ox 01/24/19 13:46 69 13 199/70 H 99 01/24/19 13:04 67 16 175/78 H 100 01/24/19 12:13 36.5 C 64 16 200/102 H 96 Diagnostic Findings L knee XR: displaced femur fracture Pelvic XR: neg for acute CT head: neg for acute CXR: neg for acute CT c-spine: neg for acute CTAP: ongoing cholidocholithiasis Code Status & VTE Plan Code Status Full code, although pt states no prolonged mechanical life support, feeding tubes, etc VTE Prophylaxis Plan VTE Prophylaxis will be ordered: Yes PG Care Time/CCT Total # of Minutes Spent Total Time Spent with Patient: Total time spent is greater than 50% in coordination of care (as documented) at patient's floor/unit and/or counseling patient: (1) Fall Encounter type: initial encounter Qualified Code(s): W19.XXXA - Unspecified fall, initial encounter
[2019-01-24] MEDS ORDERED: GI COCKTAIL ED USE PO ONE (15:35)
[2019-01-24] MEDS ORDERED: CARBOHYDRATES FOR HYPOGLYCEMIA PO PRN (16:43)
[2019-01-24] MEDS ORDERED: MoRPHine SULFATE 2 MG/ML CARP IV PRN (16:43)
[2019-01-24] MEDS ORDERED: CETIRIZINE HCL 10 MG TABLET PO PRN (16:43)
[2019-01-24] MEDS ORDERED: DEXTROSE 50% 50 ML SYRINGE IV PRN (16:43)
[2019-01-24] MEDS ORDERED: CLOBETASOL PROPIONATE 0.05% OINT 15 GM TUBE EXT SCH (16:43)
[2019-01-24] MEDS ORDERED: COLCHICINE 0.6 MG TAB PO PRN (16:43)
[2019-01-24] MEDS ORDERED: GLUCOSE 40% GEL 15 GM TUBE PO PRN (16:43)
[2019-01-24] MEDS ORDERED: TRAMADOL HCL 50 MG TABLET PO PRN (16:43)
[2019-01-24] MEDS ORDERED: LOPERAMIDE HCL 2 MG CAP PO PRN (16:43)
[2019-01-24] MEDS ORDERED: MAGNESIUM HYDROXIDE SUSP 30 ML UDC PO PRN (16:43)
[2019-01-24] MEDS ORDERED: ONDANSETRON INJ 2 MG/ML 2 ML VIAL IV PRN (16:43)
[2019-01-24] MEDS ORDERED: GLUCOSE 10 TABS/TUBE PO PRN (16:43)
[2019-01-24] MEDS ORDERED: ACETAMINOPHEN 325 MG TAB PO PRN (16:43)
[2019-01-24] MEDS ORDERED: NITROGLYCERIN SL 0.4 MG/TAB TAB SL PRN (16:43)
[2019-01-24] MEDS ORDERED: GLUCAGON FOR INJ 1 MG VIAL SQ PRN (16:43)
[2019-01-24] MEDS ORDERED: ALBUTEROL HFA 8 GM INHALER INH PRN (16:43)
[2019-01-24] MEDS ORDERED: DICLOFENAC SOD 1% GEL 100 GM TUBE EXT PRN (16:43)
[2019-01-24] MEDS ORDERED: ALUMINUM/MAGNESIUM SUSP 72 ML, LIDOCAINE HCL VISCOUS 2% 24 ML, BARCODE IDENTIFIER 1 EA PO PRN (16:57)
[2019-01-24] MEDS: AMLODIPINE BESYLATE 5 MG TAB PO SCH (18:18)
[2019-01-24] MEDS: FUROSEMIDE 20 MG TAB PO SCH (18:19)
[2019-01-24] MEDS: INSULIN ASPART 100 UNITS/ML 3 ML PEN SC SCH ×2 (18:38→21:04)
[2019-01-24 20:35] LABS: Appearance Urine Clear (Clear); Bacteria Urine Automated Negative (Negative); Blood Urine Trace (Negative); Color Urine Dark Yellow; Epithelial Cell Urine Auto >30 /lpf (0-5); Glucose Urine UA 2+ (Negative); Ketones Urine Negative (Negative); Leukocyte Esterase Urine Trace (Negative); Nitrite Urine Negative (Negative); Protein Urine 1+ (Negative); Specific Gravity Urine 1.022 (1.000-1.030); Urobilinogen Urine Negative (Negative)
[2019-01-24 20:40] LABS: Bilirubin Urine 1+ (Negative)
[2019-01-24 20:45] LABS: Ictotest Urine Positive (Negative)
[2019-01-24] MEDS: TRAMADOL HCL 50 MG TABLET PO PRN (20:56)
[2019-01-24] MEDS: PANTOprazole 40 MG TAB PO SCH (20:59)
[2019-01-24] MEDS: ATORVASTATIN 10 MG TAB PO SCH (20:59)
[2019-01-24] MEDS: LOSARTAN POTASSIUM 50 MG TAB PO SCH (21:02)
[2019-01-24] MEDS: LATANOPROST 0.005% OP SOLN 2.5 ML BTL OPB SCH (21:03)
[2019-01-24] MEDS: TRIAMCINOLONE ACET 0.1% CR 15 GM TUBE TOP SCH (21:07)
--- NOTE | 2019-01-24 21:16 | Communication Note ---
Date of Service: January 24, 2019 i discussed with pharmacy clearance of Xaralto. with her current creatinine claearance, they recomend 4 days in order to proceed with surgery that has a high risk of of bleeding. Given her last dose of Xaralto on 01/23 PM, it would be safe to proceed with surgical treatment on .
--- NOTE | 2019-01-25 00:06 | Consultation Report ---
DATE OF CONSULTATION: 01/24/2019 Special attention to left periprosthetic femur fracture. HISTORY OF PRESENT ILLNESS: This is an 88-year-old female who sustained a fall today. She states she was having some epigastric pain and chest pain earlier in the day. She took a nitroglycerin with very little relief; however, this did make her dizzy. She states she lost her balance and fell. She denies any loss of consciousness or any injury to her head. She states she does remember the fall. She does have some complaints of mid epigastric pain. She has inability to bear weight in the left lower extremity. PAST MEDICAL HISTORY: Includes 1. Hyperlipidemia. 2. Depression. 3. Atrial fibrillation status post cardioversion. 4. History of temporal arteritis syndrome. 5. History of chronic kidney disease stage IV, baseline creatinine 1.5-1.7. 6. Bilateral carotid stenosis. 7. GERD. 8. Hypothyroidism. 9. Sacral decubitus ulcer. 10. Renal artery stenosis. 11. Coronary artery disease. 12. Diabetes. PAST SURGICAL HISTORY: Includes. 1. Left total knee replacement by Dr. Anguiano in [place] approximately 9 years ago. 2. Status post left hip bipolar hemiarthroplasty by Dr. Jeffrey, 08/13/2018. MEDICATIONS: Multiple and reviewed, include insulin and Xarelto. REVIEW OF SYSTEMS: Denies any numbness in the left lower extremity. Denies current chest pain or syncope. Left leg examination calf compartments are soft. She has a minor abrasion in the anterior knee. This is remote from the fracture site and does not appear to be deep. She has tenderness in the distal femur, very minimal visible deformity. Currently, she is in a knee immobilizer. Radiographs 3 views of the left knee does show a displaced angulated distal femur fracture, periprosthetic just above her left knee replacement. Hip prosthesis is seen. Stem is intact and hip bipolar prosthesis shows no evidence of dislocation. ____ distal femur fracture shows marked posterior displacement. ASSESSMENT: 1. Left periprosthetic distal femur fracture just above total knee replacement. 2. Status post bipolar hemiarthroplasty, August 2018. 3. On Xarelto. 4. Chronic kidney disease stage IV. PLAN: I discussed findings and treatment with the family in detail. Recommendation is to allow Xarelto. Recommendation is to proceed with surgical treatment once she is in normal coagulation state given her Xarelto. This was discussed with the hospitalist further management of anticoagulation. Given the chronic kidney disease, may take a while for her body to clear the Xarelto. Appreciate hospitalist input on any other additional medical clearance or tests. At this point today, she may eat from my standpoint. Last dose of Xarelto was 01/23/2019 in the p.m. We will continue to follow.
[2019-01-25] MEDS: LEVOTHYROXINE SODIUM 100 MCG TABLET PO SCH (05:44)
[2019-01-25] MEDS: ACETAMINOPHEN 325 MG TAB PO PRN ×2 (07:31→17:54)
[2019-01-25 07:32] LABS: BUN Creatinine Ratio 15.4 (10-20); Calcium 8.9 mg/dl (8.5-10.1); Creatinine Clr Calc Pharmacy 28.4 ml/min; Est GFR (African American) 37.1; Potassium 4.2 mmol/L (3.5-5.1)
[2019-01-25] MEDS ORDERED: predniSONE 5 MG TAB PO SCH (09:00)
[2019-01-25] MEDS: INSULIN ASPART 100 UNITS/ML 3 ML PEN SC SCH ×4 (09:35→21:44)
[2019-01-25] MEDS: AMIODARONE 200 MG TAB PO SCH (09:38)
[2019-01-25] MEDS: PANTOprazole 40 MG TAB PO SCH ×2 (09:38→21:41)
[2019-01-25] MEDS: AMLODIPINE BESYLATE 5 MG TAB PO SCH (09:38)
[2019-01-25] MEDS: FUROSEMIDE 20 MG TAB PO SCH (09:38)
[2019-01-25] MEDS: ALLOPURINOL 100 MG TAB PO SCH (09:39)
[2019-01-25] MEDS: TRIAMCINOLONE ACET 0.1% CR 15 GM TUBE TOP SCH ×2 (09:40→21:38)
[2019-01-25] MEDS ORDERED: NORMOSOL-R 1,000 ML IV SCH (12:30)
--- NOTE | 2019-01-25 14:18 | Orthopedic Progress Note ---
Date of Service January 25, 2019 Assessment & Plan (1) Periprosthetic supracondylar fracture of femur: Continue bedrest; NWB RLE with immobilizer. Pain control as written. Pt's pain is controlled at this time. DVT prophylaxis - SCD's. Family's questions answered Planning for surgery on Friday if remains stable. Subjective HD 1 Left Periprosthetic Femur Fx Pt currently awake, alert. Appears comfortable. Family present. Pain control led. Denies SOB,CP,LH. Family with multiple questions about pending surgery. Physical Exam Physical Exam: Pleasant and cooperative. Immobilizer on the left knee. Toes mobile. NV intact. Good ankle ROM. Distal pulses equal bilat. Right foot with bruising near the dorsum of the MTP joints. Tender on palpation. She has less ROM of the right toes due to the discomfort. Immobilizer opened. Abrasion noted on the knee. No drainage or active bleeding. Immobilizer tightened back up. Results & Data Vital Signs (Past 12 Hours) Vital Signs Temp Pulse Resp BP Pulse Ox 01/25/19 07:58 36.7 C 65 17 178/68 H 96
--- NOTE | 2019-01-25 17:01 | Hospitalist Progress Note ---
Date of Service January 25, 2019 Assessment & Plan (1) Fall: now with L distal femur periprosthetic fracture ortho pending, surgical repair likely on Saturday 01/27 due to coagulation with Xarelto Will likely be a technically difficult repair given recent hip replacement and hx of prior knee replacement Will need PT/OT and likely rehab Pt takes xarelto, last dose 01/23 HS, due to CKD 4 will likely have prolonged affect and pharmacy recommends waiting for surgery until friday (2) Epigastric abdominal pain: Hx of reflux Similar episode on resolved with TUMS, elevated LFT, h/o cholecystectomy, will follow, image Liver and CDB for microlithiasis Actemra can cause gastritis, pt was on prior but had been off for some time prior to resuming with most recent dose on Friday CTAP noted for cholidocholithiasis--no RUQ, pancreas WNL, repeat u/s and follow lft, wonder if fall had caused some liver trauma (3) Atrial fibrillation status post cardioversion: continue home meds Holding xarelto as above (4) Depression: Hx of medication use, but has been off of medication for this for several years and no issues (5) Hyperlipidemia LDL goal <70: continue home meds (6) Type 2 diabetes mellitus treated with insulin: Holding basiglar given uncertain PO status SSI PRN (7) Temporal arteritis syndrome: Last dose is to be 5mg on 01/25 (8) Chronic kidney disease, stage 4 (severe): Monitor Baseline is 1.5-1.7 Not a current HD pt but states there are plans for a fistula to be created in preparation for possible future needs (9) Bilateral carotid artery stenosis: Monitored with US Q6mo, currently at 50-69% stenosis (10) Hypertension: continue home meds Missed AM meds, will give dose now (11) GERD (gastroesophageal reflux disease): continue home meds (12) Hypothyroidism: continue home meds Takes synthroid at same time as PPI Advised separate dosing TSH WNL (13) Sacral decubitus ulcer: Hx of recent issues post-op Wound care c/s pending for assessment given new fracture (14) DVT prophylaxis: SCDs given OR Subjective Patient is in good spirits she has no clinical signs associate with her bump in LFTs. Her granddaughter, who is a nurse yard pilot, was at the bedside and all questions answered. Awaiting surgical correction of her distal periprosthetic femur fracture due to her Xarelto medication effect washout affected by her chronic kidney disease stage IV Review of Systems Review of Systems: ROS: well nourished well developed. No double vision blurry vision No problems with speech or swallowing No palpitations, chest pain or pressure No Wheezing or breathing issues mild abdominal pain without nausea / vomiting No burning urine urine frequency or changes in color distal left upper leg pain No skin rashes or oral lesions No unusual bruising or bleeding No focused back pain or numbness or loss of strength No changes in memory or confusion Physical Exam Physical Exam: The patient appeared well nourished and normally developed. Vital signs as documented. Head exam is unremarkable. normocephalic, atraumatic there is no jaundice Neck is without jugular venous distension, thyromegaly, or lymphademopathy Lungs are clear to auscultation and percussion. Cardiac exam reveals Rhythm is regular. First and second heart sounds normal. Abdominal exam reveals normal bowel sounds, no masses, no organomegaly no focal tenderness right upper quadrant no guarding no rebound Extremities are left upper leg immobilizer in place she is tender to exam she is good distal pulses with good capillary refill Neurologic exam is A&Ox3, no focal deficits, strength is equal bilateral Psychologically seems neither anxious or depressed Skin is warm Dry Results & Data Vital Signs (Past 12 Hours) Vital Signs Temp Pulse Pulse Resp BP Pulse Ox 01/25/19 15:15 37 C 64 20 149/63 H 93 01/25/19 14:41 163/67 H 01/25/19 07:58 36.7 C 65 17 178/68 H 96 PG Care Time/CCT Total # of Minutes Spent Total Time Spent with Patient: Total time spent is greater than 50% in coordination of care (as documented) at patient's floor/unit and/or counseling patient: (1) Fall Encounter type: initial encounter Qualified Code(s): W19.XXXA - Unspecified fall, initial encounter
[2019-01-25] MEDS: ATORVASTATIN 10 MG TAB PO SCH (21:41)
[2019-01-25] MEDS: LOSARTAN POTASSIUM 50 MG TAB PO SCH (21:41)
[2019-01-25] MEDS: LATANOPROST 0.005% OP SOLN 2.5 ML BTL OPB SCH (21:42)
--- NOTE | 2019-01-25 21:59 | Ultrasound Report ---
ABDOMINAL ULTRASOUND, RIGHT UPPER QUADRANT HISTORY: Fall. Confusion. pt with femur fx, elevated lft's. COMPARISON: Abdomen and pelvis CT 01/24/2019. FINDINGS: Pancreas: The pancreatic tail is obscured by overlying bowel gas. The remaining portions of the pancr eas are within normal limits. Liver: There is mild intrahepatic bile duct dilatation. No hepatic masses. Gallbladder: The gallbladder is surgically absent. CBD: Distended measuring up to 1.2 cm. In comparison to the recent abdomen and pelvis CT there is a 4 mm stone within the distal common bile duct. Right kidney: No hydronephrosis. IMPRESSION: Intra and extra hepatic bile duct dilatation due to a 4 mm stone within the distal common bile duct. This is better appreciated on the recent CT examination. This finding was called/faxed to the referri physician following dictation. Electronically signed by: Vinicius Francois M.D. 01/25/2019 9:57 PM
[2019-01-26] MEDS: LEVOTHYROXINE SODIUM 100 MCG TABLET PO SCH (06:03)
[2019-01-26 09:03] LABS: Basophils # (auto) 0.03 K/uL (0-0.2); Basophils % (auto) 0.5 %; Eosinophils # (auto) 0.19 K/uL (0-0.5); Eosinophils % (auto) 3.1 %; Hematocrit (blood only) 33.3 % (37-47); Hemoglobin 10.6 g/dL (12.0-16.0); Immature Granulocytes # (auto) 0.03 K/uL (0.00-0.02); Immature Granulocytes % (auto) 0.5 %; Lymphocytes # (auto) 2.02 K/uL (1.2-3.4); Lymphocytes % (auto) 33.2 %; Mean Corpuscular Hgb Conc 31.8 g/dL (32-36); Mean Platelet Volume 9.9 fL (7.4-10.4); Monocytes # (auto) 0.65 K/uL (0.11-0.59); Monocytes % (auto) 10.7 %; Neutrophils # (auto) 3.17 K/uL (1.4-6.5); Platelet Count 155 K/uL (130-400); RDW Coefficient of Variation 15.1 % (11.5-14.5); RDW Standard Deviation 52.7 fL (36.4-46.3); Red Blood Count 3.47 M/uL (4.2-5.4); White Blood Count 6.09 K/uL (4.8-10.8)
[2019-01-26] MEDS: INSULIN ASPART 100 UNITS/ML 3 ML PEN SC SCH ×4 (09:27→21:20)
[2019-01-26] MEDS: PANTOprazole 40 MG TAB PO SCH ×2 (09:31→21:23)
[2019-01-26] MEDS: AMIODARONE 200 MG TAB PO SCH (09:31)
[2019-01-26] MEDS: FUROSEMIDE 20 MG TAB PO SCH (09:31)
[2019-01-26] MEDS: ALLOPURINOL 100 MG TAB PO SCH (09:32)
[2019-01-26] MEDS: AMLODIPINE BESYLATE 5 MG TAB PO SCH (09:32)
[2019-01-26] MEDS: TRIAMCINOLONE ACET 0.1% CR 15 GM TUBE TOP SCH ×2 (09:32→21:23)
[2019-01-26 09:57] LABS: Calcium 8.5 mg/dl (8.5-10.1); Creatinine Clr Calc Pharmacy 26.2 ml/min; Est GFR (African American) 33.7; Est GFR (Non-African American) 29.1; Potassium 4.2 mmol/L (3.5-5.1)
[2019-01-26 10:04] LABS: Albumin Globulin Ratio 1.1 (0.9-2); Bilirubin,Total 0.6 mg/dl (0.2-1); Globulin 2.6 gm/dl (2.5-4.0); Total Protein 5.6 gm/dl (6.4-8.2)
--- NOTE | 2019-01-26 15:18 | Orthopedic Progress Note ---
Date of Service January 26, 2019 Assessment & Plan (1) Periprosthetic supracondylar fracture of femur: Continue bedrest; NWB RLE with immobilizer. Pain control as written. DVT prophylaxis - SCD's. Will order right foot film to r/o fx Dr Daniels notified of urine cx and sx's. Planning for surgery on Friday if remains stable. NPO after midnight. Subjective HD 2; Left Distal Periprosthetic Femur Fx Pt just received vega catheter. She and family state she began have frequency/urgency and some noted burning on urination. Vega placed and urine sent for culture. Having some left knee pain today and feels its secondary to alot of moving to the bedpan etc. [place] and heard the knee clicking/cracking with some movement. Tolerating well. Still with moderate pain in the right foot with her toes mainly. No other complaints. Physical Exam Physical Exam: Right forefoot with ecchymosis noted. Decreased ROM due to pain. Left knee without change. Immobilizer readjusted. NV intact. Toes mobile. Results & Data Vital Signs (Past 12 Hours) Vital Signs Temp Pulse Resp BP Pulse Ox 01/26/19 07:13 37.1 C 67 16 169/66 H 92
--- NOTE | 2019-01-26 16:00 | Gastrointestinal Consultation ---
Date of Consultation January 26, 2019 History of Present Illness Attending Physician: Saturnino Daniels MD Allergies Allergy/AdvReac Type Severity Reaction Status Date / Time capsaicin Allergy Unknown UNSURE Verified 01/24/19 13:47 Diclopak Allergy Unknown UNSURE Verified 12/03/17 11:25 diclofenac Allergy Dizziness Verified 01/24/19 13:47 orange Allergy Hives Verified 01/26/19 16:00 metformin AdvReac Mild DIARRHEA Verified 01/24/19 13:47 methadone AdvReac Mild DIZZY Verified 01/24/19 13:47 morphine AdvReac Mild HALLUCINATI Verified 01/24/19 13:47 ON promethazine AdvReac Mild SEIZURE Verified 01/24/19 13:47 LIKE ACTIVITY" troglitazone AdvReac Mild INCREASE Verified 01/24/19 13:47 LFTs midazolam [From Versed] AdvReac Hallucinati Verified 01/25/19 14:40 ng SENSITIVE TO NARCOTICS Allergy Unknown Unknown Uncoded 01/24/19 13:47 Home Medications Home Medications Medication Instructions Recorded Confirmed Type Novolog PenFill U-100 Insulin 1 sliding scale dose SUBCUT TIDM 08/11/18 01/24/19 History albuterol sulfate [Proventil HFA] 1 - 2 puff INHALATION Q4 PRN 08/11/18 01/24/19 History allopurinol 100 mg PO QAM 08/11/18 01/24/19 History amlodipine 5 mg PO QAM 08/11/18 01/24/19 History atorvastatin 10 mg PO HS 08/11/18 01/24/19 History clobetasol 1 applic TOPICAL WK 08/11/18 01/24/19 History colchicine [Colcrys] 0.6 mg PO DAILY PRN 08/11/18 01/24/19 History diclofenac sodium 1 g TOPICAL DAILY PRN 08/11/18 01/24/19 History furosemide 20 mg PO BID 08/11/18 01/24/19 History latanoprost 1 drp OPB PM 08/11/18 01/24/19 History levothyroxine 100 mcg PO QAM 08/11/18 01/24/19 History losartan 50 mg PO HS 08/11/18 01/24/19 History nitroglycerin [Nitrostat] 0.4 mg SUBLINGUAL UD PRN 08/11/18 01/24/19 History omeprazole 20 mg PO BID 08/11/18 01/24/19 History triamcinolone acetonide 1 applic TOPICAL BID 08/11/18 01/24/19 History acetaminophen [Tylenol 8 Hour] 650 mg PO Q8H PRN #20 tab 08/16/18 01/24/19 Rx tramadol 50 mg PO Q8H PRN #10 tab 08/16/18 01/24/19 Rx loperamide 2 mg tablet 4 mg PO UD tab 11/25/18 01/24/19 History amiodarone 200 mg tablet 100 mg PO QAM 01/05/19 01/24/19 History cetirizine 10 mg capsule 10 mg PO UD PRN #30 cap 01/05/19 01/24/19 History prednisone 5 mg tablet 5 mg PO QAM 01/05/19 01/24/19 History tocilizumab 400 mg/20 mL (20 0 mg IV MONTHLY ml 01/05/19 01/24/19 History mg/mL) intravenous solution insulin glargine (U-100) 100 20 units SUBCUT QAM ml 01/14/19 01/24/19 History unit/mL (3 mL) subcutaneous pen rivaroxaban 15 mg tablet 15 mg PO QPM #90 tab 01/20/19 01/24/19 Rx cholecalciferol (vitamin D3) 2,000 units PO QAM 01/24/19 01/24/19 History [Vitamin D3] Patient History Medical History Carotid arterial disease F/U with [facility]. B/L 50%. Medical Management. Atrial fibrillation status post cardioversion Currently SR on Amiodarone. Osteoarthritis Depression Hyperlipidemia LDL goal <70 History of melanoma DX 1995 ON FACE Vitamin D deficiency Type 2 diabetes mellitus treated with insulin Transient cerebral ischemia Temporal arteritis syndrome Renal artery stenosis Peripheral vascular disease Osteoporosis with fracture Obesity Mixed connective tissue disease Lumbar spinal stenosis Glaucoma Dementia Chronic kidney disease, stage 4 (severe) Bilateral carotid artery stenosis FOLLOWS WITH DR. MARTINEZ L30-40%, R 40-50% Benign positional vertigo Angina pectoris Anemia of chronic disease Allergic rhinitis Gout CAD (coronary artery disease) Diabetes mellitus Hypertension GERD (gastroesophageal reflux disease) Chronic back pain Hypothyroidism CVA (cerebral vascular accident) 2005 Right Eye, vision has line through it. No other deficits. 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 Surgical History Stented coronary artery (Resolved) History of cataract surgery History of excision of lesion FACE MALIGNANT .6 TO 1CM MELANOMA ON FACE,1995 History of hip surgery ONSET: [id number] LEFT HIP BIPOLAR HEMIARTHOPLASTY(LEFT)- FRANCISCO ESTES DO History of knee replacement ONSET: 2009 L TKA History of laparoscopy LAPAROSCOPIC LYSIS OF INTESTINAL ADHESIONS Hx of cholecystectomy S/P coronary artery stent placement Angioplasty and JAMES to mid LAD, 02/27/15 Family History Brother Colon cancer Cardiac disorder Sister Lung cancer Depression Diabetes Cardiac disorder Hypertension Lung disease Mother Cardiac disorder Hypertension Father Lung cancer Other Family history non-contributory Social History Preferred Language: Sudanese Communication Ability: Effective Visual Impairment: No Limitations Hearing Ability: Normal Beliefs That Will Affect Care: None marital status: Current Living Situation: Alone Current Living Situation Comment: LIVES ALONE, APT AT [facility] current occupational status: retired Feels Safe at Home: Yes Smoking Status: Never smoker Second Hand Exposure: No Hx Alcohol Use: No Hx Substance Use: No Dental Care, Regularly: No Seatbelt Use: always Results & Data Vital Signs (Past 12 Hours) Vital Signs Temp Pulse Resp BP Pulse Ox 01/26/19 15:18 37.1 C 63 145/76 H 93 01/26/19 07:13 37.1 C 67 16 169/66 H 92 Laboratory Results WBC 6, T bili 6->2.2, AST 320->131, ALT Diagnostic Findings US 01/25/19: Intra and extra hepatic bile duct dilatation due to a 4 mm stone within the distal common bile duct. This is better appreciated on the recent CT examination. This finding was called/faxed to the referring physician following dictation. Non contrast CT 01/24/19: Choledocholithiasis is again seen. No acute process in the abdomen or pelvis. Interval total left hip arthroplasty.
--- NOTE | 2019-01-26 16:13 | Consultation Report ---
DATE OF CONSULTATION: 01/26/2019 GI CONSULT REASON FOR EVALUATION: Common bile duct stone. HISTORY OF PRESENT ILLNESS: The patient is an 88-year-old who had a previous left hip fracture in August and also had a left knee replacement in the past. The patient fell on January 24 after taking nitroglycerin for some chest pain and fractured her distal femur. She is scheduled to have this surgically repaired tomorrow, and in part of her evaluation, she had liver tests that showed increased AST and ALT with a normal bilirubin. Her CT scan of the abdomen showed a 12 mm common bile duct with a 4 mm stone in it. She has had a previous cholecystectomy in the past. The patient has been having some intermittent epigastric and chest pain which may be from biliary colic. Because of the common duct stone, GI consultation has been requested. PAST MEDICAL HISTORY: Remarkable for depression, hyperlipidemia, temporal arteritis, chronic kidney disease stage IV, bilateral carotid artery stenosis, esophageal reflux, hypothyroidism and atrial fibrillation. MEDICATIONS: Per list including Xarelto, which is being held. ALLERGIES: CAPSAICIN, DICLOFENAC, METFORMIN, METHADONE, MORPHINE, PROMETHAZINE, TROGLITAZONE AND PHENERGAN. FAMILY HISTORY: Brother had colon cancer and cardiac disorder. Sister had lung cancer, depression, cardiac problems, hypertension, and lung disease. Mother had cardiac disorder, hypertension. Father had lung cancer. SOCIAL HISTORY: The patient is , lives alone, does not smoke, does not drink. Daughter lives 9 miles away. REVIEW OF SYSTEMS: Positive for some sternal pain and left leg pain and some heartburn. Remainder is negative. PHYSICAL EXAMINATION: GENERAL: The patient is overweight, in no acute distress. VITAL SIGNS: Blood pressure is 180/70, pulse 69. ABDOMEN: Shows a right upper quadrant scar from a cholecystectomy and a low midline scar from previous surgery for abdominal adhesions with bowel obstruction. There is some tenderness over the xiphoid process and in the epigastric area. LABORATORY: Shows a bilirubin of 0.6, AST 131, ALT 316, alkaline phosphatase 120. IMPRESSION AND PLAN: The patient has a common bile duct stone and some symptoms that kind of mimic biliary colic. Her bilirubin is normal, so there are no signs of biliary obstruction which is good. Part of her elevated AST and ALT enzymes may be coming from muscle damage from her leg fracture and not entirely from her liver. Obviously, she has had a left hip replacement, left knee replacement and now has a distal left leg fracture that is being operated on tomorrow. To perform an ERCP, the patients are typically on their left side and it would be very challenging to do this in her current condition until her leg heals. She also has a lot of other underlying health problems which increases the risk. In the meantime, I would recommend that we put her on Actigall 300 mg twice a day to see if it will help relieve some of her biliary symptoms as it is known to do this sometimes even if it does not dissolve the stones. The fact that she does not have a gallbladder, may reduce its efficacy, but short of operating on her bile duct, I think waiting until she heals from her leg fracture would be optimal and we can hold her Xarelto prior to the procedure when the time comes, but for now I think we should delay endoscopic intervention.
--- NOTE | 2019-01-26 16:42 | Communication Note ---
Date of Service: January 26, 2019 We received a consult for GI evaluation for elevated LFTs, choledocholithiasis. Dr. Miranda had already completed a GI consult. Therefore, our group did not provide a consult for this patient.
--- NOTE | 2019-01-26 16:54 | Hospitalist Progress Note ---
Date of Service January 26, 2019 Assessment & Plan (1) Fall: now with L distal femur periprosthetic fracture ortho surgical repair likely on Saturday 01/27 due to coagulation with Xarelto Will need PT/OT and likely rehab Pt takes xarelto, last dose 01/23 HS, due to CKD 4 will likely have prolonged affect and pharmacy recommends waiting for surgery until friday (2) Epigastric abdominal pain: Hx of reflux Similar episode on resolved with TUMS, elevated LFT, h/o cholecystectomy, will follow, image Liver and CDB for microlithiasis Actemra can cause gastritis, pt was on prior but had been off for some time prior to resuming with most recent dose last week CTAP noted for cholidocholithiasis--no RUQ, pancreas WNL, Dr. Miranda is seen the patient is trying some Actigall in lieu of proceeding interventional procedure until she recovers from her hip surgery (3) Atrial fibrillation status post cardioversion: continue home meds Holding xarelto as above, will return to dosing once hemostasis is achieved post procedure (4) Depression: Hx of medication use, but has been off of medication for this for several years and no issues (5) Hyperlipidemia LDL goal <70: continue home meds (6) Type 2 diabetes mellitus treated with insulin: Holding basiglar SSI PRN (7) Temporal arteritis syndrome: Last dose is to be 5mg on 01/25 (8) Chronic kidney disease, stage 4 (severe): Monitor Baseline is 1.5-1.7 Not a current HD pt but states there are plans for a fistula to be created in preparation for possible future needs (9) Bilateral carotid artery stenosis: Monitored with US Q6mo, currently at 50-69% stenosis (10) Hypertension: continue home meds Missed AM meds, will give dose now (11) GERD (gastroesophageal reflux disease): continue home meds (12) Hypothyroidism: continue home meds Takes synthroid at same time as PPI Advised separate dosing TSH WNL (13) Sacral decubitus ulcer: Hx of recent issues post-op Wound care c/s pending for assessment given new fracture (14) DVT prophylaxis: SCDs given OR Subjective Patient has some minor abdominal discomfort and leg discomfort. She is scheduled for a left open reduction internal fixation of periprosthetic fracture on 27 January. I spoke to her daughter at the bedside to discuss her common bile duct stone, Dr. Song plans of using Actigall to attempt to mitigate her symptoms until sometime in the future when she is from her hip fracture. This will be a good plan as long as she responds clinically with reduction in symp toms and liver function testing. Her daughter says retrospectively she can now see how her mother had intermittent symptoms over the last few weeks to months that may be connected to her common bile duct stone Review of Systems Review of Systems: ROS: well nourished well developed. No double vision blurry vision No problems with speech or swallowing No palpitations, chest pain or pressure No Wheezing or breathing issues mild central abdominal pain but no nausea / vomiting / diarrhea No burning urine urine frequency or changes in color left hip pain, no loss of sensation No skin rashes or oral lesions No unusual bruising or bleeding No focused back pain or numbness or loss of strength No changes in memory or confusion Physical Exam Physical Exam: The patient appeared well nourished and only minimal distress Vital signs as documented. Head exam is unremarkable. normocephalic, atraumatic Neck is without jugular venous distension, thyromegaly, or lymphademopathy Lungs are clear to auscultation and percussion. Cardiac exam reveals Rhythm is regular. First and second heart sounds normal. Abdominal exam reveals normal bowel sounds, no guarding minor epigastric discomfort no rebound Extremities left hip pain is tender to touch and movement Neurologic exam is A&Ox3, no focal deficits, strength is equal bilateral Psychologically seems neither anxious or depressed Skin is warm Dry Results & Data Vital Signs (Past 12 Hours) Vital Signs Temp Pulse Resp BP Pulse Ox 01/26/19 15:18 37.1 C 63 145/76 H 93 01/26/19 07:13 37.1 C 67 16 169/66 H 92 PG Care Time/CCT Total # of Minutes Spent Total Time Spent with Patient: Total time spent is greater than 50% in coordination of care (as documented) at patient's floor/unit and/or counseling patient: (1) Fall Encounter type: initial encounter Qualified Code(s): W19.XXXA - Unspecified fall, initial encounter
--- NOTE | 2019-01-26 17:06 | Anesthesiology Consultation ---
Date of Service January 26, 2019 Assessment & Plan (1) Encounter for pre-operative examination: Chart Review Chart Review: Acceptable Risk for Surgery (last dose xarelto 01/23 at bedtime, has some degree of renal insufficiency so may need to be a general anesthetic (as was her hip surgery in August)) History Surgery Operation Date: 01/27/19 07:00 Proposed Procedures p Left Open Reduction Internal Fixation Periprosthetic Fracture - Ajay Tipton MD Operation Date: 01/27/19 08:50 Proposed Procedures p Endoscopic Retrograde Cholangiopancreatogram - Nicolle Marina Height/Weight Height: 5 ft 3 in Weight: 85 kg Allergies Allergy/AdvReac Type Severity Reaction Status Date / Time capsaicin Allergy Unknown UNSURE Verified 01/24/19 13:47 Diclopak Allergy Unknown UNSURE Verified 12/03/17 11:25 diclofenac Allergy Dizziness Verified 01/24/19 13:47 orange Allergy Hives Verified 01/26/19 16:00 metformin AdvReac Mild DIARRHEA Verified 01/24/19 13:47 methadone AdvReac Mild DIZZY Verified 01/24/19 13:47 morphine AdvReac Mild HALLUCINATI Verified 01/24/19 13:47 ON promethazine AdvReac Mild SEIZURE Verified 01/24/19 13:47 LIKE ACTIVITY" troglitazone AdvReac Mild INCREASE Verified 01/24/19 13:47 LFTs midazolam [From Versed] AdvReac Hallucinati Verified 01/25/19 14:40 ng SENSITIVE TO NARCOTICS Allergy Unknown Unknown Uncoded 01/24/19 13:47 Medications Home Medications Medication Instructions Recorded Confirmed Last Taken Novolog PenFill U-100 Insulin 1 sliding scale dose SUBCUT TIDM 08/11/18 01/24/19 Unknown albuterol sulfate [Proventil HFA] 1 - 2 puff INHALATION Q4 PRN 08/11/18 01/24/19 08/10/18 18:00 allopurinol 100 mg PO QAM 08/11/18 01/24/19 01/23/19 amlodipine 5 mg PO QAM 08/11/18 01/24/19 01/23/19 atorvastatin 10 mg PO HS 08/11/18 01/24/19 01/23/19 clobetasol 1 applic TOPICAL WK 08/11/18 01/24/19 Unknown colchicine [Colcrys] 0.6 mg PO DAILY PRN 08/11/18 01/24/19 Unknown diclofenac sodium 1 g TOPICAL DAILY PRN 08/11/18 01/24/19 Unknown furosemide 20 mg PO BID 08/11/18 01/24/19 01/23/19 latanoprost 1 drp OPB PM 08/11/18 01/24/19 01/23/19 levothyroxine 100 mcg PO QAM 08/11/18 01/24/19 01/23/19 losartan 50 mg PO HS 08/11/18 01/24/19 01/23/19 nitroglycerin [Nitrostat] 0.4 mg SUBLINGUAL UD PRN 08/11/18 01/24/19 01/24/19 09:00 1 tablet omeprazole 20 mg PO BID 08/11/18 01/24/19 01/23/19 triamcinolone acetonide 1 applic TOPICAL BID 08/11/18 01/24/19 Unknown acetaminophen [Tylenol 8 Hour] 650 mg PO Q8H PRN #20 tab 08/16/18 01/24/19 Unknown tramadol 50 mg PO Q8H PRN #10 tab 08/16/18 01/24/19 Unknown loperamide 2 mg tablet 4 mg PO UD tab 11/25/18 01/24/19 Unknown amiodarone 200 mg tablet 100 mg PO QAM 01/05/19 01/24/19 01/23/19 cetirizine 10 mg capsule 10 mg PO UD PRN #30 cap 01/05/19 01/24/19 Unknown prednisone 5 mg tablet 5 mg PO QAM 01/05/19 01/24/19 01/23/19 tocilizumab 400 mg/20 mL (20 0 mg IV MONTHLY ml 01/05/19 01/24/19 Unknown mg/mL) intravenous solution insulin glargine (U-100) 100 20 units SUBCUT QAM ml 01/14/19 01/24/19 01/23/19 unit/mL (3 mL) subcutaneous pen rivaroxaban 15 mg tablet 15 mg PO QPM #90 tab 01/20/19 01/24/19 01/23/19 cholecalciferol (vitamin D3) 2,000 units PO QAM 01/24/19 01/24/19 01/23/19 [Vitamin D3] Active Medications Generic Name Dose Route Start Last Admin Trade Name Freq PRN Reason Stop Dose Admin Acetaminophen 650 mg 01/24/19 16:43 01/25/19 17:54 Tylenol PO 02/23/19 16:42 650 mg Q4H PRN Administration pain/fever Allopurinol 100 mg 01/25/19 09:00 01/26/19 09:32 Zyloprim PO 02/24/19 08:59 100 mg QAM SNOW Administration Amiodarone HCl 100 mg 01/25/19 09:00 01/26/19 09:31 Cordarone PO 02/24/19 08:59 100 mg QAM SNOW Administration Amlodipine Besylate 5 mg 01/24/19 16:43 01/26/19 09:32 Norvasc PO 02/23/19 16:42 5 mg QAM SNOW Administration Atorvastatin Calcium 10 mg 01/24/19 21:00 01/25/19 21:41 Lipitor PO 02/23/19 20:59 10 mg HS SNOW Administration Furosemide 20 mg 01/26/19 09:00 01/26/19 09:31 Lasix PO 02/25/19 08:59 20 mg DAILY SNOW Administration Insulin Aspart 0 units 01/24/19 16:43 01/26/19 13:09 Novolog Flexpen SC 02/23/19 16:42 5 units ACHS SNOW Administration Latanoprost 1 drops 01/24/19 21:00 01/25/19 21:42 Xalatan Oph OPB 02/23/19 20:59 1 drops PM SNOW Administration Levothyroxine Sodium 100 mcg 01/25/19 06:30 01/26/19 06:03 Synthroid PO 02/24/19 06:29 100 mcg DAILYBB SNOW Administration Losartan Potassium 50 mg 01/24/19 21:00 01/25/19 21:41 Cozaar PO 02/23/19 20:59 50 mg HS SNOW Administration Miscellaneous 1 ea 01/25/19 00:00 01/26/19 15:25 Order Awaiting Action N/A 02/24/19 00:00 Not Given QS SNOW Pantoprazole Sodium 40 mg 01/24/19 21:00 01/26/19 09:31 Protonix PO 02/23/19 20:59 40 mg BID SNOW Administration Tramadol HCl 50 - 100 mg 01/24/19 20:25 01/24/19 20:56 Ultram PO 02/23/19 20:24 50 mg Q8H PRN Administration pain Triamcinolone Acetonide 1 appln 01/24/19 21:00 01/26/19 09:32 Kenalog 0.1% TOP 02/23/19 20:59 Not Given BID SNOW NPO Date Last Intake of Fluids: 01/26/19 Time Last Intake of Fluids: 23:59 Date Last Intake of Solids: 01/26/19 Time Last Intake of Solids: 23:59 Past Medical History Medical History Carotid arterial disease F/U with [facility]. B/L 50%. Medical Management. Atrial fibrillation status post cardioversion Currently SR on Amiodarone. Osteoarthritis Depression Hyperlipidemia LDL goal <70 History of melanoma DX 1995 ON FACE Vitamin D deficiency Type 2 diabetes mellitus treated with insulin Transient cerebral ischemia Temporal arteritis syndrome Renal artery stenosis Peripheral vascular disease Osteoporosis with fracture Obesity Mixed connective tissue disease Lumbar spinal stenosis Glaucoma Dementia Chronic kidney disease, stage 4 (severe) Bilateral carotid artery stenosis FOLLOWS WITH DR. MARTINEZ L30-40%, R 40-50% Benign positional vertigo Angina pectoris Anemia of chronic disease Allergic rhinitis Gout CAD (coronary artery disease) Diabetes mellitus Hypertension GERD (gastroesophageal reflux disease) Chronic back pain Hypothyroidism CVA (cerebral vascular accident) 2005 Right Eye, vision has line through it. No other deficits. 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 Past Family History Family History Brother Colon cancer Cardiac disorder Sister Lung cancer Depression Diabetes Cardiac disorder Hypertension Lung disease Mother Cardiac disorder Hypertension Father Lung cancer Other Family history non-contributory Past Surgical History Surgical History Stented coronary artery (Resolved) History of cataract surgery History of excision of lesion FACE MALIGNANT .6 TO 1CM MELANOMA ON FACE,1995 History of hip surgery ONSET: [id number] LEFT HIP BIPOLAR HEMIARTHOPLASTY(LEFT)- FRANC[facility]CO ESTES, done with general anesthetic History of knee replacement ONSET: 2009 L TKA History of laparoscopy LAPAROSCOPIC LYSIS OF INTESTINAL ADHESIONS Hx of cholecystectomy S/P coronary artery stent placement Angioplasty and JAMES to mid LAD, 02/27/15 Social History Smoking Status: Never smoker Do You Dip or Chew Tobacco: No Hx Alcohol Use: No Hx Substance Use: No substance use type: does not use Physical Exam Vital Signs Last Vital Signs Temp 37.1 C 01/26/19 15:18 Pulse 63 01/26/19 15:18 Resp 16 01/26/19 07:13 BP 145/76 H 01/26/19 15:18 Pulse Ox 93 01/26/19 15:18 Testing Laboratory Results 01/26/19 08:14 01/26/19 08:09 PT 11.9 Seconds (9.0-12.0) 01/24/19 12:29 INR 1.2 (0.9-1.1) H 01/24/19 12:29 Urine Color Dark Yellow 01/24/19 20:10 Urine Appearance Clear (Clear) 01/24/19 20:10 Urine pH 6.0 (4.5-7.5) 01/24/19 20:10 Ur Specific [place] 1.022 (1.000-1.030) 01/24/19 20:10 Urine Protein 1+ (Negative) H 01/24/19 20:10 Urine Glucose (UA) 2+ (Negative) H 01/24/19 20:10 Urine Ketones Negative (Negative) 01/24/19 20:10 Urine Nitrite Negative (Negative) 01/24/19 20:10 Ur Leukocyte Esterase Trace (Negative) H 01/24/19 20:10 Urine WBC (Auto) 1-5 /hpf (0-5) 01/24/19 20:10 Urine RBC (Auto) 5-10 /hpf (0-4) H 01/24/19 20:10 U Hyaline Cast (Auto) 1-5 /lpf (0-5) 01/24/19 20:10 U Epithel Cells (Auto) >30 /lpf (0-5) H 01/24/19 20:10 Urine Bacteria (Auto) Negative (Negative) 01/24/19 20:10 01/26/19 01/26/19 12:04 08:11 POC Glucose 164 H 140 H Electrocardiogram Date: 01/24/19 Findings: + NSR @ (69) and + NSST changes Chest X-Ray Date: 01/24/19 Findings: + NAD Echocardiogram Date: 03/19/17 EF: 55-60% LV Function: normal Valvular Disease: + no significant valvular disease
--- NOTE | 2019-01-26 17:29 | XRay Report ---
XR foot RT min 3V routine CLINICAL HISTORY: Right foot pain status post trauma COMPARISON: None. DISCUSSION: The bones are osteopenic. There are vascular calcifications present. There are mild degen erative changes. No fractures or dislocations are visualized. IMPRESSION: No fractures or dislocations identified. Electronically signed by: Artis Elizalde M.D. 01/26/2019 5:28 PM
[2019-01-26] MEDS: ACETAMINOPHEN 325 MG TAB PO PRN (18:47)
[2019-01-26] MEDS: URSODIOL 300 MG CAP PO SCH (21:23)
[2019-01-26] MEDS: LATANOPROST 0.005% OP SOLN 2.5 ML BTL OPB SCH (21:23)
[2019-01-26] MEDS: ATORVASTATIN 10 MG TAB PO SCH (21:23)
[2019-01-26] MEDS: LOSARTAN POTASSIUM 50 MG TAB PO SCH (21:23)
[2019-01-27] MEDS: INSULIN ASPART 100 UNITS/ML 3 ML PEN SC SCH ×5 (00:20→20:49)
[2019-01-27] MEDS: ACETAMINOPHEN 325 MG TAB PO PRN ×4 (00:25→13:25)
[2019-01-27] MEDS: LEVOTHYROXINE SODIUM 100 MCG TABLET PO SCH (05:45)
[2019-01-27 08:38] LABS: BUN Creatinine Ratio 16.4 (10-20); Calcium 8.6 mg/dl (8.5-10.1); Creatinine Clr Calc Pharmacy 23.3 ml/min; Est GFR (African American) 29.2; Est GFR (Non-African American) 25.2; Potassium 4.2 mmol/L (3.5-5.1)
[2019-01-27 08:40] LABS: Albumin Globulin Ratio 1.2 (0.9-2); Bilirubin,Total 0.5 mg/dl (0.2-1); Globulin 2.5 gm/dl (2.5-4.0); Total Protein 5.5 gm/dl (6.4-8.2)
[2019-01-27] MEDS: ALLOPURINOL 100 MG TAB PO SCH (09:01)
[2019-01-27] MEDS: AMLODIPINE BESYLATE 5 MG TAB PO SCH (09:01)
[2019-01-27] MEDS: PANTOprazole 40 MG TAB PO SCH ×2 (09:02→20:50)
[2019-01-27] MEDS: URSODIOL 300 MG CAP PO SCH ×2 (09:02→20:50)
[2019-01-27] MEDS: AMIODARONE 200 MG TAB PO SCH (09:02)
[2019-01-27] MEDS: FUROSEMIDE 20 MG TAB PO SCH (09:02)
[2019-01-27] MEDS: TRIAMCINOLONE ACET 0.1% CR 15 GM TUBE TOP SCH ×2 (09:02→20:45)
[2019-01-27] MEDS ORDERED: ROCURONIUM BROMIDE 10 MG/ML 5 ML VIAL ONE (13:56)
[2019-01-27] MEDS ORDERED: PROPOFOL IV EMULSION 10 MG/ML 20 ML VIAL IV ONE (13:56)
[2019-01-27] MEDS ORDERED: LIDOCAINE HCL 2% 2 ML VIAL/AMP(20MG/ML) INFIL ONE (13:56)
[2019-01-27] MEDS ORDERED: fentaNYL citrate 100 MCG/2 ML VIAL ONE ×2 (13:57→16:16)
[2019-01-27] MEDS ORDERED: SODIUM CHLORIDE 0.9% 250 ML IV PRN (14:17)
[2019-01-27] MEDS ORDERED: BACITRACIN INJ 50,000 UNIT VIAL ONE (14:56)
[2019-01-27] MEDS ORDERED: ORTHO JOINT ANESTHETIC ONE (14:56)
[2019-01-27] MEDS ORDERED: CEFAZOLIN 2000MG 2,000 MG/15 ML SYR IV SCH (15:25)
--- NOTE | 2019-01-27 15:33 | Orthopedic Progress Note ---
Date of Service January 27, 2019 Assessment & Plan (1) Periprosthetic supracondylar fracture of femur: Patient's INR reversed and patient cleared for surgery. Plan is to proceed with an open reduction internal fixation of the periprosthetic femur fracture around left knee replacement using Synthes periprosthetic fracture plate with locking screw fixation. Discussed surgical risks at length with patient and in the presence of her daughter. Consent was signed by patient who is awake alert and oriented. Subjective Pain manageable on present medication and knee immobilizer Review of Systems Review of Systems: No shortness of breath chest pain no numbness left leg Physical Exam Physical Exam: Left leg and knee immobilizer and distal neuro circulatory exam intact. Results & Data Vital Signs (Past 12 Hours) Vital Signs Temp Pulse Pulse Resp BP Pulse Ox 01/27/19 15:05 37.1 C 66 20 140/96 97 01/27/19 14:56 37.4 C 66 17 187/70 H 91 01/27/19 07:52 36.6 C 60 20 156/52 H 96 X-rays left femur demonstrate periprosthetic fracture just above well fixed total knee replacement. There is angulation and displacement of the fracture.
[2019-01-27] MEDS ORDERED: ATROPINE SULFATE 0.1 MG/ML 10ML SYR IV PRN (16:39)
[2019-01-27] MEDS ORDERED: ONDANSETRON INJ 2 MG/ML 2 ML VIAL IV PRN (16:39)
[2019-01-27] MEDS ORDERED: HYDROmorphone INJ 1 MG/ML SYRINGE IV PRN (16:39)
[2019-01-27] MEDS ORDERED: PHENYLEPHRINE 100MCG/ML 5ML SYR IV PRN (16:39)
[2019-01-27] MEDS ORDERED: ePHEDrine sulfate 50 MG/ML AMP IV PRN (16:39)
[2019-01-27] MEDS ORDERED: LABETALOL HCL IV 5 MG/ML 20ML IV PRN (16:39)
[2019-01-27] MEDS ORDERED: ePHEDrine sulfate 50 MG/ML SYR ONE (16:56)
[2019-01-27] MEDS ORDERED: PHENYLEPHRINE HCL 10 MG/ML VIAL ONE (16:56)
--- NOTE | 2019-01-27 17:20 | Hospitalist Progress Note ---
Date of Service January 27, 2019 Assessment & Plan (1) Fall: now with L distal femur periprosthetic fracture ortho surgical repair likely on Saturday 01/27 due to coagulation with Xarelto Will need PT/OT and likely rehab Pt takes xarelto, last dose 01/23 HS, due to CKD 4 (2) Epigastric abdominal pain: Hx of reflux Similar episode on resolved with TUMS, elevated LFT, h/o cholecystectomy, will follow, image Liver and CDB for microlithiasis Actemra can cause gastritis, pt was on prior but had been off for some time prior to resuming with most recent dose last week CTAP noted for cholidocholithiasis--persist without right upper quadrant pain, pancreas WNL, Dr. Miranda is seen the patient is trying some Actigall in lieu of proceeding interventional procedure until she recovers from her hip surgery (3) Atrial fibrillation status post cardioversion: continue home meds Holding xarelto as above, will return to dosing once hemostasis is achieved post procedure (4) Depression: Hx of medication use, but has been off of medication for this for several years and no issues (5) Hyperlipidemia LDL goal <70: continue home meds (6) Type 2 diabetes mellitus treated with insulin: Holding basiglar SSI PRN (7) Temporal arteritis syndrome: Last dose is to be 5mg on 01/25 (8) Chronic kidney disease, stage 4 (severe): Monitor Baseline is 1.5-1.7 Not a current HD pt but states there are plans for a fistula to be created in preparation for possible future needs (9) Bilateral carotid artery stenosis: Monitored with US Q6mo, currently at 50-69% stenosis (10) Hypertension: continue home meds (11) GERD (gastroesophageal reflux disease): continue home meds (12) Hypothyroidism: continue home meds Takes synthroid at same time as PPI Advised separate dosing TSH WNL (13) Sacral decubitus ulcer: Hx of recent issues post-op Wound care c/s pending for assessment given new fracture Avitia catheter is placed to prevent further skin breakdown Urine dysuria urine culture pending (14) DVT prophylaxis: SCDs given OR Subjective Patient is in no distress today awaiting surgery he did have an x-ray of her right foot showing no fractures although there is some ecchymosis to her toes daughters at the bedside and updated Review of Systems Review of Systems: ROS: well nourished well developed. No double vision blurry vision No problems with speech or swallowing No palpitations, chest pain or pressure No Wheezing or breathing issues No abdominal pain nausea vomiting diarrhea changes in appetite or weight No burning urine urine frequency or changes in color Left distal femur pain No skin rashes or oral lesions Bruising to her right foot No focused back pain or numbness or loss of strength No changes in memory or confusion Physical Exam Physical Exam: The patient appeared well nourished and normally developed. She is in mild to moderate distress Vital signs as documented. Head exam is unremarkable. normocephalic, atraumatic Neck is without jugular venous distension, thyromegaly, or lymphademopathy Lungs are clear to auscultation and percussion. Cardiac exam reveals Rhythm is regular. First and second heart sounds normal. Abdominal exam reveals normal bowel sounds, no masses, no organomegaly Extremities are nonedematous and both pedal pulses are present right foot is dorsal ecchymosis left knee is tender to touch Neurologic exam is A&Ox3, no focal deficits, strength is equal bilateral Psychologically seems neither anxious or depressed Skin is warm Dry Results & Data Vital Signs (Past 12 Hours) Vital Signs Temp Pulse Pulse Resp BP Pulse Ox 01/27/19 15:05 37.1 C 66 20 140/96 97 01/27/19 14:56 37.4 C 66 17 187/70 H 91 01/27/19 07:52 36.6 C 60 20 156/52 H 96 PG Care Time/CCT Total # of Minutes Spent Total Time Spent with Patient: Total time spent is greater than 50% in coordination of care (as documented) at patient's floor/unit and/or counseling p atient: (1) Fall Encounter type: initial encounter Qualified Code(s): W19.XXXA - Unspecified fall, initial encounter
[2019-01-27] MEDS ORDERED: GLYCOPYRROLATE 0.2 MG/ML VIAL ONE (17:32)
[2019-01-27] MEDS ORDERED: NEOSTIGMINE METHYLSULFATE 5 MG/5 ML SYR ONE (17:32)
[2019-01-27] MEDS ORDERED: ONDANSETRON INJ 2 MG/ML 2 ML VIAL ONE (17:48)
--- NOTE | 2019-01-27 18:00 | Post Operative Brief Note ---
Immediate Post Op Note v1 Date of Surgery January 27, 2019 Pre & Post Diagnosis Operation Date: 01/27/19 07:00 Pre-Op Diagnosis: Left displaced periprosthetic supracondylar FEMUR FRACTURE Post-Op Diagnosis: Same Operation Date: 01/27/19 08:50 <No data on this case meets the specified criteria> Procedure Operation Date: 01/27/19 07:00 Actual Procedures p Left Open Reduction Internal Fixation Periprosthetic supracondylar femur fracture(Left) - Ajay Tipton MD Operation Date: 01/27/19 08:50 <No data on this case meets the specified criteria> Surgeon Ajay Tipton MD Electro Optical Engineer Chad ZAVALA Estimated Blood Loss 20 Findings Consistent with Post-Op Diagnosis Specimens None Drains Avitia Catheter and Hemovac Drain Anesthesia Type General Complications none Disposition Accompanied Patient To Recovery: No Disposition: Recovery Room Overlapping Procedure I was immediately available: during the entire case.
--- NOTE | 2019-01-27 18:12 | Fluoroscopy Report ---
FL femur LT 2V CLINICAL HISTORY: ORIF PERIPROSTHETIC FX LT HIPfracture COMPARISON STUDY: None FLUOROSCOPY TIME: 1 minute 46 seconds NUMBER OF FLUOROSCOPIC IMAGES: 4 FINDINGS: Placement of a linear plate traversing the distal femur and an oblique fracture of the dist al femur. There is a total left knee prosthetic. IMPRESSION: Placement of linear plate distal femur with anatomic alignment of a distal femoral fractu re. The above report was generated using voice recognition software. It may contain grammatical, syntax or spelling errors. Electronically signed by: Ras Morrow M.D. 01/27/2019 6:11 PM
[2019-01-27] MEDS: fentaNYL citrate 100 MCG/2 ML VIAL IV PRN ×4 (18:27→18:43)
--- NOTE | 2019-01-27 19:02 | XRay Report ---
XR femur LT 2V routine CLINICAL HISTORY: post op films in pacu COMPARISON: None. DISCUSSION: Anatomic alignment posttotal left hip arthroplasty. Anatomic alignment post open reduction internal fixation of the distal femoral fracture. The displace ment previously noted has been reduced. Expected soft tissue postoperative change IMPRESSION: Interval open reduction internal fixation of the distal femoral fracture. Alignment curre ntly is anatomic. The above report was generated using voice recognition software. It may contain grammatical, syntax or spelling errors. Electronically signed by: Ras Morrow M.D. 01/27/2019 7:00 PM
--- NOTE | 2019-01-27 19:06 | Anesthesiology Progress Note ---
Date of Service January 27, 2019 Anesthesia Post Procedure Vital Signs Vital Signs: Temp Pulse Pulse Resp BP Pulse Ox 01/27/19 18:55 73 20 147/58 H 99 01/27/19 18:45 73 16 151/68 H 100 01/27/19 18:35 75 13 162/61 H 100 01/27/19 18:25 77 14 175/64 H 100 01/27/19 18:18 37.1 C 77 15 173/68 H 100 01/27/19 15:05 37.1 C 66 20 140/96 97 01/27/19 14:56 37.4 C 66 17 187/70 H 91 01/27/19 07:52 36.6 C 60 20 156/52 H 96 01/27/19 01:40 36.9 C 01/27/19 00:20 37.4 C 01/26/19 23:14 37.6 C H 67 16 154/53 H 94 Pain Intensity Chest: Pain Intensity: 3 Left Leg: Pain Intensity: 3 Transfer of Care Handoff Completed per policy Notes Mental Status: alert / awake / arousable Patient Amnestic to Procedure: Yes Nausea / Vomiting: adequately controlled Pain: adequately controlled Airway Patency, RR, SpO2: stable & adequate BP & HR: stable & adequate Hydration State: stable & adequate Anesthetic Complications: no major complications apparent and Pt Satisfied with anesthetic care Notes: The patient is doing well. She is hemodynamically stable and blood loss was 20 ml. She is awake and alert similar to her baseline. She received fentanyl and Dilaudid for pain control and her pain level is now tolerable. Postop BSG was 213. Dr. Daniels was given report over the phone and will follow her on the floor.
[2019-01-27] MEDS ORDERED: BISACODYL 10 MG SUPP PR PRN (19:43)
[2019-01-27] MEDS ORDERED: NALOXONE HCL 0.4 MG/1 ML VIAL/CARP IV PRN (19:43)
[2019-01-27] MEDS ORDERED: COUGH DROP (SUGAR FREE) LOZ 24 LOZ/1 BOX BUCCAL PRN (20:06)
[2019-01-27] MEDS ORDERED: COUGH DROP (SUGAR FREE) LOZ 24 LOZ/1 BOX BUCCAL ONE (20:24)
[2019-01-27] MEDS ORDERED: SODIUM CHLORIDE 0.9% 1000ML 1,000 ML IV SCH (20:45)
[2019-01-27] MEDS: LATANOPROST 0.005% OP SOLN 2.5 ML BTL OPB SCH (20:50)
[2019-01-27] MEDS: LOSARTAN POTASSIUM 50 MG TAB PO SCH (20:50)
[2019-01-27] MEDS: ATORVASTATIN 10 MG TAB PO SCH (20:50)
[2019-01-27] MEDS: DOCUSATE SODIUM 100 MG CAP PO SCH (20:52)
[2019-01-27] MEDS: ACETAMINOPHEN 500 MG TAB PO SCH (21:06)
[2019-01-27] MEDS: SENNA 8.6 MG TAB PO SCH (21:24)
[2019-01-28] MEDS: CEFAZOLIN 2000MG 2,000 MG/15 ML SYR IV SCH ×2 (01:23→09:11)
--- NOTE | 2019-01-28 01:56 | Operative Report ---
DATE OF OPERATION: 01/27/2019 INDICATION FOR PROCEDURE: An 88-year-old female who suffered a periprosthetic fracture to her left femur. She had left total knee arthroplasty years ago and she had a fall and sustained a supracondylar oblique fracture just above the prosthetic with a spike medially. Appears to have a cruciate retaining knee replacement and does have adequate bone to proceed with internal fixation. PREOPERATIVE DIAGNOSIS: Periprosthetic supracondylar distal femur fracture above total knee replacement, left lower extremity. POSTOPERATIVE DIAGNOSIS: Periprosthetic supracondylar distal femur fracture above total knee replacement, left lower extremity. PROCEDURE: Open reduction internal fixation of periprosthetic supracondylar femur fracture, left knee. SURGEON: Ajay Tipton MD IMMIGRATION PARALEGAL: LUCAS Nevarez. ANESTHESIA: General. SPECIMENS: None. DRAINS: None. COMPLICATIONS: None. OPERATIVE PROCEDURE: The patient taken to the operating room, anesthetized under a general anesthetic. She had a knee immobilizer on her left leg. She was transferred to the operating room and placed supine on the operating room table. Exam demonstrates she did have a superficial abrasion over the prepatellar area. No signs of infection. She had unstable distal femur fracture. Her left lower extremity was then prepped and draped in sterile fashion. After the patient was identified, timeout performed. The incision was made over the lateral knee starting at Gerdy's tubercle extending laterally and proximally to about the mid shaft of the thigh. The skin was incised sharply and subcutaneous tissues divided down to the fascia. Superficial bleeders were cauterized. The fascia haroldo was divided longitudinally and the IT band was split down to the joint capsule. The vastus lateralis was elevated off the femur with a vastus lateralis approach. The fracture was identified as a short oblique fracture which was displaced with the spike was placed superiorly overlying the prosthetic. After irrigation, we placed longitudinal traction on the femur and rotation and we were able to reduce it anatomically, verified this with fluoroscopic evaluation on AP and lateral views. Then a Synthes LCP condylar plate was placed over the lateral femoral condyle and lateral shaft of the femur. I placed the temporary K-wire fixation in the proximal hole at the tip of the plate and after lining of the plate on fluoroscopic views, we placed the K-wire from the central hole for the 7 mm screw. After the alignment was placed, the oblique part of the fracture was lagged with a 4.5 cortical screw first. We used a lag technique, and then the 7 mm screw was placed over the cannulated wire that was placed. Then used another 4.5 cortical screw to lag the plate to the proximal shaft and then after that was all stabilized, we placed the [address] in place. There was good fixation with all the screws. Then remainder of the locking screws proximal were placed. The patient was stable. Bone quality was a little soft distally but proximally was excellent. All screws held satisfactorily. The wound was irrigated copiously with antibiotic solution and bacitracin. The IT band fascia haroldo was closed with [id number] #1 Vicryl sutures. Subcutaneous tissue closed with interrupted 2-0 Vicryl sutures. Skin was closed with antonio. Sterile dressings were applied. The patient had about 20 mL of blood loss and tolerated the procedure well. LUCAS Nevarez was my hospital nursing assistant and functioned as hospital nursing assistant for the entire procedure. He assisted in leg positioning, soft tissue retraction, assisted in the surgery itself and he performed some of the fascial and subcutaneous closure and skin closure and will participate in postoperative care of the patient. I attest to the content of the Intraoperative Record and any orders documented therein. Any exceptions are noted below. KARIN
[2019-01-28] MEDS: ACETAMINOPHEN 500 MG TAB PO SCH ×3 (05:11→21:03)
[2019-01-28] MEDS: LEVOTHYROXINE SODIUM 100 MCG TABLET PO SCH (05:37)
[2019-01-28 07:19] LABS: Hematocrit (blood only) 31.5 % (37-47); Hemoglobin 10.1 g/dL (12.0-16.0); Mean Corpuscular Hgb Conc 32.1 g/dL (32-36); Mean Corpuscular Volume 95.7 fL (80-100); Mean Platelet Volume 10.2 fL (7.4-10.4); Platelet Count 148 K/uL (130-400); RDW Coefficient of Variation 15.5 % (11.5-14.5); RDW Standard Deviation 53.7 fL (36.4-46.3); Red Blood Count 3.29 M/uL (4.2-5.4); White Blood Count 6.18 K/uL (4.8-10.8)
--- NOTE | 2019-01-28 07:31 | Orthopedic Progress Note ---
Date of Service January 28, 2019 Assessment & Plan (1) Periprosthetic supracondylar fracture of femur: POD 1 s/p ORIF Periprosthetic Femur Fx PT/OT as able; NWB LLE with Immobilizer DVT prophylaxis - SCD's, restart Xarelto later today Pain management as written. Plan for dressing change tomorrow and application of hinged knee brace locked in extension. Subjective POD 1 s/p ORIF Left Periprosthetic Femur Fx Pt in bed, awake,alert. Appears comfortable. Pain controlled while at rest but she states she has some moderate pain when trying to move the leg. No other complaints at this time. Physical Exam Physical Exam: Immobilizer on. Dressings C/D/I. Calves are soft,NT. NV intact. Toes mobile. Sensation intact. Results & Data Vital Signs (Past 12 Hours) Vital Signs Temp Pulse Resp BP Pulse Ox 01/28/19 03:21 36.5 C 64 16 112/58 L 94 01/27/19 22:30 36.4 C L 61 16 149/66 H 100 01/27/19 21:24 63 14 145/68 H 96 01/27/19 20:43 36.3 C L 64 16 150/72 H 100 01/27/19 20:00 36.4 C L 64 16 147/64 H 100 01/27/19 19:30 36.3 C L 68 16 147/69 H 99 Laboratory Results Laboratory Results WBC 6.18 K/uL (4.8-10.8) 01/28/19 07:06 RBC 3.29 M/uL (4.2-5.4) L 01/28/19 07:06 Hgb 10.1 g/dL (12.0-16.0) L 01/28/19 07:06 Hct 31.5 % (37-47) L 01/28/19 07:06 MCV 95.7 fL (80-100) 01/28/19 07:06 MCH 30.7 pg (25-34) 01/28/19 07:06 MCHC 32.1 g/dL (32-36) 01/28/19 07:06 RDW Std Deviation 53.7 fL (36.4-46.3) H 01/28/19 07:06 RDW Coeff of Daniel 15.5 % (11.5-14.5) H 01/28/19 07:06 Plt Count 148 K/uL (130-400) 01/28/19 07:06 MPV 10.2 fL (7.4-10.4) 01/28/19 07:06 Immature Gran % (Auto) 0.5 % 01/26/19 08:14 Neut % (Auto) 52.0 % 01/26/19 08:14 Lymph % (Auto) 33.2 % 01/26/19 08:14 Carver % (Auto) 10.7 % 01/26/19 08:14 Eos % (Auto) 3.1 % 01/26/19 08:14 Baso % (Auto) 0.5 % 01/26/19 08:14 Immature Gran # (Auto) 0.03 K/uL (0.00-0.02) H 01/26/19 08:14 Neut # (Auto) 3.17 K/uL (1.4-6.5) 01/26/19 08:14 Lymph # (Auto) 2.02 K/uL (1.2-3.4) 01/26/19 08:14 Carver # (Auto) 0.65 K/uL (0.11-0.59) H 01/26/19 08:14 Eos # (Auto) 0.19 K/uL (0-0.5) 01/26/19 08:14 Baso # (Auto) 0.03 K/uL (0-0.2) 01/26/19 08:14 PT 11.9 Seconds (9.0-12.0) 01/24/19 12:29 INR 1.2 (0.9-1.1) H 01/24/19 12:29 Sodium 141 mmol/L (136-145) 01/27/19 07:42 Potassium 4.2 mmol/L (3.5-5.1) 01/27/19 07:42 Chloride 104 mmol/L (98-107) 01/27/19 07:42 Carbon Dioxide 30 mmol/L (21-32) 01/27/19 07:42 Anion Gap 6.0 (3-11) 01/27/19 07:42 BUN 29 mg/dl (7-18) H 01/27/19 07:42 Creatinine 1.79 mg/dl (0.6-1.2) H 01/27/19 07:42 Est Cr Clr Drug Dosing 23.3 ml/min 01/27/19 07:42 Est GFR ( Amer) 29.2 01/27/19 07:42 Est GFR (Non-Af Amer) 25.2 01/27/19 07:42 BUN/Creatinine Ratio 16.4 (10-20) 01/27/19 07:42 Glucose 130 mg/dl (70-99) H 01/27/19 07:42 POC Glucose 253 (70-99) H 01/27/19 20:46 Calcium 8.6 mg/dl (8.5-10.1) 01/27/19 07:42 Magnesium 2.5 mg/dl (1.8-2.4) H 01/24/19 12:29 Total Bilirubin 0.5 mg/dl (0.2-1) 01/27/19 07:42 AST 55 U/L (15-37) H 01/27/19 07:42 ALT 200 U/L (12-78) H 01/27/19 07:42 Alkaline Phosphatase 102 U/L (45-117) 01/27/19 07:42 Troponin I < 0.015 ng/ml (0-0.045) 01/24/19 12:29 Total Protein 5.5 gm/dl (6.4-8.2) L 01/27/19 07:42 Albumin 3.0 gm/dl (3.4-5.0) L 01/27/19 07:42 Globulin 2.5 gm/dl (2.5-4.0) 01/27/19 07:42 Albumin/Globulin Ratio 1.2 (0.9-2) 01/27/19 07:42 Lipase 197 U/L (73-393) 01/26/19 08:09 TSH 0.689 uIu/ml (0.300-4.500) 01/24/19 12:29 Urine Color Dark Yellow 01/24/19 20:10 Urine Appearance Clear (Clear) 01/24/19 20:10 Urine pH 6.0 (4.5-7.5) 01/24/19 20:10 Ur Specific [place] 1.022 (1.000-1.030) 01/24/19 20:10 Urine Protein 1+ (Negative) H 01/24/19 20:10 Urine Glucose (UA) 2+ (Negative) H 01/24/19 20:10 Urine Ketones Negative (Negative) 01/24/19 20:10 Urine Blood Trace (Negative) H 01/24/19 20:10 Urine Nitrite Negative (Negative) 01/24/19 20:10 Urine Bilirubin 1+ (Negative) H 01/24/19 20:10 Urine Urobilinogen Negative (Negative) 01/24/19 20:10 Ur Leukocyte Esterase Trace (Negative) H 01/24/19 20:10 Urine WBC (Auto) 1-5 /hpf (0-5) 01/24/19 20:10 Urine RBC (Auto) 5-10 /hpf (0-4) H 01/24/19 20:10 U Hyaline Cast (Auto) 1-5 /lpf (0-5) 01/24/19 20:10 U Epithel Cells (Auto) >30 /lpf (0-5) H 01/24/19 20:10 Urine Bacteria (Auto) Negative (Negative) 01/24/19 20:10 Blood Type O Positive 01/26/19 16:21 Antibody Screen NEGATIVE 01/26/19 16:21 Crossmatch See Detail 01/26/19 16:21
[2019-01-28] MEDS: FUROSEMIDE 20 MG TAB PO SCH (09:12)
[2019-01-28] MEDS: PANTOprazole 40 MG TAB PO SCH ×2 (09:12→21:01)
[2019-01-28] MEDS: AMIODARONE 200 MG TAB PO SCH (09:12)
[2019-01-28] MEDS: URSODIOL 300 MG CAP PO SCH ×2 (09:13→21:00)
[2019-01-28] MEDS: AMLODIPINE BESYLATE 5 MG TAB PO SCH (09:13)
[2019-01-28] MEDS: DOCUSATE SODIUM 100 MG CAP PO SCH ×2 (09:13→21:01)
[2019-01-28] MEDS: ALLOPURINOL 100 MG TAB PO SCH (09:13)
[2019-01-28] MEDS: MULTIVITAMIN TAB PO SCH (09:14)
[2019-01-28] MEDS: TRIAMCINOLONE ACET 0.1% CR 15 GM TUBE TOP SCH ×2 (09:15→21:02)
[2019-01-28] MEDS: INSULIN ASPART 100 UNITS/ML 3 ML PEN SC SCH ×4 (09:21→21:12)
[2019-01-28] MEDS: TRAMADOL HCL 50 MG TABLET PO PRN (09:24)
[2019-01-28] MEDS ORDERED: OXYCODONE HCL IR 5 MG TAB (IMMEDIATE RELEASE) PO PRN (12:41)
--- NOTE | 2019-01-28 12:49 | Hospitalist Progress Note ---
Date of Service January 28, 2019 Assessment & Plan (1) Fall: repair of L distal femur periprosthetic fracture Saturday 01/27 will resume anti coagulation with Xarelto Will need PT/OT and likely rehab (2) Epigastric abdominal pain: Hx of reflux Similar episode on resolved with TUMS, elevated LFT, h/o cholecystectomy, will follow, image Liver and CDB for microlithiasis Actemra can cause gastritis, pt was on prior but had been off for some time prior to resuming with most recent dose last week CTAP noted for cholidocholithiasis--persist without right upper quadrant pain, pancreas WNL, Dr. Miranda is seen the patient is trying some Actigall in lieu of proceeding interventional procedure until she recovers from her hip surgery (3) Atrial fibrillation status post cardioversion: continue home meds resume xarelto for afib and post op DVT prevention (4) Depression: Hx of medication use, but has been off of medication for this for several years and no issues (5) Hyperlipidemia LDL goal <70: continue atorvostatin 10 mg (6) Type 2 diabetes mellitus treated with insulin: resume basiglar if glucoses are becoming difficult SSI PRN (7) Temporal arteritis syndrome: Last dose is to be 5mg on 01/25 (8) Chronic kidney disease, stage 4 (severe): Monitor Baseline is 1.5-1.7 Not a current HD pt but states there are plans for a fistula to be created in preparation for possible future needs (9) Bilateral carotid artery stenosis: Monitored with US Q6mo, currently at 50-69% stenosis (10) Hypertension: continue amlodipine and losartan (11) GERD (gastroesophageal reflux disease): continue pantoprozole (12) Hypothyroidism: continue home meds Takes synthroid at same time as PPI Advised separate dosing TSH WNL (13) Sacral decubitus ulcer: Hx of recent issues post-op Wound care Avitia catheter is placed to prevent further skin breakdown Urine dysuria urine culture pending (14) DVT prophylaxis: SCDs with restarting of xareltio Subjective Patient complains of pain in her operated knee. She did have a plate and pinning performed on 724 she did very well with the procedure she is proceeding to physical therapy with consideration of eventual acute rehab placement Review of Systems Review of Systems: ROS: well nourished well developed. She is in mild to moderate distress No double vision blurry vision No problems with speech or swallowing No palpitations, chest pain or pressure No Wheezing or breathing issues No abdominal pain nausea vomiting No burning urine urine frequency or changes in color Left knee pain with movement and at rest No skin rashes or oral lesions No unusual bruising or bleeding No focused back pain or numbness or loss of strength No changes in memory or confusion Physical Exam Physical Exam: The patient appeared well nourished and normally developed. Vital signs as documented. Head exam is unremarkable. normocephalic, atraumatic Neck is without jugular venous distension, thyromegaly, or lymphademopathy Lungs are clear to auscultation and percussion. Cardiac exam reveals Rhythm is regular. First and second heart sounds normal. Abdominal exam reveals normal bowel sounds, no masses, no organomegaly Extremities, left knee is painful to touch and movement Neurologic exam is A&Ox3, no focal deficits, strength is equal bilateral Psychologically seems neither anxious or depressed Skin is warm Dry Results & Data Vital Signs (Past 12 Hours) Vital Signs Temp Pulse Resp BP Pulse Ox Pulse Ox 01/28/19 11:27 95 01/28/19 11:09 36.6 C 66 19 155/67 H 95 01/28/19 07:50 36.9 C 66 19 146/55 H 100 01/28/19 03:21 36.5 C 64 16 112/58 L 94 PG Care Time/CCT Total # of Minutes Spent Total Time Spent with Patient: Total time spent is greater than 50% in coordination of care (as documented) at patient's floor/unit and/or counseling patient: (1) Fall Encounter type: initial encounter Qualified Code(s): W19.XXXA - Unspecified fall, initial encounter
--- NOTE | 2019-01-28 18:55 | Progress Note ---
DATE: 01/28/2019 The patient is postop day 1 for open reduction internal fixation of a left femur fracture. She is not having a lot of abdominal pain today. I talked to her about her common bile duct stones and I had spoken with Dr. Marina yesterday and it turns out he is able to do ERCPs with the patient in the supine position and that they do not have to be on the left side and he is willing to do the procedure while she is in the hospital and off the Xarelto if that is what everyone decides should be done. The patient was informed about this option and she is agreeable to proceeding if it turns out to be appropriate. I will leave that decision to the surgeons and the hospitalist, but if they agree that it should be done and can hold her Xarelto longer than I would contact Dr. Marina and see if he is willing to proceed.
[2019-01-28] MEDS: SENNA 8.6 MG TAB PO SCH (20:59)
[2019-01-28] MEDS: ATORVASTATIN 10 MG TAB PO SCH (21:01)
[2019-01-28] MEDS: LOSARTAN POTASSIUM 50 MG TAB PO SCH (21:01)
[2019-01-28] MEDS: LATANOPROST 0.005% OP SOLN 2.5 ML BTL OPB SCH (21:50)
[2019-01-29] MEDS: ACETAMINOPHEN 500 MG TAB PO SCH ×2 (05:44→13:37)
[2019-01-29] MEDS: LEVOTHYROXINE SODIUM 100 MCG TABLET PO SCH (05:44)
[2019-01-29 07:19] LABS: Hematocrit (blood only) 29.4 % (37-47); Hemoglobin 9.5 g/dL (12.0-16.0); Mean Corpuscular Hgb Conc 32.3 g/dL (32-36); Mean Corpuscular Volume 94.5 fL (80-100); Mean Platelet Volume 9.8 fL (7.4-10.4); Platelet Count 148 K/uL (130-400); RDW Coefficient of Variation 15.8 % (11.5-14.5); RDW Standard Deviation 53.6 fL (36.4-46.3); Red Blood Count 3.11 M/uL (4.2-5.4); White Blood Count 6.82 K/uL (4.8-10.8)
[2019-01-29 07:51] LABS: BUN Creatinine Ratio 18.5 (10-20); Calcium 8.5 mg/dl (8.5-10.1); Creatinine Clr Calc Pharmacy 26.4 ml/min; Est GFR (Non-African American) 29.3; Potassium 3.8 mmol/L (3.5-5.1)
--- NOTE | 2019-01-29 07:57 | Orthopedic Progress Note ---
Date of Service January 29, 2019 Assessment & Plan (1) Periprosthetic supracondylar fracture of femur: POD 2 s/p ORIF Periprosthetic Femur Fx PT/OT as able; NWB LLE with Brace in extension. DVT prophylaxis - SCD's, Xarelto Pain management as written. Dressing change done today and brace on/ fitting well. Disposition- Likely rehab and as per primary service. Subjective POD #2, states she is comfortable, knee pain controlled well. Denies SOB, CP, N/V. States she knows she is going to rehab after hospital stay. Physical Exam Physical Exam: Left LE dressing/ incision c/d/i, no drainage, no erythema, toes/ ankle mobile, Alert and appropriate with simple questions/ answers. Brace in tact and fitting well. Results & Data Vital Signs (Past 12 Hours) Vital Signs Temp Pulse Resp BP Pulse Ox 01/28/19 23:10 37.1 C 69 16 146/72 H 94 01/28/19 20:55 62 156/70 H
[2019-01-29] MEDS: AMLODIPINE BESYLATE 5 MG TAB PO SCH (09:16)
[2019-01-29] MEDS: ALLOPURINOL 100 MG TAB PO SCH (09:16)
[2019-01-29] MEDS: PANTOprazole 40 MG TAB PO SCH (09:16)
[2019-01-29] MEDS: MULTIVITAMIN TAB PO SCH (09:16)
[2019-01-29] MEDS: URSODIOL 300 MG CAP PO SCH (09:17)
[2019-01-29] MEDS: INSULIN ASPART 100 UNITS/ML 3 ML PEN SC SCH ×2 (09:17→13:08)
[2019-01-29] MEDS: AMIODARONE 200 MG TAB PO SCH (09:17)
[2019-01-29] MEDS: FUROSEMIDE 20 MG TAB PO SCH (09:17)
[2019-01-29] MEDS: TRIAMCINOLONE ACET 0.1% CR 15 GM TUBE TOP SCH (09:17)
[2019-01-29] MEDS: DOCUSATE SODIUM 100 MG CAP PO SCH (10:43)
--- NOTE | 2019-01-29 14:41 | Progress Note ---
DATE: 01/29/2019 The patient is doing well postoperatively day 2 from her left leg fracture surgery. She is being transferred to rehab today. I spoke with Dr. Marina and he was not able to do the ERCP while she is in the hospital as he is leaving on vacation later today and did no early enough in the day to do it today, so obviously we will pursue this as an outpatient once her leg heals and I will be able to do it on her left side electively, once her leg is completely healed, then she can lay on her left side. This will be arranged as an outpatient in a month or two.
[2019-01-29] MEDS ORDERED: RIVAROXABAN 15 MG TAB PO SCH (16:30)
--- NOTE | 2019-01-29 16:58 | Discharge Summary ---
Date of Service January 29, 2019 Admission HPI Per Admitting Provider 88 y/o F who was brought to the ED s/p fall. Pt states she woke around 3a with epigastric pain. She states she had a similar episode on after eating too fast. She took TUMS and this resolved that episode, so she tried that again with the episode early this AM. It did not improve. She felt bloated and gassy as well. She took nitro x3 and no help either, so she called her daughter. During all of this, pt became lightheaded and felt to her knees. She was on the ground for about 20 minutes and could not get up due to L LE pain. She has not had n/v/d, cramping. She has been able to eat. She had no issues yesterday and had a normal day for herself. Pt states she is having ongoing epigastric pain. She does not have chest pain. Pt had a CTAP on 08/10/18 which showed enlarged CBD s/p cholectomy and a 6mm ston e. She did take her insulin this AM, but no other medications. She has not eaten yet today. Her last xarelto use was last night. Pt had a fall about 6 months ago that was purely mechanical and resulted in a L hip fracture. Family states that during her post-op period she developed several pressure ulcers that were very slow to heal. Pt follows with rheumatology for temporal arteritis. She had been on actemra for a little over a year and it was decided to see how she did without it. After several months, her headaches returned. She was put back on actemra with her second dose being last Friday. She was also put on steroids, low dose. She is finishing them at 5mg QOD and her last dose it to be tomorrow. During last admission, pt's amiodarone was stopped due to increased cr. She became sx with her afib and this was restarted at 200mg after her cr had improved. Her cr was noted recently to increase again, so this dose was decreased to 100mg about 12 days ago. She does feel better from this standpoint. Pt with A1c elevated recently. Her basiglar dose was increased to 20units about 4 days ago. Pt denies fever, SOB, c/d. Principal Diagnosis left kong prosthetic distal femur fracture choledocholithiasis Discharge Exam Constitutional well developed and average body habitus Eyes no conjunctival abnormality and no scleral abnormality Neck normal visual inspection and trachea midline Respiratory normal respiratory effort; no respiratory distress Auscultation: lungs clear to auscultation bilaterally Cardiovascular RRR, no murmur, no edema Gastrointestinal (Abdomen) normal bowel sounds, soft, nontender, no hepatosplenomegaly Discharge Data Allergies Allergy/AdvReac Type Severity Reaction Status Date / Time capsaicin Allergy Unknown UNSURE Verified 01/24/19 13:47 Diclopak Allergy Unknown UNSURE Verified 12/03/17 11:25 diclofenac Allergy Dizziness Verified 01/24/19 13:47 orange Allergy Hives Verified 01/26/19 16:00 metformin AdvReac Mild DIARRHEA Verified 01/24/19 13:47 methadone AdvReac Mild DIZZY Verified 01/24/19 13:47 morphine AdvReac Mild HALLUCINATI Verified 01/24/19 13:47 ON promethazine AdvReac Mild SEIZURE Verified 01/24/19 13:47 LIKE ACTIVITY" troglitazone AdvReac Mild INCREASE Verified 01/24/19 13:47 LFTs midazolam [From Versed] AdvReac Hallucinati Verified 01/25/19 14:40 ng SENSITIVE TO NARCOTICS Allergy Unknown Unknown Uncoded 01/24/19 13:47 Consultations 01/24/19 13:58 ED Decision to Admit Stat 01/24/19 16:43 Consult Case Management - Discharge Planning Routine Consult Orthopedic Surgery Routine 01/25/19 22:27 Consult Gastroenterology Routine Procedures Performed Operation Date: 01/27/19 07:00 Actual Procedures p Left Open Reduction Internal Fixation Periprosthetic Fracture(Left) - Ajay Tipton MD Operation Date: 01/27/19 08:50 <No data on this case meets the specified criteria> Ordered Studies 01/24/19 12:39 CT abd pelvis wo con Stat CT cervical spine wo con Stat CT head/brain wo con Stat 01/25/19 12:17 US liver Routine 01/27/19 12:00 FL femur LT 2V Routine FL fluoroscopy <1hr Routine Hospital Course (1) Fall: repair of L distal femur periprosthetic fracture Saturday 01/27 will resume anti coagulation with Xarelto Will need rehab (2) Epigastric abdominal pain: Hx of reflux Similar episode on resolved with TUMS, elevated LFT, h/o cholecystectomy, will follow, image Liver and CDB for microlithiasis Actemra can cause gastritis, pt was on prior but had been off for some time prior to resuming with most recent dose last week CTAP noted for cholidocholithiasis--persist without right upper quadrant pain, pancreas WNL, Dr. Miranda is seen the patient is trying some Actigall in lieu of proceeding interventional procedure until she recovers from her hip surgery (3) Atrial fibrillation status post cardioversion: continue home meds resume xarelto for afib and post op DVT prevention (4) Depression: Hx of medication use, but has been off of medication for this for several years and no issues (5) Hyperlipidemia LDL goal <70: continue atorvostatin 10 mg (6) Type 2 diabetes mellitus treated with insulin: basal bolus insulin (7) Temporal arteritis syndrome: Last dose is to be 5mg on 01/25 (8) Chronic kidney disease, stage 4 (severe): Monitor Baseline is 1.5-1.7 Not a current HD pt but states there are plans for a fistula to be created in preparation for possible future needs (9) Bilateral carotid artery stenosis: Monitored with US Q6mo, currently at 50-69% stenosis (10) Hypertension: continue amlodipine and losartan (11) GERD (gastroesophageal reflux disease): continue pantoprozole (12) Hypothyroidism: continue home meds Takes synthroid at same time as PPI TSH WNL (13) Sacral decubitus ulcer: Hx of recent issues post-op Wound care Avitia catheter is placed to prevent further skin breakdown Urine dysuria urine culture pending Total Time Total Time Spent Total Time Spent (In Minutes): greater than 30 minutes were required to prepare discharge Discharge Plan Discharge Items Patient Disposition: Transfer Inpatient Rehab Fac Reason For Visit: FEMUR FRACTURE Discharge Diagnosis: kong-prosthetic femur fracture with repair sludge in bile duct Discharge Goals: Decrease discomfort, Diagnostic testing and Improve disease control Activity: As commented below Activity Comment: as per PT/OT at rehab Non-emergency contact: Primary Care Provider and Surgeon Call non-emergency contact if: you have any medication questions Follow-up/Referrals: Katina Yang DO [Primary Care Provider] - Diet: Regular Addtl Provider Instructions: please follow up with Dr Miranda after discharge for further evaluation of your bile duct sludge Prescriptions: New acetaminophen [Tylenol Extra Strength] 500 mg Tablet 1,000 mg PO Q8 Qty: 0 RF: 0 oxycodone 5 mg Tablet 5 mg PO Q4 PRN (Reason: pain) Qty: 10 RF: 0 sennosides [Senokot] 8.6 mg Tablet 17.2 mg PO HS Qty: 33 RF: 0 ursodiol 300 mg Capsule 300 mg PO BID Qty: 33 RF: 0 Continued Basaglar KwikPen U-100 Insulin 100 unit/mL (3 mL) insulin pen 20 units subcut QAM RF: 0 rivaroxaban 15 mg tablet 15 mg PO QPM Qty: 90 RF: 3 cetirizine 10 mg capsule 10 mg PO UD PRN (Reason: Allergy Symptoms) Qty: 30 RF: 0 amiodarone 200 mg tablet 100 mg PO QAM RF: 0 prednisone 5 mg tablet 5 mg PO QAM RF: 0 loperamide 2 mg tablet 4 mg PO UD RF: 0 cholecalciferol (vitamin D3) [Vitamin D3] 2,000 unit capsule 2,000 units PO QAM RF: 0 tramadol 50 mg tablet 50 mg PO Q8H PRN (Reason: pain) Qty: 10 RF: 0 losartan 50 mg tablet 50 mg PO HS RF: 0 atorvastatin 10 mg tablet 10 mg PO HS RF: 0 amlodipine 5 mg tablet 5 mg PO QAM RF: 0 allopurinol 100 mg tablet 100 mg PO QAM RF: 0 omeprazole 20 mg capsule,delayed release(DR/EC) 20 mg PO BID RF: 0 furosemide 20 mg tablet 20 mg PO BID RF: 0 nitroglycerin [Nitrostat] 0.4 mg Tablet, Sublingual 0.4 mg Sublingual UD PRN (Reason: Chest Pain) RF: 0 latanoprost 0.005 % Drops 1 drp OPB PM RF: 0 albuterol sulfate [Proventil HFA] 90 mcg/actuation Hfa Aerosol Inhaler 1 - 2 puff INHALATION Q4 PRN (Reason: Shortness Of Breath Or Wheezing) RF: 0 Novolog PenFill U-100 Insulin 100 unit/mL Cartridge 1 sliding scale dose SUBCUT TIDM RF: 0 diclofenac sodium 1 % Gel 1 g TOPICAL DAILY PRN (Reason: Pain) RF: 0 triamcinolone acetonide 0.1 % Cream 1 applic TOPICAL BID RF: 0 clobetasol 0.05 % Ointment 1 applic TOPICAL WK RF: 0 colchicine [Colcrys] 0.6 mg Tablet 0.6 mg PO DAILY PRN (Reason: Pain, Severe) RF: 0 levothyroxine 100 mcg Tablet 100 mcg PO QAM RF: 0 Actemra 400 mg/20 mL (20 mg/mL) solution IV MONTHLY RF: 0 Discontinued acetaminophen [Tylenol 8 Hour] 650 mg tablet extended release 650 mg PO Q8H PRN (Reason: fever or pain) Qty: 20 RF: 0 Stand-Alone Forms: [facility] Discharge Orders: Discharge Order (Routine); Ordered 01/29/19 Ordered By: Saturnino Daniels Skilled Items Patient informed of condition?: Yes DNR: No Discharge Level of Care: Acute rehab Communicable Disease: Yes Discharge Prognosis: Stable Admission Data Admit Date/Time: 01/24/19 14:56 Attending Provider: Saturnino Daniels Admit Provider: Modesta Pink Primary Care Provider: Katina Yang Other Providers: Justin Miranda ; Marlo Jeffrey Jessica A Service: Surgical Services Other Interventions: Discharge Summary Assessment (RN) Last Done: 01/29/19 13:40 DC Date/Time DO NOT enter until pt leaves facility: 01/29/19 14:36
== END 2019-01-29 14:36 | DRG 481 ==
LOC: ED 12:07 → 3N 14:56 → SUATTDRO 14:56 → 3N 16:00
DX: K21.9 Gastro-esophageal reflux disease without esophagitis; Z79.4 Long term (current) use of insulin; Z86.73 Personal history of transient ischemic attack (TIA), and cerebral infarction without residual deficits; Z88.8 Allergy status to other drugs, medicaments and biological substances; E03.9 Hypothyroidism, unspecified; M97.12XA Periprosthetic fracture around internal prosthetic left knee joint, initial encounter; I48.91 Unspecified atrial fibrillation; F32.9 Major depressive disorder, single episode, unspecified; I25.10 Atherosclerotic heart disease of native coronary artery without angina pectoris; E78.5 Hyperlipidemia, unspecified; E11.9 Type 2 diabetes mellitus without complications; Z96.652 Presence of left artificial knee joint; N18.4 Chronic kidney disease, stage 4 (severe); I12.9 Hypertensive chronic kidney disease with stage 1 through stage 4 chronic kidney disease, or unspecified chronic kidney disease; Z98.49 Cataract extraction status, unspecified eye; M31.6 Other giant cell arteritis

== ENCOUNTER 2020-12-04 19:37 | Inpatient (IN) ==
[2020-12-04] MEDS ORDERED: ASPIRIN CHEW 324 MG PO STA (19:43)
--- NOTE | 2020-12-04 19:51 | Emergency Department Note ---
Impression & Plan Chest pain, Abnormal EKG, Anemia ED Provider Note NAME: TYE VIZCARRA AGE: 89 SEX: F : 1930 ARRIVES VIA: Ambulance INFORMANT: Patient, EMS personnel ED PROVIDER(S): Peng Casanova DO CHIEF COMPLAINT: Chest pain HPI: The patient is an 89-year-old female who presented to the emergency department via ambulance for an evaluation of chest pain. The patient has a history of coronary artery disease. She last had coronary artery stenting 5 years ago. The patient states that she began having chest pain last evening. The pain would only last a few minutes at a time and would resolve spontaneously. The pain was across her shoulders and across the upper part of the chest. She denies have any lower extremity swelling or pain. She denies having any difficulty breathing or cough. The patient states that when she awoke she continued to have episodes of this discomfort. This afternoon she had one episode that was particularly worse so she called 911. She arrived via ambulance. She did not receive any medications prior to arrival. EKG was obtained. The patient has not been seen recently by her primary care physician. She has been compliant with all of her outpatient medication regimen. She denies having any exposure to COVID-19 as far she knows. The patient states that the pain did radiate into her left breast. She states she has no pain at this time. ROS: See above HPI for pertinent positives & negatives. A total of 10 systems reviewed and were otherwise negative. PAST MEDICAL HISTORY: See Below PAST SURGICAL HISTORY: See Below FAMILY HISTORY: See Below SOCIAL HISTORY: See Below HOME MEDICATIONS: See Below ALLERGIES: See Below VITALS: See Below PHYSICAL EXAMINATION: GENERAL: Patient is awake alert in no acute distress patient is resting comfortably and showing no signs of anxiety EYES: The conjunctivae are clear. The pupils are round and reactive. EARS, NOSE, MOUTH AND THROAT: The nose is without any evidence of any deformity. NECK: The neck is nontender and supple. RESPIRATORY: Normal respiratory effort is noted there is no evidence of wheezing rhonchi or rales CARDIOVASCULAR: Regular rate and rhythm noted there no murmurs rubs or gallops normal S1 normal S2. GASTROINTESTINAL: The abdomen is soft. Abdomen is nontender. MUSCULOSKELETAL/EXTREMITIES: There is no evidence of gross deformity full range of motion is noted in the hips and shoulders. SKIN: There is no obvious evidence of any rash. There are no petechiae, pallor or cyanosis noted. NEUROLOGIC: Patient is awake alert and oriented x3. MEDICAL DECISION MAKING: The patient is an 89-year-old female who presented to the emergency department for an evaluation of chest pain. The patient does have a cardiac history. Her EKG appears to show signs of possible ischemia. She was noted to have lateral ST segment abnormalities on her prehospital EKG. Upon arrival these changes resolved. She developed chest pain again while in the emergency department and the ST segment abnormalities appeared present again. Given her dynamic changes as well as her history I discussed the patient's condition with the on-call [facility] hospitalist group. The patient was treated with aspirin in the emergency department. I discussed the patient's laboratory and radiographic studies with her and her family member. I also discussed the limitations of the emergency department work-up for chest pain with her. Triage Nursing notes reviewed. Prior medical records reviewed Vital Signs: reviewed and remarkable for elevated blood pressure. Differential diagnosis: Cardiac ischemia, aortic dissection, pulmonary embolism, pneumothorax, pneumonia, pericarditis, myocarditis, esophageal rupture, GERD, cholecystitis, pancreatitis, musculoskeletal, as well as other pathologies. ER treatment provided: See below Diagnostics interpreted by me: ECG: EKG was obtained in the emergency department. My interpretation is normal sinus rhythm at 71 bpm. PACs were noted. Minimal ST segment abnormalities were noted in the lateral leads. This was compared to a tracing from January 242018. No significant changes were noted. A prehospital EKG was obtained. My interpretation is normal sinus rhythm at 80 bpm. There is no ectopy. High and low lateral ST depressions with T wave abnormalities were noted. This ST segment depression has resolved upon arrival with our initial tracing. Another EKG was obtained in the emergency department. My interpretation is sinus rhythm at 67 bpm. There is no ectopy. Lateral ST depressions were noted. This appears to be more consistent with a prehospital EKG showing lateral ischemia. Cardiac Monitoring: An order was placed for continuous cardiac monitoring. The monitor shows a rate of 75 bpm with sinus rhythm. Laboratory studies: As stated above and show below. Imaging studies: See below Consultation(s): I discussed this case with Dr. Lund. He was on-call for the [facility] hospitalist group. He will evaluate the patient in the emergency department. Past Med/Surg History Medical History Allergic rhinitis Anemia of chronic disease Angina pectoris Asymmetrical left sensorineural hearing loss Atrial fibrillation status post cardioversion Benign positional vertigo Bilateral carotid artery stenosis CAD (coronary artery disease) Chronic back pain Chronic kidney disease, stage 4 (severe) Closed fracture of left distal femur Dementia Depression GERD (gastroesophageal reflux disease) Glaucoma Gout Hiatal hernia History of CVA (cerebrovascular accident) (2005) R eye History of melanoma DX 1995 ON FACE Hyperlipidemia LDL goal <70 Hypertension Hypothyroidism LPRD (laryngopharyngeal reflux disease) Lumbar spinal stenosis Mixed connective tissue disease Obesity Osteoarthritis Osteoporosis with fracture Peripheral vascular disease Positive sm/DIRECTOR INSTRUMENTATION antibody Renal artery stenosis Temporal arteritis syndrome Transient cerebral ischemia Type 2 diabetes mellitus treated with insulin Vitamin D deficiency Surgical History History of cataract surgery History of excision of lesion (1995) FACE MALIGNANT .6 TO 1CM MELANOMA ON FACE,1995 History of knee replacement (2009) ONSET: 2009 L TKA History of laparoscopy LAPAROSCOPIC LYSIS OF INTESTINAL ADHESIONS History of left hip hemiarthroplasty (08/13/18) History of open reduction and internal fixation (ORIF) procedure (01/27/19) L leg Hx of cholecystectomy S/P coronary artery stent placement (02/27/15) Angioplasty and JAMES to mid LAD, 02/27/15 S/P ERCP (02/11/19) Stented coronary artery Family History Brother Colon cancer Cardiac disorder Cancer Sister Lung cancer Depression Diabetes Cardiac disorder Hypertension Lung disease Cancer Mother Cardiac disorder Hypertension Stroke Father Lung cancer Other Family history non-contributory Heart disease No family history of allergies No family history of bleeding disorder Denies family history of Ovarian cancer Prostate cancer Hearing loss Breast cancer Asthma Social History Smoking Status: Never smoker Second Hand Exposure: No; Hx Alcohol Use: No Hx Substance Use: No Preferred Language: American Communication Ability: Effective Visual Impairment: No Limitations Hearing Ability: Normal Reel Film Inspector Required: No Beliefs That Will Affect Care: None marital status: / Current Living Situation: Alone Current Living Situation Comment: LIVES ALONE, APT AT [facility] current occupational status: retired How many Children do You have: 1 Feels Safe at Home: Yes Dental Care, Regularly: No Physical Activity Frequency: Does not Exercise Seatbelt Use: always Sunscreen Use: No Assistive Devices: Walker and Wheelchair Allergies Allergies Allergy/AdvReac Type Severity Reaction Status Date / Time orange Allergy Intermediate Hives Verified 12/04/20 20:59 capsaicin Allergy Unknown UNSURE Verified 12/04/20 20:59 midazolam [From Versed] AdvReac Severe Hallucinati Verified 12/04/20 20:59 ng diclofenac AdvReac Intermediate Dizziness Verified 12/04/20 20:59 metformin AdvReac Mild DIARRHEA Verified 12/04/20 20:59 methadone AdvReac Mild DIZZY Verified 12/04/20 20:59 morphine AdvReac Mild HALLUCINATI Verified 12/04/20 20:59 ON promethazine AdvReac Mild SEIZURE Verified 12/04/20 20:59 LIKE ACTIVITY" troglitazone AdvReac Mild INCREASE Verified 12/04/20 20:59 LFTs SENSITIVE TO NARCOTICS Allergy Unknown Unknown Uncoded 12/04/20 20:59 Home Meds Home Medications Medication Instructions Recorded Confirmed albuterol sulfate [Proventil HFA] 1 - 2 puff INHALATION Q4 PRN 08/11/18 12/04/20 clobetasol 1 applic TOPICAL WK 08/11/18 12/04/20 colchicine [Colcrys] 0.6 mg PO DAILY PRN 08/11/18 12/04/20 latanoprost 1 drp OPB PM 08/11/18 12/04/20 nitroglycerin [Nitrostat] 0.4 mg SUBLINGUAL UD PRN 08/11/18 12/04/20 triamcinolone acetonide 0.1 % 1 applic TOPICAL BID PRN 07/05/19 12/04/20 topical cream acetaminophen 500 mg tablet 1,000 mg PO BID tab 07/27/20 12/04/20 omeprazole 20 mg capsule,delayed 20 mg PO BID 11/23/20 12/04/20 release tocilizumab 0 mg IV DIRECTED 12/04/20 12/04/20 Previous Rx's Medication Instructions Recorded insulin aspart U-100 100 unit/mL 1 sliding scale dose SUBCUT TIDM 02/18/20 subcutaneous cartridge #15 ml rivaroxaban 15 mg tablet 15 mg PO QPM #90 tab 04/07/20 blood-glucose meter #1 ea 04/28/20 insulin glargine 100 unit/mL (3 13 unit SUBCUT QAM #15 ml 05/03/20 mL) subcutaneous pen lancets #100 ea 05/11/20 ipratropium bromide 21 mcg (0.03 2 spray INTRANASAL BID #30 ml 07/27/20 %) nasal spray lorazepam 0.5 mg tablet 0.5 mg PO DAILY #1 tab 09/13/20 atorvastatin 10 mg tablet 10 mg PO HS 30 Days #90 tab 09/21/20 blood sugar diagnostic #100 ea 09/21/20 allopurinol 100 mg tablet 100 mg PO QAM #90 tab 10/03/20 cholecalciferol (vitamin D3) 50 2,000 unit PO QAM #90 cap 10/03/20 mcg (2,000 unit) capsule losartan 50 mg tablet 25 mg PO HS #45 tab 10/03/20 furosemide 40 mg tablet 40 mg PO DAILY #90 tab 10/12/20 amiodarone 100 mg tablet 100 mg PO QAM #90 tab 10/24/20 levothyroxine 75 mcg capsule 75 mcg PO DAILY #90 cap 11/21/20 pen needle, diabetic 31 gauge x #100 ea 11/23/2011/19" Results & Data (ED) Vital Signs Vital Signs - 24 hr 12/04/20 19:52 12/04/20 20:00 12/04/20 20:54 Temperature 36.8 C Temperature Source Oral Pulse Rate 65 Pulse Rate [Left Apical] 64 Pulse Rhythm Regular Pulse Rhythm [Left Apical] Pulse Strength Normal Pulse Strength [Left Apical] Normal Respiratory Rate 14 16 Respiratory Effort / Characteristics Non-Labored Spontaneous Non-Labored Spontaneous Non-Labored Spontaneous Respiratory Depth Normal Normal Normal Respiratory Pattern Regular Blood Pressure 186/81 H Blood Pressure [Right Arm] 141/58 H Blood Pressure Mean 116 Blood Pressure Mean [Right Arm] 85 Blood Pressure Position Lying Blood Pressure Position [Right Arm] Lying Pulse Oximetry 96 98 Oxygen Delivery Method Room Air Room Air Sepsis Recent Fever Within 48 Hours No Sepsis New/Unexplained Change in Mental Status N/A Sepsis Action Taken by Nursing No Action Required 12/04/20 23:26 Temperature Temperature Source Pulse Rate Pulse Rate [Left Apical] 63 Pulse Rhythm Pulse Rhythm [Left Apical] Regular Pulse Strength Pulse Strength [Left Apical] Normal Respiratory Rate 18 Respiratory Effort / Characteristics Non-Labored Respiratory Depth Normal Respiratory Pattern Regular Blood Pressure Blood Pressure [Right Arm] 155/58 H Blood Pressure Mean Blood Pressure Mean [Right Arm] 90 Blood Pressure Position Blood Pressure Position [Right Arm] Semi-fowlers Pulse Oximetry 97 Oxygen Delivery Method Room Air Sepsis Recent Fever Within 48 Hours Sepsis New/Unexplained Change in Mental Status Sepsis Action Taken by Prison Medications Current Medication List: was personally reviewed by me Laboratory Data Attestation: I reviewed the patient's lab results. Result diagrams: 12/04/20 20:00 12/04/20 20:00 Lab Results 12/04/20 12/04/20 12/04/20 Range/Units 20:00 20:00 20:00 WBC 4.37 L (4.8-10.8) K/uL RBC 3.47 L (4.2-5.4) M/uL Hgb 9.6 L (12.0-16.0) g/dL Hct 31.1 L (37-47) % MCV 89.6 (80-100) fL MCH 27.7 (25-34) pg MCHC 30.9 L (32-36) g/dL RDW Std Deviation 50.9 H (36.4-46.3) fL RDW Coeff of Daniel 15.3 H (11.5-14.5) % Plt Count 248 (130-400) K/uL MPV 9.9 (7.4-10.4) fL Immature Gran % (Auto) 0.0 % Neut % (Auto) 42.1 % Lymph % (Auto) 41.9 % [place] % (Auto) 10.3 % Eos % (Auto) 5.0 % Baso % (Auto) 0.7 % Neut # (Auto) 1.84 (1.4-6.5) K/uL Lymph # (Auto) 1.83 (1.2-3.4) K/uL [place] # (Auto) 0.45 (0.11-0.59) K/uL Eos # (Auto) 0.22 (0-0.5) K/uL Baso # (Auto) 0.03 (0-0.2) K/uL Immature Gran # (Auto) 0.00 (0.00-0.02) K/uL PT 10.8 (9.0-12.0) Seconds INR 1.1 (0.9-1.1) APTT 24.5 (21.0-31.0) Seconds PTT Ratio 0.9 Sodium 141 (136-145) mmol/L Potassium 4.0 (3.5-5.1) mmol/L Chloride 106 (98-107) mmol/L Carbon Dioxide 27 (21-32) mmol/L Anion Gap 8.0 (3-11) BUN 36 H (7-18) mg/dl Creatinine 1.74 H (0.6-1.2) mg/dl Est Cr Clr Drug Dosing 22.2 ml/min Est GFR ( Amer) 29.8 ml/min Est GFR (Non-Af Amer) 25.7 ml/min BUN/Creatinine Ratio 20.9 H (10-20) Glucose 132 H (70-99) mg/dl Calcium 9.2 (8.5-10.1) mg/dl Total Bilirubin 0.3 (0.2-1) mg/dl AST 14 L (15-37) U/L ALT 13 (12-78) U/L Alkaline Phosphatase 71 (45-117) U/L Troponin I < 0.015 (0-0.045) ng/ml Total Protein 6.8 (6.4-8.2) gm/dl Albumin 3.8 (3.4-5.0) gm/dl Globulin 3.0 (2.5-4.0) gm/dl Albumin/Globulin Ratio 1.3 (0.9-2) Lipase 221 (73-393) U/L COVID-19 Eval Order SARS-CoV-2 (PCR) (Negative) 12/04/20 12/04/20 Range/Units 21:22 21:22 WBC (4.8-10.8) K/uL RBC (4.2-5.4) M/uL Hgb (12.0-16.0) g/dL Hct (37-47) % MCV (80-100) fL MCH (25-34) pg MCHC (32-36) g/dL RDW Std Deviation (36.4-46.3) fL RDW Coeff of Daniel (11.5-14.5) % Plt Count (130-400) K/uL MPV (7.4-10.4) fL Immature Gran % (Auto) % Neut % (Auto) % Lymph % (Auto) % [place] % (Auto) % Eos % (Auto) % Baso % (Auto) % Neut # (Auto) (1.4-6.5) K/uL Lymph # (Auto) (1.2-3.4) K/uL [place] # (Auto) (0.11-0.59) K/uL Eos # (Auto) (0-0.5) K/uL Baso # (Auto) (0-0.2) K/uL Immature Gran # (Auto) (0.00-0.02) K/uL PT (9.0-12.0) Seconds INR (0.9-1.1) APTT (21.0-31.0) Seconds PTT Ratio Sodium (136-145) mmol/L Potassium (3.5-5.1) mmol/L Chloride (98-107) mmol/L Carbon Dioxide (21-32) mmol/L Anion Gap (3-11) BUN (7-18) mg/dl Creatinine (0.6-1.2) mg/dl Est Cr Clr Drug Dosing ml/min Est GFR ( Amer) ml/min Est GFR (Non-Af Amer) ml/min BUN/Creatinine Ratio (10-20) Glucose (70-99) mg/dl Calcium (8.5-10.1) mg/dl Total Bilirubin (0.2-1) mg/dl AST (15-37) U/L ALT (12-78) U/L Alkaline Phosphatase (45-117) U/L Troponin I (0-0.045) ng/ml Total Protein (6.4-8.2) gm/dl Albumin (3.4-5.0) gm/dl Globulin (2.5-4.0) gm/dl Albumin/Globulin Ratio (0.9-2) Lipase (73-393) U/L COVID-19 Eval Order Covid19 at [facility] SARS-CoV-2 (PCR) NEGATIVE (Negative) Administered Medications Discontinued Medications Aspirin (Aspirin Chew 324 Mg) 324 mg PO NOW STA Stop: 12/04/20 19:44 Last Admin: 12/04/20 20:04 Dose: 324 mg Documented by: [id number] Imaging Data Attestation: I personally reviewed and interpreted this imaging study as follows: My Impression: 1 view chest x-ray was obtained in the emergency department. My interpretation is no definite infiltrate, no free air, no acute disease. Discharge Plan Visit Data Chief Complaint: Chest Pain Stated Complaint: Chest pain ED Provider: Peng Casanova Discharge Problem: Chest pain, Abnormal EKG, Anemia Patient Disposition: Being Evaluated by Hospitalist Condition: Good Forms Stand Alone Forms: My [facility] [employer] Prescriptions Prescriptions: No Action Novolog PenFill U-100 Insulin 100 unit/mL cartridge 1 sliding scale dose SUBCUT TIDM Qty: 15 RF: 3 rivaroxaban 15 mg tablet 15 mg PO QPM Qty: 90 RF: 3 (DME) blood-glucose meter [OneTouch Ultra2 Meter] Misc See Rx Instructions .ROUTE .MEDSUPPLY Qty: 1 RF: 0 Basaglar KwikPen U-100 Insulin 100 unit/mL (3 mL) insulin pen 13 unit subcut QAM Qty: 15 RF: 3 (DME) lancets [OneTouch UltraSoft Lancets] Misc See Rx Instructions .ROUTE .MEDSUPPLY Qty: 100 RF: 3 lorazepam [Ativan] 0.5 mg tablet 0.5 mg PO DAILY Qty: 1 RF: 0 (DME) OneTouch Ultra Blue Test Strip Strip See Rx Instructions .ROUTE .MEDSUPPLY Qty: 100 RF: 3 atorvastatin 10 mg tablet 10 mg PO HS 30 Days Qty: 90 RF: 1 allopurinol 100 mg tablet 100 mg PO QAM Qty: 90 RF: 1 cholecalciferol (vitamin D3) [Vitamin D3] 50 mcg (2,000 unit) capsule 2,000 unit PO QAM Qty: 90 RF: 1 losartan 50 mg tablet 25 mg PO HS Qty: 45 RF: 1 furosemide 40 mg tablet 40 mg PO DAILY Qty: 90 RF: 1 amiodarone 100 mg tablet 100 mg PO QAM Qty: 90 RF: 1 levothyroxine 75 mcg capsule 75 mcg PO DAILY Qty: 90 RF: 3 (DME) pen needle, diabetic [Lite Touch Insulin Pen [place]] 31 gauge x 5/16" needle See Dose Instructions .ROUTE .MEDSUPPLY Qty: 100 RF: 5 ipratropium bromide 0.03 % spray,non-aerosol 2 spray intranasal BID Qty: 30 RF: 2 omeprazole 20 mg capsule,delayed release(DR/EC) 20 mg PO BID RF: 0 acetaminophen [Tylenol Extra Strength] 500 mg tablet 1,000 mg PO BID RF: 0 nitroglycerin [Nitrostat] 0.4 mg Tablet, Sublingual 0.4 mg Sublingual UD PRN (Reason: Chest Pain) RF: 0 latanoprost 0.005 % Drops 1 drp OPB PM RF: 0 albuterol sulfate [Proventil HFA] 90 mcg/actuation Hfa Aerosol Inhaler 1 - 2 puff INHALATION Q4 PRN (Reason: Shortness Of Breath Or Wheezing) RF: 0 clobetasol 0.05 % Ointment 1 applic TOPICAL WK RF: 0 colchicine [Colcrys] 0.6 mg Tablet 0.6 mg PO DAILY PRN (Reason: Pain, Severe) RF: 0 triamcinolone acetonide 0.1 % cream 1 applic TOPICAL BID PRN (Reason: Skin Irritation) RF: 0 tocilizumab 200 mg/10 mL (20 mg/mL) Solution 0 mg IV DIRECTED RF: 0 Referrals Referrals: Katina Yang DO [Primary Care Provider] - Discharge Problem: Chest pain Qualifiers: Chest pain type: unspecified Qualified Code(s): R07.9 - Chest pain, unspecified Anemia Qualifiers: Anemia type: unspecified type Qualified Code(s): D64.9 - Anemia, unspecified
[2020-12-04 20:19] LABS: Basophils # (auto) 0.03 K/uL (0-0.2); Basophils % (auto) 0.7 %; Eosinophils # (auto) 0.22 K/uL (0-0.5); Hematocrit (blood only) 31.1 % (37-47); Hemoglobin 9.6 g/dL (12.0-16.0); Lymphocytes # (auto) 1.83 K/uL (1.2-3.4); Lymphocytes % (auto) 41.9 %; Mean Corpuscular Hemoglobin 27.7 pg (25-34); Mean Corpuscular Hgb Conc 30.9 g/dL (32-36); Mean Corpuscular Volume 89.6 fL (80-100); Mean Platelet Volume 9.9 fL (7.4-10.4); Monocytes # (auto) 0.45 K/uL (0.11-0.59); Monocytes % (auto) 10.3 %; Neutrophils # (auto) 1.84 K/uL (1.4-6.5); Neutrophils % (auto) 42.1 %; Platelet Count 248 K/uL (130-400); RDW Coefficient of Variation 15.3 % (11.5-14.5); RDW Standard Deviation 50.9 fL (36.4-46.3); Red Blood Count 3.47 M/uL (4.2-5.4); White Blood Count 4.37 K/uL (4.8-10.8)
[2020-12-04 20:31] LABS: INR 1.1 (0.9-1.1); Partial Thromboplastin Ratio 0.9; Partial Thromboplastin Time 24.5 Seconds (21.0-31.0); Prothrombin Time 10.8 Seconds (9.0-12.0)
[2020-12-04 20:32] LABS: Alanine Aminotransferase 13 U/L (12-78); Albumin Level 3.8 gm/dl (3.4-5.0); Aspartate Aminotransferase 14 U/L (15-37); BUN Creatinine Ratio 20.9 (10-20); Blood Urea Nitrogen 36 mg/dl (7-18); Calcium 9.2 mg/dl (8.5-10.1); Carbon Dioxide 27 mmol/L (21-32); Chloride 106 mmol/L (98-107); Creatinine Clr Calc Pharmacy 22.2 ml/min; Est GFR (African American) 29.8 ml/min; Est GFR (Non-African American) 25.7 ml/min; Glucose 132 mg/dl (70-99); Lipase 221 U/L (73-393); Sodium 141 mmol/L (136-145)
[2020-12-04 20:36] LABS: Albumin Globulin Ratio 1.3 (0.9-2); Alkaline Phosphatase 71 U/L (45-117); Bilirubin,Total 0.3 mg/dl (0.2-1); Total Protein 6.8 gm/dl (6.4-8.2); Troponin I < 0.015 ng/ml (0-0.045)
--- NOTE | 2020-12-04 23:02 | History & Physical Report ---
Date of Service December 04, 2020 Assessment & Plan (1) Chest pain: Patient is a very pleasant 89 year old female with PMHx DM2, CAD s/p stent 2016, Hypothyroidism, GERD, Afib, CKD stage 4, Gout, HTN, that presents with 1 day history of chest pain that she describes as "burning in the the center of my chest" and "stabbing pain on my L side under my arm that goes up towards my neck." Chest Pain with EKG Changes -Patient's description of her chest pain is somewhat atypical in regards to angina as it is more sharp, lateral, and comes on with positional changes (more flexion type movements) -Initial EKG with concerns of lateral ST-Twave depressions which improved by the second EKG -The two EKGs taken while in the ED WHILE HAVING chest pain show a similar pattern of having infero-lateral ST-Twave changes initially, and then during the second episode of pain the EKG changes resolving. -Unsure of whether or not there is some slight ischemic component at this time, though concern for MSK related as patient does have a history of falls (last she notes was 2 years ago), primarily on that L side -Will order for XR of the Ribs on the L side to screen for fracture -Troponins in ED x2 were negative -Will also order order for repeat EKG in AM and Echo in AM -Cardiology consulted, patient follows with Dr. Mcfarlane outpatient -As patient's pain is similar to her prior choledocholithiasis pain, would have low threshold for CT Abdomen/Pelvis if her pain becomes more abdominal. Atrial Fibrillation -Does not appear to be in afib currently -Continue Amiodarone -Continue Xarelto CKD Stage 4 -Creatinine 1.74 on admission -Base 1.6-1.9 -Continue Losartan -Gentle hydration LR 80ml/hr while NPO Hypertension -Continue Losartan GERD -Continue Protonix Hypothyroidism -Continue Levothyroxine DM2 -SSI and basal bolus -Monitor for adjustment needs Hx Pulmonary Vascular Congestion -Continue Lasix Dispo: Med/Surg Telemetry for continuous monitoring and IVF FEN: NPO, LR 80ml/hr - Can likely resume diet once Cardiology has seen her, though low suspicion that she would undergo catheterization at this time regardless. DVT: Xarelto Code: Full (2) Abnormal EKG: History of Present Illness Chief Complaint: chest pain Primary Care Provider: Katina Yang DO Patient is a very pleasant 89 year old female with PMHx DM2, CAD s/p stent 2016, Hypothyroidism, GERD, Afib, CKD stage 4, Gout, HTN, that presents with 1 day history of chest pain that she describes as "burning in the the center of my chest" and "stabbing pain on my L side under my arm that goes up towards my neck." Patient notes that this pain awoke her from bed the night prior and that it lasted roughly 10-15 minutes before dissipating. She notes that the pain has been on and off throughout the day and that on the initial time she noticed she had become sweaty and diaphoretic. She denies any SOB with the pain. She does attribute some palpitations. On outside hospital EKG initially she was thought to have some ST-Twave depressions, which upon initial hospital EKG had resolved. She did have an episode x2 of this chest pain where EKGs wer taken for both to which the first showed some ST-Twave depressions on the infero-lateral leads and the second with resolution. She notes that the pain she has in the center her of chest does feel similar to the choledocholithiasis she had in the past (02/11/2019 Dr. Nicolle Marina) which she underwent ERCP for removal of the stones. She also notes that palpation of the lateral aspect of her ribs on the L side reproduce the stinging pain. She currently denies any fever, chills, SOB, chest pain while at rest, abdominal pain, nausea, vomiting, diarrhea. Med Hx: DM2, CAD s/p stent 2016, Hypothyroidism, GERD, Afib, CKD stage 4, Gout, HTN Surg Hx: Cholecystectomy, Hemiarthroplasty L hip, ERCP 2018, Coronal stent LAD 2015 at [facility] Hx: No tobacco, alcohol, or illicit drug use. Allergies Allergy/AdvReac Type Severity Reaction Status Date / Time orange Allergy Intermediate Hives Verified 12/04/20 20:59 capsaicin Allergy Unknown UNSURE Verified 12/04/20 20:59 midazolam [From Versed] AdvReac Severe Hallucinati Verified 12/05/20 03:02 ng diclofenac AdvReac Intermediate Dizziness Verified 12/04/20 20:59 metformin AdvReac Mild DIARRHEA Verified 12/04/20 20:59 methadone AdvReac Mild DIZZY Verified 12/04/20 20:59 morphine AdvReac Mild HALLUCINATI Verified 12/04/20 20:59 ON promethazine AdvReac Mild SEIZURE Verified 12/04/20 20:59 LIKE ACTIVITY" troglitazone AdvReac Mild INCREASE Verified 12/04/20 20:59 LFTs Home Medications Medication Instructions Recorded Confirmed Type albuterol sulfate [Proventil HFA] 1 - 2 puff INHALATION Q4 PRN 08/11/18 12/04/20 History clobetasol 1 applic TOPICAL WK 08/11/18 12/04/20 History colchicine [Colcrys] 0.6 mg PO DAILY PRN 08/11/18 12/04/20 History latanoprost 1 drp OPB PM 08/11/18 12/04/20 History nitroglycerin [Nitrostat] 0.4 mg SUBLINGUAL UD PRN 08/11/18 12/04/20 History triamcinolone acetonide 0.1 % 1 applic TOPICAL BID PRN 07/05/19 12/04/20 History topical cream insulin aspart U-100 100 unit/mL 1 sliding scale dose SUBCUT TIDM 02/18/20 12/04/20 Rx subcutaneous cartridge #15 ml rivaroxaban 15 mg tablet 15 mg PO QPM #90 tab 04/07/20 12/04/20 Rx blood-glucose meter #1 ea 04/28/20 11/23/20 Rx insulin glargine 100 unit/mL (3 13 unit SUBCUT QAM #15 ml 05/03/20 12/04/20 Rx mL) subcutaneous pen lancets #100 ea 05/11/20 11/23/20 Rx acetaminophen 500 mg tablet 1,000 mg PO BID tab 07/27/20 12/04/20 History ipratropium bromide 21 mcg (0.03 2 spray INTRANASAL BID #30 ml 07/27/20 12/04/20 Rx %) nasal spray lorazepam 0.5 mg tablet 0.5 mg PO DAILY #1 tab 09/13/20 12/04/20 Rx atorvastatin 10 mg tablet 10 mg PO HS 30 Days #90 tab 09/21/20 12/04/20 Rx blood sugar diagnostic #100 ea 09/21/20 11/23/20 Rx allopurinol 100 mg tablet 100 mg PO QAM #90 tab 10/03/20 12/04/20 Rx cholecalciferol (vitamin D3) 50 2,000 unit PO QAM #90 cap 10/03/20 12/04/20 Rx mcg (2,000 unit) capsule losartan 50 mg tablet 25 mg PO HS #45 tab 10/03/20 12/04/20 Rx furosemide 40 mg tablet 40 mg PO DAILY #90 tab 10/12/20 12/04/20 Rx amiodarone 100 mg tablet 100 mg PO QAM #90 tab 10/24/20 12/04/20 Rx levothyroxine 75 mcg capsule 75 mcg PO DAILY #90 cap 11/21/20 12/04/20 Rx omeprazole 20 mg capsule,delayed 20 mg PO BID 11/23/20 12/04/20 History release pen needle, diabetic 31 gauge x #100 ea 11/23/20 11/23/20 Rx 11/19" tocilizumab 0 mg IV DIRECTED 12/04/20 12/04/20 History Past Med/Surg History Medical History Allergic rhinitis Anemia of chronic disease Angina pectoris Asymmetrical left sensorineural hearing loss Atrial fibrillation status post cardioversion Benign positional vertigo Bilateral carotid artery stenosis CAD (coronary artery disease) Chronic back pain Chronic kidney disease, stage 4 (severe) Closed fracture of left distal femur Dementia Depression GERD (gastroesophageal reflux disease) Glaucoma Gout Hiatal hernia History of CVA (cerebrovascular accident) (2005) R eye History of melanoma DX 1995 ON FACE Hyperlipidemia LDL goal <70 Hypertension Hypothyroidism LPRD (laryngopharyngeal reflux disease) Lumbar spinal stenosis Mixed connective tissue disease Obesity Osteoarthritis Osteoporosis with fracture Peripheral vascular disease Positive sm/GREIGE MENDER antibody Renal artery stenosis Temporal arteritis syndrome Transient cerebral ischemia Type 2 diabetes mellitus treated with insulin Vitamin D deficiency Surgical History History of cataract surgery History of excision of lesion (1995) FACE MALIGNANT .6 TO 1CM MELANOMA ON FACE,1995 History of knee replacement (2009) ONSET: 2009 L TKA History of laparoscopy LAPAROSCOPIC LYSIS OF INTESTINAL ADHESIONS History of left hip hemiarthroplasty (08/13/18) History of open reduction and internal fixation (ORIF) procedure (01/27/19) L leg Hx of cholecystectomy S/P coronary artery stent placement (02/27/15) Angioplasty and JAMES to mid LAD, 02/27/15 S/P ERCP (02/11/19) Stented coronary artery Family History Brother Colon cancer Cardiac disorder Cancer Sister Lung cancer Depression Diabetes Cardiac disorder Hypertension Lung disease Cancer Mother Cardiac disorder Hypertension Stroke Father Lung cancer Other Family history non-contributory Heart disease No family history of allergies No family history of bleeding disorder Denies family history of Ovarian cancer Prostate cancer Hearing loss Breast cancer Asthma Social History Smoking Status: Never smoker Second Hand Exposure: No; Hx Alcohol Use: No Hx Substance Use: No Preferred Language: Bolivian Communication Ability: Effective Visual Impairment: No Limitations Hearing Ability: Normal Steam Drier Operator Required: No Beliefs That Will Affect Care: None marital status: / Current Living Situation: Alone Current Living Situation Comment: lives in apartment with home nursing coming in 5x a week current occupational status: retired How many Children do You have: 1 Feels Safe at Home: Yes Dental Care, Regularly: No Physical Activity Frequency: Does not Exercise Seatbelt Use: always Sunscreen Use: No Assistive Devices: Glasses Review of Systems Review of Systems: All systems reviewed & are unremarkable except as noted in Subjective Physical Exam Constitutional: WD/WN, vitals as above Eyes: PERRL, conjunctivae normal, anicteric sclerae ENMT: external ear and nose normal, oropharynx normal Neck: trachea midline, no thyromegaly Respiratory: normal respiratory effort, lungs clear to auscultation Cardiovascular: Rate/Rhythm: regular rate and regular rhythm Heart Sounds: + murmur (2/6 ZAHRAA ) Extremities: no calf tenderness Chest (Breasts): Additional Comments: Tenderness to palpation of the lateral chest wall along the ribs on the L side, Rib ~5-6 Gastrointestinal (Abdomen): Inspection/Auscultation: abdomen normal to inspection and normal bowel sounds; abdomen not distended Percussion/Palpation: + abdomen tender (slight epigatric tenderness ) Musculoskeletal: no cyanosis or clubbing, extremities motor strength 5/5 Skin: no rashes, warm and dry NO visible rash along the rib angles of the L side suspicious for vesicular like lesions Neurologic: PERRL, EOMI, accommodation nl, no face palsy, no dysarthria Psychiatric: A+Ox3, euthymic affect Results & Data Results & Data ([facility]) Vital Signs (Past 12 Hours) Vital Signs Temp Pulse Pulse Resp BP BP Pulse Ox 12/04/20 20:54 64 16 141/58 H 98 12/04/20 19:52 36.8 C 65 14 186/81 H 96 Supervising Physician Co-Signing Physician Notes Attending addendum: I have physically seen this patient, have supervised the medical residents activities, and agree with the H&P unless as otherwise noted. Assessment and Plan: Chest pain/atrial fibrillation/hypertension- The patient will be admitted to telemetry for serial cardiac enzymes, serial EKG's, cardiac rhythm monitoring and a 2-D echocardiogram with Dopplers. Dynamic EKG changes laterally X-ray ribs did not reveal fracture Consult her corporate secretary Dr. Mcfarlane Daughter reports her pain is similar to previous choledocholithiasis pain. Order CT abdomen pelvis, unable to do MRCP continue amiodarone, losartan and Xarelto Diabetes mellitus- Patient Accu-Cheks before meals and at bedtime with NovoLog coverage per scale GERD- Continue pantoprazole Remaining orders and notations as noted Resident Activity Tracking Resident Involvement: Resident Care Provided Care Provided: Adult Hospital Medicine (1) Chest pain Chest pain type: unspecified Qualified Code(s): R07.9 - Chest pain, unspecified
[2020-12-05] MEDS ORDERED: GLUCOSE 10 TABS/TUBE PO PRN (01:52)
[2020-12-05] MEDS ORDERED: ACETAMINOPHEN 500 MG TAB PO PRN (01:52)
[2020-12-05] MEDS ORDERED: LOSARTAN POTASSIUM 25 MG TAB PO SCH (01:52)
[2020-12-05] MEDS ORDERED: DEXTROSE 50% 50 ML SYRINGE IV PRN (01:52)
[2020-12-05] MEDS ORDERED: ALBUTEROL HFA 8 GM INHALER INH PRN (01:52)
[2020-12-05] MEDS ORDERED: RIVAROXABAN 15 MG TAB PO SCH (01:52)
[2020-12-05] MEDS ORDERED: ATORVASTATIN 10 MG TAB PO SCH (01:52)
[2020-12-05] MEDS ORDERED: GLUCOSE 40% GEL 15 GM TUBE PO PRN (01:52)
[2020-12-05] MEDS ORDERED: GLUCAGON FOR INJ 1 MG VIAL SQ PRN (01:52)
[2020-12-05] MEDS ORDERED: CARBOHYDRATES FOR HYPOGLYCEMIA PO PRN (01:52)
[2020-12-05] MEDS ORDERED: LORazepam 0.5 MG TAB PO PRN (01:52)
[2020-12-05] MEDS ORDERED: NITROGLYCERIN SL 0.4 MG/TAB TAB SL PRN (01:52)
[2020-12-05] MEDS ORDERED: ONDANSETRON INJ 2 MG/ML 2 ML VIAL IV PRN (01:52)
[2020-12-05] MEDS: PANTOprazole 40 MG TAB PO SCH ×2 (03:23→07:33)
[2020-12-05] MEDS: LACTATED RINGER'S 1,000 ML IV SCH ×2 (03:27→15:15)
[2020-12-05] MEDS: INSULIN ASPART 100 UNITS/ML 3 ML PEN SC SCH ×2 (06:00→12:07)
[2020-12-05] MEDS ORDERED: LEVOTHYROXINE SODIUM 75 MCG TABLET PO SCH (06:30)
[2020-12-05 07:58] LABS: Hematocrit (blood only) 29.8 % (37-47); Hemoglobin 9.3 g/dL (12.0-16.0); Mean Corpuscular Hemoglobin 27.3 pg (25-34); Mean Corpuscular Hgb Conc 31.2 g/dL (32-36); Mean Corpuscular Volume 87.4 fL (80-100); Mean Platelet Volume 9.6 fL (7.4-10.4); Platelet Count 224 K/uL (130-400); RDW Coefficient of Variation 15.3 % (11.5-14.5); RDW Standard Deviation 49.2 fL (36.4-46.3); Red Blood Count 3.41 M/uL (4.2-5.4); White Blood Count 5.17 K/uL (4.8-10.8)
[2020-12-05 08:22] LABS: Basophils # (auto) 0.02 K/uL (0-0.2); Basophils % (auto) 0.4 %; Eosinophils # (auto) 0.22 K/uL (0-0.5); Eosinophils % (auto) 4.3 %; Lymphocytes # (auto) 2.84 K/uL (1.2-3.4); Lymphocytes % (auto) 54.9 %; Monocytes # (auto) 0.54 K/uL (0.11-0.59); Monocytes % (auto) 10.4 %; Neutrophils # (auto) 1.55 K/uL (1.4-6.5); Poikilocytosis Present; Schistocytes 1+
[2020-12-05 08:25] LABS: BUN Creatinine Ratio 22.3 (10-20); Calcium 9.3 mg/dl (8.5-10.1); Est GFR (African American) 31.6 ml/min; Est GFR (Non-African American) 27.2 ml/min; Magnesium 2.4 mg/dl (1.8-2.4); Potassium 3.8 mmol/L (3.5-5.1)
--- NOTE | 2020-12-05 08:26 | XRay Report ---
XR chest 1V portable CLINICAL HISTORY: Chest Pain COMPARISON STUDY: Chest radiograph January 24, 2019. FINDINGS: Lung volumes are normal. Lungs are clear. There is no pneumothorax or pleural effusion. Car diac size is normal. Mediastinal contours are normal. There is no evidence for pulmonary edema. IMPRESSION: No acute cardiopulmonary findings. ACT 112: Negative or not required by law. Electronically signed by: Sav Lanier M.D. 12/05/2020 8:25 AM
--- NOTE | 2020-12-05 08:56 | XCELERA ---
[id number]
[2020-12-05] MEDS ORDERED: allopurinoL 100 MG TAB PO SCH (09:00)
[2020-12-05] MEDS ORDERED: FUROSEMIDE 40 MG TAB PO SCH (09:00)
[2020-12-05] MEDS ORDERED: CHOLECALCIFEROL 1,000 UNITS 25 MCG TAB PO SCH (09:00)
[2020-12-05] MEDS ORDERED: INSULIN GLARGINE SOLOSTAR 100 UNITS/ML 3 ML PEN SC SCH (09:00)
[2020-12-05] MEDS ORDERED: AMIODARONE 200 MG TAB PO SCH (09:00)
--- NOTE | 2020-12-05 09:06 | Cardiology Consultation ---
Date of Consultation December 05, 2020 Assessment & Plan (1) Chest pain: her presenting symptoms are very atypical for acute coronary syndrome. The symptoms themselves are extended in duration and reproducible on examination. There has been no elevation in her cardiac bio markers. There appeared to be some concern regarding dynamic EKG changes at the time of her evaluation in the emergency room. However, the EKGs in her record do not demonstrate significant findings by my count. The patient has had recurrent symptoms of chest pain even in the outpatient setting based on reports in her chart. Would seem reasonable to perform stress echocardiography as this has been ordered on an outpatient basis and she has had recurrent symptoms of chest pains over the past few months. (2) Mitral regurgitation: mild to moderate. No symptoms. Normal LV systolic function (3) CAD (coronary artery disease): history of percutaneous intervention to the LAD in [place] in 2015. Unclear symptoms at that time. No evidence of ischemia currently. Will continue aggressive secondary prevention with high-dose atorvastatin and rivaroxaban. (4) Aortic stenosis: Very mild on echocardiography today. (5) Paroxysmal atrial fibrillation: no recent clinical episodes. In sinus rhythm current Josselyn. No documented amiodarone toxicity based on her recent laboratory studies. Will continue amiodarone and Xarelto. History of Present Illness Reason for Consultation: Chest pain Requesting Physician: Scarlet Attending Physician: Amena Ocampo MD History of Present Illness the patient is an 82-year-old woman with a history of coronary disease having previously undergone percutaneous intervention to the LAD in 2016. She also has a history of atrial fibrillation currently on amiodarone therapy. She lives independently and reports some discomfort in both the neck, ribs and anterior chest for the past 3 days. Patient's primary concern was her neck this morning, but she did report similar level of discomfort at these other sites as well. She states that the symptoms have been relatively unabated for that time frame. They do not appear to be affected by activity or changes in position. There does not appear to be any pleuritic component. Patient cannot recall if she has had similar symptoms in the past. When questioned about symptoms related to her intervention in 2016, she did not recall any specific symptoms. Based on the continuing nature of the symptoms she contacted EMS last night and [facility] Initial evaluation involve serial EKGs and there was some concern about dynamic EKG changes. She was subsequently admitted for observation. Patient states that she generally uses a walker or wheelchair even around her residence. She does have some dizziness associated with activity and did suffer a fall approximately 1 year ago. She is not appear to have breathing difficulty either with activity or at rest. She does not recall any sense of palpitations recently. She did report some difficulty eating in a sense that if she eats too much or generally after breakfast she will need to have a bowel movement immediately. This morning she continues to have left-sided neck discomfort, left rib discomfort and precordial chest pain. Allergies Allergy/AdvReac Type Severity Reaction Status Date / Time orange Allergy Intermediate Hives Verified 12/04/20 20:59 capsaicin Allergy Unknown UNSURE Verified 12/04/20 20:59 midazolam [From Versed] AdvReac Severe Hallucinati Verified 12/05/20 03:02 ng diclofenac AdvReac Intermediate Dizziness Verified 12/04/20 20:59 metformin AdvReac Mild DIARRHEA Verified 12/04/20 20:59 methadone AdvReac Mild DIZZY Verified 12/04/20 20:59 morphine AdvReac Mild HALLUCINATI Verified 12/04/20 20:59 ON promethazine AdvReac Mild SEIZURE Verified 12/04/20 20:59 LIKE ACTIVITY" troglitazone AdvReac Mild INCREASE Verified 12/04/20 20:59 LFTs Home Medications Medication Instructions Recorded Confirmed Type albuterol sulfate [Proventil HFA] 1 - 2 puff INHALATION Q4 PRN 08/11/18 12/04/20 History clobetasol 1 applic TOPICAL WK 08/11/18 12/04/20 History colchicine [Colcrys] 0.6 mg PO DAILY PRN 08/11/18 12/04/20 History latanoprost 1 drp OPB PM 08/11/18 12/04/20 History nitroglycerin [Nitrostat] 0.4 mg SUBLINGUAL UD PRN 08/11/18 12/04/20 History triamcinolone acetonide 0.1 % 1 applic TOPICAL BID PRN 07/05/19 12/04/20 History topical cream insulin aspart U-100 100 unit/mL 1 sliding scale dose SUBCUT TIDM 02/18/20 12/04/20 Rx subcutaneous cartridge #15 ml rivaroxaban 15 mg tablet 15 mg PO QPM #90 tab 04/07/20 12/04/20 Rx blood-glucose meter #1 ea 04/28/20 11/23/20 Rx insulin glargine 100 unit/mL (3 13 unit SUBCUT QAM #15 ml 05/03/20 12/04/20 Rx mL) subcutaneous pen lancets #100 ea 05/11/20 11/23/20 Rx acetaminophen 500 mg tablet 1,000 mg PO BID tab 07/27/20 12/04/20 History ipratropium bromide 21 mcg (0.03 2 spray INTRANASAL BID #30 ml 07/27/20 12/04/20 Rx %) nasal spray lorazepam 0.5 mg tablet 0.5 mg PO DAILY #1 tab 09/13/20 12/04/20 Rx atorvastatin 10 mg tablet 10 mg PO HS 30 Days #90 tab 09/21/20 12/04/20 Rx blood sugar diagnostic #100 ea 09/21/20 11/23/20 Rx allopurinol 100 mg tablet 100 mg PO QAM #90 tab 10/03/20 12/04/20 Rx cholecalciferol (vitamin D3) 50 2,000 unit PO QAM #90 cap 10/03/20 12/04/20 Rx mcg (2,000 unit) capsule losartan 50 mg tablet 25 mg PO HS #45 tab 10/03/20 12/04/20 Rx furosemide 40 mg tablet 40 mg PO DAILY #90 tab 10/12/20 12/04/20 Rx amiodarone 100 mg tablet 100 mg PO QAM #90 tab 10/24/20 12/04/20 Rx levothyroxine 75 mcg capsule 75 mcg PO DAILY #90 cap 11/21/20 12/04/20 Rx omeprazole 20 mg capsule,delayed 20 mg PO BID 11/23/20 12/04/20 History release pen needle, diabetic 31 gauge x #100 ea 11/23/20 11/23/20 Rx 5/16" tocilizumab 0 mg IV DIRECTED 12/04/20 12/04/20 History Patient History Medical History Allergic rhinitis Anemia of chronic disease Angina pectoris Asymmetrical left sensorineural hearing loss Atrial fibrillation status post cardioversion Benign positional vertigo Bilateral carotid artery stenosis CAD (coronary artery disease) Chronic back pain Chronic kidney disease, stage 4 (severe) Closed fracture of left distal femur Dementia Depression GERD (gastroesophageal reflux disease) Glaucoma Gout Hiatal hernia History of CVA (cerebrovascular accident) (2005) R eye History of melanoma DX 1995 ON FACE Hyperlipidemia LDL goal <70 Hypertension Hypothyroidism LPRD (laryngopharyngeal reflux disease) Lumbar spinal stenosis Mixed connective tissue disease Obesity Osteoarthritis Osteoporosis with fracture Peripheral vascular disease Positive sm/WILD LIFE MANAGER antibody Renal artery stenosis Temporal arteritis syndrome Transient cerebral ischemia Type 2 diabetes mellitus treated with insulin Vitamin D deficiency Surgical History History of cataract surgery History of excision of lesion (1995) FACE MALIGNANT .6 TO 1CM MELANOMA ON FACE,1995 History of knee replacement (2009) ONSET: 2009 L TKA History of laparoscopy LAPAROSCOPIC LYSIS OF INTESTINAL ADHESIONS History of left hip hemiarthroplasty (08/13/18) History of open reduction and internal fixation (ORIF) procedure (01/27/19) L leg Hx of cholecystectomy S/P coronary artery stent placement (02/27/15) Angioplasty and JAMES to mid LAD, 02/27/15 S/P ERCP (02/11/19) Stented coronary artery Family History Brother Colon cancer Cardiac disorder Cancer Sister Lung cancer Depression Diabetes Cardiac disorder Hypertension Lung disease Cancer Mother Cardiac disorder Hypertension Stroke Father Lung cancer Other Family history non-contributory Heart disease No family history of allergies No family history of bleeding disorder Denies family history of Ovarian cancer Prostate cancer Hearing loss Breast cancer Asthma Social History Smoking Status: Never smoker Second Hand Exposure: No; Do You Dip or Chew Tobacco: No; Hx Alcohol Use: No Hx Substance Use: No Preferred Language: Faroese Communication Ability: Effective Visual Impairment: No Limitations Hearing Ability: Normal It Integration Architect Required: No Beliefs That Will Affect Care: None marital status: / Current Living Situation: Alone Current Living Situation Comment: lives in apartment with home nursing coming in 5x a week current occupational status: retired How many Children do You have: 1 Other Information That Helps Us Care for You: No Feels Safe at Home: Yes Safety Concerns: Feels Safe At This Time Dental Care, Regularly: No Physical Activity Frequency: Does not Exercise Seatbelt Use: always Sunscreen Use: No Assistive Devices: Cane, Glasses, Walker and Wheelchair Review of Systems Review of Systems: All systems reviewed & are unremarkable except as noted in HPI & below Physical Exam Physical Exam: She is alert and oriented x3. Mood affect appear normal. She answered all questions appropriately. HEENT: Sclerae are anicteric. Pupils are equal and reactive to light and a ccommodation. Extraocular movements were intact. Neuro: Cranial nerves intact Neck: Examination of the submandibular region did not reveal any significant lymphadenopathy. Carotids are palpable bilaterally and free of bruits on auscultation. There was no evidence of jugular venous distention. The thyroid was not enlarged. Lungs: Lungs are clear to auscultation bilaterally. There are no rales wheezes or rhonchi. She has normal respiratory effort without use of accessory muscles. There is normal pulmonary excursion. Cardiac: The rhythm was regular. S1 and S2 were normal. Systolic ejection murmur. The PMI was not markedly displaced on palpation. Extremities: left radial pulse is normal, right radial pulse is weak. There is no evidence cyanosis or clubbing. There was no evidence of significant peripheral edema bilaterally. Skin: There are no rashes noted on examination today. palpation of the left neck and anterior chest reproduced the symptoms causing her admission. Results & Data ([facility]) Vital Signs (Past 12 Hours) Vital Signs Temp Pulse Pulse Pulse Resp BP BP 12/05/20 07:59 36.7 C 59 L 16 12/05/20 06:21 59 L 12/05/20 04:45 36.7 C 63 16 12/05/20 02:14 36.7 C 73 18 194/72 H 12/05/20 02:01 65 12/05/20 01:55 65 18 190/72 H 12/05/20 01:52 36.7 C 73 18 197/72 H 12/04/20 23:26 63 18 BP Pulse Ox 12/05/20 07:59 132/63 97 12/05/20 06:21 12/05/20 04:45 146/70 H 97 12/05/20 02:14 197/76 H 97 12/05/20 02:01 12/05/20 01:55 97 12/05/20 01:52 197/76 H 12/04/20 23:26 155/58 H 97 Laboratory Results Abnormal Lab Results 05/12/04/20 12/04/20 20:00 20:00 20:00 WBC 4.37 L RBC 3.47 L Hgb 9.6 L Hct 31.1 L MCV 89.6 MCH 27.7 MCHC 30.9 L RDW Std Deviation 50.9 H RDW Coeff of Daniel 15.3 H Plt Count 248 MPV 9.9 Immature Gran % (Auto) 0.0 Neut % (Auto) 42.1 Lymph % (Auto) 41.9 King % (Auto) 10.3 Eos % (Auto) 5.0 Baso % (Auto) 0.7 Neut # (Auto) 1.84 Lymph # (Auto) 1.83 King # (Auto) 0.45 Eos # (Auto) 0.22 Baso # (Auto) 0.03 Immature Gran # (Auto) 0.00 Poikilocytosis Schistocytes PT 10.8 INR 1.1 APTT 24.5 PTT Ratio 0.9 Sodium 141 Potassium 4.0 Chloride 106 Carbon Dioxide 27 Anion Gap 8.0 BUN 36 H Creatinine 1.74 H Est Cr Clr Drug Dosing 22.2 Est GFR ( Amer) 29.8 Est GFR (Non-Af Amer) 25.7 BUN/Creatinine Ratio 20.9 H Glucose 132 H POC Glucose Calcium 9.2 Magnesium Total Bilirubin 0.3 AST 14 L ALT 13 Alkaline Phosphatase 71 Troponin I < 0.015 Total Protein 6.8 Albumin 3.8 Globulin 3.0 Albumin/Globulin Ratio 1.3 Lipase 221 COVID-19 Eval Order SARS-CoV-2 (PCR) 12/04/20 12/04/20 12/05/20 21:22 21:22 05:52 WBC RBC Hgb Hct MCV MCH MCHC RDW Std Deviation RDW Coeff of Daniel Plt Count MPV Immature Gran % (Auto) Neut % (Auto) Lymph % (Auto) King % (Auto) Eos % (Auto) Baso % (Auto) Neut # (Auto) Lymph # (Auto) King # (Auto) Eos # (Auto) Baso # (Auto) Immature Gran # (Auto) Poikilocytosis Schistocytes PT INR APTT PTT Ratio Sodium Potassium Chloride Carbon Dioxide Anion Gap BUN Creatinine Est Cr Clr Drug Dosing Est GFR ( Amer) Est GFR (Non-Af Amer) BUN/Creatinine Ratio Glucose POC Glucose 95 Calcium Magnesium Total Bilirubin AST ALT Alkaline Phosphatase Troponin I Total Protein Albumin Globulin Albumin/Globulin Ratio Lipase COVID-19 Eval Order Covid19 at [facility] SARS-CoV-2 (PCR) NEGATIVE 12/05/20 12/05/20 07:34 07:34 WBC 5.17 RBC 3.41 L Hgb 9.3 L Hct 29.8 L MCV 87.4 MCH 27.3 MCHC 31.2 L RDW Std Deviation 49.2 H RDW Coeff of Daniel 15.3 H Plt Count 224 MPV 9.6 Immature Gran % (Auto) 0.0 Neut % (Auto) 30.0 Lymph % (Auto) 54.9 King % (Auto) 10.4 Eos % (Auto) 4.3 Baso % (Auto) 0.4 Neut # (Auto) 1.55 Lymph # (Auto) 2.84 King # (Auto) 0.54 Eos # (Auto) 0.22 Baso # (Auto) 0.02 Immature Gran # (Auto) 0.00 Poikilocytosis Present Schistocytes 1+ PT INR APTT PTT Ratio Sodium 142 Potassium 3.8 Chloride 108 H Carbon Dioxide 29 Anion Gap 5.0 BUN 37 H Creatinine 1.66 H Est Cr Clr Drug Dosing 24.0 Est GFR ( Amer) 31.6 Est GFR (Non-Af Amer) 27.2 BUN/Creatinine Ratio 22.3 H Glucose 82 POC Glucose Calcium 9.3 Magnesium 2.4 Total Bilirubin AST ALT Alkaline Phosphatase Troponin I Total Protein Albumin Globulin Albumin/Globulin Ratio Lipase COVID-19 Eval Order SARS-CoV-2 (PCR) Diagnostic Findings Chest x-ray obtained at the time admission not reveal any acute cardiopulmonary findings. Echocardiogram this morning revealed preserved LV systolic function without regional wall motion abnormalities. There was very mild aortic stenosis and [id number] mitral regurgitation. Stage II diastolic dysfunction PG Care Time/CCT Total # of Minutes Spent Total Time Spent with Patient: Total time spent is greater than 50% in coordination of care (as documented) at patient's floor/unit and/or counseling patient: Coding Level of Care Code 08856 OBS Care - Level 3 Diagnoses Chest pain R07.9 Chest pain type: unspecified Mitral regurgitation I34.0 CAD (coronary artery disease) I25.10 Aortic stenosis I35.0 Paroxysmal atrial fibrillation I48.0 (1) Chest pain Chest pain type: unspecified Qualified Code(s): R07.9 - Chest pain, unspecified
[2020-12-05] MEDS ORDERED: ATROPINE SULFATE 0.1 MG/ML 10ML SYR IV ONE (09:28)
[2020-12-05] MEDS ORDERED: METOPROLOL TARTRATE 1 MG/ML VIAL IV ONE (09:28)
[2020-12-05] MEDS ORDERED: DOBUTamine HCL 12.5 MG/ML 20 ML VIAL IV ONE (09:28)
[2020-12-05 09:30] LABS: Estimated Average Glucose 140 mg/dl; Hemoglobin A1C 6.5 % (4.5-5.6)
[2020-12-05] MEDS ORDERED: PERFLUTREN LIPID MICROSPHERE (DEFINITY) IV ONE (10:12)
--- NOTE | 2020-12-05 10:34 | XRay Report ---
XR ribs LT min 2V CLINICAL HISTORY: L chest pain/lateral pain COMPARISON: None. DISCUSSION: Questionable linear lucency is seen at the posterior lateral aspect of the left 10th rib which might represent nondisplaced fracture or related to superimposition of structures. No pleural effusion demonstrated. Heavy calcifications of aortic arch are seen. Coronary stent is projecting to the cardiac silhouette. IMPRESSION: Questionable linear lucency within posterior lateral aspect of the left 10th rib which might represen t nondisplaced fracture or related to superimposition of structures. Please correlate above-mentioned findings was point tenderness. ACT 112: Negative or not required by law. The above report was generated using voice recognition software. It may contain grammatical, syntax o r spelling errors. Electronically signed by: Savana Limon DO 12/05/2020 10:33 AM
--- NOTE | 2020-12-05 10:40 | Electrocardiogram Report ---
Test Reason : Blood Pressure : / mmHG Vent. Rate : 071 BPM Atrial Rate : 300 BPM P-R Int : 000 ms QRS Dur : 098 ms QT Int : 410 ms P-R-T Axes : 000 027 072 degrees QTc Int : 445 ms Poor data quality, interpretation may be adversely affected Sinus rhythm with 1st degree A-V block Diffuse Nonspecific ST abnormality Abnormal ECG When compared with ECG of 24-JAN-2019 12:16, No significant change Confirmed by Chandana Aleman ([id number]) on 12/05/2020 10:40:06 AM Referred By: REFERRED SELF Confirmed By:Chandana Aleman
--- NOTE | 2020-12-05 10:42 | Electrocardiogram Report ---
Test Reason : Blood Pressure : / mmHG Vent. Rate : 067 BPM Atrial Rate : 069 BPM P-R Int : 000 ms QRS Dur : 094 ms QT Int : 412 ms P-R-T Axes : 000 020 088 degrees QTc Int : 435 ms Sinus rhythm with 1st degree A-V block Diffuse Nonspecific ST abnormality Abnormal ECG When compared with ECG of 04-DEC-2020 19:42, No significant change Confirmed by Chandana Aleman ([id number]) on 12/05/2020 10:41:40 AM Referred By: REFERRED SELF Confirmed By:Chandana Aleman
--- NOTE | 2020-12-05 10:42 | Electrocardiogram Report ---
Test Reason : Blood Pressure : / mmHG Vent. Rate : 059 BPM Atrial Rate : 277 BPM P-R Int : 000 ms QRS Dur : 098 ms QT Int : 448 ms P-R-T Axes : 000 034 111 degrees QTc Int : 443 ms Sinus rhythm with 1st degree A-V block Diffuse Nonspecific ST abnormality Abnormal ECG When compared with ECG of 05-DEC-2020 00:19, No significant change was found Confirmed by Chandana Aleman ([id number]) on 12/05/2020 10:42:20 AM Referred By: REFERRED SELF Confirmed By:Chandana Aleman
--- NOTE | 2020-12-05 10:59 | Discharge Summary ---
Date of Service December 05, 2020 Admission HPI Per Admitting Provider Patient is a very pleasant 89 year old female with PMHx DM2, CAD s/p stent 2016, Hypothyroidism, GERD, Afib, CKD stage 4, Gout, HTN, that presents with 1 day history of chest pain that she describes as "burning in the the center of my chest" and "stabbing pain on my L side under my arm that goes up towards my neck." Patient notes that this pain awoke her from bed the night prior and that it lasted roughly 10-15 minutes before dissipating. She notes that the pain has been on and off throughout the day and that on the initial time she noticed she had become sweaty and diaphoretic. She denies any SOB with the pain. She does attribute some palpitations. On outside hospital EKG initially she was thought to have some ST-Twave depressions, which upon initial hospital EKG had resolved. She did have an episode x2 of this chest pain where EKGs wer taken for both to which the first showed some ST-Twave depressions on the infero-lateral leads and the second with resolution. She notes that the pain she has in the center her of chest does feel similar to the choledocholithiasis she had in the past (02/11/2019 Dr. Nicolle Marina) which she underwent ERCP for removal of the stones. She also notes that palpation of the lateral aspect of her ribs on the L side reproduce the stinging pain. She currently denies any fever, chills, SOB, chest pain while at rest, abdominal pain, nausea, vomiting, diarrhea. Med Hx: DM2, CAD s/p stent 2016, Hypothyroidism, GERD, Afib, CKD stage 4, Gout, HTN Surg Hx: Cholecystectomy, Hemiarthroplasty L hip, ERCP 2018, Coronal stent LAD 2015 at [facility] Hx: No tobacco, alcohol, or illicit drug use. Admission Exam Per Admitting Provider Constitutional: WD/WN, vitals as above Eyes: PERRL, conjunctivae normal, anicteric sclerae ENMT: external ear and nose normal, oropharynx normal Neck: trachea midline, no thyromegaly Respiratory: normal respiratory effort, lungs clear to auscultation Cardiovascular: Rate/Rhythm: regular rate and regular rhythm Heart Sounds: + murmur (2/6 ZAHRAA ) Extremities: no calf tenderness Chest (Breasts): Additional Comments: Tenderness to palpation of the lateral chest wall along the ribs on the L side, Rib ~5-6 Gastrointestinal (Abdomen): Inspection/Auscultation: abdomen normal to inspection and normal bowel sounds; abdomen not distended Percussion/Palpation: + abdomen tender (slight epigatric tenderness ) Musculoskeletal: no cyanosis or clubbing, extremities motor strength 5/5 Skin: no rashes, warm and dry NO visible rash along the rib angles of the L side suspicious for vesicular like lesions Neurologic: PERRL, EOMI, accommodation nl, no face palsy, no dysarthria Psychiatric: A+Ox3, euthymic affect Principal Diagnosis ACS rule out complicated by hx of afib, CKD4,DM, hypothyroidism Discharge Exam General: No acute distress HEENT: Normocephalic atraumatic Neck: No significant lymphadenopathy, trachea midline, normal to visual inspection Cardiac: Regular rate and rhythm, normal S1, normal S2, systolic ejection murmur I did not appreciated any significant rubs or gallops, I did not appreciate any significant pedal edema, No calf tenderness, capillary refill is less than 3 seconds Respiratory: Clear to auscultation bilaterally with symmetrical chest rise, I did not appreciate any significant wheezes, rales, rhonchi, no increased work of breathing GI: Normal bowel sounds, soft, nontender in all 4 quadrants, nondistended MSK: No sensory or motor changes, moves all extremities without issue, extremities are warm and well-perfused Skin: [place], clean, dry, intact. Neuro: Alert and oriented x4 Psych: Calm, cooperative, logical thought process Discharge Data Allergies Allergy/AdvReac Type Severity Reaction Status Date / Time orange Allergy Intermediate Hives Verified 12/04/20 20:59 capsaicin Allergy Unknown UNSURE Verified 12/04/20 20:59 midazolam [From Versed] AdvReac Severe Hallucinati Verified 12/05/20 03:02 ng diclofenac AdvReac Intermediate Dizziness Verified 12/04/20 20:59 metformin AdvReac Mild DIARRHEA Verified 12/04/20 20:59 methadone AdvReac Mild DIZZY Verified 12/04/20 20:59 morphine AdvReac Mild HALLUCINATI Verified 12/04/20 20:59 ON promethazine AdvReac Mild SEIZURE Verified 12/04/20 20:59 LIKE ACTIVITY" troglitazone AdvReac Mild INCREASE Verified 12/04/20 20:59 LFTs Consultations 12/04/20 21:25 ED Decision to Admit Stat 12/05/20 01:52 Consult Cardiology Routine Hospital Course (1) Chest pain: Patient is a very pleasant 89 year old female with PMHx DM2, CAD s/p stent 2015, Hypothyroidism, GERD, Afib, CKD stage 4, Gout, HTN, that presents with 1 day history of chest pain that she describes as "burning in the the center of my chest" and "stabbing pain on my L side under my arm that goes up towards my neck." Chest Pain with EKG Changes with h/o CAD s/p stent 2015 Patient presented to the hospital with a description of atypical chest pain, describing it as sharp and lateral that comes on with positional changes, flexion greater than extension. Initial EKG in the ED are demonstrating concerns for lateral ST wave depressions which improved on repeat. EKGs are questionable for slightly ischemic component, troponins were negative, chest x- ray was negative for rib fracture cardiology was consulted. Cardiology evaluated the patient the following morning, did not feel there was significant concern for ACS. Recommend the patient obtain a nuclear stress echo prior to discharge. Patient tolerated procedure well, preliminary read was negative for any wall motion abnormalities or signs of cardiac ischemia. The patient is to follow-up with Dr. Mcfarlane her outpatient make up operator as an outpatient Atrial Fibrillation Remained in NSR throughout hospitalization -Continued Amiodarone -Continued Xarelto CKD Stage 4 -Creatinine 1.74 on admission -Base 1.6-1.9 -Continued Losartan Hypertension -Continued Losartan GERD -Continued Protonix Hypothyroidism -Continued Levothyroxine DM2 -SSI and basal bolus -Monitor for adjustment needs ? chronic diastolic chf (not listed in problem list) -Continued Lasix (2) Abnormal EKG: Total Time Total Time Spent Total Time Spent (In Minutes): 32 Discharge Plan Discharge Items Patient Disposition: Home - Self-Care Reason For Visit: CHEST PAIN, EKG CHANGES Discharge Diagnosis: ACS rule out complicated by hx of afib, CKD4,DM, hypothyroidism Condition on Discharge: Good Activity: Resume your previous activity Non-emergency contact: Primary Care Provider Call non-emergency contact if: you have any medication questions and your pain is not controlled Follow-up/Referrals: Katina Yang DO [Primary Care Provider] - 06/08/21 10:00 am (You're appointment is with the physician research assistant member, eLighann Valenzuela. If you have any questions or need to change this appointment, please call [phone].) Diet: Carb Consistent or DM2 and Heart Healthy Addtl Attending Provider Instructions: Care instructions: You were admitted to [facility] for treatment of chest pain. an Extensive work-up was performed to determine the cause of your chest pain, work-up was negative. It was determined that your symptoms were consistent with muscular pain as the source of your chest pain. We recommend you continue to participate in your physical therapy exercises and monitor your symptoms. A stress echo was performed and the preliminary report was negative. Please follow-up with your outpatient make up operator to discuss the final results. A discharge summary will be sent to your primary care physician to ensure continuity of care. Please bring this discharge summary with you to your next office appointment so that your provider can review it at that time. Follow-up appointments: - Keep all your follow-up appointments as already scheduled. If you cannot make an appointment, notify your provider. - Please call to request a follow-up appointment with your primary care physician within one week of discharge. Please let us know if you are unable to obtain an appointment Medications: - Your medication list has been reviewed and reconciled upon discharge to ensure accuracy and continuity of care. - You are provided with a list of all your current medications at this time. Please review this list closely and make note of any changes. - Please take all of your medications exactly as prescribed. - Tell your primary care provider if you cannot afford your medications. - Call your primary care provider if you are having any side effects or any other problems. - Call your primary care provider before taking any over the counter medications or supplements, including herbals and vitamins, because some of these may interact with your current medications and/or make your symptoms worse. Symptoms: Please call your primary care provider for symptoms including, but not limited to: fevers (temperatures greater than 100.4), chills, intractable nausea or vomiting, diarrhea, rash, shortness of breath, bleeding, pain, or if you experience any worsening of the symptoms that brought you to the hospital. For EMERGENCY and VERY SERIOUS health-related issues, such as chest pain, shortness of breath, or sudden onset of the symptoms that brought you to the hospital, you may need to call 911 or go directly to the Emergency Room It has been our privilege to take care of you during your hospital stay. And Above All Else Feel Better! Best Wishes, Waldo Prasad MD PGY2 Resident, Family & Community Medicine [facility] FCM Residency at [facility] - [address], [address] MC: [address] [place] [address] Pending Studies at Discharge: No Stand-Alone Forms: My [facility], Smoking Cessation Medications and DC Order Prescriptions: Continued Novolog PenFill U-100 Insulin 100 unit/mL cartridge 1 sliding scale dose SUBCUT TIDM Qty: 15 RF: 3 rivaroxaban 15 mg tablet 15 mg PO QPM Qty: 90 RF: 3 (DME) blood-glucose meter [OneTouch Ultra2 Meter] Misc See Rx Instructions .ROUTE .MEDSUPPLY Qty: 1 RF: 0 Basaglar KwikPen U-100 Insulin 100 unit/mL (3 mL) insulin pen 13 unit subcut QAM Qty: 15 RF: 3 (DME) lancets [OneTouch UltraSoft Lancets] Misc See Rx Instructions .ROUTE .MEDSUPPLY Qty: 100 RF: 3 lorazepam [Ativan] 0.5 mg tablet 0.5 mg PO DAILY Qty: 1 RF: 0 (DME) OneTouch Ultra Blue Test Strip Strip See Rx Instructions .ROUTE .MEDSUPPLY Qty: 100 RF: 3 atorvastatin 10 mg tablet 10 mg PO HS 30 Days Qty: 90 RF: 1 allopurinol 100 mg tablet 100 mg PO QAM Qty: 90 RF: 1 cholecalciferol (vitamin D3) [Vitamin D3] 50 mcg (2,000 unit) capsule 2,000 unit PO QAM Qty: 90 RF: 1 losartan 50 mg tablet 25 mg PO HS Qty: 45 RF: 1 furosemide 40 mg tablet 40 mg PO DAILY Qty: 90 RF: 1 amiodarone 100 mg tablet 100 mg PO QAM Qty: 90 RF: 1 levothyroxine 75 mcg capsule 75 mcg PO DAILY Qty: 90 RF: 3 (DME) pen needle, diabetic [Lite Touch Insulin Pen [place]] 31 gauge x 5/16" needle See Dose Instructions .ROUTE .MEDSUPPLY Qty: 100 RF: 5 ipratropium bromide 0.03 % spray,non-aerosol 2 spray intranasal BID Qty: 30 RF: 2 omeprazole 20 mg capsule,delayed release(DR/EC) 20 mg PO BID RF: 0 acetaminophen [Tylenol Extra Strength] 500 mg tablet 1,000 mg PO BID RF: 0 nitroglycerin [Nitrostat] 0.4 mg Tablet, Sublingual 0.4 mg Sublingual UD PRN (Reason: Chest Pain) RF: 0 latanoprost 0.005 % Drops 1 drp OPB PM RF: 0 albuterol sulfate [Proventil HFA] 90 mcg/actuation Hfa Aerosol Inhaler 1 - 2 puff INHALATION Q4 PRN (Reason: Shortness Of Breath Or Wheezing) RF: 0 clobetasol 0.05 % Ointment 1 applic TOPICAL WK RF: 0 colchicine [Colcrys] 0.6 mg Tablet 0.6 mg PO DAILY PRN (Reason: Pain, Severe) RF: 0 triamcinolone acetonide 0.1 % cream 1 applic TOPICAL BID PRN (Reason: Skin Irritation) RF: 0 tocilizumab 200 mg/10 mL (20 mg/mL) Solution 0 mg IV DIRECTED RF: 0 Discharge Orders: Discharge Order (Routine); Ordered 12/05/20 Ordered By: Waldo Prasad Admission Data Admit Date/Time: 12/04/20 23:14 Attending Provider: Amena Ocampo Admit Provider: Saturnino Novak Primary Care Provider: Katina Yang Other Providers: Robbi Luis ; Magen Mcfarlane Other Interventions: Discharge Summary Assessment (RN) Last Done: 12/05/20 14:45 Supervising Physician Co-Signing Physician Notes Resident Physician Supervision Note: I independently interviewed and examined the patient and verified the reyes history and physical, reviewed labs and image studies and agree with resident Dr. Waldo Prasad findings and care plan. Resident Activity Tracking Resident Involvement: Resident Care Provided Care Provided: Adult Hospital Medicine
--- NOTE | 2020-12-05 11:21 | Electrocardiogram Report ---
Test Reason : Blood Pressure : / mmHG Vent. Rate : 063 BPM Atrial Rate : 064 BPM P-R Int : 000 ms QRS Dur : 098 ms QT Int : 440 ms P-R-T Axes : 000 019 059 degrees QTc Int : 450 ms Sinus rhythm with 1st degree A-V block Diffuse Nonspecific ST abnormality Abnormal ECG When compared with ECG of 04-DEC-2020 21:20, No significant change was found Confirmed by Chandana Aleman ([id number]) on 12/05/2020 11:20:51 AM Referred By: REFERRED SELF Confirmed By:Chandana Aleman
[2020-12-05] MEDS ORDERED: Nursing to Pharmacy Communication SCH (14:00)
--- NOTE | 2020-12-05 15:24 | XCELERA ---
[id number]
[2020-12-05] MEDS ORDERED: INSULIN ASPART 100 UNITS/ML 3 ML PEN SC SCH (16:30)
--- NOTE | 2020-12-06 14:11 | Billing Data ---
Date of Service December 06, 2020 Coding Level of Care Code 24772 OBS Care - Level 3
--- NOTE | 2020-12-14 12:05 | Coding Query ---
CODING QUERY To promote full compliance with coding requirements relating to patient care, provider participation is requested in all cases of kick boxer uncertainty. Please assist us with the question(s) below: Coding Question(s): The Discharge Summary documents under the Principal Diagnosis, "ACS rule out complicated by hx of afib, CKD4,DM, hypothyroidism", and documents under the Hospital Course, "Chest Pain with EKG Changes with h/o CAD s/p stent 2016 Patient presented to the hospital with a description of atypical chest pain, describing it as sharp and lateral that comes on with positional changes, flexion greater than extension. Initial EKG in the ED are demonstrating concerns for lateral ST wave depressions which improved on repeat. EKGs are questionable for slightly ischemic component, troponins were negative, chest x- ray was negative for rib fracture cardiology was consulted. Cardiology evaluated the patient the following morning, did not feel there was significant concern for ACS. Recommend the patient obtain a nuclear stress echo prior to discharge. Patient tolerated procedure well, preliminary read was negative for any wall motion abnormalities or signs of cardiac ischemia. The patient is to follow-up with Dr. Mcfarlane her outpatient lottery sales clerk as an outpatient", and down lower under Addtl Attending Provider Instructions there is documentation of, "You were admitted to [facility] for treatment of chest pain. an Extensive work-up was performed to determine the cause of your chest pain, work-up was negative. It was determined that your symptoms were consistent with muscular pain as the source of your chest pain. We recommend you continue to participate in your physical therapy exercises and monitor your symptoms. A stress echo was performed and the preliminary report was negative. Please follow-up with your outpatient lottery sales clerk to discuss the final results". It is not clear if ACS rule out means that the ACS was ruled-out or has yet to be ruled-out and was still considered the possible source of the chest pain. Please clarify below, regarding ACS and the source of the chest pain. ( x ) ACS is ruled-out. The source of the chest pain was likely muscular pain. ( ) ACS is ruled-out. The source of the chest pain was Other: Please Specify ( ) ACS is ruled-out. The source of the chest pain is unknown ( ) ACS was still possible and was likely the source of the chest pain, as well as from muscular pain ( ) ACS was still possible and was the likely source of the chest pain ( ) Other: Please Specify Physician's Response(s): Thank you Louise Fernandez Principal Diagnosis: "that condition established after study, to be chiefly responsible for occasioning the admission of the patient to the hospital for care." Co-Existing Principal Diagnosis: "when two or more diagnoses equally meet the criteria for principal diagnosis as determined by the circumstances of admission, diagnostic work up, and/or therapy provided, and the Alphabetic Index, Tabular List, or another coding guideline does not provide sequencing direction, any one of the diagnoses may be sequenced first." "When the physician has documented what appears to be a current diagnosis in the body of the record, but has not included the diagnosis in the final diagnostic statement, the physician should be asked whether the diagnosis should be added." (Source Coding [facility] 2 QTR90. p3-4) KARIN
== END 2020-12-05 15:47 | disposition home or self-care (01) | DRG 313 ==
LOC: ED 19:37 → INTOOBSV 23:14 → SUATTDRO 23:14 → OBSVTOIN 23:14 → 2N 23:14

== ENCOUNTER 2020-12-12 11:27 | Inpatient (IN) ==
[2020-12-12 12:26] LABS: Basophils # (auto) 0.01 K/uL (0-0.2); Basophils % (auto) 0.2 %; Eosinophils # (auto) 0.29 K/uL (0-0.5); Eosinophils % (auto) 4.9 %; Hematocrit (blood only) 27.7 % (37-47); Hemoglobin 8.7 g/dL (12.0-16.0); Immature Granulocytes # (auto) 0.01 K/uL (0.00-0.02); Immature Granulocytes % (auto) 0.2 %; Lymphocytes # (auto) 2.28 K/uL (1.2-3.4); Lymphocytes % (auto) 38.4 %; Mean Corpuscular Hemoglobin 27.7 pg (25-34); Mean Corpuscular Hgb Conc 31.4 g/dL (32-36); Mean Corpuscular Volume 88.2 fL (80-100); Mean Platelet Volume 10.1 fL (7.4-10.4); Monocytes # (auto) 0.52 K/uL (0.11-0.59); Monocytes % (auto) 8.8 %; Neutrophils # (auto) 2.82 K/uL (1.4-6.5); Neutrophils % (auto) 47.5 %; Platelet Count 263 K/uL (130-400); RDW Coefficient of Variation 16.1 % (11.5-14.5); RDW Standard Deviation 50.9 fL (36.4-46.3); Red Blood Count 3.14 M/uL (4.2-5.4); White Blood Count 5.93 K/uL (4.8-10.8)
[2020-12-12 12:37] LABS: Partial Thromboplastin Ratio 0.8; Partial Thromboplastin Time 20.5 Seconds (21.0-31.0); Prothrombin Time 10.2 Seconds (9.0-12.0)
[2020-12-12 12:49] LABS: Alanine Aminotransferase 16 U/L (12-78); Albumin Level 3.7 gm/dl (3.4-5.0); Aspartate Aminotransferase 10 U/L (15-37); BUN Creatinine Ratio 29.1 (10-20); Bilirubin Direct < 0.1 mg/dl (0-0.2); Blood Urea Nitrogen 52 mg/dl (7-18); Calcium 8.6 mg/dl (8.5-10.1); Carbon Dioxide 26 mmol/L (21-32); Chloride 110 mmol/L (98-107); Creatinine Clr Calc Pharmacy 20.7 ml/min; Est GFR (African American) 28.8 ml/min; Est GFR (Non-African American) 24.9 ml/min; Glucose 110 mg/dl (70-99); Lipase 273 U/L (73-393); Potassium 4.4 mmol/L (3.5-5.1); Sodium 142 mmol/L (136-145)
[2020-12-12 12:49] LABS: Appearance Urine Clear (Clear); Bacteria Urine Automated Negative (Negative); Bilirubin Urine Negative (Negative); Blood Urine Negative (Negative); Cast Urine Automated 0 /lpf (0-5); Color Urine Yellow; Glucose Urine UA Negative (Negative); Ketones Urine Negative (Negative); Leukocyte Esterase Urine Trace (Negative); Nitrite Urine Negative (Negative); Protein Urine Negative (Negative); RBC Urine Automated 0-4 /hpf (0-4); Specific Gravity Urine 1.012 (1.000-1.030); Urobilinogen Urine Negative (Negative)
[2020-12-12 12:51] LABS: Alkaline Phosphatase 63 U/L (45-117); Bilirubin,Total 0.3 mg/dl (0.2-1); Total Protein 6.9 gm/dl (6.4-8.2)
--- NOTE | 2020-12-12 15:45 | History & Physical Report ---
Date of Service December 12, 2020 Assessment & Plan (1) Anemia: Patient with a normocytic anemia, some trend down over the past 2 weeks. She is on Xarelto, consider slow chronic GI bleed I will continue to monitor hemoglobin daily Check iron studies, B12, folate We will hold Xarelto in the short-term until GI bleed can be definitively ruled out I will ask GI to consult for further recommendations (2) Vertigo: Suspect this may be a longstanding issue, patient anemia is not severe enough to account for symptoms Patient is agreeable to have MRI here, will give lorazepam 0.5 mg fine with 1 prior to study PT/OT evaluation Consider neurology evaluation if symptoms persist with activity (3) Hyperlipidemia LDL goal <70: Continue atorvastatin as ordered (4) Type 2 diabetes mellitus treated with insulin: Diabetic diet Check hemoglobin A1c Continue outpatient basal insulin along with sliding scale History of Present Illness Chief Complaint: Dizziness Primary Care Provider: Katina Yang DO This is an 89-year-old female with past medical history of atrial fibrillation on Xarelto, type 2 diabetes mellitus and stage IV CKD that presents today complaining of some dizziness and dark stools. Patient is a decent historian, accompanied by daughter. Patient had been observed here secondary to chest pain. Patient had a dobutamine stress echo that was unremarkable and was subsequently discharged. Patient denies any further issues with chest pain but she did note that she was having some vertigo event as she left. When further questioned, it was unclear how long the symptoms had been occurring. Initially this had been better over the past 2 days but they did note a an ENT appointment back in September where an MRI of the brain was recommended but not yet done secondary to the patient's reluctance to undergo the study. Patient's main complaint is that she had some bowel movements at home that she noted were black. She says the stool was formed but is very dark. She denies any bright or dark blood accompanied with this. There were no clots. There was no pain with bowel movements. She denies any abdominal pain. She is on Xarelto for her atrial fibrillation but has not taken anything else as Pepto-Bismol or iron supplementation. She has had no nausea or vomiting. She has no no weight loss. In the ER, work-up included CBC which showed her BUN increased from 37 to 52, her hemoglobin was down from 9.6 to 8.7 since her observation for chest pain. She has had colonoscopies in the past but not in many years. Allergies Allergy/AdvReac Type Severity Reaction Status Date / Time orange Allergy Intermediate Hives Verified 12/12/20 14:19 capsaicin Allergy Unknown UNSURE Verified 12/12/20 14:19 midazolam [From Versed] AdvReac Severe Hallucinati Verified 12/12/20 14:19 ng diclofenac AdvReac Intermediate Dizziness Verified 12/12/20 14:19 metformin AdvReac Mild DIARRHEA Verified 12/12/20 14:19 methadone AdvReac Mild DIZZY Verified 12/12/20 14:19 morphine AdvReac Mild HALLUCINATI Verified 12/12/20 14:19 ON promethazine AdvReac Mild SEIZURE Verified 12/12/20 14:19 LIKE ACTIVITY" troglitazone AdvReac Mild INCREASE Verified 12/12/20 14:19 LFTs Home Medications Medication Instructions Recorded Confirmed Type albuterol sulfate [Proventil HFA] 1 - 2 puff INHALATION Q4 PRN 08/11/18 12/12/20 History clobetasol 1 applic TOPICAL WK 08/11/18 12/12/20 History colchicine [Colcrys] 0.6 mg PO DAILY PRN 08/11/18 12/12/20 History latanoprost 1 drp OPB PM 08/11/18 12/12/20 History nitroglycerin [Nitrostat] 0.4 mg SUBLINGUAL UD PRN 08/11/18 12/12/20 History triamcinolone acetonide 0.1 % 1 applic TOPICAL BID PRN 07/05/19 12/12/20 History topical cream insulin aspart U-100 100 unit/mL 1 sliding scale dose SUBCUT TIDM 02/18/20 12/12/20 Rx subcutaneous cartridge #15 ml rivaroxaban 15 mg tablet 15 mg PO QPM #90 tab 04/07/20 12/12/20 Rx blood-glucose meter #1 ea 04/28/20 11/23/20 Rx lancets #100 ea 05/11/20 12/12/20 Rx acetaminophen 500 mg tablet 1,000 mg PO BID tab 07/27/20 12/12/20 History ipratropium bromide 21 mcg (0.03 2 spray INTRANASAL BID #30 ml 07/27/20 12/12/20 Rx %) nasal spray atorvastatin 10 mg tablet 10 mg PO HS 30 Days #90 tab 09/21/20 12/12/20 Rx blood sugar diagnostic #100 ea 09/21/20 12/12/20 Rx allopurinol 100 mg tablet 100 mg PO QAM #90 tab 10/03/20 12/12/20 Rx cholecalciferol (vitamin D3) 50 2,000 unit PO QAM #90 cap 10/03/20 12/12/20 Rx mcg (2,000 unit) capsule amiodarone 100 mg tablet 100 mg PO QAM #90 tab 10/24/20 12/12/20 Rx omeprazole 20 mg capsule,delayed 20 mg PO BID 11/23/20 12/12/20 History release pen needle, diabetic 31 gauge x #100 ea 11/23/20 12/12/20 Rx 11/19" tocilizumab 0 mg IV MO 12/04/20 12/12/20 History furosemide 40 mg PO QAM 12/12/20 12/12/20 History insulin glargine 100 unit/mL (3 15 unit SUBCUT QAM ml 12/12/20 12/12/20 History mL) subcutaneous pen levothyroxine 75 mcg PO QAM 12/12/20 12/12/20 History losartan 25 mg PO HS 12/12/20 12/12/20 History Past Med/Surg History Medical History Allergic rhinitis Anemia of chronic disease Angina pectoris Asymmetrical left sensorineural hearing loss Atrial fibrillation status post cardioversion Benign positional vertigo Bilateral carotid artery stenosis CAD (coronary artery disease) Chronic back pain Chronic kidney disease, stage 4 (severe) Closed fracture of left distal femur Dementia Depression GERD (gastroesophageal reflux disease) Glaucoma Gout Hiatal hernia History of CVA (cerebrovascular accident) (2005) History of melanoma Hyperlipidemia LDL goal <70 Hypertension Hypothyroidism LPRD (laryngopharyngeal reflux disease) Lumbar spinal stenosis Mixed connective tissue disease Obesity Osteoarthritis Osteoporosis with fracture Peripheral vascular disease Positive sm/VEGETABLE THINNER antibody Renal artery stenosis Temporal arteritis syndrome Transient cerebral ischemia Type 2 diabetes mellitus treated with insulin Vitamin D deficiency Surgical History History of cataract surgery History of excision of lesion (1995) History of knee replacement (2009) History of laparoscopy History of left hip hemiarthroplasty (08/13/18) History of open reduction and internal fixation (ORIF) procedure (01/27/19) Hx of cholecystectomy S/P coronary artery stent placement (02/27/15) S/P ERCP (02/11/19) Stented coronary artery Family History Brother Colon cancer Cardiac disorder Cancer Sister Lung cancer Depression Diabetes Cardiac disorder Hypertension Lung disease Cancer Mother Cardiac disorder Hypertension Stroke Father Lung cancer Other Family history non-contributory Heart disease No family history of allergies No family history of bleeding disorder Denies family history of Ovarian cancer Prostate cancer Hearing loss Breast cancer Asthma Social History Smoking Status: Never smoker Second Hand Exposure: No; Hx Alcohol Use: No Hx Substance Use: No Preferred Language: French Communication Ability: Effective Visual Impairment: No Limitations Hearing Ability: Normal Vet Assistant Required: No Beliefs That Will Affect Care: None marital status: / Current Living Situation: Alone Current Living Situation Comment: lives in apartment with home nursing coming in 5x a week current occupational status: retired How many Children do You have: 1 Feels Safe at Home: Yes Dental Care, Regularly: No Physical Activity Frequency: Does not Exercise Seatbelt Use: always Sunscreen Use: No Assistive Devices: Glasses Review of Systems Constitutional: no fever, no chills, no weakness, no weight loss and no weight gain Eyes: as per Subjective / HPI Respiratory: no cough, no chest congestion, no dyspnea and no dyspnea on exertion Cardiovascular: no chest pain, no orthopnea, no palpitations, no lightheadedness and no edema Gastrointestinal: + change in stools and + melena (Possible); no abdominal pain, no nausea, no vomiting, no constipation and no diarrhea/loose stools Genitourinary: no dysuria, no difficulty urinating, no urinary frequency, no urinary hesitancy, no urinary urgency and no flank pain Musculoskeletal: no back pain, no neck pain, no joint pain, no stiffness and no myalgia Integumentary: no rash Neurologic: no gait abnormality, no unsteadiness, no falls and no generalized weakness Physical Exam Constitutional: cooperative; no acute distress Neck: trachea midline, no thyromegaly Respiratory: normal respiratory effort Auscultation: lungs clear to auscultation bilaterally; no crackles, no rales, no rhonchi and no wheezes Cardiovascular: Rate/Rhythm: regular rate and regular rhythm Heart Sounds: normal S1 and normal S2; no murmur Gastrointestinal (Abdomen): Inspection/Auscultation: abdomen normal to inspection Percussion/Palpation: abdomen soft; abdomen nontender, no guarding, abdomen not rigid and no hepatosplenomegaly Patient was heme- negative per ER physician, did not repeat Skin: no rashes, warm and dry Results & Data Results & Data ([facility]) Vital Signs (Past 12 Hours) Vital Signs Temp Pulse Resp BP Pulse Ox 12/12/20 14:00 60 14 132/49 L 98 12/12/20 13:30 59 L 17 143/50 H 98 12/12/20 13:26 60 16 95 12/12/20 13:00 58 L 17 143/50 H 97 12/12/20 12:01 64 20 168/60 H 98 12/12/20 11:29 36.5 C 66 18 151/54 H 98 PG Care Time/CCT Total # of Minutes Spent Total Time Spent with Patient: Total time spent is greater than 50% in coordination of care (as documented) at patient's floor/unit and/or counseling patient: Coding Level of Care Code 22866 OBS Care - Level 3 Diagnoses Anemia D64.9 Vertigo R42 Hyperlipidemia LDL goal <70 E78.5 Type 2 diabetes mellitus treated with insulin E11.9; Z79.4
--- NOTE | 2020-12-12 17:20 | Emergency Department Note ---
History of Present Illness General Chief complaint: GI Assessment Stated complaint: FATIGUE,DIZZINESS,BLACK STOOL,REF BY DOC Time Seen by Provider: 12/12/20 11:34 History of Present Illness Provider Complaint: + melena Onset (ago): 2 day(s) Current Pain Intensity: 0 Relieved By: + none Exacerbated By: + none Context: + anticoagulant use (Xarelto) Associated symptoms: + weakness; no abdominal pain, no nausea, no vomiting, no epistaxis, no fever, no chills, no headaches, no loss of appetite and no malaise Home Medications Medication Instructions Recorded Confirmed Type albuterol sulfate [Proventil HFA] 1 - 2 puff INHALATION Q4 PRN 08/11/18 12/12/20 History clobetasol 1 applic TOPICAL WK 08/11/18 12/12/20 History colchicine [Colcrys] 0.6 mg PO DAILY PRN 08/11/18 12/12/20 History latanoprost 1 drp OPB PM 08/11/18 12/12/20 History nitroglycerin [Nitrostat] 0.4 mg SUBLINGUAL UD PRN 08/11/18 12/12/20 History triamcinolone acetonide 0.1 % 1 applic TOPICAL BID PRN 07/05/19 12/12/20 History topical cream insulin aspart U-100 100 unit/mL 1 sliding scale dose SUBCUT TIDM 02/18/20 12/12/20 Rx subcutaneous cartridge #15 ml rivaroxaban 15 mg tablet 15 mg PO QPM #90 tab 04/07/20 12/12/20 Rx blood-glucose meter #1 ea 04/28/20 11/23/20 Rx lancets #100 ea 05/11/20 12/12/20 Rx acetaminophen 500 mg tablet 1,000 mg PO BID tab 07/27/20 12/12/20 History ipratropium bromide 21 mcg (0.03 2 spray INTRANASAL BID #30 ml 07/27/20 12/12/20 Rx %) nasal spray atorvastatin 10 mg tablet 10 mg PO HS 30 Days #90 tab 09/21/20 12/12/20 Rx blood sugar diagnostic #100 ea 09/21/20 12/12/20 Rx allopurinol 100 mg tablet 100 mg PO QAM #90 tab 10/03/20 12/12/20 Rx cholecalciferol (vitamin D3) 50 2,000 unit PO QAM #90 cap 10/03/20 12/12/20 Rx mcg (2,000 unit) capsule amiodarone 100 mg tablet 100 mg PO QAM #90 tab 10/24/20 12/12/20 Rx omeprazole 20 mg capsule,delayed 20 mg PO BID 11/23/20 12/12/20 History release pen needle, diabetic 31 gauge x #100 ea 11/23/20 12/12/20 Rx 11/19" tocilizumab 0 mg IV MO 12/04/20 12/12/20 History furosemide 40 mg PO QAM 12/12/20 12/12/20 History insulin glargine 100 unit/mL (3 15 unit SUBCUT QAM ml 12/12/20 12/12/20 History mL) subcutaneous pen levothyroxine 75 mcg PO QAM 12/12/20 12/12/20 History losartan 25 mg PO HS 12/12/20 12/12/20 History Allergies Allergy/AdvReac Type Severity Reaction Status Date / Time orange Allergy Intermediate Hives Verified 12/12/20 14:19 capsaicin Allergy Unknown UNSURE Verified 12/12/20 14:19 midazolam [From Versed] AdvReac Severe Hallucinati Verified 12/12/20 14:19 ng diclofenac AdvReac Intermediate Dizziness Verified 12/12/20 14:19 metformin AdvReac Mild DIARRHEA Verified 12/12/20 14:19 methadone AdvReac Mild DIZZY Verified 12/12/20 14:19 morphine AdvReac Mild HALLUCINATI Verified 12/12/20 14:19 ON promethazine AdvReac Mild SEIZURE Verified 12/12/20 14:19 LIKE ACTIVITY" troglitazone AdvReac Mild INCREASE Verified 12/12/20 14:19 LFTs Past Med/Surg History Medical History Allergic rhinitis Anemia of chronic disease Angina pectoris Asymmetrical left sensorineural hearing loss Atrial fibrillation status post cardioversion Benign positional vertigo Bilateral carotid artery stenosis CAD (coronary artery disease) Chronic back pain Chronic kidney disease, stage 4 (severe) Closed fracture of left distal femur Dementia Depression GERD (gastroesophageal reflux disease) Glaucoma Gout Hiatal hernia History of CVA (cerebrovascular accident) (2005) R eye History of melanoma DX 1995 ON FACE Hyperlipidemia LDL goal <70 Hypertension Hypothyroidism LPRD (laryngopharyngeal reflux disease) Lumbar spinal stenosis Mixed connective tissue disease Obesity Osteoarthritis Osteoporosis with fracture Peripheral vascular disease 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/PRODUCT SALES REPRESENTATIVE antibody Renal artery stenosis Temporal arteritis syndrome Transient cerebral ischemia Type 2 diabetes mellitus treated with insulin Vitamin D deficiency Surgical History History of cataract surgery History of excision of lesion (1995) FACE MALIGNANT .6 TO 1CM MELANOMA ON FACE,1995 History of knee replacement (2009) ONSET: 2009 L TKA History of laparoscopy LAPAROSCOPIC LYSIS OF INTESTINAL ADHESIONS History of left hip hemiarthroplasty (08/13/18) History of open reduction and internal fixation (ORIF) procedure (01/27/19) L leg Hx of cholecystectomy S/P coronary artery stent placement (02/27/15) Angioplasty and JAMES to mid LAD, 02/27/15 S/P ERCP (02/11/19) Stented coronary artery Family History Brother Colon cancer Cardiac disorder Cancer Sister Lung cancer Depression Diabetes Cardiac disorder Hypertension Lung disease Cancer Mother Cardiac disorder Hypertension Stroke Father Lung cancer Other Family history non-contributory Heart disease No family history of allergies No family history of bleeding disorder Denies family history of Ovarian cancer Prostate cancer Hearing loss Breast cancer Asthma Social History Smoking Status: Never smoker Second Hand Exposure: No; Hx Alcohol Use: No Hx Substance Use: No Preferred Language: Malawian Communication Ability: Effective Visual Impairment: No Limitations Hearing Ability: Normal Shoe Treer Required: No Beliefs That Will Affect Care: None marital status: / Current Living Situation: Alone Current Living Situation Comment: lives in apartment with home nursing coming in 5x a week current occupational status: retired How many Children do You have: 1 Feels Safe at Home: Yes Dental Care, Regularly: No Physical Activity Frequency: Does not Exercise Seatbelt Use: always Sunscreen Use: No Assistive Devices: Glasses Review of Systems A total of 10 systems reviewed and were otherwise negative Physical Exam Vital Signs: Vital Signs - 24 hr 12/12/20 11:29 12/12/20 12:01 12/12/20 13:00 Temperature 36.5 C Temperature Source Skin Pulse Rate 66 64 58 L Pulse Rate from Sp O2 Sensor 64 58 L Pulse Rhythm Respiratory Rate 18 20 17 Respiratory Effort / Characteristics Non-Labored Sponta neous Respiratory Depth Normal Respiratory Patter n Regular Blood Pressure 151/54 H 168/60 H 143/50 H Blood Pressure Jerri n 86 96 81 Blood Pressure Pos ition Sitting Pulse Oximetry 98 98 97 Oxygen Delivery Me thod Room Air Sepsis Recent Feve r Within 48 Hours No Sepsis New/Unexpla ined Change in Men pollo Status N/A Sepsis Action Take n by Nursing No Action Required 12/12/20 13:26 12/12/20 13:30 12/12/20 14:00 Temperature Temperature Source Pulse Rate 60 59 L 60 Pulse Rate from Sp O2 Sensor 60 60 Pulse Rhythm Regular Respiratory Rate 16 17 14 Respiratory Effort / Characteristics Respiratory Depth Respiratory Patter n Blood Pressure 143/50 H 132/49 L Blood Pressure Jerri n 81 76 Blood Pressure Pos ition Pulse Oximetry 95 98 98 Oxygen Delivery Me thod Room Air Sepsis Recent Feve r Within 48 Hours Sepsis New/Unexpla ined Change in Men pollo Status Sepsis Action Take n by Nursing Physical Exam: Physical Exam GENERAL: She is oriented to person, place, and time. She appears well-developed and well-nourished. She does not appear distressed. HENT: Exam performed. -Head: Normocephalic and atraumatic. -Right Ear: External ear normal. No mastoid tenderness. -Left Ear: External ear normal. No mastoid tenderness. -Mouth/Throat: The oropharynx is clear and moist. No trismus in the jaw. No dental abscesses or uvula swelling. No oropharyngeal exudate or tonsillar abscesses. EYES: Conjunctivae and EOM are normal. Pupils are equal, round, and reactive to light. Right eye exhibits no discharge. Left eye exhibits no discharge. No scler al icterus. NECK: Normal range of motion. Neck supple. No JVD present. No spinous process tenderness present. No carotid bruit present. No rigidity. No tracheal deviation and normal range of motion present. No Brudzinski's sign and no Kernig's sign noted. CV: Normal rate, irregular rhythm, systolic murmur and intact distal pulses. There is no peripheral edema. Palpable radial pulses bue. PULM/CHEST: Effort normal and breath sounds normal. No respiratory distress. No stridor. She has no wheezes. She has no rales. -Chest Wall: She exhibits no tenderness. ABD: The abdomen is soft. Bowel sounds are normal. She has no distension. No mass is present. There is no tenderness. There is no rebound, no guarding, no Dumont's sign and no tenderness at McBurney's point. Rovsig negative Rectal: Hemoccult negative MUSC/SKEL: Normal range of motion. There is no peripheral edema, tenderness or deformity. LYMPH: No cervical adenopathy. NEURO: She is alert and oriented to person, place, and time. She has normal strength. No cranial nerve deficit or sensory deficit. Coordination and gait normal. GCS eye subscore is 4. GCS verbal subscore is 5. GCS motor subscore is 6. Cerebellar tests wnl. SKIN: Pale PSYCH: She has a normal mood and affect. Behavior is normal. Judgment and thought content normal. Course Course 1134: The patient was evaluated in room B10. A complete history and physical exam was performed Cardiac monitoring: An order was placed for continuous cardiac monitoring. The monitor shows a rate of 60 with irregular rhythm 1425: Vital signs stable. Labs show hemoglobin 8.7. This is down from patient wi th baseline of around 10. Creatinine at baseline of 1.79. Given the patient be on Xarelto and feeling weak and his history of dark stools will admit the patient for serial hemoglobins and possible GI evaluation. Patient is Hemoccult negative here. No Protonix given here. Discussed the patient with Dr. Perez [facility] hospitalist who will evaluate the patient. Medical Decision Making Laboratory Data Result diagrams: 12/12/20 12:13 12/12/20 12:13 Lab Results 12/12/20 12/12/20 12/12/20 Range/Units 12:13 12:13 12:13 WBC 5.93 (4.8-10.8) K/uL RBC 3.14 L (4.2-5.4) M/uL Hgb 8.7 L (12.0-16.0) g/dL Hct 27.7 L (37-47) % MCV 88.2 (80-100) fL MCH 27.7 (25-34) pg MCHC 31.4 L (32-36) g/dL RDW Std Deviation 50.9 H (36.4-46.3) fL RDW Coeff of Daniel 16.1 H (11.5-14.5) % Plt Count 263 (130-400) K/uL MPV 10.1 (7.4-10.4) fL Immature Gran % (Auto) 0.2 % Neut % (Auto) 47.5 % Lymph % (Auto) 38.4 % [place] % (Auto) 8.8 % Eos % (Auto) 4.9 % Baso % (Auto) 0.2 % Neut # (Auto) 2.82 (1.4-6.5) K/uL Lymph # (Auto) 2.28 (1.2-3.4) K/uL [place] # (Auto) 0.52 (0.11-0.59) K/uL Eos # (Auto) 0.29 (0-0.5) K/uL Baso # (Auto) 0.01 (0-0.2) K/uL Immature Gran # (Auto) 0.01 (0.00-0.02) K/uL PT (9.0-12.0) Seconds INR (0.9-1.1) APTT (21.0-31.0) Seconds PTT Ratio Sodium 142 (136-145) mmol/L Potassium 4.4 (3.5-5.1) mmol/L Chloride 110 H (98-107) mmol/L Carbon Dioxide 26 (21-32) mmol/L Anion Gap 6.0 (3-11) BUN 52 H (7-18) mg/dl Creatinine 1.79 H (0.6-1.2) mg/dl Est Cr Clr Drug Dosing 20.7 ml/min Est GFR ( Amer) 28.8 ml/min Est GFR (Non-Af Amer) 24.9 ml/min BUN/Creatinine Ratio 29.1 H (10-20) Glucose 110 H (70-99) mg/dl Calcium 8.6 (8.5-10.1) mg/dl Total Bilirubin 0.3 (0.2-1) mg/dl Direct Bilirubin < 0.1 (0-0.2) mg/dl AST 10 L (15-37) U/L ALT 16 (12-78) U/L Alkaline Phosphatase 63 (45-117) U/L Total Protein 6.9 (6.4-8.2) gm/dl Albumin 3.7 (3.4-5.0) gm/dl Lipase 273 (73-393) U/L Urine Color Urine Appearance (Clear) Urine pH (4.5-7.5) Ur Specific [place] (1.000-1.030) Urine Protein (Negative) Urine Glucose (UA) (Negative) Urine Ketones (Negative) Urine Blood (Negative) Urine Nitrite (Negative) Urine Bilirubin (Negative) Urine Urobilinogen (Negative) Ur Leukocyte Esterase (Negative) Urine WBC (Auto) (0-5) /hpf Urine RBC (Auto) (0-4) /hpf U Hyaline Cast (Auto) (0-5) /lpf U Epithel Cells (Auto) (0-5) /lpf Urine Bacteria (Auto) (Negative) Blood Type O Positive Antibody Screen NEGATIVE 12/12/20 12/12/20 Range/Units 12:13 12:35 WBC (4.8-10.8) K/uL RBC (4.2-5.4) M/uL Hgb (12.0-16.0) g/dL Hct (37-47) % MCV (80-100) fL MCH (25-34) pg MCHC (32-36) g/dL RDW Std Deviation (36.4-46.3) fL RDW Coeff of Daniel (11.5-14.5) % Plt Count (130-400) K/uL MPV (7.4-10.4) fL Immature Gran % (Auto) % Neut % (Auto) % Lymph % (Auto) % [place] % (Auto) % Eos % (Auto) % Baso % (Auto) % Neut # (Auto) (1.4-6.5) K/uL Lymph # (Auto) (1.2-3.4) K/uL [place] # (Auto) (0.11-0.59) K/uL Eos # (Auto) (0-0.5) K/uL Baso # (Auto) (0-0.2) K/uL Immature Gran # (Auto) (0.00-0.02) K/uL PT 10.2 (9.0-12.0) Seconds INR 1.0 (0.9-1.1) APTT 20.5 L (21.0-31.0) Seconds PTT Ratio 0.8 Sodium (136-145) mmol/L Potassium (3.5-5.1) mmol/L Chloride (98-107) mmol/L Carbon Dioxide (21-32) mmol/L Anion Gap (3-11) BUN (7-18) mg/dl Creatinine (0.6-1.2) mg/dl Est Cr Clr Drug Dosing ml/min Est GFR ( Amer) ml/min Est GFR (Non-Af Amer) ml/min BUN/Creatinine Ratio (10-20) Glucose (70-99) mg/dl Calcium (8.5-10.1) mg/dl Total Bilirubin (0.2-1) mg/dl Direct Bilirubin (0-0.2) mg/dl AST (15-37) U/L ALT (12-78) U/L Alkaline Phosphatase (45-117) U/L Total Protein (6.4-8.2) gm/dl Albumin (3.4-5.0) gm/dl Lipase (73-393) U/L Urine Color Yellow Urine Appearance Clear (Clear) Urine pH 5.0 (4.5-7.5) Ur Specific [place] 1.012 (1.000-1.030) Urine Protein Negative (Negative) Urine Glucose (UA) Negative (Negative) Urine Ketones Negative (Negative) Urine Blood Negative (Negative) Urine Nitrite Negative (Negative) Urine Bilirubin Negative (Negative) Urine Urobilinogen Negative (Negative) Ur Leukocyte Esterase Trace H (Negative) Urine WBC (Auto) 1-5 (0-5) /hpf Urine RBC (Auto) 0-4 (0-4) /hpf U Hyaline Cast (Auto) 0 (0-5) /lpf U Epithel Cells (Auto) 5-10 H (0-5) /lpf Urine Bacteria (Auto) Negative (Negative) Blood Type Antibody Screen [facility] Narrative 1134: The patient was evaluated in room B10. A complete history and physical exam was performed Cardiac monitoring: An order was placed for continuous cardiac monitoring. The monitor shows a rate of 60 with irregular rhythm 1425: Vital signs stable. Labs show hemoglobin 8.7. This is down from patient with baseline of around 10. Creatinine at baseline of 1.79. Given the patient b e on Xarelto and feeling weak and his history of dark stools will admit the patient for serial hemoglobins and possible GI evaluation. Patient is Hemoccult negative here. No Protonix given here. Discussed the patient with Dr. Perez [facility] hospitalist who will evaluate the patient. Impression & Plan Anemia Discharge Plan Visit Data Chief Complaint: GI Assessment Stated Complaint: FATIGUE,DIZZINESS,BLACK STOOL,REF BY DOC ED Provider: Leonid Ruff Discharge Problem: Anemia Patient Disposition: Being Evaluated by Hospitalist Forms Stand Alone Forms: My [facility] Prescriptions Prescriptions: No Action Novolog PenFill U-100 Insulin 100 unit/mL cartridge 1 sliding scale dose SUBCUT TIDM Qty: 15 RF: 3 rivaroxaban 15 mg tablet 15 mg PO QPM Qty: 90 RF: 3 (DME) blood-glucose meter [OneTouch Ultra2 Meter] Misc See Rx Instructions .ROUTE .MEDSUPPLY Qty: 1 RF: 0 (DME) lancets [OneTouch UltraSoft Lancets] Misc See Rx Instructions .ROUTE .MEDSUPPLY Qty: 100 RF: 3 (DME) OneTouch Ultra Blue Test Strip Strip See Rx Instructions .ROUTE .MEDSUPPLY Qty: 100 RF: 3 atorvastatin 10 mg tablet 10 mg PO HS 30 Days Qty: 90 RF: 1 allopurinol 100 mg tablet 100 mg PO QAM Qty: 90 RF: 1 cholecalciferol (vitamin D3) [Vitamin D3] 50 mcg (2,000 unit) capsule 2,000 unit PO QAM Qty: 90 RF: 1 amiodarone 100 mg tablet 100 mg PO QAM Qty: 90 RF: 1 (DME) pen needle, diabetic [Lite Touch Insulin Pen [place]] 31 gauge x 5/16" needle See Dose Instructions .ROUTE .MEDSUPPLY Qty: 100 RF: 5 Basaglar KwikPen U-100 Insulin 100 unit/mL (3 mL) insulin pen 15 unit subcut QAM RF: 0 ipratropium bromide 0.03 % spray,non-aerosol 2 spray intranasal BID Qty: 30 RF: 2 omeprazole 20 mg capsule,delayed release(DR/EC) 20 mg PO BID RF: 0 acetaminophen [Tylenol Extra Strength] 500 mg tablet 1,000 mg PO BID RF: 0 nitroglycerin [Nitrostat] 0.4 mg Tablet, Sublingual 0.4 mg Sublingual UD PRN (Reason: Chest Pain) RF: 0 latanoprost 0.005 % Drops 1 drp OPB PM RF: 0 albuterol sulfate [Proventil HFA] 90 mcg/actuation Hfa Aerosol Inhaler 1 - 2 puff INHALATION Q4 PRN (Reason: Shortness Of Breath Or Wheezing) RF: 0 clobetasol 0.05 % Ointment 1 applic TOPICAL WK RF: 0 colchicine [Colcrys] 0.6 mg Tablet 0.6 mg PO DAILY PRN (Reason: Pain, Severe) RF: 0 triamcinolone acetonide 0.1 % cream 1 applic TOPICAL BID PRN (Reason: Skin Irritation) RF: 0 tocilizumab 200 mg/10 mL (20 mg/mL) Solution 0 mg IV MO RF: 0 furosemide 40 mg tablet 40 mg PO QAM RF: 0 losartan 25 mg tablet 25 mg PO HS RF: 0 levothyroxine 75 mcg capsule 75 mcg PO QAM RF: 0 Referrals Referrals: Katina Yang DO [Primary Care Provider] - Discharge Problem: Anemia Qualifiers: Anemia type: unspecified type Qualified Code(s): D64.9 - Anemia, unspecified
[2020-12-12] MEDS ORDERED: LORazepam 0.5 MG TAB PO STA (20:41)
[2020-12-12] MEDS ORDERED: CARBOHYDRATES FOR HYPOGLYCEMIA PO PRN (20:41)
[2020-12-12] MEDS ORDERED: GLUCOSE 10 TABS/TUBE PO PRN (20:41)
[2020-12-12] MEDS ORDERED: DEXTROSE 50% 50 ML SYRINGE IV PRN (20:41)
[2020-12-12] MEDS ORDERED: GLUCAGON FOR INJ 1 MG VIAL SQ PRN (20:41)
[2020-12-12] MEDS ORDERED: NITROGLYCERIN SL 0.4 MG/TAB TAB SL PRN (20:41)
[2020-12-12] MEDS ORDERED: GLUCOSE 40% GEL 15 GM TUBE PO PRN (20:41)
[2020-12-12] MEDS ORDERED: ONDANSETRON INJ 2 MG/ML 2 ML VIAL IV PRN (20:41)
[2020-12-12] MEDS ORDERED: ALBUTEROL HFA 8 GM INHALER INH PRN (20:41)
[2020-12-12] MEDS: INSULIN ASPART 100 UNITS/ML 3 ML PEN SC SCH (21:33)
[2020-12-12] MEDS ORDERED: PANTOprazole 40 MG TAB PO ONE (22:00)
[2020-12-12] MEDS ORDERED: LOSARTAN POTASSIUM 25 MG TAB PO SCH (22:00)
[2020-12-12] MEDS: ATORVASTATIN 10 MG TAB PO SCH (23:04)
[2020-12-12] MEDS: IPRATROPIUM BROMIDE NASAL SPRAY 0.06% 15ML NAE SCH ×2 (23:05→23:07)
[2020-12-12] MEDS: LATANOPROST 0.005% OP SOLN 2.5 ML BTL OPB SCH (23:05)
[2020-12-12] MEDS: ACETAMINOPHEN 325 MG TAB PO PRN (23:12)
--- NOTE | 2020-12-13 06:29 | Electrocardiogram Report ---
Test Reason : Blood Pressure : / mmHG Vent. Rate : 059 BPM Atrial Rate : 058 BPM P-R Int : 260 ms QRS Dur : 096 ms QT Int : 472 ms P-R-T Axes : 000 016 123 degrees QTc Int : 467 ms Sinus bradycardia with 1st degree A-V block Nonspecific T wave abnormality Abnormal ECG When compared with ECG of 05-DEC-2020 06:04, No significant change Confirmed by Yannick Gray ([id number]) on 12/13/2020 6:28:35 AM Referred By: Katina Yang Confirmed By:Yannick Gray
[2020-12-13] MEDS: LEVOTHYROXINE SODIUM 75 MCG TABLET PO SCH (06:30)
--- NOTE | 2020-12-13 07:54 | Magnetic Resonance Report ---
MRI OF THE BRAIN WITHOUT CONTRAST CLINICAL HISTORY: Vertigo, hearing loss. Right orbital pain. COMPARISON STUDY: Noncontrast head CT dated 01/24/2019 FINDINGS: Sagittal T1, axial diffusion, proton density and T2 weighted axial, coronal FLAIR, and axial T1-weigh naomi images were acquired. No intra or extra-axial mass lesions are visualized Axial diffusion-weighted images reveal no evidence of acute or subacute infarction. There is no evidence of ventricular dilatation. Proton density T2-weighted and FLAIR images reveal scattered foci of increased T2 signal within the w edmundo matter, likely on a small vessel basis. There are no abnormal flow voids. IMPRESSION: 1. No acute intracranial findings 2. No evidence of intracranial mass on this noncontrast study 3. No evidence of acute or subacute infarction ACT 112: Negative or not required by law. Electronically signed by: Artis Elizalde M.D. 12/13/2020 7:53 AM
[2020-12-13] MEDS: AMIODARONE 200 MG TAB PO SCH (08:26)
[2020-12-13] MEDS: allopurinoL 100 MG TAB PO SCH (08:26)
[2020-12-13] MEDS: CHOLECALCIFEROL 1,000 UNITS 25 MCG TAB PO SCH (08:26)
[2020-12-13] MEDS: FUROSEMIDE 40 MG TAB PO SCH (08:27)
[2020-12-13] MEDS: IPRATROPIUM BROMIDE NASAL SPRAY 0.06% 15ML NAE SCH ×2 (08:27→20:43)
[2020-12-13] MEDS: PANTOprazole 40 MG TAB PO SCH ×2 (08:28→20:51)
[2020-12-13] MEDS: INSULIN GLARGINE SOLOSTAR 100 UNITS/ML 3 ML PEN SQ SCH (08:29)
[2020-12-13] MEDS: INSULIN ASPART 100 UNITS/ML 3 ML PEN SC SCH ×4 (08:29→20:41)
[2020-12-13 08:47] LABS: Hematocrit (blood only) 28.4 % (37-47); Hemoglobin 8.8 g/dL (12.0-16.0); Mean Corpuscular Hemoglobin 27.3 pg (25-34); Mean Corpuscular Volume 88.2 fL (80-100); Mean Platelet Volume 9.6 fL (7.4-10.4); Platelet Count 270 K/uL (130-400); RDW Coefficient of Variation 16.2 % (11.5-14.5); RDW Standard Deviation 51.9 fL (36.4-46.3); Red Blood Count 3.22 M/uL (4.2-5.4); White Blood Count 4.73 K/uL (4.8-10.8)
[2020-12-13 09:15] LABS: Basophils # (auto) 0.02 K/uL (0-0.2); Basophils % (auto) 0.4 %; Eosinophils # (auto) 0.28 K/uL (0-0.5); Eosinophils % (auto) 5.9 %; Immature Granulocytes # (auto) 0.01 K/uL (0.00-0.02); Immature Granulocytes % (auto) 0.2 %; Lymphocytes # (auto) 2.52 K/uL (1.2-3.4); Lymphocytes % (auto) 53.3 %; Monocytes # (auto) 0.43 K/uL (0.11-0.59); Monocytes % (auto) 9.1 %; Neutrophils # (auto) 1.47 K/uL (1.4-6.5); Neutrophils % (auto) 31.1 %
[2020-12-13 09:29] LABS: BUN Creatinine Ratio 28.2 (10-20); Calcium 9.4 mg/dl (8.5-10.1); Creatinine Clr Calc Pharmacy 20.2 ml/min; Est GFR (African American) 27.9 ml/min; Magnesium 2.7 mg/dl (1.8-2.4); Potassium 3.9 mmol/L (3.5-5.1)
[2020-12-13 09:41] LABS: Thyroid Stimulating Hormone 2.43 uIu/ml (0.300-4.500)
--- NOTE | 2020-12-13 12:56 | Consultation Report ---
DATE OF CONSULTATION: 12/13/2020 GASTROINTESTINAL CONSULT NOTE REASON FOR EVALUATION: Anemia. HISTORY OF PRESENT ILLNESS: The patient is an 89-year-old hospitalized with weakness and dizziness. The patient states this has been getting progressively worse. On admission, she was noted to have a hemoglobin of 8.7, which is down from 9.3 a week ago. She reports having some dark stools recently, but in the Emergency Room, her stool was tested and was found to be Hemoccult negative. She denies use of aspirin or nonsteroidals and is having no significant abdominal pain. Her bowels have been moving normally. She said she did have a colonoscopy several years ago, but does not recall the results. She denies prior history of peptic ulcer disease. PAST MEDICAL HISTORY: Remarkable for common bile duct stone removed a year ago. She has also had left hip surgery, hypertension, hypothyroidism, hyperlipidemia, history of melanoma, history of CVA in the past, some mild dementia, atrial fibrillation, osteoporosis, history of left knee replacement and coronary stent. MEDICATIONS: Per list. ALLERGIES: Per list. FAMILY HISTORY: Positive for brother with colon cancer. PHYSICAL EXAMINATION: GENERAL: The patient is sitting in bed, eating lunch, in no acute distress. VITAL SIGNS: Normal. She is afebrile. ABDOMEN: Soft. There are no masses, tenderness, or hepatosplenomegaly. IMPRESSION AND PLAN: The patient has anemia with some associated dizziness and weakness. She stated that it is intended for her to be discharged later today. We are not able to proceed with any form of endoscopic evaluation because she has been eating today, so we will hopefully be able to arrange as an outpatient to have her undergo an EGD and a colonoscopy to further evaluate her anemia and see if there is any potential source for blood loss despite the heme-negative stool.
--- NOTE | 2020-12-13 13:45 | Hospitalist Progress Note ---
Date of Service December 13, 2020 Assessment & Plan (1) Anemia: Patient with a normocytic anemia, some trend down over the past 2 weeks. She is on Xarelto, consider slow chronic GI bleed Repeat Hgb this afternoon down to 8.2. Given continued to decrease and significant co-morbidities, recommend inpatient anemia workup over outpatient. Would also like to restart her anticoagulation sooner rather than later in addition. Transferrin sats 5% - start IV venofer B12 and folate pending Continue to hold Xarelto Discussed with Dr Miranda. Clear liquid diet tomorrow. Possible colonoscopy and EGD on Friday. (2) Vertigo: MRI without central cause. No migraines to suggest this as cause. Appears to be a long standing issue. She does have some orthostasis but given history of BPPV which improved with vesticular physical therapy would recommend this is performed as an outpatient again. PT/OT evaluation (3) Orthostasis: Possible presyncope although more likely vertigo as above. TTE recently unremarkable Will get carotid US given dizziness on turning head although much more likely vertigo as above. Given CKD stage 4 and orthostasis will d/c her losartan and continue to monitor for rebound hypertension. (4) Hyperlipidemia LDL goal <70: Continue atorvastatin as ordered (5) Type 2 diabetes mellitus treated with insulin: Diabetic diet HbA1C 6.5. Continue outpatient basal insulin along with sliding scale Admission and Anticipated Discharge Date Admission Date: December 12, 2020 Subjective Patient reports dizziness on standing mainly and when walking. Light-headed like she may pass out. However this also occurs while she is in bed and just moving her head from side to side. On discussion with her daughter at bedside she reports a multitude of ongoing symptoms. Reports prior diagnosis of BPPV which improved with vestibular therapy. Only syncopal episode was 2 years ago after the patient took x2 nitro. Ongoing night sweats for many months. Occasional SOB episodes. No chest pain. Review of Systems Review of Systems: All systems reviewed & are unremarkable except as noted in HPI & below Physical Exam Constitutional: well developed and well nourished; no acute distress Eyes: PERRL, conjunctivae normal, anicteric sclerae no nystagmus ENMT: external ear and nose normal, oropharynx normal Neck: trachea midline, no thyromegaly Respiratory: normal respiratory effort, lungs clear to auscultation Cardiovascular: RRR, no murmur, no edema Gastrointestinal (Abdomen): normal bowel sounds, soft, nontender, no hepatosplenomegaly Musculoskeletal: no cyanosis or clubbing, extremities motor strength 5/5 Skin: no rashes, warm and dry Neurologic: moves all extremities and awake; no focal motor deficits (no lateralizing deficit) and not confused Speech / Cognition: normal speech Motor/Sensory: no tremor and no pronator drift Psychiatric: A+Ox3, euthymic affect Results & Data Results & Data ([facility]) Vital Signs (Past 12 Hours) Vital Signs Temp Pulse Pulse Resp BP Pulse Ox 12/13/20 11:44 36.5 C 70 18 115/45 L 99 12/13/20 08:00 36.5 C 66 18 122/66 97 12/13/20 06:20 62 12/13/20 04:00 36.4 C L 58 L 18 126/69 96 12/13/20 02:09 64 PG Care Time/CCT Total # of Minutes Spent Total Time Spent: 70 Total Time Spent with Patient: Total time spent is greater than 50% in coordination of care (as documented) at patient's floor/unit and/or counseling patient: Coding Level of Care Code 79069 Subseq Obs Care Lvl 3 Diagnoses Anemia D64.9 Vertigo R42 Orthostasis I95.1 Hyperlipidemia LDL goal <70 E78.5 Type 2 diabetes mellitus treated with insulin E11.9; Z79.4
[2020-12-13] MEDS ORDERED: MECLIZINE 12.5 MG TAB PO PRN (13:56)
[2020-12-13] MEDS ORDERED: MECLIZINE 12.5 MG TAB PO ONE (13:56)
[2020-12-13 14:24] LABS: Hematocrit (blood only) 26.3 % (37-47); Hemoglobin 8.2 g/dL (12.0-16.0); Reticulocyte % 1.6 % (0.5-2.0); Reticulocytes # 0.05 10^6/uL (0.02-0.10)
[2020-12-13 14:53] LABS: Ferritin 10.7 ng/ml (8-388)
--- NOTE | 2020-12-13 15:08 | Ultrasound Report ---
US carotid doppler BI CLINICAL HISTORY: 89 years-old Female with dizziness on turning head ?significant stenosis. Acute po sitional dizziness COMPARISON: Brain MRI 12/12/2020 TECHNIQUE: Multiple real time sonographic images of the carotid bifurcations were obtained assessing cho scale, color Doppler and spectral wave form appearance FINDINGS: RIGHT CAROTID: The peak systolic velocity measured within the right ICA is211 cm/sec. The end diast olic velocity measured 27 cm/sec. The ICA to CCA ratio measured 3.1 which correlates with a stenosis of 50-69%. Moderate to extensive atherosclerotic plaque of the right carotid bulb and proximal right ICA. LEFT CAROTID: The peak systolic velocity measured within the left ICA is126 cm/sec. The end diastol ic velocity measured 14 cm/sec. The ICA to CCA ratio measured 1.5 which correlates with a stenosis of 50-69%. Moderate atherosclerotic plaque of the left carotid bulb and proximal left ICA. There is normal antegrade vertebral flow bilaterally. Blood pressure on the right is measured at 160/ 52 and on the left is measured at 177/54. IMPRESSION: 1. Atherosclerotic plaque of the carotid bulbs and proximal internal carotid arteries results in darnell vated peak systolic velocities, right greater than left correlating with 50-69% stenosis bilaterally. 2. Normal antegrade vertebral flow bilaterally. ACT 112: Negative or not required by law. The above report was generated using voice recognition software. It may contain grammatical, syntax o r spelling errors. Electronically signed by: Miguel Ángel Hernandez M.D. 12/13/2020 3:07 PM
[2020-12-13 15:26] LABS: Folate (Folic Acid) 16.2 ng/ml (>5.38)
[2020-12-13] MEDS ORDERED: IRON SUCROSE 200 MG in 0.9 % SODIUM CHLORIDE 100 ML IV ONE (15:28)
[2020-12-13] MEDS: ACETAMINOPHEN 325 MG TAB PO PRN (20:47)
[2020-12-13] MEDS: ATORVASTATIN 10 MG TAB PO SCH (20:50)
[2020-12-13] MEDS: LATANOPROST 0.005% OP SOLN 2.5 ML BTL OPB SCH (20:50)
[2020-12-14] MEDS: LEVOTHYROXINE SODIUM 75 MCG TABLET PO SCH (06:18)
[2020-12-14 07:22] LABS: Hematocrit (blood only) 24.8 % (37-47); Hemoglobin 7.9 g/dL (12.0-16.0); Mean Corpuscular Hemoglobin 28.3 pg (25-34); Mean Corpuscular Hgb Conc 31.9 g/dL (32-36); Mean Corpuscular Volume 88.9 fL (80-100); Mean Platelet Volume 9.7 fL (7.4-10.4); Platelet Count 263 K/uL (130-400); RDW Coefficient of Variation 16.2 % (11.5-14.5); RDW Standard Deviation 52.6 fL (36.4-46.3); Red Blood Count 2.79 M/uL (4.2-5.4); White Blood Count 3.92 K/uL (4.8-10.8)
[2020-12-14 07:58] LABS: BUN Creatinine Ratio 28.9 (10-20); Calcium 8.8 mg/dl (8.5-10.1); Creatinine Clr Calc Pharmacy 19.5 ml/min; Est GFR (African American) 26.8 ml/min; Est GFR (Non-African American) 23.1 ml/min; Potassium 3.8 mmol/L (3.5-5.1)
--- NOTE | 2020-12-14 08:26 | Gastroenterology Progress Note ---
Date of Service December 14, 2020 Assessment & Plan (1) Anemia: Anemia: Patient presented due to complaints of fatigue, dizziness, black stools with hemoglobin 8.7/hematocrit 27.7. She was subsequently admitted for further management. Patient is on chronic anticoagulation with Xarelto. Xarelt o is currently being held. This morning she reports she is doing well. Hemoglobin this morning 7.9/24.8. Tolerating clear liquids. Plan is for EGD and colonoscopy tomorrow (12/15/2020). Please refer to supervising physician addendum for further recommendations. Admission and Anticipated Discharge Date Admission Date: December 12, 2020 Subjective Patient sitting upright in a chair at bedside this morning talking on the phone. She tolerated all of clear liquid diet this morning. Denies abdominal pain, nausea, vomiting. Only one bowel movement since admission, denies any blood in stool or melena. Denies chest pain. Reports dizziness seems to be resolved this morning. Review of Systems Review of Systems: All systems reviewed & are unremarkable except as noted in Subjective Physical Exam Constitutional: WD/WN, vitals as above Eyes: wears corrective lenses Neck: normal visual inspection and trachea midline Respiratory: normal respiratory effort; no respiratory distress and no labored breathing Cardiovascular: Rate/Rhythm: regular rate and regular rhythm Gastrointestinal (Abdomen): normal bowel sounds, soft, nontender, no hepatosplenomegaly Psychiatric: Orientation: alert and oriented x 3 Results & Data ([facility]) Vital Signs (Past 12 Hours) Vital Signs Temp Pulse Pulse Resp BP BP Pulse Ox 12/14/20 07:00 60 12/14/20 03:00 36.6 C 68 18 135/49 L 98 12/14/20 02:19 63 12/13/20 23:28 36.6 C 63 18 142/42 H 98 Laboratory Results - last 24 hr 12/13/20 12/13/20 12/13/20 08:19 08:19 11:23 WBC 4.73 L RBC 3.22 L Hgb 8.8 L Hct 28.4 L MCV 88.2 MCH 27.3 MCHC 31.0 L RDW Std Deviation 51.9 H RDW Coeff of Daniel 16.2 H Plt Count 270 MPV 9.6 Immature Gran % (Auto) 0.2 Neut % (Auto) 31.1 Lymph % (Auto) 53.3 [place] % (Auto) 9.1 Eos % (Auto) 5.9 Baso % (Auto) 0.4 Reticulocyte % (Auto) Neut # (Auto) 1.47 Lymph # (Auto) 2.52 [place] # (Auto) 0.43 Eos # (Auto) 0.28 Baso # (Auto) 0.02 Reticulocyte # Immature Gran # (Auto) 0.01 ESR Sodium 141 Potassium 3.9 Chloride 109 H Carbon Dioxide 24 Anion Gap 8.0 BUN 52 H Creatinine 1.84 H Est Cr Clr Drug Dosing 20.2 Est GFR ( Amer) 27.9 Est GFR (Non-Af Amer) 24.0 BUN/Creatinine Ratio 28.2 H Glucose 129 H POC Glucose 141 H Calcium 9.4 Magnesium 2.7 H Iron Transferrin Transferrin % Sat Ferritin Vitamin B12 Folate TSH 2.430 12/13/20 12/13/20 12/13/20 14:08 14:08 14:08 WBC RBC Hgb 8.2 L Hct 26.3 L MCV MCH MCHC RDW Std Deviation RDW Coeff of Daniel Plt Count MPV Immature Gran % (Auto) Neut % (Auto) Lymph % (Auto) [place] % (Auto) Eos % (Auto) Baso % (Auto) Reticulocyte % (Auto) 1.6 Neut # (Auto) Lymph # (Auto) [place] # (Auto) Eos # (Auto) Baso # (Auto) Reticulocyte # 0.05 Immature Gran # (Auto) ESR Sodium Potassium Chloride Carbon Dioxide Anion Gap BUN Creatinine Est Cr Clr Drug Dosing Est GFR ( Amer) Est GFR (Non-Af Amer) BUN/Creatinine Ratio Glucose POC Glucose Calcium Magnesium Iron 20 L Transferrin 299 Transferrin % Sat 5 L Ferritin 10.7 Vitamin B12 610 Folate 16.20 TSH 12/13/20 12/13/20 12/14/20 16:35 20:34 06:49 WBC 3.92 L RBC 2.79 L Hgb 7.9 L Hct 24.8 L MCV 88.9 MCH 28.3 MCHC 31.9 L RDW Std Deviation 52.6 H RDW Coeff of Daniel 16.2 H Plt Count 263 MPV 9.7 Immature Gran % (Auto) Neut % (Auto) Lymph % (Auto) [place] % (Auto) Eos % (Auto) Baso % (Auto) Reticulocyte % (Auto) Neut # (Auto) Lymph # (Auto) [place] # (Auto) Eos # (Auto) Baso # (Auto) Reticulocyte # Immature Gran # (Auto) ESR Sodium Potassium Chloride Carbon Dioxide Anion Gap BUN Creatinine Est Cr Clr Drug Dosing Est GFR ( Amer) Est GFR (Non-Af Amer) BUN/Creatinine Ratio Glucose POC Glucose 121 H 132 H Calcium Magnesium Iron Transferrin Transferrin % Sat Ferritin Vitamin B12 Folate TSH 12/14/20 12/14/20 12/14/20 06:49 06:49 07:23 WBC RBC Hgb Hct MCV MCH MCHC RDW Std Deviation RDW Coeff of Daniel Plt Count MPV Immature Gran % (Auto) Neut % (Auto) Lymph % (Auto) [place] % (Auto) Eos % (Auto) Baso % (Auto) Reticulocyte % (Auto) Neut # (Auto) Lymph # (Auto) [place] # (Auto) Eos # (Auto) Baso # (Auto) Reticulocyte # Immature Gran # (Auto) ESR 4 Sodium 141 Potassium 3.8 Chloride 109 H Carbon Dioxide 25 Anion Gap 7.0 BUN 55 H Creatinine 1.90 H Est Cr Clr Drug Dosing 19.5 Est GFR ( Amer) 26.8 Est GFR (Non-Af Amer) 23.1 BUN/Creatinine Ratio 28.9 H Glucose 87 POC Glucose 95 Calcium 8.8 Magnesium Iron Transferrin Transferrin % Sat Ferritin Vitamin B12 Folate TSH (1) Anemia Anemia type: unspecified type Qualified Code(s): D64.9 - Anemia, unspecified
[2020-12-14] MEDS: INSULIN ASPART 100 UNITS/ML 3 ML PEN SC SCH ×4 (08:48→21:18)
[2020-12-14] MEDS: allopurinoL 100 MG TAB PO SCH (08:48)
[2020-12-14] MEDS: AMIODARONE 200 MG TAB PO SCH (08:48)
[2020-12-14] MEDS: PANTOprazole 40 MG TAB PO SCH ×2 (08:49→20:01)
[2020-12-14] MEDS: CHOLECALCIFEROL 1,000 UNITS 25 MCG TAB PO SCH (08:49)
[2020-12-14] MEDS: FUROSEMIDE 40 MG TAB PO SCH (08:49)
[2020-12-14] MEDS: INSULIN GLARGINE SOLOSTAR 100 UNITS/ML 3 ML PEN SQ SCH (08:50)
[2020-12-14] MEDS: IPRATROPIUM BROMIDE NASAL SPRAY 0.06% 15ML NAE SCH ×2 (08:50→20:06)
[2020-12-14] MEDS: IRON SUCROSE 200 MG in 0.9 % SODIUM CHLORIDE 100 ML IV SCH ×2 (10:14→11:02)
--- NOTE | 2020-12-14 11:43 | Hospitalist Progress Note ---
Date of Service December 14, 2020 Assessment & Plan (1) Anemia: Patient with a normocytic anemia, some trend down over the past 2 weeks. She is on Xarelto, consider slow chronic GI bleed Repeat Hgb this afternoon down to 8.2. Given continued to decrease and significant co-morbidities, recommend inpatient anemia workup over outpatient. Would also like to restart her anticoagulation sooner rather than later in addition. Transferrin sats 5% - Continue IV venofer 200mg daily during inpatient stay up to 4 days. Iron deficit approximately 900mg. B12 and folate WNL Continue to hold Xarelto Discussed with Dr Miranda. Clear liquid diet today. Colonoscopy and EGD on tomorrow. (2) Vertigo: MRI without central cause. No migraines to suggest this as cause. Appears to be a long standing issue. She does have some orthostasis but given history of BPPV which improved with vesticular physical therapy would recommend this is performed as an outpatient again. PT/OT evaluation Appears to be improved today. (3) Orthostasis: Possible presyncope although more likely vertigo as above. TTE recently unremarkable Carotid US 50-69% plaque not contributory towards this Given CKD stage 4 and orthostasis will d/c her losartan and continue to monitor for rebound hypertension. (4) Hyperlipidemia LDL goal <70: Continue atorvastatin as ordered (5) Type 2 diabetes mellitus treated with insulin: Diabetic diet HbA1C 6.5. Due to hypoglycemia will reduce lantus to sliding scale 0-10 units and continue on Novolog sliding scale. Admission and Anticipated Discharge Date Admission Date: December 12, 2020 Subjective Dizziness much improved this morning. Daughter concerned of placement no confusion this morning but with history of resolved by the afternoon. Having many bowel movement since starting GoLYTELY prep. Feeling cold while sitting on the commode. No urinary complaints, fevers, chest pain, palpitations, shortness of breath, abdominal pain. Review of Systems Review of Systems: All systems reviewed & are unremarkable except as noted in HPI & below Physical Exam Constitutional: well developed and well nourished; no acute distress Eyes: PERRL, conjunctivae normal, anicteric sclerae no nystagmus ENMT: external ear and nose normal, oropharynx normal Neck: trachea midline, no thyromegaly Respiratory: normal respiratory effort, lungs clear to auscultation Cardiovascular: RRR, no murmur, no edema Gastrointestinal (Abdomen): normal bowel sounds, soft, nontender, no hepatosplenomegaly Musculoskeletal: no cyanosis or clubbing, extremities motor strength 5/5 Skin: no rashes, warm and dry Neurologic: moves all extremities and awake; no focal motor deficits (no lateralizing deficit) and not confused Speech / Cognition: normal speech Motor/Sensory: no tremor and no pronator drift Psychiatric: A+Ox3, euthymic affect Results & Data Results & Data ([facility]) Vital Signs (Past 12 Hours) Vital Signs Temp Pulse Pulse Resp BP BP Pulse Ox 12/14/20 11:07 36.6 C 69 18 162/66 H 98 12/14/20 07:00 60 12/14/20 03:00 36.6 C 68 18 135/49 L 98 12/14/20 02:19 63 PG Care Time/CCT Total # of Minutes Spent Total Time Spent with Patient: Total time spent is greater than 50% in coordination of care (as documented) at patient's floor/unit and/or counseling patient: Coding Level of Care Code 97147 Subseq Obs Care Lvl 2 Diagnoses Anemia D50.0 Anemia type: iron deficiency Iron deficiency anemia type: chronic blood loss Vertigo R42 Orthostasis I95.1 Hyperlipidemia LDL goal <70 E78.5 Type 2 diabetes mellitus treated with insulin E11.9; Z79.4 (1) Anemia Anemia type: iron deficiency Iron deficiency anemia type: chronic blood loss Qualified Code(s): D50.0 - Iron deficiency anemia secondary to blood loss (chronic)
[2020-12-14] MEDS ORDERED: LAVAGE SOLUTION 4000ML PO SCH (15:00)
[2020-12-14] MEDS: LAVAGE SOLUTION 4000ML PO SCH (15:02)
--- NOTE | 2020-12-14 16:20 | Progress Notes ---
DATE: 12/14/2020 Progress note with Sophia Borjas The patient reports no abdominal pain, nausea or vomiting. Her blood count has dropped to 7.9 today, but she has had no obvious bleeding. She started her bowel prep for her colonoscopy and EGD, which was scheduled for tomorrow afternoon. I have advised her to avoid red or purple beverages between now and the time of her colonoscopy tomorrow.
[2020-12-14] MEDS: ATORVASTATIN 10 MG TAB PO SCH (20:01)
[2020-12-14] MEDS: LATANOPROST 0.005% OP SOLN 2.5 ML BTL OPB SCH (20:03)
[2020-12-14] MEDS: ACETAMINOPHEN 325 MG TAB PO PRN (20:05)
[2020-12-15] MEDS: LAVAGE SOLUTION 4000ML PO SCH (06:06)
[2020-12-15] MEDS: LEVOTHYROXINE SODIUM 75 MCG TABLET PO SCH (06:06)
[2020-12-15 08:10] LABS: Hematocrit (blood only) 26.5 % (37-47); Hemoglobin 8.2 g/dL (12.0-16.0); Mean Corpuscular Hemoglobin 27.3 pg (25-34); Mean Corpuscular Hgb Conc 30.9 g/dL (32-36); Mean Corpuscular Volume 88.3 fL (80-100); Mean Platelet Volume 9.3 fL (7.4-10.4); Platelet Count 272 K/uL (130-400); RDW Coefficient of Variation 16.2 % (11.5-14.5); RDW Standard Deviation 52.1 fL (36.4-46.3); White Blood Count 3.85 K/uL (4.8-10.8)
[2020-12-15] MEDS: PANTOprazole 40 MG TAB PO SCH ×2 (08:33→20:15)
[2020-12-15] MEDS: AMIODARONE 200 MG TAB PO SCH (08:34)
[2020-12-15] MEDS: FUROSEMIDE 40 MG TAB PO SCH (08:34)
[2020-12-15] MEDS: allopurinoL 100 MG TAB PO SCH (08:34)
[2020-12-15] MEDS: CHOLECALCIFEROL 1,000 UNITS 25 MCG TAB PO SCH (08:34)
[2020-12-15] MEDS: INSULIN ASPART 100 UNITS/ML 3 ML PEN SC SCH ×4 (08:36→20:16)
[2020-12-15] MEDS: IPRATROPIUM BROMIDE NASAL SPRAY 0.06% 15ML NAE SCH ×2 (08:37→20:17)
[2020-12-15] MEDS: ACETAMINOPHEN 325 MG TAB PO PRN ×2 (08:39→20:20)
[2020-12-15] MEDS: IRON SUCROSE 200 MG in 0.9 % SODIUM CHLORIDE 100 ML IV SCH (08:39)
[2020-12-15 08:47] LABS: BUN Creatinine Ratio 21.5 (10-20); Calcium 9.5 mg/dl (8.5-10.1); Creatinine Clr Calc Pharmacy 23.1 ml/min; Est GFR (African American) 32.8 ml/min; Est GFR (Non-African American) 28.3 ml/min; Potassium 3.9 mmol/L (3.5-5.1)
--- NOTE | 2020-12-15 09:11 | Gastroenterology Progress Note ---
Date of Service December 15, 2020 Assessment & Plan (1) Anemia: Anemia: Patient presented due to complaints of fatigue, dizziness, black stools with hemoglobin 8.7/hematocrit 27.7. She was subsequently admitted for further management. Patient is on chronic anticoagulation with Xarelto. Xarelt o is currently being held. This morning she reports she is doing well. Hemoglobin this morning 8.2/26.5. No signs of bleeding. Tolerating GoLYTELY and having bowel movements morning. Plan is for EGD and colonoscopy this afternoon. Please refer to supervising physician addendum for further recommendations. Admission and Anticipated Discharge Date Admission Date: December 15, 2020 Subjective The patient is lying in bed this morning awake alert and oriented. She reports that she is tolerating GoLYTELY without difficulty. She reports that she has mild abdominal cramping preceding a bowel movement but otherwise no abdominal pain, nausea, vomiting. She is moving her bowels well and using a bedside commode with bowel movements. Denies dizziness or chest pain at present time. She is receiving an iron infusion via her IV. She has no complaints this morning. The patient is a lifetime non-smoker. She denies any alcohol intake. She denies use of recreational drugs including marijuana. She is retired. 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 She does live alone. Review of Systems Review of Systems: All systems reviewed & are unremarkable except as noted in Subjective Physical Exam Gastrointestinal (Abdomen): normal bowel sounds, soft, nontender, no hepatosplenomegaly Results & Data ([facility]) Vital Signs (Past 12 Hours) Vital Signs Temp Pulse Pulse Resp BP Pulse Ox 12/15/20 07:34 36.3 C L 63 16 165/69 H 98 12/15/20 05:28 66 12/15/20 04:30 36.6 C 62 18 159/64 H 92 12/15/20 00:03 36.5 C 67 18 183/63 H 96 Laboratory Results - last 24 hr 12/14/20 12/14/20 12/14/20 11:17 16:20 16:21 WBC RBC Hgb Hct MCV MCH MCHC RDW Std Deviation RDW Coeff of Daniel Plt Count MPV Sodium Potassium Chloride Carbon Dioxide Anion Gap BUN Creatinine Est Cr Clr Drug Dosing Est GFR ( Amer) Est GFR (Non-Af Amer) BUN/Creatinine Ratio Glucose POC Glucose 101 H 67 L* 74 Calcium 12/14/20 12/14/20 12/14/20 16:23 20:02 20:59 WBC RBC Hgb Hct MCV MCH MCHC RDW Std Deviation RDW Coeff of Daniel Plt Count MPV Sodium Potassium Chloride Carbon Dioxide Anion Gap BUN Creatinine Est Cr Clr Drug Dosing Est GFR ( Amer) Est GFR (Non-Af Amer) BUN/Creatinine Ratio Glucose POC Glucose 74 70 89 Calcium 12/15/20 12/15/20 12/15/20 07:41 07:50 07:50 WBC 3.85 L RBC 3.00 L Hgb 8.2 L Hct 26.5 L MCV 88.3 MCH 27.3 MCHC 30.9 L RDW Std Deviation 52.1 H RDW Coeff of Daniel 16.2 H Plt Count 272 MPV 9.3 Sodium 140 Potassium 3.9 Chloride 106 Carbon Dioxide 25 Anion Gap 9.0 BUN 35 H Creatinine 1.61 H Est Cr Clr Drug Dosing 23.1 Est GFR ( Amer) 32.8 Est GFR (Non-Af Amer) 28.3 BUN/Creatinine Ratio 21.5 H Glucose 83 POC Glucose 83 Calcium 9.5 (1) Anemia Anemia type: unspecified type Qualified Code(s): D64.9 - Anemia, unspecified
[2020-12-15] MEDS: POTASSIUM CHLORIDE 20 MEQ in DEXTROSE 5% 1,000 ML IV SCH ×2 (09:34→19:53)
--- NOTE | 2020-12-15 10:33 | Anesthesiology Consultation ---
Date of Service December 15, 2020 Assessment & Plan (1) Encounter for pre-operative examination: Chart Review Chart Review: Acceptable Risk for Surgery, Patient NOT seen in Pre Admission Testing and charge entry specialist initiated Consults Requested none Proposed Anesthesia Anesthesia Type: MAC Risk / Benefits Reviewed With: PT / POA / Parent / Guardian, Accepts Plan and Informed Consent Obtained History Surgery Operation Date: 12/15/20 15:30 Proposed Procedures p Colonoscopy EGD Dr Ruth Miranda Height/Weight Height: 5 ft 3 in Weight: 73.1 kg Allergies Allergy/AdvReac Type Severity Reaction Status Date / Time orange Allergy Intermediate Hives Verified 12/12/20 14:19 capsaicin Allergy Unknown UNSURE Verified 12/12/20 14:19 midazolam [From Versed] AdvReac Severe Hallucinati Verified 12/12/20 14:19 ng diclofenac AdvReac Intermediate Dizziness Verified 12/12/20 14:19 metformin AdvReac Mild DIARRHEA Verified 12/12/20 14:19 methadone AdvReac Mild DIZZY Verified 12/12/20 14:19 morphine AdvReac Mild HALLUCINATI Verified 12/12/20 14:19 ON promethazine AdvReac Mild SEIZURE Verified 12/12/20 14:19 LIKE ACTIVITY" troglitazone AdvReac Mild INCREASE Verified 12/12/20 14:19 LFTs Medications Home Medications Medication Instructions Recorded Confirmed Last Taken albuterol sulfate [Proventil HFA] 1 - 2 puff INHALATION Q4 PRN 08/11/18 12/12/20 08/10/18 18:00 clobetasol 1 applic TOPICAL WK 08/11/18 12/12/20 Unknown colchicine [Colcrys] 0.6 mg PO DAILY PRN 08/11/18 12/12/20 Unknown latanoprost 1 drp OPB PM 08/11/18 12/12/20 12/11/20 nitroglycerin [Nitrostat] 0.4 mg SUBLINGUAL UD PRN 08/11/18 12/12/20 01/24/19 09:00 1 tablet triamcinolone acetonide 0.1 % 1 applic TOPICAL BID PRN 07/05/19 12/12/20 Unknown topical cream insulin aspart U-100 100 unit/mL 1 sliding scale dose SUBCUT TIDM 02/18/20 0 12/12/20 12/11/20 subcutaneous cartridge #15 ml 2 units rivaroxaban 15 mg tablet 15 mg PO QPM #90 tab 04/07/20 12/12/20 12/11/20 blood-glucose meter #1 ea 04/28/20 11/23/20 Unknown lancets #100 ea 05/11/20 12/12/20 Unknown acetaminophen 500 mg tablet 1,000 mg PO BID tab 07/27/20 12/12/20 12/12/20 ipratropium bromide 21 mcg (0.03 2 spray INTRANASAL BID #30 ml 07/27/20 12/12/20 12/03/20 08:00 %) nasal spray atorvastatin 10 mg tablet 10 mg PO HS 30 Days #90 tab 09/21/20 12/12/20 12/11/20 blood sugar diagnostic #100 ea 09/21/20 12/12/20 Unknown allopurinol 100 mg tablet 100 mg PO QAM #90 tab 10/03/20 12/12/20 12/12/20 cholecalciferol (vitamin D3) 50 2,000 unit PO QAM #90 cap 10/03/20 12/12/20 12/12/20 mcg (2,000 unit) capsule amiodarone 100 mg tablet 100 mg PO QAM #90 tab 10/24/20 12/12/20 12/12/20 omeprazole 20 mg capsule,delayed 20 mg PO BID 11/23/20 12/12/20 12/12/20 release pen needle, diabetic 31 gauge x #100 ea 11/23/20 12/12/20 Unknown 11/19" tocilizumab 0 mg IV MO 12/04/20 12/12/20 11/13/20 furosemide 40 mg PO QAM 12/12/20 12/12/20 12/12/20 insulin glargine 100 unit/mL (3 15 unit SUBCUT QAM ml 12/12/20 12/12/20 12/12/20 mL) subcutaneous pen levothyroxine 75 mcg PO QAM 12/12/20 12/12/20 12/12/20 losartan 25 mg PO HS 12/12/20 12/12/20 12/11/20 Active Medications Generic Name Dose Route Start Last Admin Trade Name Freq PRN Reason Stop Dose Admin Acetaminophen 650 mg 12/12/20 20:41 12/15/20 08:39 Acetaminophen 325 Mg Tab PO 01/11/21 20:40 650 mg Q4H PRN Administration Pain or Fever Allopurinol 100 mg 12/13/20 09:00 12/15/20 08:34 Allopurinol 100 Mg Tab PO 01/12/21 08:59 100 mg QAM SNOW Administration Amiodarone HCl 100 mg 12/13/20 09:00 12/15/20 08:34 Amiodarone 200 Mg Tab PO 01/12/21 08:59 100 mg QAM SNOW Administration Atorvastatin Calcium 10 mg 12/12/20 22:00 12/14/20 20:01 Atorvastatin 10 Mg Tab PO 01/11/21 21:59 10 mg HS SNOW Administration Furosemide 40 mg 12/13/20 09:00 12/15/20 08:34 Furosemide 40 Mg Tab PO 01/12/21 08:59 40 mg QAM SNOW Administration Iron Sucrose 200 mg/ Sodium 110 mls @ 220 mls/hr 12/14/20 09:00 12/15/20 09:09 Chloride IV 12/16/20 08:59 Infused QAM SNOW Infusion Potassium Chloride 20 meq/ 1,010 mls @ 100 mls/hr 12/15/20 07:30 12/15/20 09 :34 Dextrose IV 01/14/21 07:29 100 mls/hr .Q10H6M SNOW Administration Insulin Aspart 0 units 12/12/20 21:30 12/15/20 08:36 Insulin Aspart 100 Units/Ml 3 Ml Pen SC 01/11/21 21:29 Not Given ACHS SNOW Ipratropium [place] 2 sprays 12/12/20 22:00 12/15/20 08:37 Ipratropium [place] Nasal [place] 0.06% 15ml MAGI 01/11/21 21:59 2 sprays BID SNOW Administration Latanoprost 1 drops 12/12/20 22:00 12/14/20 20:03 Latanoprost 0.005% Op Soln 2.5 Ml Btl OPB 01/11/21 21:59 1 drops PM SNOW Administration Levothyroxine Sodium 75 mcg 12/13/20 06:30 12/15/20 06:06 Levothyroxine Sodium 75 Mcg Tablet PO 01/12/21 06:29 75 mcg DAILYBB SNOW Administration Pantoprazole Sodium 40 mg 12/13/20 09:00 12/15/20 08:33 Pantoprazole 40 Mg Tab PO 01/12/21 08:59 40 mg BID SNOW Administration Protocol Vitamin D 2,000 units 12/13/20 09:00 12/15/20 08:34 Cholecalciferol 1,000 Units 25 Mcg Tab PO 01/12/21 08:59 2,000 units QAM SNOW Administration Past Medical History Medical History Allergic rhinitis Anemia of chronic disease Angina pectoris Asymmetrical left sensorineural hearing loss Atrial fibrillation status post cardioversion Benign positional vertigo Bilateral carotid artery stenosis CAD (coronary artery disease) Chronic back pain Chronic kidney disease, stage 4 (severe) Closed fracture of left distal femur Dementia Depression GERD (gastroesophageal reflux disease) Glaucoma Gout Hiatal hernia History of CVA (cerebrovascular accident) (2005) R eye History of melanoma DX 1995 ON FACE Hyperlipidemia LDL goal <70 Hypertension Hypothyroidism LPRD (laryngopharyngeal reflux disease) Lumbar spinal stenosis Mixed connective tissue disease Obesity Osteoarthritis Osteoporosis with fracture Peripheral vascular disease 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 Renal artery stenosis Temporal arteritis syndrome Transient cerebral ischemia Type 2 diabetes mellitus treated with insulin Vitamin D deficiency Past Family History Family History Brother Colon cancer Cardiac disorder Cancer Sister Lung cancer Depression Diabetes Cardiac disorder Hypertension Lung disease Cancer Mother Cardiac disorder Hypertension Stroke Father Lung cancer Other Family history non-contributory Heart disease No family history of allergies No family history of bleeding disorder Denies family history of Ovarian cancer Prostate cancer Hearing loss Breast cancer Asthma Past Surgical History Surgical History History of cataract surgery History of excision of lesion (1995) FACE MALIGNANT .6 TO 1CM MELANOMA ON FACE,1995 History of knee replacement (2009) ONSET: 2009 L TKA History of laparoscopy LAPAROSCOPIC LYSIS OF INTESTINAL ADHESIONS History of left hip hemiarthroplasty (08/13/18) History of open reduction and internal fixation (ORIF) procedure (01/27/19) L leg Hx of cholecystectomy S/P coronary artery stent placement (02/27/15) Angioplasty and JAMES to mid LAD, 02/27/15 S/P ERCP (02/11/19) Stented coronary artery Social History Smoking Status: Never smoker Hx Alcohol Use: No Hx Substance Use: No substance use type: does not use Physical Exam Vital Signs Last Vital Signs Temp 36.3 C L 12/15/20 07:34 Pulse 63 12/15/20 08:00 Resp 16 12/15/20 07:34 BP 165/69 H 12/15/20 07:34 Pulse Ox 98 12/15/20 07:34 Testing Laboratory Results 12/15/20 07:50 12/15/20 07:50 PT 10.2 Seconds (9.0-12.0) 12/12/20 12:13 INR 1.0 (0.9-1.1) 12/12/20 12:13 APTT 20.5 Seconds (21.0-31.0) L 12/12/20 12:13 Urine Color Yellow 12/12/20 12:35 Urine Appearance Clear (Clear) 12/12/20 12:35 Urine pH 5.0 (4.5-7.5) 12/12/20 12:35 Ur Specific [place] 1.012 (1.000-1.030) 12/12/20 12:35 Urine Protein Negative (Negative) 12/12/20 12:35 Urine Glucose (UA) Negative (Negative) 12/12/20 12:35 Urine Ketones Negative (Negative) 12/12/20 12:35 Urine Nitrite Negative (Negative) 12/12/20 12:35 Ur Leukocyte Esterase Trace (Negative) H 12/12/20 12:35 Urine WBC (Auto) 1-5 /hpf (0-5) 12/12/20 12:35 Urine RBC (Auto) 0-4 /hpf (0-4) 12/12/20 12:35 U Hyaline Cast (Auto) 0 /lpf (0-5) 12/12/20 12:35 U Epithel Cells (Auto) 5-10 /lpf (0-5) H 12/12/20 12:35 Urine Bacteria (Auto) Negative (Negative) 12/12/20 12:35 Blood Type O Positive 12/12/20 12:13 Antibody Screen NEGATIVE 12/12/20 12:13 12/15/20 07:41 POC Glucose 83 Chest X-Ray Findings: + L hemidiaphragm elevation
[2020-12-15] MEDS: INSULIN GLARGINE SOLOSTAR 100 UNITS/ML 3 ML PEN SQ SCH (10:41)
[2020-12-15] MEDS ORDERED: hydrALAZINE HCL 20 MG/ML VIAL IV PRN (14:28)
--- NOTE | 2020-12-15 14:29 | Hospitalist Progress Note ---
Date of Service December 15, 2020 Assessment & Plan (1) Anemia: Patient with a normocytic anemia, some trend down over the past 2 weeks. She is on Xarelto, consider slow chronic GI bleed Repeat Hgb this afternoon down to 8.2. Given continued to decrease and significant co-morbidities, recommend inpatient anemia workup over outpatient. Would also like to restart her anticoagulation sooner rather than later in addition. Transferrin sats 5% - Continue IV venofer 200mg daily during inpatient stay up to 4 days. Iron deficit approximately 900mg. B12 and folate WNL Continue to hold Xarelto. Hgb stable 8.2. Discussed with Dr Miranda. Colonoscopy/EGD today - Dieulafoy lesion of stomach. (2) Vertigo: MRI without central cause. No migraines to suggest this as cause. Appears to be a long standing issue. She does have some orthostasis but given history of BPPV which improved with vesticular physical therapy would recommend this is performed as an outpatient again. PT/OT evaluation, needs PT prior to discharge Appears to be improved today. (3) Orthostasis: Possible presyncope although more likely vertigo as above. TTE recently unremarkable Carotid US 50-69% plaque not contributory towards this Given CKD stage 4 and orthostasis will d/c her losartan and continue to monitor for rebound hypertension. (4) Hyperlipidemia LDL goal <70: Continue atorvastatin as ordered (5) Type 2 diabetes mellitus treated with insulin: Diabetic diet HbA1C 6.5. Due to hypoglycemia will reduce lantus to sliding scale 0-10 units and continue on Novolog sliding scale. Not requiring any basal insulin at the current time but also NPO. (6) Atrial fibrillation status post cardioversion: Anticoagulation on hold. No a. fib on telemetry. Switch to Eliquis on discharge given low renal function and age will go on 2.5mg PO BID Admission and Anticipated Discharge Date Admission Date: December 15, 2020 Subjective Patient seen prior and post EGD/colonoscopy. Sitting on commode this morning. Not yet seen by physical therapy. Did well with EGD/colonoscopy. No melena with colonoscopy prep. Vertigo and dizziness much improved. No nausea, vomiting, abdominal pain. Significant diarrhea with colonoscopy prep, reportedly drank this very well. Review of Systems Review of Systems: All systems reviewed & are unremarkable except as noted in HPI & below Physical Exam Constitutional: well developed and well nourished; no acute distress Eyes: no nystagmus ENMT: external ear and nose normal, oropharynx normal Neck: trachea midline, no thyromegaly Respiratory: normal respiratory effort, lungs clear to auscultation Cardiovascular: RRR, no murmur, no edema Gastrointestinal (Abdomen): normal bowel sounds, soft, nontender, no hepatosplenomegaly Musculoskeletal: no cyanosis or clubbing, extremities motor strength 5/5 Skin: no rashes, warm and dry Neurologic: moves all extremities and awake; not confused Speech / Cognition: normal speech Psychiatric: A+Ox3, euthymic affect Results & Data Results & Data ([facility]) Vital Signs (Past 12 Hours) Vital Signs Temp Pulse Pulse Resp BP Pulse Ox 12/15/20 11:54 36.3 C L 56 L 17 193/64 H 92 12/15/20 08:00 63 12/15/20 07:34 36.3 C L 63 16 165/69 H 98 12/15/20 05:28 66 12/15/20 04:30 36.6 C 62 18 159/64 H 92 PG Care Time/CCT Total # of Minutes Spent Total Time Spent with Patient: Total time spent is greater than 50% in coordination of care (as documented) at patient's floor/unit and/or counseling patient: Coding Level of Care Code 83441 Subseq Hosp Care Lvl 2 Diagnoses Anemia D50.0 Anemia type: iron deficiency Iron deficiency anemia type: chronic blood loss Vertigo R42 Orthostasis I95.1 Hyperlipidemia LDL goal <70 E78.5 Type 2 diabetes mellitus treated with insulin E11.9; Z79.4 Atrial fibrillation status post cardioversion I48.91 (1) Anemia Anemia type: iron deficiency Iron deficiency anemia type: chronic blood loss Qualified Code(s): D50.0 - Iron deficiency anemia secondary to blood loss (chronic)
[2020-12-15] MEDS ORDERED: LIDOCAINE 2% 2 ML VIAL/AMP(20MG/ML) INFIL ONE (15:04)
[2020-12-15] MEDS ORDERED: PROPOFOL IV EMULSION 10 MG/ML 20 ML VIAL IV ONE (15:04)
--- NOTE | 2020-12-15 15:08 | History & Physical Report ---
Date of Service December 15, 2020 Assessment & Plan Admission and Anticipated Discharge Date Admission Date: December 15, 2020 History of Present Illness Chief Complaint: anemia Primary Care Provider: Katina Yang, For EGD and colonoscopy Allergies Allergy/AdvReac Type Severity Reaction Status Date / Time orange Allergy Intermediate Hives Verified 12/12/20 14:19 capsaicin Allergy Unknown UNSURE Verified 12/12/20 14:19 midazolam [From Versed] AdvReac Severe Hallucinati Verified 12/12/20 14:19 ng diclofenac AdvReac Intermediate Dizziness Verified 12/12/20 14:19 metformin AdvReac Mild DIARRHEA Verified 12/12/20 14:19 methadone AdvReac Mild DIZZY Verified 12/12/20 14:19 morphine AdvReac Mild HALLUCINATI Verified 12/12/20 14:19 ON promethazine AdvReac Mild SEIZURE Verified 12/12/20 14:19 LIKE ACTIVITY" troglitazone AdvReac Mild INCREASE Verified 12/12/20 14:19 LFTs Home Medications Medication Instructions Recorded Confirmed Type albuterol sulfate [Proventil HFA] 1 - 2 puff INHALATION Q4 PRN 08/11/18 12/12/20 History clobetasol 1 applic TOPICAL WK 08/11/18 12/12/20 History colchicine [Colcrys] 0.6 mg PO DAILY PRN 08/11/18 12/12/20 History latanoprost 1 drp OPB PM 08/11/18 12/12/20 History nitroglycerin [Nitrostat] 0.4 mg SUBLINGUAL UD PRN 08/11/18 12/12/20 History triamcinolone acetonide 0.1 % 1 applic TOPICAL BID PRN 07/05/19 12/12/20 History topical cream insulin aspart U-100 100 unit/mL 1 sliding scale dose SUBCUT TIDM 02/18/20 12/12/20 Rx subcutaneous cartridge #15 ml rivaroxaban 15 mg tablet 15 mg PO QPM #90 tab 04/07/20 12/12/20 Rx blood-glucose meter #1 ea 04/28/20 11/23/20 Rx lancets #100 ea 05/11/20 12/12/20 Rx acetaminophen 500 mg tablet 1,000 mg PO BID tab 07/27/20 12/12/20 History ipratropium bromide 21 mcg (0.03 2 spray INTRANASAL BID #30 ml 01/21/21 06/08/21 Rx %) nasal spray atorvastatin 10 mg tablet 10 mg PO HS 30 Days #90 tab 09/21/20 12/12/20 Rx blood sugar diagnostic #100 ea 09/21/20 12/12/20 Rx allopurinol 100 mg tablet 100 mg PO QAM #90 tab 10/03/20 12/12/20 Rx cholecalciferol (vitamin D3) 50 2,000 unit PO QAM #90 cap 10/03/20 12/12/20 Rx mcg (2,000 unit) capsule amiodarone 100 mg tablet 100 mg PO QAM #90 tab 10/24/20 12/12/20 Rx omeprazole 20 mg capsule,delayed 20 mg PO BID 11/23/20 12/12/20 History release pen needle, diabetic 31 gauge x #100 ea 11/23/20 12/12/20 Rx 11/19" tocilizumab 0 mg IV MO 12/04/20 12/12/20 History furosemide 40 mg PO QAM 12/12/20 12/12/20 History insulin glargine 100 unit/mL (3 15 unit SUBCUT QAM ml 12/12/20 12/12/20 History mL) subcutaneous pen levothyroxine 75 mcg PO QAM 12/12/20 12/12/20 History losartan 25 mg PO HS 12/12/20 12/12/20 History Past Med/Surg History Medical History Allergic rhinitis Anemia of chronic disease Angina pectoris Asymmetrical left sensorineural hearing loss Atrial fibrillation status post cardioversion Benign positional vertigo Bilateral carotid artery stenosis CAD (coronary artery disease) Chronic back pain Chronic kidney disease, stage 4 (severe) Closed fracture of left distal femur Dementia Depression GERD (gastroesophageal reflux disease) Glaucoma Gout Hiatal hernia History of CVA (cerebrovascular accident) (2005) R eye History of melanoma DX 1995 ON FACE Hyperlipidemia LDL goal <70 Hypertension Hypothyroidism LPRD (laryngopharyngeal reflux disease) Lumbar spinal stenosis Mixed connective tissue disease Obesity Osteoarthritis Osteoporosis with fracture Peripheral vascular disease 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 Renal artery stenosis Temporal arteritis syndrome Transient cerebral ischemia Type 2 diabetes mellitus treated with insulin Vitamin D deficiency Surgical History History of cataract surgery History of excision of lesion (1995) FACE MALIGNANT .6 TO 1CM MELANOMA ON FACE,1995 History of knee replacement (2009) ONSET: 2010 L TKA History of laparoscopy LAPAROSCOPIC LYSIS OF INTESTINAL ADHESIONS History of left hip hemiarthroplasty (08/13/18) History of open reduction and internal fixation (ORIF) procedure (01/27/19) L leg Hx of cholecystectomy S/P coronary artery stent placement (02/27/15) Angioplasty and JAMES to mid LAD, 02/27/15 S/P ERCP (02/11/19) Stented coronary artery Family History Brother Colon cancer Cardiac disorder Cancer Sister Lung cancer Depression Diabetes Cardiac disorder Hypertension Lung disease Cancer Mother Cardiac disorder Hypertension Stroke Father Lung cancer Other Family history non-contributory Heart disease No family history of allergies No family history of bleeding disorder Denies family history of Ovarian cancer Prostate cancer Hearing loss Breast cancer Asthma Social History Smoking Status: Never smoker Second Hand Exposure: No; Hx Alcohol Use: No Hx Substance Use: No Preferred Language: [place] Communication Ability: Effective Visual Impairment: No Limitations Hearing Ability: Normal 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 Required: No Beliefs That Will Affect Care: None marital status: / Current Living Situation: Alone Current Living Situation Comment: lives in apartment with home nursing coming in 5x a week current occupational status: retired How many Children do You have: 1 Other Information That Helps Us Care for You: No Feels Safe at Home: Yes Dental Care, Regularly: No Physical Activity Frequency: Does not Exercise Seatbelt Use: always Sunscreen Use: No Assistive Devices: Glasses and Walker Physical Exam Constitutional: + ill appearing Respiratory: normal respiratory effort Cardiovascular: Rate/Rhythm: regular rate and regular rhythm Gastrointestinal (Abdomen): Percussion/Palpation: abdomen soft Results & Data ([facility]) Vital Signs (Past 12 Hours) Vital Signs Temp Pulse Pulse Resp BP Pulse Ox 12/15/20 14:57 72 12/15/20 14:43 36.9 C 69 16 219/68 H 98 12/15/20 11:54 36.3 C L 56 L 17 193/64 H 92 12/15/20 08:00 63 12/15/20 07:34 36.3 C L 63 16 165/69 H 98 12/15/20 05:28 66 12/15/20 04:30 36.6 C 62 18 159/64 H 92 Code Status & VTE Plan VTE Prophylaxis Plan VTE Prophylaxis will be ordered: No
[2020-12-15] MEDS ORDERED: SODIUM CHLORIDE 0.9% 1000ML 1,000 ML IV SCH (15:15)
--- NOTE | 2020-12-15 16:13 | GI REPORT ---
Patient Name: Irma Gonsales Procedure Date: 12/15/2020 3:18 PM Date of : 1930 Admit Type: Inpatient Age: 89 Gender: Female Attending MD: Justin Miranda MD Procedure: Upper GI endoscopy Providers: Justin Miranda MD Referring MD: Katina Yang Indications: Iron deficiency anemia secondary to chronic blood loss, Melena Medicines: Propofol total dose 200 mg IV, Lidocaine 80 mg IV Complications: No immediate complications. Estimated Blood Loss: Estimated blood loss: none. Procedure: Pre-Anesthesia Assessment: - Prior to the procedure, a History and Physical was performed, and patient medications, allergies and sensitivities were reviewed. The patient's tolerance of previous anesthesia was reviewed. - The risks and benefits of the procedure and the sedation options and risks were discussed with the patient. All questions were answered and informed consent was obtained. After obtaining informed consent, the endoscope was passed under direct vision. Throughout the procedure, the patient's blood pressure, pulse, and oxygen saturations were monitored continuously. The Endoscope was introduced through the mouth, and advanced to the second part of duodenum. The upper GI endoscopy was accomplished without difficulty. The patient tolerated the procedure well. Findings: The Z-line was regular and was found 38 cm from the incisors. The examined esophagus was normal. A Dieulafoy lesion with no bleeding and no stigmata of recent bleeding was found in the cardia. To prevent bleeding post-intervention, one hemostatic clip was successfully placed (MR conditional). There was no bleeding during, or at the end, of the procedure. The examined duodenum was normal. Impression: - Z-line regular, 38 cm from the incisors. - Normal esophagus. - Dieulafoy lesion of stomach. - Normal examined duodenum. - No specimens collected. Recommendation: - Return patient to hospital farrar for ongoing care. Justin Miranda M.D. Justin Miranda MD 12/15/2020 4:12:43 PM This report has been signed electronically. Note Initiated On: 12/15/2020 3:18 PM Number of Addenda: 0 I attest to the content of the Intraoperative Record and orders documented therein, exceptions below {[id number]}
--- NOTE | 2020-12-15 16:15 | GI REPORT ---
Patient Name: Irma Gonsales Procedure Date: 12/15/2020 3:17 PM Date of : 1930 Admit Type: Inpatient Age: 89 Gender: Female Attending MD: Justin Miranda MD Procedure: Colonoscopy Providers: Justin Miranda MD Referring MD: Katina Yang Indications: Melena, Acute post hemorrhagic anemia Medicines: Propofol total dose 200 mg IV, Lidocaine 80 mg IV Complications: No immediate complications. Estimated Blood Loss: Estimated blood loss: none. Procedure: Pre-Anesthesia Assessment: - Prior to the procedure, a History and Physical was performed, and patient medications, allergies and sensitivities were reviewed. The patient's tolerance of previous anesthesia was reviewed. - The risks and benefits of the procedure and the sedation options and risks were discussed with the patient. All questions were answered and informed consent was obtained. After I obtained informed consent, the scope was passed under direct vision. Throughout the procedure, the patient's blood pressure, pulse, and oxygen saturations were monitored continuously. The Colonoscope was introduced through the anus and advanced to the cecum, identified by appendiceal orifice and ileocecal valve. The colonoscopy was performed without difficulty. The patient tolerated the procedure well. The quality of the bowel preparation was excellent. Findings: The entire examined colon appeared normal. Impression: - The entire examined colon is normal. - No specimens collected. Recommendation: - Return patient to hospital farrar for ongoing care. Justin Miranda M.D. Justin Miranda MD 12/15/2020 4:14:28 PM This report has been signed electronically. Note Initiated On: 12/15/2020 3:17 PM Number of Addenda: 0 I attest to the content of the Intraoperative Record and orders documented therein, exceptions below {[id number]}
--- NOTE | 2020-12-15 16:25 | Anesthesiology Progress Note ---
Date of Service December 15, 2020 Anesthesia Post Procedure Vital Signs Vital Signs: Temp Pulse Pulse Resp BP Pulse Ox 12/15/20 16:11 50 L 15 140/52 L 99 12/15/20 14:57 72 12/15/20 14:43 36.9 C 69 16 219/68 H 98 12/15/20 11:54 36.3 C L 56 L 17 193/64 H 92 12/15/20 08:00 63 12/15/20 07:34 36.3 C L 63 16 165/69 H 98 12/15/20 05:28 66 12/15/20 04:30 36.6 C 62 18 159/64 H 92 12/15/20 00:03 36.5 C 67 18 183/63 H 96 12/14/20 19:35 36.3 C L 62 18 191/65 H 97 Transfer of Care Handoff Completed per policy Notes Mental Status: alert / awake / arousable and participated in evaluation Patient Amnestic to Procedure: Yes Nausea / Vomiting: adequately controlled Pain: adequately controlled Airway Patency, RR, SpO2: stable & adequate BP & HR: stable & adequate Hydration State: stable & adequate Anesthetic Complications: no major complications apparent and Pt Satisfied with anesthetic care
[2020-12-15] MEDS: ATORVASTATIN 10 MG TAB PO SCH (20:15)
[2020-12-15] MEDS: LATANOPROST 0.005% OP SOLN 2.5 ML BTL OPB SCH (20:16)
[2020-12-16 05:54] LABS: Basophils # (auto) 0.02 K/uL (0-0.2); Basophils % (auto) 0.5 %; Eosinophils # (auto) 0.21 K/uL (0-0.5); Eosinophils % (auto) 4.8 %; Hematocrit (blood only) 25.7 % (37-47); Hemoglobin 7.7 g/dL (12.0-16.0); Immature Granulocytes # (auto) 0.01 K/uL (0.00-0.02); Immature Granulocytes % (auto) 0.2 %; Lymphocytes # (auto) 1.69 K/uL (1.2-3.4); Lymphocytes % (auto) 38.9 %; Mean Corpuscular Hemoglobin 26.7 pg (25-34); Mean Corpuscular Volume 89.2 fL (80-100); Mean Platelet Volume 9.7 fL (7.4-10.4); Monocytes # (auto) 0.45 K/uL (0.11-0.59); Monocytes % (auto) 10.3 %; Neutrophils # (auto) 1.97 K/uL (1.4-6.5); Neutrophils % (auto) 45.3 %; Platelet Count 266 K/uL (130-400); RDW Coefficient of Variation 16.4 % (11.5-14.5); RDW Standard Deviation 52.5 fL (36.4-46.3); Red Blood Count 2.88 M/uL (4.2-5.4); White Blood Count 4.35 K/uL (4.8-10.8)
[2020-12-16] MEDS: LEVOTHYROXINE SODIUM 75 MCG TABLET PO SCH (06:08)
[2020-12-16 06:13] LABS: BUN Creatinine Ratio 14.3 (10-20); Calcium 8.9 mg/dl (8.5-10.1); Est GFR (African American) 30.9 ml/min; Est GFR (Non-African American) 26.7 ml/min; Potassium 3.9 mmol/L (3.5-5.1)
[2020-12-16 06:28] LABS: Anisocytosis Present; Polychromasia 1+
[2020-12-16] MEDS: PANTOprazole 40 MG TAB PO SCH ×2 (08:26→20:56)
[2020-12-16] MEDS: AMIODARONE 200 MG TAB PO SCH (08:26)
[2020-12-16] MEDS: CHOLECALCIFEROL 1,000 UNITS 25 MCG TAB PO SCH (08:27)
[2020-12-16] MEDS: allopurinoL 100 MG TAB PO SCH (08:27)
[2020-12-16] MEDS: FUROSEMIDE 40 MG TAB PO SCH (08:27)
[2020-12-16] MEDS: INSULIN ASPART 100 UNITS/ML 3 ML PEN SC SCH ×4 (08:28→21:12)
[2020-12-16] MEDS: INSULIN GLARGINE SOLOSTAR 100 UNITS/ML 3 ML PEN SQ SCH (08:29)
[2020-12-16] MEDS: IPRATROPIUM BROMIDE NASAL SPRAY 0.06% 15ML NAE SCH ×2 (08:31→20:57)
--- NOTE | 2020-12-16 14:50 | Progress Notes ---
DATE: 12/15/2020 Justin Miranda MD dictating a progress note on Irma Gonsales along with Sophia Borjas on 12/15: The patient underwent EGD and colonoscopy today for melena and progressive anemia. The patient's colonoscopy was entirely normal, but in her stomach, she had a lesion in the cardia area of the stomach that was consistent with a Dieulafoy lesion. This lesion was clipped with a Hemoclip. There was no bleeding during and after the procedure. No other source of blood loss was identified. IMPRESSION: The patient was bleeding most likely from a Dieulafoy lesion, which has stopped. The lesion was clipped and the patient can resume her diet and hopefully be discharged from the hospital soon.
[2020-12-16] MEDS ORDERED: SODIUM CHLORIDE 0.9% 250 ML IV PRN (15:40)
[2020-12-16] MEDS: ACETAMINOPHEN 325 MG TAB PO PRN (17:50)
--- NOTE | 2020-12-16 18:32 | Hospitalist Progress Note ---
Date of Service December 16, 2020 Assessment & Plan (1) Anemia: Patient with a normocytic anemia, some trend down over the past 2 weeks. She is on Xarelto, consider slow chronic GI bleed Hgb 7.7 with dizziness - suspect this is still her vertigo but difficult to rule out not symptomatic from anemia and given orthostasis will tranfuse 1 unit and restart her anticoagulation with repeat Hgb in AM Transferrin sats 5% - Continue IV venofer 200mg daily during inpatient stay up to 4 days. Iron deficit approximately 900mg. B12 and folate WNL Restart on anticoagulation with Eliquis 2.5mg PO BID s/p EGD/colonoscopy with dieulafoy lesion of stomach - no active bleeding seen. (2) Vertigo: MRI without central cause. No migraines to suggest this as cause. Appears to be a long standing issue. She does have some orthostasis but given history of BPPV which improved with vesticular physical therapy would recommend this is performed as an outpatient again. Improved since admission but still "dizzy on ambulation" (3) Orthostasis: Possible presyncope although more likely vertigo as above. TTE recently unremarkable Carotid US 50-69% plaque not contributory towards this Given CKD stage 4 and orthostasis will d/c her losartan and continue to monitor for rebound hypertension. (4) Hypertension: Continue furosemide 40mg PO daily. Holding losartan due to orthostasis. (5) Hyperlipidemia LDL goal <70: Continue atorvastatin as ordered (6) Type 2 diabetes mellitus treated with insulin: Diabetic diet HbA1C 6.5. Due to hypoglycemia will reduce lantus to sliding scale 0-10 units and continue on Novolog sliding scale. Still not requiring any basal insulin. (7) Atrial fibrillation status post cardioversion: Anticoagulation on hold. No a. fib on telemetry. Start Eliquis 2.5 mg p.o. twice daily Continue amiodarone 100 mg p.o. daily (8) Hypothyroidism: Continue levothyroxine 75 mcg p.o. daily (9) GERD (gastroesophageal reflux disease): Continue pantoprazole 40 mg p.o. twice daily (10) Gout: Continue allopurinol 100 mg p.o. daily Admission and Anticipated Discharge Date Admission Date: December 15, 2020 Anticipated date of discharge: 12/17/20 Subjective Patient with some dizziness with physical therapy while walking. Describes as lightheadedness but also the same as the feeling of when she turns her head in bed. Discussed extensively with her daughter at bedside and decided to transfuse 1 unit of blood as this may be contributing towards ongoing dizziness. Review of Systems Review of Systems: All systems reviewed & are unremarkable except as noted in HPI & below Physical Exam Constitutional: well developed and well nourished; no acute distress ENMT: external ear and nose normal, oropharynx normal Neck: trachea midline, no thyromegaly Respiratory: normal respiratory effort, lungs clear to auscultation Cardiovascular: RRR, no murmur, no edema Gastrointestinal (Abdomen): normal bowel sounds, soft, nontender, no hepatosplenomegaly Musculoskeletal: no cyanosis or clubbing, extremities motor strength 5/5 Skin: no rashes, warm and dry Neurologic: moves all extremities and awake; not confused Speech / Cognition: normal speech Motor/Sensory: no tremor and no pronator drift Psychiatric: A+Ox3, euthymic affect Results & Data Results & Data ([facility]) Vital Signs (Past 12 Hours) Vital Signs Temp Pulse Pulse Resp BP BP BP 12/16/20 18:28 36.8 C 70 20 164/66 H 12/16/20 18:17 36.7 C 74 20 188/66 H 12/16/20 17:57 36.9 C 72 18 180/67 H 12/16/20 17:40 36.6 C 73 18 169/67 H 12/16/20 15:27 72 12/16/20 14:59 36.6 C 70 20 119/44 L 12/16/20 14:32 36.4 C L 88 20 153/90 H 135/49 L 12/16/20 11:29 36.4 C L 88 20 153/90 H 12/16/20 07:41 36.8 C 72 20 131/65 12/16/20 07:15 67 Pulse Ox 12/16/20 18:28 97 12/16/20 18:17 98 12/16/20 17:57 96 12/16/20 17:40 94 12/16/20 15:27 12/16/20 14:59 93 12/16/20 14:32 95 12/16/20 11:29 95 12/16/20 07:41 98 12/16/20 07:15 PG Care Time/CCT Total # of Minutes Spent Total Time Spent with Patient: Total time spent is greater than 50% in coordination of care (as documented) at patient's floor/unit and/or counseling patient: Coding Level of Care Code 59212 Subseq Hosp Care Lvl 2 Diagnoses Anemia D50.0 Anemia type: iron deficiency Iron deficiency anemia type: chronic blood loss Vertigo R42 Orthostasis I95.1 Hypertension I10 Hyperlipidemia LDL goal <70 E78.5 Type 2 diabetes mellitus treated with insulin E11.9; Z79.4 Atrial fibrillation status post cardioversion I48.91 Hypothyroidism E03.9 GERD (gastroesophageal reflux disease) K21.9 Gout M10.9 (1) Anemia Anemia type: iron deficiency Iron deficiency anemia type: chronic blood loss Qualified Code(s): D50.0 - Iron deficiency anemia secondary to blood loss (chronic)
[2020-12-16] MEDS: LATANOPROST 0.005% OP SOLN 2.5 ML BTL OPB SCH (20:56)
[2020-12-16] MEDS: ATORVASTATIN 10 MG TAB PO SCH (20:56)
[2020-12-16] MEDS: APIXABAN 2.5 MG TAB PO SCH (20:56)
[2020-12-17] MEDS: LEVOTHYROXINE SODIUM 75 MCG TABLET PO SCH (06:07)
[2020-12-17 06:27] LABS: Hematocrit (blood only) 29.5 % (37-47); Hemoglobin 9.5 g/dL (12.0-16.0); Mean Corpuscular Hemoglobin 27.9 pg (25-34); Mean Corpuscular Hgb Conc 32.2 g/dL (32-36); Mean Corpuscular Volume 86.8 fL (80-100); Mean Platelet Volume 9.7 fL (7.4-10.4); Nucleated RBC # (auto) 0.03 K/uL (0-0); Nucleated RBC % (auto) 0.6 %; Platelet Count 246 K/uL (130-400); RDW Standard Deviation 49.6 fL (36.4-46.3); White Blood Count 4.98 K/uL (4.8-10.8)
[2020-12-17 06:46] LABS: Albumin Level 3.5 gm/dl (3.4-5.0); BUN Creatinine Ratio 18.2 (10-20); Calcium 8.9 mg/dl (8.5-10.1); Creatinine Clr Calc Pharmacy 21.2 ml/min; Est GFR (African American) 29.4 ml/min; Est GFR (Non-African American) 25.4 ml/min
[2020-12-17 06:49] LABS: Albumin Globulin Ratio 1.3 (0.9-2); Bilirubin,Total 0.3 mg/dl (0.2-1); Globulin 2.7 gm/dl (2.5-4.0); Total Protein 6.2 gm/dl (6.4-8.2)
[2020-12-17] MEDS: CHOLECALCIFEROL 1,000 UNITS 25 MCG TAB PO SCH (08:38)
[2020-12-17] MEDS: APIXABAN 2.5 MG TAB PO SCH (08:38)
[2020-12-17] MEDS: FUROSEMIDE 40 MG TAB PO SCH (08:38)
[2020-12-17] MEDS: PANTOprazole 40 MG TAB PO SCH (08:38)
[2020-12-17] MEDS: allopurinoL 100 MG TAB PO SCH (08:38)
[2020-12-17] MEDS: AMIODARONE 200 MG TAB PO SCH (08:39)
[2020-12-17] MEDS: ACETAMINOPHEN 325 MG TAB PO PRN (08:40)
[2020-12-17] MEDS: IPRATROPIUM BROMIDE NASAL SPRAY 0.06% 15ML NAE SCH (08:40)
[2020-12-17] MEDS: INSULIN GLARGINE SOLOSTAR 100 UNITS/ML 3 ML PEN SQ SCH (08:41)
[2020-12-17] MEDS: INSULIN ASPART 100 UNITS/ML 3 ML PEN SC SCH ×2 (08:43→12:26)
--- NOTE | 2020-12-17 15:55 | Discharge Summary ---
Date of Service December 17, 2020 Admission HPI Per Admitting Provider This is an 89-year-old female with past medical history of atrial fibrillation on Xarelto, type 2 diabetes mellitus and stage IV CKD that presents today complaining of some dizziness and dark stools. Patient is a decent historian, accompanied by daughter. Patient had been observed here secondary to chest pain. Patient had a dobutamine stress echo that was unremarkable and was subsequently discharged. Patient denies any further issues with chest pain but she did note that she was having some vertigo event as she left. When further questioned, it was unclear how long the symptoms had been occurring. Initially this had been better over the past 2 days but they did note a an ENT appointment back in September where an MRI of the brain was recommended but not yet done secondary to the patient's reluctance to undergo the study. Patient's main complaint is that she had some bowel movements at home that she noted were black. She says the stool was formed but is very dark. She denies any bright or dark blood accompanied with this. There were no clots. There was no pain with bowel movements. She denies any abdominal pain. She is on Xarelto for her atrial fibrillation but has not taken anything else as Pepto-Bismol or iron supplementation. She has had no nausea or vomiting. She has no no weight loss. In the ER, work-up included CBC which showed her BUN increased from 37 to 52, her hemoglobin was down from 9.6 to 8.7 since her observation for chest pain. She has had colonoscopies in the past but not in many years. Admission Exam Per Admitting Provider Constitutional: cooperative; no acute distress Neck: trachea midline, no thyromegaly Respiratory: normal respiratory effort Auscultation: lungs clear to auscultation bilaterally; no crackles, no rales, no rhonchi and no wheezes Cardiovascular: Rate/Rhythm: regular rate and regular rhythm Heart Sounds: normal S1 and normal S2; no murmur Gastrointestinal (Abdomen): Inspection/Auscultation: abdomen normal to inspection Percussion/Palpation: abdomen soft; abdomen nontender, no guarding, abdomen not rigid and no hepatosplenomegaly Patient was heme-negative per ER physician, did not repeat Skin: no rashes, warm and dry Principal Diagnosis Anemia Dizziness Vertigo Discharge Exam Constitutional well developed and well nourished; no acute distress improved color after blood transfusion ENMT external ear and nose normal, oropharynx normal Neck trachea midline, no thyromegaly Respiratory normal respiratory effort, lungs clear to auscultation Cardiovascular RRR, no murmur, no edema Gastrointestinal (Abdomen) normal bowel sounds, soft, nontender, no hepatosplenomegaly Neurologic moves all extremities and awake; not confused Psychiatric A+Ox3, euthymic affect Discharge Data Allergies Allergy/AdvReac Type Severity Reaction Status Date / Time orange Allergy Intermediate Hives Verified 12/12/20 14:19 capsaicin Allergy Unknown UNSURE Verified 12/12/20 14:19 midazolam [From Versed] AdvReac Severe Hallucinati Verified 12/12/20 14:19 ng diclofenac AdvReac Intermediate Dizziness Verified 12/12/20 14:19 metformin AdvReac Mild DIARRHEA Verified 12/12/20 14:19 methadone AdvReac Mild DIZZY Verified 12/12/20 14:19 morphine AdvReac Mild HALLUCINATI Verified 12/12/20 14:19 ON promethazine AdvReac Mild SEIZURE Verified 12/12/20 14:19 LIKE ACTIVITY" troglitazone AdvReac Mild INCREASE Verified 12/12/20 14:19 LFTs Consultations 12/12/20 14:20 ED Decision to Admit Stat 12/13/20 09:19 Consult Gastroenterology Routine Procedures Performed Operation Date: 12/15/20 15:30 Actual Procedures p Esophagogastroduodenoscopy - Justin yanes Colonoscopy - Justin Miranda Ordered Studies 12/12/20 20:41 MR brain wo con Urgent IMPRESSION: 1. No acute intracranial findings 2. No evidence of intracranial mass on this noncontrast study 3. No evidence of acute or subacute infarction 12/13/20 14:30 US carotid doppler BI Routine IMPRESSION: 1. Atherosclerotic plaque of the carotid bulbs and proximal internal carotid arteries results in elevated peak systolic velocities, right greater than left correlating with 50-69% stenosis bilaterally. 2. Normal antegrade vertebral flow bilaterally. Hospital Course (1) Anemia: Irma Gonsales is an 89 yea old female admitted to [facility] from December 12-2020 due to dizziness and anemia. As work-up for her anemia she underwent endoscopy and colonoscopy which showed a gastric Dieulafoy lesion suspected to be the cause of her chronic GI bleed which was clipped. She received one unit packed red blood cells. Discharge hemoglobin Due to chronic kidney disease and better stroke risk prevention she was switched from Xarelto to Eliquis (2.5mg PO BID). Vertigo - Suspect the majority of her dizziness is secondary to BPPV and recommend outpatient vestibular physical therapy for this as this is helped in the past. Type 2 diabetes mellitus - due to hypoglycemia with HbA1C 6.5 recommend lowering your insulin doses. On day prior to discharge you required a total of 13 units of insulin. Please follow up with your primary care physician for ongoing management of this. This may have to be adjusted if you carbohydrate intake is much higher at home. Orthostatic hypotension - losartan discontinued due to chronic kidney disease stage IV. Doubtful this is causing her dizziness however. Dizziness - additional workup including carotid US as above - not suspected to be contributory and unremarkable MRI brain. (2) Vertigo: (3) Orthostasis: (4) Hypertension: (5) Hyperlipidemia LDL goal <70: (6) Type 2 diabetes mellitus treated with insulin: (7) Atrial fibrillation status post cardioversion: (8) Hypothyroidism: (9) GERD (gastroesophageal reflux disease): (10) Gout: Total Time Total Time Spent Total Time Spent (In Minutes): 35 Total Time Includes: Examination of the Patient, Discharge Planning and Medication Reconciliation Discharge Plan Discharge Items Patient Disposition: Home - Home Health Services Reason For Visit: VERTIGO, ANEMIA Discharge Diagnosis: Anemia Dizziness Vertigo Activity: Resume your previous activity Non-emergency contact: Primary Care Provider Call non-emergency contact if: you have any medication questions and your symptoms worsen Follow-up/Referrals: Katina Yang DO [Primary Care Provider] - Diet: Carb Consistent or DM2 Addtl Attending Provider Instructions: You were admitted to [facility] from December 12-2020 due to dizziness and anemia. Suspect the majority of your dizziness is secondary to vertigo (benign paroxysmal positional vertigo) and recommend outpatient vestibular physical therapy for this as this is helped in the past. As work-up for your anemia you underwent endoscopy and colonoscopy which showed a Dieulafoy lesion (abnormal large artery) suspected to be the cause of your gastrointestinal bleed. To prevent further bleeding this was clipped. Due to chronic kidney disease recommend switching Xarelto to Eliquis as prescribed. This is also been shown to reduce risk of strokes more than Xarelto. Renal function Type 2 diabetes mellitus - due to hypoglycemia with HbA1C 6.5 recommend lowering your insulin doses as prescribed below. On day prior to discharge you required a total of 13 units of insulin. Please follow up with your primary care physician for ongoing management of this. This may have to be adjusted if you carbohydrate intake is much higher at home. Orthostatic hypotension - recommend discontinuing losartan due to chronic kidney disease stage IV. Please follow-up with your PCP for ongoing management of your high blood pressure. Pending Studies at Discharge: No Stand-Alone Forms: My [facility], Smoking Cessation Medications and DC Order Prescriptions: New Eliquis 2.5 mg Tablet 2.5 mg PO BID Qty: 60 RF: 0 Continued Novolog PenFill U-100 Insulin 100 unit/mL cartridge 1 sliding scale dose SUBCUT TIDM Qty: 15 RF: 3 (DME) blood-glucose meter [OneTouch Ultra2 Meter] Misc See Rx Instructions .ROUTE .MEDSUPPLY Qty: 1 RF: 0 (DME) lancets [OneTouch UltraSoft Lancets] Misc See Rx Instructions .ROUTE .MEDSUPPLY Qty: 100 RF: 3 (DME) OneTouch Ultra Blue Test Strip Strip See Rx Instructions .ROUTE .MEDSUPPLY Qty: 100 RF: 3 atorvastatin 10 mg tablet 10 mg PO HS 30 Days Qty: 90 RF: 1 allopurinol 100 mg tablet 100 mg PO QAM Qty: 90 RF: 1 cholecalciferol (vitamin D3) [Vitamin D3] 50 mcg (2,000 unit) capsule 2,000 unit PO QAM Qty: 90 RF: 1 amiodarone 100 mg tablet 100 mg PO QAM Qty: 90 RF: 1 (DME) pen needle, diabetic [Lite Touch Insulin Pen [place]] 31 gauge x 5/16" needle See Dose Instructions .ROUTE .MEDSUPPLY Qty: 100 RF: 5 ipratropium bromide 0.03 % spray,non-aerosol 2 spray intranasal BID Qty: 30 RF: 2 omeprazole 20 mg capsule,delayed release(DR/EC) 20 mg PO BID RF: 0 acetaminophen [Tylenol Extra Strength] 500 mg tablet 1,000 mg PO BID RF: 0 nitroglycerin [Nitrostat] 0.4 mg Tablet, Sublingual 0.4 mg Sublingual UD PRN (Reason: Chest Pain) RF: 0 latanoprost 0.005 % Drops 1 drp OPB PM RF: 0 albuterol sulfate [Proventil HFA] 90 mcg/actuation Hfa Aerosol Inhaler 1 - 2 puff INHALATION Q4 PRN (Reason: Shortness Of Breath Or Wheezing) RF: 0 clobetasol 0.05 % Ointment 1 applic TOPICAL WK RF: 0 colchicine [Colcrys] 0.6 mg Tablet 0.6 mg PO DAILY PRN (Reason: Pain, Severe) RF: 0 triamcinolone acetonide 0.1 % cream 1 applic TOPICAL BID PRN (Reason: Skin Irritation) RF: 0 tocilizumab 200 mg/10 mL (20 mg/mL) Solution 0 mg IV MO RF: 0 furosemide 40 mg tablet 40 mg PO QAM RF: 0 levothyroxine 75 mcg capsule 75 mcg PO QAM RF: 0 Changed Basaglar KwikPen U-100 Insulin 100 unit/mL (3 mL) insulin pen 10 unit subcut QAM Qty: 0 RF: 0 Discontinued rivaroxaban 15 mg tablet 15 mg PO QPM Qty: 90 RF: 3 losartan 25 mg tablet 25 mg PO HS RF: 0 Discharge Orders: Discharge Order (Routine); Ordered 12/17/20 Ordered By: Gucci Epstein Admission Data Admit Date/Time: 12/15/20 07:04 Attending Provider: Gucci Epstein Admit Provider: Alfredo Fiore Primary Care Provider: Katina Yang Other Providers: Alfredo Fiore ; Justin Miranda Other Interventions: Discharge Summary Assessment (RN) Last Done: 12/17/20 14:38 Coding Level of Care Code D/C Day Management >30 mins Diagnoses Anemia D50.0 Anemia type: iron deficiency Iron deficiency anemia type: chronic blood loss Vertigo R42 Orthostasis I95.1 Hypertension I10 Hyperlipidemia LDL goal <70 E78.5 Type 2 diabetes mellitus treated with insulin E11.9; Z79.4 Atrial fibrillation status post cardioversion I48.91 Hypothyroidism E03.9 GERD (gastroesophageal reflux disease) K21.9 Gout M10.9
== END 2020-12-17 17:55 | disposition home health service (06) | DRG 378 ==
LOC: 2N 11:27 → ED 11:27 → SUATTDRO 15:56 → 2N 20:16